=== PATIENT | female | born 1990 | race Caucasian/White ===

== ENCOUNTER 2020-12-19 10:11 | Outpatient (CLI) | payer OTHER, SELFPAY ==
--- NOTE | ~2020-12-19 | XR_ITS ---
EXAMINATION: XR ankle LT min 3V, XR ankle RT min 3V DATE: 12/19/2020 10:40 INDICATION: Bilateral ankle pain. TECHNIQUE: 1. Anteroposterior, oblique, mortise, and lateral views of the left ankle were obtained. 2. Anteroposterior, oblique, mortise, and lateral views of the right ankle were obtained. COMPARISON: None. FINDINGS: Alignment is normal at both ankles. No fracture. Small heterotopic ossicle near the tip the left med ial malleolus likely sequela of chronic ankle sprain. Joint spaces are well maintained. No ankle miri nt effusion. Small left plantar calcaneal spur. Bone island at the right calcaneus. Asymmetric soft t issue swelling about the left lateral malleolus. IMPRESSION: 1. No acute osseous abnormality at the left or right ankle and visualized portions of the feet. Reviewed, dictated and finalized at location B. FRONT END DEVELOPER IMPRESSION: 1. No acute osseous abnormality at the left or right ankle and visualized porti ons of the feet.
== END 2020-12-19 10:12 | disposition home or self-care (01) ==
LOC: CHSIMG 10:13
PROVIDERS: PCP Family Medicine; Visit Provider Family Medicine
DX: M25.572 Pain in left ankle and joints of left foot (principal); M25.571 Pain in right ankle and joints of right foot
CPT/HCPCS: 73610

== ENCOUNTER 2020-12-25 14:06 | Outpatient (RCR) | payer OTHER, SELFPAY ==
--- NOTE | 2020-12-25 15:02 | PTOPEVAL ---
Thank you for referring Loraine Taylor to [facility].? The patient is scheduled to be seen for therapy? ____x/week for ___ weeks. Please review, sign, date and return this plan of care [place]AS[place]. I agree with and certify that the following plan of care is medically necessary. Referring Physician Date Admitting Provider: Attending Provider: Ricardo Dickey MD Referring Provider: *PT Outpatient Evaluation Start: 12/25/20 14:12 Freq: Status: Active Protocol: Document 12/25/20 14:13 Sophy (Rec: 12/25/20 15:01 ABNER [id number]) Therapy Assessment Status Assessment Status Assessment Status Evaluation Evaluation Information Problem Diagnosis bilateral ankle pain Onset 12/20/20 Additional Evaluation Detail LEFS = 37% functionally declined Subjective Information patient reports she injured Query Text:As Reported By Patient/ her L ankle back in 2010 when Family she sprained it. she reports then about 2 years ago she did the same thing to the R ankle . she reports neither ankle has fully healed. she reports she has had no secondary injury to either ankle, but reports they both still hurt her. she reports currently the R is worse than the L. she reports she has increased pain with walking and turning. she reports she also increased pain with increased standing time and overall increased weight bearing activities. she reports she has had an xray of the ankles. she reports no injections. she reports she takes over the counter meds for pain. Prior Level of Function Comments Additional Prior Level of Function patient reports she was having Comments increased pain in the R ankle for the past 2 years. however , prior to this her pain and activity werw manageable. she reports overall her pain is getting worse, especially in the R ankle. Pain Assessment Timing of Pain Assessment Timing of Pain Assessment Assessment Pain Scale Pain Scale Used Numeric (1 - 10) Self Report Pain Assessment Left
--- NOTE | 2021-02-24 07:40 | PCPTNOTE ---
02/24/21 - patient has not been to therapy in over 2 months. as of this date, she will be dc'd from skilled PT services and all progress towards goals will be taken from her most recent evaluation/note. ABNER
== END 2020-12-25 15:06 | disposition home or self-care (01) ==
LOC: CHSPT 14:06
PROVIDERS: PCP Family Medicine; Visit Provider Family Medicine
DX: M25.572 Pain in left ankle and joints of left foot (principal); M25.571 Pain in right ankle and joints of right foot
CPT/HCPCS: 97110; 97161

== ENCOUNTER 2021-02-04 12:53 | Outpatient (CLI) | payer OTHER, SELFPAY ==
[2021-02-04 13:44] LABS: Influenza Control Valid (Valid)
[2021-02-04 13:45] LABS: SARS-CoV-2 Ag Negative (Negative)
[2021-02-05 14:15] LABS: SARS-CoV-2 RNA PCR Negative
== END 2021-02-04 12:54 | disposition home or self-care (01) ==
LOC: CHSLAB 12:55
PROVIDERS: PCP Family Medicine; Visit Provider Family Medicine
DX: J00 Acute nasopharyngitis [common cold] (principal); Z20.822 Contact with and (suspected) exposure to COVID-19
CPT/HCPCS: 87081; 87426; 87804; 87880; C9803; U0003; U0005

== ENCOUNTER 2022-11-22 13:53 | Outpatient (RCR) | payer OTHER, SELFPAY ==
[2022-11-20 11:14] LABS: Hematocrit 35.4 % (37.0-47.0); Hemoglobin 11.6 g/dL (12.0-15.0)
[2022-11-20 12:04] LABS: HIV 1/2 Ab P24 Ag Result Negative (Negative)
[2022-11-20 13:13] LABS: Glucose 1 Hour PP 50gm Dose 185 mg/dL
[2022-11-22] MEDS: RHO(D) IMMUNE GLOBULIN 300 MCG/2 ML SYRINGE IM (16:53)
== END 2022-11-22 14:00 | disposition home or self-care (01) ==
LOC: ANHLAB 13:53
PROVIDERS: PCP Family Medicine; Visit Provider Obstetrics & Gynecology
DX: Z11.4 Encounter for screening for human immunodeficiency virus [HIV] (principal); Z29.13 Encounter for prophylactic Rho(D) immune globulin; O36.0130 Maternal care for anti-D [Rh] antibodies, third trimester, not applicable or unspecified; Z3A.00 Weeks of gestation of pregnancy not specified
CPT/HCPCS: 36415; 82947; 85014; 85018; 85461; 86703; 86850; 86900; 86901; 90384; 96372; G0432; J2790

== ENCOUNTER 2023-01-01 14:03 | Outpatient (CLI) | payer OTHER, SELFPAY ==
[2023-01-01 15:04] LABS: Strep Group A RT-PCR NOT DETECTED (Negative)
[2023-01-01 15:15] LABS: Influenza A QL RT-PCR Negative (Negative); Influenza B QL RT-PCR Negative (Negative); RSV RNA, RT-PCR Negative (Negative); SARS-CoV-2 RNA PCR Negative (Negative)
== END 2023-01-01 14:04 | disposition home or self-care (01) ==
LOC: CHSLAB 14:05
PROVIDERS: PCP Family Medicine; Visit Provider Family Medicine
DX: J06.9 Acute upper respiratory infection, unspecified (principal); Z20.822 Contact with and (suspected) exposure to COVID-19
CPT/HCPCS: 87637; 87651

== ENCOUNTER 2023-01-23 11:26 | Outpatient (CLI) | payer OTHER, SELFPAY ==
[2023-01-23 12:08] LABS: Hematocrit 34.4 % (37.0-47.0); Mean Corpuscular Hemoglobin 26.9 pg (26-34); Mean Corpuscular Volume 84.1 fl (80-100); Mean Platelet Volume 10.5 fl (7.4-10.4); Platelet Count Result 286 k/mm3 (150-375); Red Blood Count 4.09 M/mm3 (4.2-5.4); Red Cell Distribution Width 14.3 % (11.5-14.5); White Blood Count 11.1 K/mm3 (4.5-10.0)
[2023-01-25 08:13] LABS: Rapid Plasma Reagin Non-Reactive (NonReactive)
== END 2023-01-23 11:27 | disposition home or self-care (01) ==
LOC: ANHLAB 11:28
PROVIDERS: PCP Family Medicine; Visit Provider Obstetrics & Gynecology
DX: Z34.93 Encounter for supervision of normal pregnancy, unspecified, third trimester (principal); Z3A.00 Weeks of gestation of pregnancy not specified
CPT/HCPCS: 36415; 85027; 86592; 86850; 86900; 86901

== ENCOUNTER 2023-01-25 05:28 | Inpatient (IN) | payer OTHER, SELFPAY ==
[2023-01-25] VITALS (42 sets, daily range): BP systolic 81–128; BP diastolic 41–93; PULSE 52–89; RESP 13–19; TEMP 36.2–36.9; O2SAT 96–100; BMI 37.4
--- NOTE | 2023-01-25 05:28 | LDADM ---
This patient, Loraine Taylor, was admitted to Labor/Delivery/Recovery 120 on 01/25/23 at 05:28. Plans for labor, pain management and were discussed with patient. Patient/family oriented to hospital policies and general routines including ID bracelet, bed and alarms, visiting hours, pain management, procedures, bathroom and other care routines, personal items, smoking policy, room service/diet and guest tray routines, infant security routines, and visiting hours. Patient/Family are encouraged to report perceived risks to care and to ask questions if they do not understand what they are told or what they should do. See OBIX for further documentation.
[2023-01-25] MEDS: LACTATED RINGERS 1,000 ML 125 ML IV CONT (06:20)
--- NOTE | 2023-01-25 06:56 | P.PNAN_ITS ---
Anes - Initial Pre Proc Eval Procedure: Operation Date: 01/25/23 07:30 Proposed Procedures p Repeat Section, with Bilateral Tubal Ligation - Nella Boewrs MD Date/Time: 01/25/23 06:56 Surgeon: Nella Bowers MD Pre Op Diagnosis: c/s Patient Data Age: 32 Gender: F Height: 1.52 m Weight: 87 kg Last Vital Signs Pulse 72 01/25/23 06:45 BP 106/63 01/25/23 06:45 Allergies Allergy/AdvReac Type Severity Reaction Status Date / Time No Known Allergies Allergy Unknown Verified 10/25/19 14:43 Home Medications Medication Instructions Recorded Confirmed Type PNV no.151-iron 27 mg-folic 800 1 cap PO DAILY 10/25/19 01/25/23 History mcg-omega3 260 hl-uux-duh-fish capsule ( Multi-DHA (with vitamin K)) Laboratory Tests 01/25/23 06:27 Urine Opiates Screen Pending Urine Methadone Screen Pending Ur Barbiturates Screen Pending Ur Phencyclidine Scrn Pending Ur Amphetamine Screen Pending U Benzodiazepines Scrn Pending Urine Cocaine Screen Pending U Cannabinoids Screen Pending Patient hx anesthesia problems: none Family hx anesthesia problems: none Results Review: All pre-operative results and documents have been reviewed as part of the pre- operative evaluation. [facility] Past Medical History Medical History (Updated 11/24/19 @ 08:07 by Nella Bwoers MD) Morbid obesity Family History Family History (Updated 01/04/23 @ 12:57 by Leydi Ocampo RN) Mother Hypertension Father Hypertension Social History Social History Smoking status: Never smoker Tobacco type: cigarettes Second hand tobacco smoke exposure: Yes Substance use: never Spiritual care concerns: No Anes - Eval Final PreProcedure Day of Procedure 01/25/23 06:56 Patient weight: morbidly obese Heart: regular rate and rhythm Lungs: decreased breath sounds Neurological: alert and oriented ASA classification: III Emergent: no Anesthetic plan: proceed Anesthesia type and monitoring: regional and standard monitoring Results Review: All pre-operative results and documents have been reviewed as part of the pre- operative evaluation. Informed Consent: The patient's anesthetic plan and its attendant risks and benefits were discussed with the patient/family/POA. Questions were solicited and answers provided to the satisfaction of the patient/family/POA.
[2023-01-25] MEDS: LACTATED RINGERS 1,000 ML 999 ML IV CONT (07:19)
--- NOTE | 2023-01-25 07:29 | PM.IMHP ---
H&P: [facility] History of Present Illness Date/Time: 01/25/23 07:29 Chief Complaint: Term Narrative: 32-year-old female, multipara, at term with a history of delivery. She desires female sterilization. We agreed to perform fimbriectomy. she has no complaints. She denies any nausea, vomiting, fever, chills. She denies any chest pain or shortness of breath. She denies any contractions, loss of fluid, vaginal bleeding. She denies any headaches, blurry vision, epigastric pain. Reports good movement Review of Systems Review of Systems: All systems reviewed & are unremarkable except as noted in HPI and below Constitutional: Constitutional: Denies chills, Denies fatigue, Denies fever(s) and Denies weakness Eyes: Eyes: Denies blurry vision, Denies change in vision, Denies loss of peripheral vision, Denies loss of vision, Denies other visual disturbances and Denies eye pain ENT: Denies vertigo, Denies dizziness, Denies hearing loss, Denies mouth pain, Denies nasal obstruction, Denies neck mass and Denies neck pain Cardiovascular: Cardiovascular: Denies chest pain, Denies diaphoresis, Denies syncope, Denies leg edema and Denies dyspnea Respiratory: Respiratory: Denies chest congestion, Denies cough, Denies hemoptysis, Denies dyspnea and Denies wheezing Gastrointestinal: Gastrointestinal: Denies abdominal pain, Denies constipation, Denies diarrhea, Denies nausea and Denies vomiting Genitourinary: Genitourinary: Denies hematuria, Denies change in libido, Denies nocturia, Denies genital lesions, Denies flank pain and Denies urinary urgency Musculoskeletal: Musculoskeletal: Denies abnormal gait, Denies back pain, Denies myalgias, Denies arthralgias, Denies joint swelling, Denies muscle weakness and Denies neck pain Integumentary/Breasts: Skin/Breast: Denies swelling, Denies breast pain, Denies breast mass, Denies dry skin, Denies nipple discharge, Denies unusual bruising and Denies jaundice Neurologic: Denies Neuro-related abnormal movements, Denies Abnormal speech present, Denies abnormal gait, Denies behavioral changes, Denies confusion, Denies vertigo, Denies dizziness, Denies syncope, Denies loss of vision, Denies memory loss, Denies convulsions and Denies weakness Psychiatric: Psychiatric: Denies abnormal sleep pattern, Denies behavioral changes, Denies change in libido, Denies confusion, Denies depression, Denies anhedonia and Denies memory loss Endocrine: Endocrine: Reports no additional endocrine complaints, Denies change in libido and Denies fatigue Hematologic/Lymphatic: Hematologic/Lymphatic: Reports no additional hematologic/lymphatic complaints Allergic/Immunologic: Allergic/Immunologic: Reports no additional allergic/immunologic complaints and Denies wheezing PMFSH Past Medical History Medical History (Updated 01/25/23 @ 07:32 by Nella Bowers MD) Morbid obesity Family History Family History (Updated 01/04/23 @ 12:57 by Leydi Ocampo RN) Mother Hypertension Father Hypertension Social History Social History Smoking status: Never smoker Tobacco type: cigarettes Second hand tobacco smoke exposure: Yes Substance use: never Spiritual care concerns: No Meds Home Medications and Allergies Home Medications Medication Instructions Recorded Confirmed Type PNV no.151-iron 27 mg-folic 800 1 cap PO DAILY 10/25/19 01/25/23 History mcg-omega3 260 jm-fgo-bia-fish capsule ( Multi-DHA (with vitamin K)) Allergies Allergy/AdvReac Type Severity Reaction Status Date / Time No Known Allergies Allergy Unknown Verified 10/25/19 14:43 Vital Signs Vital Signs - 24 hr 01/25/23 06:05 01/25/23 06:30 01/25/23 06:45 Pulse Rate 65 84 72 Blood Pressure 91/48 L 110/67 106/63 01/25/23 07:00 01/25/23 07:15 Pulse Rate 59 L 75 Blood Pressure 109/66 119/69 Exam Const: General: healthy appeari
--- NOTE | 2023-01-25 07:34 | WPDHPUPDATE1 ---
History and Physical Update Update Date/Time: 01/25/23 07:34 History and Physical has been reviewed, including an updated exam of the patient. There are NO changes in the patient's condition. Risks, benefits, and alternatives have been discussed and questions answered. Patient agrees to proceed with procedure.
[2023-01-25] MEDS: ceFAZolin 2 GM/D5W 50 ML 2 GM/50 ML BAG IVPB (07:37)
--- NOTE | 2023-01-25 08:31 | P.OP_ITS ---
Procedure Note - Detailed Date of Procedure 01/25/23 Pre-op Diagnosis c/s Post-op Diagnosis Same Procedure Performed Low-transverse section Surgeon Nella Bowers MD Anesthesia Spinal Findings Normal gestational maternal anatomy, average size , normal Apgars. Description of Procedure The patient was taken the operating room. She was prepped and draped in dorsal supine position with a leftward tilt. This was done after spinal anesthetic was applied. A low-transverse skin incision was made and carried down till of the fascia with the knife. The fascial incision was made with the knife. The fascial incision was extended laterally with Davis scissors. The fascia was tented upward superiorly and inferiorly the rectus muscles were dissected off bluntly. The rectus muscles were the midline. The preperitoneal fat and peritoneum were dissected open bluntly at the superior aspect of the rectus muscles. The peritoneal incision was extended superior and inferior with good position of bladder. The uterine incision was made with a scalpel down to the level of the amniotic cavity. The amniotic cavity was entered bluntly. The was delivered. The cord was clamped and cut and the was handed off to waiting pediatric staff. Cord bloods were obtained. The placenta was removed manually. The uterus was exteriorized. The uterus was cleared of all clots, debris and membranes. The uterus was closed in 0 Vicryl running lock fashion. An imbricating over a was placed along the incision line as well. Each fallopian tube was grasped and raised with a Reynolds. With from the underlying venous structures. The mesosalpinx between the tube and the rest the adnexa was cauterized and transected with LigaSure cautery. It was performed from the distal tube near the ovary in a stepwise fashion towards the cornua. The tube at the cornua was cauterized transected with LigaSure cautery. This was performed in a bilateral fashion. The uterus was returned to the abdomen. The gutters were cleared of all clots and debris. The fascia was closed with 0 Vicryl running fashion. The subcutaneous tissue was irrigated pinpoint bleeders were cauterized. The skin was closed with subcuticular absorbable soraida. The skin incision line was covered with glue. The patient tolerated the procedure well. She has taken recovery room in stable condition. Sponge lap and needle counts were correct x2 . Complications No immediate complications Condition Stable Disposition PACU
[2023-01-25] MEDS: OXYTOCIN 30 UNITS/NS 500 ML 30 UNITS/500 ML BAG 125 UNITS IV CONT (09:21)
[2023-01-25 09:50] LABS: Barbiturate Screen Urine Negative (Negative); Benzodiazepines Screen Urine Negative (Negative)
[2023-01-25 09:52] LABS: Cannabinoid Screen Urine Negative (Negative); Cocaine Screen Urine Negative (Negative); Methadone Screen Urine Negative (Negative); Opiate Screen Urine Negative (Negative); Phencyclidine Screen Urine Negative (Negative)
--- NOTE | 2023-01-25 10:46 | PC.NURSE ---
Patient transferred to post room #290 via (stretcher ). Support person present. Oriented to unit, room, information board, rooming in, admission packet and security measures. Patient verbalizes understanding.
[2023-01-25] MEDS: MULTIVIT/MIN/PREN/FOL AC/IRON TABLET 1 TAB PO (11:22)
[2023-01-25] MEDS: DOCUSATE SODIUM 100 MG CAPSULE PO ×2 (11:22→21:21)
[2023-01-25] MEDS: ONDANSETRON INJ 4 MG/2 ML VIAL IV PUSH (11:30)
[2023-01-25 11:32] LABS: Amphetamine Screen Urine Negative (Negative)
[2023-01-25] MEDS: HYDROcodone/acetaminophen (*CRX) 5-325 MG TABLET 1 TAB PO ×2 (12:35→19:35)
[2023-01-25] MEDS: KETOROLAC 30 MG/ML VIAL (*BKC) IV PUSH ×2 (12:49→19:41)
[2023-01-25] MEDS: DEXTROSE 5%/0.45% SOD CHL 1,000 ML 125 ML IV CONT (13:23)
--- NOTE | 2023-01-25 14:26 | PC.NURSE ---
[id number] Introductions were made, then consulted with patient to assess needs related to . Mother led the conversation with her?plans to feed?her infant and the?experience so far. Resources provided for inpatient and outpatient services with the feeding sheet, mom/baby guide and name written on the white board. Mother voiced understanding of information and requested assistance. Mother works well with her with encouragement and education. Encouraged understanding of the benefits of skin to skin (demonstrating unwrapping and placing upright on her chest), stimulating with massage touch, changing positions to encourage wakefulness, how to watch for early feeding cues, responsive feeding, feeding on demand (aiming for 8-12 times in 24 hours, about every 2-3 hours), milk production, building/maintaining a milk supply, duration of feeding, signs of adequate intake/output and how to record on the feeding sheet. Reviewed positioning and ear, shoulder, hip alignment, supporting the breast to facilitate a deep latch, asymmetrical latch (off-center), leading with the chin with a big, open, wide gape and body close to mother. is reluctant to open to breastfeed at this time. Reviewed good handwashing when or touching the breast/nipples to prevent infection. Resources used to facilitate learning were used with the mom and baby guide. Mother voiced understanding of skin to skin, stimulating with massage touch, responsive feedings, encouraging feeding if it has been 2.5-3 hours since the start of the last , to call if does not latch, or if there is discomfort with . Resources provided for inpatient/outpatient with business card, feeding sheet and the mom/baby guide. Mother voiced understanding of information, demonstrated learning and will call if there is a request for assistance but reinforcement might be needed as there are 3 other children actively visiting in the room with two other adults. Encouraged mother to consistently pumping every 3 hours 1-2 times at night to protect the milk supply and that pumping should not be painful. Reported to the primary RN.
[2023-01-25] MEDS: KCL 20 MEQ/D5/0.45% SOD CHL 1,000 ML 125 ML IV CONT (21:18)
[2023-01-26] MEDS: IBUPROFEN 600 MG TABLET PO ×3 (01:31→17:10)
[2023-01-26] MEDS: HYDROcodone/acetaminophen (*CRX) 5-325 MG TABLET 1 TAB PO ×4 (01:31→17:10)
[2023-01-26 05:12] LABS: Basophils Absolute Auto 0.1 K/mm3 (0.0-0.1); Basophils Percent Auto 0.5 % (0.2-1.2); Eosinophils Absolute Auto 0.2 K/mm3 (0-0.3); Eosinophils Percent Auto 1.6 % (0-4.4); Hematocrit 30.3 % (37.0-47.0); Hemoglobin 9.8 g/dL (12.0-15.0); Immature Granulocyte Absolute 0.06 K/mm3 (0.00-0.031); Immature Granulocyte Percent A 0.5 % (0-0.5); Lymphocytes Absolute Auto 2.87 K/mm3 (0.9-3.2); Lymphocytes Percent Auto 23.3 % (18.3-44.2); Mean Corpuscular HGB Conc 32.3 g/dl (32-36); Mean Corpuscular Hemoglobin 27.7 pg (26-34); Mean Corpuscular Volume 85.6 fl (80-100); Mean Platelet Volume 10.7 fl (7.4-10.4); Monocytes Absolute Auto 0.7 K/mm3 (0.1-0.6); Neutrophils Absolute Auto 8.4 K/mm3 (1.3-6.7); Neutrophils Percent Auto 68.1 % (45.5-73.1); Platelet Count Result 269 k/mm3 (150-375); Red Blood Count 3.54 M/mm3 (4.2-5.4); White Blood Count 12.3 K/mm3 (4.5-10.0)
[2023-01-26 08:40] VITALS: BP 103/70; PULSE 69; RESP 16; TEMP 36.8; O2SAT 100
[2023-01-26] MEDS: MULTIVIT/MIN/PREN/FOL AC/IRON TABLET 1 TAB PO (08:53)
[2023-01-26] MEDS: DOCUSATE SODIUM 100 MG CAPSULE PO ×2 (08:54→17:10)
[2023-01-26] MEDS: LANOLIN (LANSINOH) 7.5 GM CREAM 1 APPLIC TOPICAL (08:55)
[2023-01-26] MEDS: POLYSACCHARIDE IRON COMPLEX 150 MG CAPSULE PO ×2 (08:56→17:10)
--- NOTE | 2023-01-26 10:03 | P.PNOB_ITS ---
OB - PN: Subj Subjective Date/time seen: 01/26/23 10:03 Patient comments: no complaints, pain well controlled, tolerating diet and flatus present OB - PN: Obj Data Labs 01/26/23 04:55 Labs: Laboratory Results - last 24 hr 01/25/23 01/26/23 06:27 04:55 WBC 12.3 H RBC 3.54 L Hgb 9.8 L Hct 30.3 L MCV 85.6 MCH 27.7 MCHC 32.3 RDW 14.0 Plt Count 269 MPV 10.7 H Immature Gran % (Auto) 0.5 Neut % (Auto) 68.1 Lymph % (Auto) 23.3 Valencia % (Auto) 6.0 Eos % (Auto) 1.6 Baso % (Auto) 0.5 Lymph # (Auto) 2.87 Valencia # (Auto) 0.7 H Eos # (Auto) 0.2 Baso # (Auto) 0.1 Abs Immat Gran (auto) 0.06 H Absolute Neuts (auto) 8.4 H Absolute Nucleated RBC 0.0 Nucleated RBC % 0.0 Ur Amphetamine Screen Negative OB - PN A/P Plan day: 1 Comments: Post Op LTCS - no problems, routine recovery Time Spent With Patient Time: Total time spent is greater than 50% in coordination of care (as documented) at patient's floor/unit and/or counseling patient: Exam Const: General: cooperative, healthy appearing, comfortable and no acute distress Resp: Auscultation: no crackles, no rales, no rhonchi and no wheezes Cardio: Rhythm: regular rhythm Heart sounds: no click and no murmurs GI: Inspection: non-distended Auscultation: normal bowel sounds Extrem: General: normal to inspection, no pedal edema and no calf tenderness
--- NOTE | 2023-01-26 13:26 | WPDANLDPN2 ---
Anes-Prog Note L&D Date/Time: 01/26/23 13:26 Neuro status: Neuro function grossly intact. Vital Signs: Last Vital Signs Temp 36.8 C 01/26/23 08:40 Pulse 69 01/26/23 08:40 Resp 16 01/26/23 08:40 BP 103/70 01/26/23 08:40 Pulse Ox 100 01/26/23 08:40 O2 Del Method Room Air 01/25/23 15:50 Pain score (VAS): 0 I/O: Intake & Output 01/25/23 01/26/23 01/26/23 23:59 07:59 15:59 Intake Total 740 300 Output Total 600 Balance 140 300 Patient feedback: Patient satisfied with anesthetic care.
--- NOTE | 2023-01-26 13:26 | WPDANLDNPN2 ---
Anes-Prog Note L&D-Neuraxial Date/Time: 01/26/23 13:26 Patient feedback: Patient satisfied with post-operative pain management.
[2023-01-26 20:04] VITALS: BP 124/72; PULSE 79; RESP 18; TEMP 36.9; O2SAT 98
[2023-01-26] MEDS: HYDROcodone/acetaminophen (*CRX) 10-325 MG TABLET 1 TAB PO (21:06)
[2023-01-27] MEDS: HYDROcodone/acetaminophen (*CRX) 5-325 MG TABLET 1 TAB PO ×3 (01:47→13:40)
[2023-01-27] MEDS: IBUPROFEN 600 MG TABLET PO ×3 (01:47→13:41)
--- NOTE | 2023-01-27 07:39 | PM.OBPNVD ---
OB - PN: Subj Subjective Date/time seen: 01/27/23 07:39 s/p section day 2, doing well, flatus present OB - PN: Obj Data Labs 01/26/23 04:55 OB - PN A/P Plan day: 2 Plan: routine care Time Spent With Patient Time: Total time spent is greater than 50% in coordination of care (as documented) at patient's floor/unit and/or counseling patient: Review of Systems Review of Systems: All systems reviewed & are unremarkable except as noted in HPI and below Exam Narrative: Incision CDI
[2023-01-27] MEDS: POLYSACCHARIDE IRON COMPLEX 150 MG CAPSULE PO (07:42)
[2023-01-27] MEDS: MULTIVIT/MIN/PREN/FOL AC/IRON TABLET 1 TAB PO (07:42)
[2023-01-27] MEDS: DOCUSATE SODIUM 100 MG CAPSULE PO (07:42)
--- NOTE | 2023-01-27 07:57 | PM.OBDSVD ---
DS: Admitting Diagnosis Discharge Date 01/27/23 Admitting Diagnosis rpt DS: Discharge Diagnosis Discharge Diagnosis (1) delivery delivered: Code(s): O82 - Encounter for delivery without indication Status: Acute OB - DS: Summary OB Procedures : None OB Procedures Intrapartum: OB Procedures: : None Peripartum Data Procedures: Procedures Operation Date: 01/25/23 07:30 Actual Procedure Side Surgeon p Repeat Section, with Bilateral Tubal Ligation Nella Bowers MD Time Spent with Patient Time attestation: Total time spent providing and/or coordinating discharge services: DS: Data Data Completed and Pending Completed studies during hospitalization: Pending at discharge 01/25/23 08:52 Surgical [PTH] Routine Surgical [PTH] Routine Discharge Plan Discharge Attending physician on discharge: Nella Bowers Discharging Clinician: Samantha Flores Patient Disposition: Home, Self-Care Activity: pelvic rest Diet: regular Patient Instructions: Antibiotic Form Stand Alone Forms: General Discharge Information Follow-up/Referrals: Nella Bowers MD [Physician] - 1 Week Discharge Medications: New hydrocodone-acetaminophen 5-325 mg Tablet 1 tablet PO Q3H PRN (Reason: Moderate Pain (4-6)) Qty: 25 0RF Continued Multi-DHA(with vit K) 27 mg iron-800 mcg-260 mg Capsule 1 cap PO DAILY Date of admission: 01/25/23 05:28 Primary Care Provider: Ricardo Dickey Admitting Provider: Nella Bowers Attending physician on admission: Nella Bowers Condition: Stable
[2023-01-27 08:00] VITALS: BP 126/87; PULSE 87; RESP 16; TEMP 37.1; O2SAT 99
--- NOTE | 2023-01-27 09:40 | PC.NURSE ---
Advised Dr. Bowers that I had spoken with Eliel Flores regarding a Care Coordination consult that was ordered by the slot floor person on 01/26/22 for (+) UDS during on 07/22/[address] Bowers to advise patient.
--- NOTE | 2023-01-27 09:43 | PM.OBDSVD ---
DS: Admitting Diagnosis Discharge Date 01/27/23 Admitting Diagnosis term OB - DS: Summary OB Procedures : None OB Procedures Intrapartum: OB Procedures: : None Peripartum Data Procedures: Procedures Operation Date: 01/25/23 07:30 Actual Procedure Side Surgeon p Repeat Section, with Bilateral Tubal Ligation Nella Bowers MD Time Spent with Patient Time attestation: Total time spent providing and/or coordinating discharge services: DS: Data Data Completed and Pending Completed studies during hospitalization: Pending at discharge 01/25/23 08:52 Surgical [PTH] Routine Surgical [PTH] Routine Discharge Plan Discharge Attending physician on discharge: Nella Bowers Discharging Clinician: Samantha Flores Patient Disposition: Home, Self-Care Activity: pelvic rest Diet: regular Patient Instructions: Antibiotic Form Stand Alone Forms: General Discharge Information Follow-up/Referrals: Nella Bowers MD [Physician] - 1 Week Discharge Medications: New hydrocodone-acetaminophen 5-325 mg Tablet 1 tablet PO Q3H PRN (Reason: Moderate Pain (4-6)) Qty: 25 0RF Continued Multi-DHA(with vit K) 27 mg iron-800 mcg-260 mg Capsule 1 cap PO DAILY Date of admission: 01/25/23 05:28 Primary Care Provider: Ricardo Dickey Admitting Provider: Nella Bowers Attending physician on admission: Nella Bowers Condition: Stable
--- NOTE | 2023-01-27 11:00 | PC.NURSE ---
Patient viewed the discharge video Mother & Baby Care, The First Two Weeks . Patient was given the opportunity and encouraged to ask questions. Patient verbalized understanding of information shared and has been given the mother/baby guide for home reference.
--- NOTE | 2023-01-27 12:55 | PC.NURSE ---
Note copied from baby's chart. Care Coordination consult was ordered under the baby by the senior developer on 01/26/23 for (+) UDS x1 (8) during for methamphetamine and amphetamine. [address] Kirk that Ritika with Care Coordination spoke with patient and she has an open DCFS case and was going to see if ok for mom to be discharged home with baby today. 1245 Received call from Ritika in Care Coordination that baby is ok to be discharged home with mom today. [address] Kirk that Ritika called and baby is ok to go home with mom today. D/C orders pending.
--- NOTE | 2023-01-27 15:44 | PCCCNOTE ---
Addendum entered by TANVI Levin 02/05/23 08:01: Baby's drug screens faxed to [facility] [place] Office [phone] & [phone]. 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 Met with pt. who denies drug use during and her UDS was negative upon admission. Baby's umbilical cord and meconium drug screens are pending. THU Haskins reports no signs of withdrawal from baby. Pt. reports having an open DCFS case from the Fall of 2021, and current with DCFS worker Gerson [phone]. Spoke with Gerson who reports pt's case is an intact case and explains that pt. still has custody of all children and they are providing resources to pt. and JANNIE Hernandez. Gerson reports no concerns for children's safety. [facility] report made online #[phone]. [facility] sent CC an email that reports : Your information has been reviewed and assessed by a Wood Preparation Supervisor. The information you provided did not meet one of the criteria for an investigation (eligible victim, eligible perpetrator, eligible event, or jurisdiction). If there is a current open case involving this family, the assigned worker will be notified of your report so he/she can follow up; additionally the information provided has been documented and will be kept on file. THU Haskins aware that Gerson reports able to have baby discharge home today with pt. Pt. and baby discharging home, where they will live with LMMargie David, pt's 3 year old son Hong, and Selene VALDERRAMA's daughter. Pt. reports her sister Obdulia and grandmother Melania are supportive and will assist at home. Pt. reports having all needed supplies for baby. Pt. reports established with both WIC and [employer]. resources provided to pt. DCFS worker Gerson requests the baby's drug screen results be faxed to her at the [place] office.
[2023-01-28 16:02] VITALS: BP 121/78; PULSE 78; RESP 20; TEMP 36.9; O2SAT 99
== END 2023-01-27 14:40 | disposition home or self-care (01) | DRG 540 ==
LOC: ANHLDR 05:31 → ANHOB2 11:26
PROVIDERS: Admitting Provider Obstetrics & Gynecology; PCP Family Medicine; Visit Provider Obstetrics & Gynecology
PROC: 10D00Z1 Extraction of Products of Conception, Low, Open Approach (ICD-10-PCS; CPT 59514; principal; 2023-01-25 07:30)
DX: O34.219 Maternal care for unspecified type scar from previous cesarean delivery (principal); E66.01 Morbid (severe) obesity due to excess calories; Z30.2 Encounter for sterilization; O99.214 Obesity complicating childbirth; O77.0 Labor and delivery complicated by meconium in amniotic fluid; Z3A.39 39 weeks gestation of pregnancy; Z37.0 Single live birth
CPT/HCPCS: 36415; 80307; 85025; 88302; A9270; J0131; J0690; J1885; J2274; J2370; J2405; J2590; J3480; J7120

== ENCOUNTER 2023-06-19 09:31 | Emergency (ER) | payer OTHER, SELFPAY ==
--- NOTE | ~2023-06-19 | XR_ITS ---
XR chest 2V DATE: 06/19/2023 10:01 INDICATION: Midsternal chest pain, shortness of breath and nausea for one day TECHNIQUE: PA and lateral views COMPARISON: None FINDINGS: Normal heart size. No hilar or mediastinal enlargement. No pulmonary infiltrate or consolid ation, pleural effusion or pulmonary vascular congestion or pneumothorax is detected. IMPRESSION: Negative Reviewed, dictated and finalized at location A. IMPRESSION: Negative
[2023-06-19 09:31] VITALS: BP 149/109; PULSE 66; RESP 16; TEMP 36.1; O2SAT 100
[2023-06-19 09:35] VITALS: O2SAT 98
--- NOTE | 2023-06-19 09:37 | ECG_ITS ---
Measurements Intervals [place] Rate: 59 P: 33 OR: 145 QRS: 18 QRSD: 90 T: 17 QT: 406 QTc: 404 Interpretive Statements SINUS BRADYCARDIA BORDERLINE T WAVE ABNORMALITY- INFERIOR LEADS BASELINE ARTIFACT- II, III, AVF, V1, V3-V6 BORDERLINE ECG NO PREVIOUS ECG AVAILABLE FOR COMPARISON Electronically Signed On 06-19-2023 11:05:19 CDT by Rodrigue Cristobal D.O.
[2023-06-19 09:39] VITALS: BP 149/109; PULSE 66; RESP 16; TEMP 36.1; O2SAT 100
--- NOTE | 2023-06-19 09:39 | ED.CHESTPAIN ---
HPI - Chest Pain General Chief Complaint: Chest Pain Stated Complaint: chest pain Time Seen by Provider: 06/19/23 09:36 Source: patient Mode of arrival: ambulatory Limitations: no limitations History of Present Illness HPI narrative: patient is a 32-year-old female with some chest pain for the last 2 days. The pain is midline substernal and occurs when she moves her arms. She has little children at home and carries them often. No associated shortness of breath or numbness. MD complaint: chest pain and chest discomfort Onset (ago): day(s) (2) Timing of current episode: constant Prior episodes: No Onset: during rest, during exertion and awoke with symptoms Pain location: substernal Pain radiation: none Severity: moderate Pain scale (0-10): 5 Quality: tightness Relieving factors: nothing Exacerbating factors: movement Risk Factors Coronary artery disease risk factors: none Thoracic aortic dissection risk factors: none Related Data On Oral Contraceptives: No Allergies Allergy/AdvReac Type Severity Reaction Status Date / Time No Known Allergies Allergy Unknown Verified 06/19/23 09:38 Review of Systems Review of Systems: All systems reviewed & are unremarkable except as noted in HPI and below Constitutional: Constitutional: Reports no additional constitutional complaints Eyes: Eyes: Reports no additional eye complaints ENT: Reports system reviewed and no additional complaints, except as documented Cardiovascular: Cardiovascular: Reports chest pain, Denies rapid heart rate, Denies radiating jaw, neck or arm pain and Denies slow heart rate Respiratory: Respiratory: Reports no additional respiratory complaints Gastrointestinal: Gastrointestinal: Reports no additional gastrointestinal complaints Genitourinary: Genitourinary: Reports no additional female genitourinary complaints Musculoskeletal: Musculoskeletal: Reports no additional musculoskeletal complaints Integumentary/Breasts: Skin/Breast: Reports system reviewed and no additional complaints, except as docu Neurologic: Reports system reviewed and no additional complaints, except as documented Psychiatric: Psychiatric: Reports no additional psychiatric complaints Endocrine: Endocrine: Reports no additional endocrine complaints Hematologic/Lymphatic: Hematologic/Lymphatic: Reports no additional hematologic/lymphatic complaints Allergic/Immunologic: Allergic/Immunologic: Reports no additional allergic/immunologic complaints [facility] Past Medical History Medical History (Updated 06/19/23 @ 10:49 by Thomas Queen MD) Morbid obesity Family History Family History Mother Hypertension Father Hypertension Social History Social History Smoking status: Never smoker Tobacco type: cigarettes Second hand tobacco smoke exposure: Yes Substance use: never Lack of Transportation: No Lack of Food: Never True Current Housing: I Have Housing Concerned About Future Housing: No Difficulty Paying Gas/Electric Bills: No Difficulty Paying for Meds: No Currently Unemployed: No Education: High School Diploma/GED Difficulty w/ Childcare or Family Care: No Spiritual care concerns: No Exam Const: General: healthy appearing Nutritional Appearance: well nourished Orientation/consciousness: patient oriented x3 Limitations: no limitations HENMT: Head: normal to inspection Ears: external ears normal Face/Nose/Sinus: Normal external nose present Face and sinus: normal facial exam Mouth: Yes Normal oral and palatal mucosa present Teeth and gingiva: dentition normal Throat: posterior oropharynx normal Neck: Neck: normal visual inspection Chest: Chest palpation & inspection: normal inspection of the chest Resp: Effort & Inspection: normal respiratory effort, not labored, no retractions and not tachypneic Auscultation: clear to au
[2023-06-19 09:50] VITALS: PULSE 58
[2023-06-19 09:57] LABS: Appearance Urine Clear (Clear); Bilirubin Urine Negative (Negative); Color Urine Light Yellow (Yellow); Glucose Urine UA Negative (Negative); Ketones Urine Negative (Negative); Leukocyte Esterase Ur Negative (Negative); Nitrate Urine Negative (Negative); Protein Urine Negative (Negative); Specific Grav Ur 1.025 (1.010-1.020); Urobilinogen Urine 0.2 mg/dL (0.2-1.0)
[2023-06-19 10:00] LABS: Pregnancy On Board Control Positive; Urine Pregnancy Test Negative
[2023-06-19] MEDS: KETOROLAC (*BKC) 60 MG/2 ML VIAL IM (10:07)
[2023-06-19 10:08] LABS: Add Urine Microscopic? YES; Bacteria Urine 2+ /hpf; Blood Urine Trace-Lysed (Negative); RBC Urine 0-2 /hpf (0-2); Squamous Epithelial Cell Urine Moderate /hpf (Few); WBC Urine 0-3 /hpf (0-3)
[2023-06-19 10:08] LABS: Basophils Absolute Auto 0.04 K/mm3 (0.00-0.10); Basophils Percent Auto 0.6 % (0.0-1.0); Eosinophils Absolute Auto 0.12 K/mm3 (0.02-0.50); Eosinophils Percent Auto 1.7 % (1.0-6.0); Hemoglobin 13.1 g/dL (12.0-15.0); Immature Granulocyte Absolute 0.02 K/mm3 (0.00-0.00); Immature Granulocyte Percent A 0.3 % (0.0-0.0); Lymphocytes Absolute Auto 2.45 K/mm3 (1.10-4.50); Lymphocytes Percent Auto 35.6 % (18.0-42.0); Mean Corpuscular Hemoglobin 27.9 pg (27.0-31.0); Mean Corpuscular Volume 87.2 fL (78.0-102.0); Mean Platelet Volume 10.3 fl (9.2-11.8); Monocytes Absolute Auto 0.41 K/mm3 (0.10-0.90); Neutrophils Absolute Auto 3.8 K/mm3 (1.7-7.2); Neutrophils Percent Auto 55.8 % (50.0-70.0); Platelet Count Result 329 K/mm3 (150-420); Red Cell Distribution Width 12.4 % (11.6-14.4); White Blood Count 6.9 K/mm3 (4.8-10.8)
[2023-06-19 10:25] LABS: Alanine Aminotransferase 22 U/L (14-59); Albumin Level 3.4 g/dL (3.4-5.0); Alkaline Phosphatase 92 U/L (46-116); Anion Gap 7 mmol/L (8-16); Aspartate Amino Transferase 14 U/L (15-37); Bilirubin,Total 0.1 mg/dL (0.00-1.00); Blood Urea Nitrogen 16 mg/dL (7-18); Calcium 8.6 mg/dL (8.5-10.1); Carbon Dioxide 29 mmol/L (21-32); Chloride 104 mmol/L (98-108); Estimated Glomerular Filt Rate > 60; Glucose 72 mg/dL (70-99); Osmolality Calculated 290 mOsm/kg (285-295); Sodium 140 mmol/L (136-145); Total Protein 7.3 g/dL (6.4-8.2); Troponin I 4.1 ng/L (0.00-60.4)
[2023-06-19 10:52] VITALS: BP 102/67; PULSE 59; RESP 16; TEMP 36.4; O2SAT 98
== END 2023-06-19 10:55 | disposition home or self-care (01) ==
PROVIDERS: Emergency Provider Emergency Medicine; PCP Family Medicine
DX: M94.0 Chondrocostal junction syndrome [Tietze] (principal)
CPT/HCPCS: 36415; 71046; 80053; 81001; 81025; 84484; 85025; 93005; 96372; 99284; J1885

== ENCOUNTER 2023-10-23 16:37 | Emergency (ER) | payer OTHER, SELFPAY ==
--- NOTE | ~2023-10-23 | XR_ITS ---
EXAMINATION: XR chest 2V 10/23/2023 17:36 INDICATION: Cough PROCEDURE: 2 view chest COMPARISON: 06/19/2023 FINDINGS: The lungs are clear. The cardiomediastinal silhouette is within normal limits. There are no pleural effusions. There is no pneumothorax suspected. IMPRESSION: 1: NO ACUTE CARDIOPULMONARY DISEASE. Reviewed, dictated and finalized at location A. APPROVER
[2023-10-23 16:43] VITALS: BP 102/66; PULSE 89; RESP 18; TEMP 36.9; O2SAT 97
--- NOTE | 2023-10-23 17:16 | ED.GENADULT ---
HPI - General Adult General Chief complaint: Upper Respiratory Infection Stated complaint: Cough, Sneezing, and Ear Irritation Source: patient Mode of arrival: ambulatory Limitations: no limitations History of Present Illness HPI narrative: Pt presents for evaluation of left sided ear pain and decreased hearing on that side for the past few days. She states she held her breath when sneezing and felt a pop in that ear. Her other symptoms immediately followed. She denies any drainage from the ears. No fever, chills, nausea, vomiting. She has experience a nonproductive cough since 09/21/2023. She denies any shortness of breath. She does not smoke. She occasionally uses marijuana. Related Data Home Medications Medication Instructions Recorded Confirmed vit no.95-ferrous 1 tablet PO DAILY 10/27/19 10/27/19 fumarate 28 mg-folic acid 800 mcg tablet () Allergies Allergy/AdvReac Type Severity Reaction Status Date / Time No Known Allergies Allergy Unknown Verified 06/21/23 16:15 Review of Systems Review of Systems: CONSTITUTIONAL: Denies fever, chills, or sweats. EYES: Denies visual changes, redness, or discharge. ENT: Reports left sided ear pain and decreased hearing on the left. Denies right sided otalgia or drainage from the ears. CARDIOVASCULAR: Denies chest pain, palpitations, or edema. RESPIRATORY: Reports cough. Denies SOB. GASTROINTESTINAL: Denies abdominal pain, nausea, vomiting, or diarrhea. GENITOURINARY: Denies dysuria or hematuria. SKIN: Denies rash or itching. MUSCULOSKELETAL: Denies back pain, joint pain, or myalgia. NEUROLOGIC: Denies headache, numbness, dizziness, or weakness. PSYCHIATRIC: Denies anxiety or depression. [facility] Past Medical History Medical History Morbid obesity Surgical History Surgical History History of Family History Family History Mother Hypertension Father Hypertension Father Hypertension Mother Diabetes mellitus Social History Social History Smoking status: Never smoker Second hand tobacco smoke exposure: Yes Substance use: current Substance use type: marijuana Other substance usage details: occasional Lack of Transportation: No Lack of Food: Never True Current Housing: I Have Housing Concerned About Future Housing: No Difficulty Paying Gas/Electric Bills: No Difficulty Paying for Meds: No Currently Unemployed: No Education: High School Diploma/GED Difficulty w/ Childcare or Family Care: No Gender identity (if verbalized by the patient): Female Spiritual care concerns: No Exam Narrative: GENERAL: Well-appearing, well-nourished, and in no acute distress. HEAD: Normocephalic, atraumatic. EYES: PERRLA and EOMI. ENT: Nares clear, no rhinorrhea or epistaxis. Mucous membranes moist. Oropharynx without tonsillar hypertrophy exudate or other lesions. Right TM pearly olson nonbulging. Left TM is erythematous. I do not appreciate a TM perforation but I am not able to visualize about 20% of the TM surface due to curve in ear canal. NECK: Supple. No adenopathy or masses. No carotid bruits or JVD CHEST: Clear to auscultation. No respiratory distress. No wheezes rales or rhonchi HEART: Regular rate and rhythm. No murmur heard. Normal peripheral pulses. ABDOMEN: Soft, nontender, nondistended, normal active bowel sounds. EXTREMITIES: Normal range of motion. No edema. SKIN: Warm, dry, no rash. NEURO: No focal deficits. Alert and oriented x3. PSYCH: Normal mood and affect. Course Course Emergency Course: This is a 33-year-old female who presented for evaluation of cough and left-sided otalgia. I suspect that she has a tympanic membrane perforation abigail
== END 2023-10-23 18:18 | disposition home or self-care (01) ==
PROVIDERS: Emergency Provider Nurse Practitioner; PCP Family Medicine
DX: H92.02 Otalgia, left ear (principal); R05.9 Cough, unspecified; E66.01 Morbid (severe) obesity due to excess calories; Z68.35 Body mass index [BMI] 35.0-35.9, adult; F12.90 Cannabis use, unspecified, uncomplicated
CPT/HCPCS: 71046; 99213; G0463

== ENCOUNTER 2023-10-25 09:09 | Emergency (ER) | payer OTHER, SELFPAY ==
--- NOTE | ~2023-10-25 | XR_ITS ---
EXAMINATION: XR chest 2V 10/25/2023 12:52 INDICATION: Midsternal chest pain PROCEDURE: 2 view chest COMPARISON: 10/23/2020 FINDINGS: The lungs are clear. The cardiomediastinal silhouette is within normal limits. There are no pleural effusions. There is no pneumothorax suspected. IMPRESSION: 1: NO ACUTE CARDIOPULMONARY DISEASE. Reviewed, dictated and finalized at location B. ALS REFEREE
[2023-10-25 09:11] VITALS: BP 118/71; PULSE 61; RESP 18; TEMP 36.7; O2SAT 98
--- NOTE | 2023-10-25 09:13 | ECG_ITS ---
Measurements Intervals [place] Rate: 51 P: 41 [place]: 142 QRS: 40 QRSD: 87 T: 5 QT: 450 QTc: 416 Interpretive Statements SINUS BRADYCARDIA OTHERWISE NORMAL ELECTROCARDIOGRAM COMPARED TO ECG 06/19/2023 09:43:08 NO SIGNIFICANT CHANGES Electronically Signed On 10-25-2023 15:34:40 [employer] by Olivier Branch M.D.
--- NOTE | 2023-10-25 09:55 | ED.GENADULT ---
HPI - General Adult General Chief complaint: Abdominal Pain Stated complaint: GERD Time Seen by Provider: 10/25/23 09:15 Source: patient Mode of arrival: ambulatory Limitations: no limitations History of Present Illness HPI narrative: 33 yo F with history of anxiety, who smokes marijuana here and there , presents to ED due to substernal chest pain and epigastric abdominal pain. Chest pain feels like pressure in her chest. She has no history of acid reflux. Related Data Allergies Allergy/AdvReac Type Severity Reaction Status Date / Time No Known Allergies Allergy Unknown Verified 06/21/23 16:15 Review of Systems Constitutional: Constitutional: Reports as per HPI and Reports no additional constitutional complaints Eyes: Eyes: Reports as per HPI and Reports no additional eye complaints ENT: Reports system reviewed and no additional complaints, except as documented and Reports as per HPI Cardiovascular: Cardiovascular: Reports as per HPI and Reports no additional cardiovascular complaints Respiratory: Respiratory: Reports as per HPI and Reports no additional respiratory complaints Gastrointestinal: Gastrointestinal: Reports as per HPI and Reports no additional gastrointestinal complaints Genitourinary: Genitourinary: Reports as per HPI Musculoskeletal: Musculoskeletal: Reports no additional musculoskeletal complaints and Reports as per HPI Integumentary/Breasts: Skin/Breast: Reports system reviewed and no additional complaints, except as docu and Reports as per HPI Neurologic: Reports system reviewed and no additional complaints, except as documented and Reports as per HPI Psychiatric: Psychiatric: Reports no additional psychiatric complaints and Reports as per HPI Endocrine: Endocrine: Reports no additional endocrine complaints and Reports as per HPI Hematologic/Lymphatic: Hematologic/Lymphatic: Reports no additional hematologic/lymphatic complaints and Reports as per HPI Allergic/Immunologic: Allergic/Immunologic: Reports no additional allergic/immunologic complaints and Reports as per HPI [facility] Past Medical History Medical History Morbid obesity Surgical History Surgical History History of Family History Family History Mother Hypertension Father Hypertension Father Hypertension Mother Diabetes mellitus Social History Social History Smoking status: Never smoker Second hand tobacco smoke exposure: Yes Substance use: current Substance use type: marijuana Other substance usage details: occasional Lack of Transportation: No Lack of Food: Never True Current Housing: I Have Housing Concerned About Future Housing: No Difficulty Paying Gas/Electric Bills: No Difficulty Paying for Meds: No Currently Unemployed: No Education: High School Diploma/GED Difficulty w/ Childcare or Family Care: No Gender identity (if verbalized by the patient): Female Spiritual care concerns: No Exam Const: General: cooperative, healthy appearing, comfortable, no acute distress, well developed, alert, awake, average body habitus and well nourished Nutritional Appearance: average body habitus and well nourished Orientation/consciousness: oriented to person, oriented to place and oriented to time Limitations: no limitations HENMT: Head: normal to inspection Ears: hearing grossly normal bilaterally, external ears normal and TM's normal bilaterally Face/Nose/Sinus: Normal external nose present, Normal nares present, No nasal polyps present, Normal nasal mucous membranes and turbinates present, Normal septum present, No nasal discharge present, normal facial exam, sinuses nontender and face symmetric Face and sinus: normal facial exam, sinuses nonten
[2023-10-25 10:18] LABS: Hematocrit 41.8 % (35.0-49.0); Hemoglobin 13.4 g/dL (12.0-15.0); Mean Corpuscular HGB Conc 32.1 g/dL (32.0-36.0); Mean Corpuscular Volume 84.3 fL (78.0-102.0); Mean Platelet Volume 10.5 fl (9.2-11.8); Platelet Count Result 359 K/mm3 (150-420); Red Blood Count 4.96 M/mm3 (4.20-5.40); Red Cell Distribution Width 13.9 % (11.6-14.4); White Blood Count 13.6 K/mm3 (4.8-10.8)
[2023-10-25 10:19] LABS: Appearance Urine Clear (Clear); Bilirubin Urine Negative (Negative); Blood Urine Negative (Negative); Color Urine Light Yellow (Yellow); Glucose Urine UA Negative (Negative); Ketones Urine Negative (Negative); Leukocyte Esterase Ur Negative LEU/UL (Negative); Nitrate Urine Negative (Negative); Protein Urine Trace (Negative); Specific Grav Ur 1.015 (1.010-1.020); Urobilinogen Urine 0.2 mg/dL (0.2-1.0); pH Urine 8.5 (5.0-8.0)
[2023-10-25 10:21] LABS: Pregnancy On Board Control Positive; Urine Pregnancy Test Negative
[2023-10-25 10:24] LABS: Add Urine Microscopic? YES; RBC Urine None seen /hpf (0-2); Squamous Epithelial Cell Urine Rare /hpf (Few); WBC Urine None seen /hpf (0-3)
[2023-10-25 10:25] LABS: Amorphous Sediment Urine Heavy; Bacteria Urine 1+ /hpf
[2023-10-25 10:30] LABS: D Dimer 0.19 mg/L (0.19-0.50)
[2023-10-25 10:36] LABS: Alanine Aminotransferase 26 U/L (14-59); Albumin Level 3.4 g/dL (3.4-5.0); Alkaline Phosphatase 79 U/L (46-116); Anion Gap 6 mmol/L (8-16); Aspartate Amino Transferase 16 U/L (15-37); Bilirubin,Total 0.2 mg/dL (0.00-1.00); Blood Urea Nitrogen 12 mg/dL (7-18); Calcium 8.3 mg/dL (8.5-10.1); Carbon Dioxide 31 mmol/L (21-32); Chloride 100 mmol/L (98-108); Estimated CRCL calculation 84 ml/min; Estimated Glomerular Filt Rate > 60; Glucose 125 mg/dL (70-99); Osmolality Calculated 284 mOsm/kg (285-295); Potassium 4.1 mmol/L (3.5-5.1); Sodium 137 mmol/L (136-145); Total Protein 7.2 g/dL (6.4-8.2); Troponin I 4.1 ng/L (0.00-60.4)
[2023-10-25 12:32] LABS: Lipase 20 U/L (16-77)
[2023-10-25] MEDS: KETOROLAC 30 MG/ML VIAL (*BKC) IM (13:04)
[2023-10-25 13:29] VITALS: BP 120/78; PULSE 62; RESP 20; O2SAT 98
[2023-10-25 13:34] VITALS: BP 129/81; PULSE 88; RESP 20; TEMP 36.7; O2SAT 98
== END 2023-10-25 13:50 | disposition home or self-care (01) ==
PROVIDERS: Emergency Provider Emergency Medicine; PCP Family Medicine
DX: B34.9 Viral infection, unspecified (principal)
CPT/HCPCS: 36415; 71046; 80053; 81001; 81025; 83690; 84484; 85027; 85380; 93005; 96372; 99284; J1885

== ENCOUNTER 2023-10-31 11:52 | Emergency (ER) | payer OTHER, SELFPAY ==
[2023-10-31] VITALS (15 sets, daily range): BP systolic 123–148; BP diastolic 78–92; PULSE 57–82; RESP 20; TEMP 36.2; O2SAT 97–100
--- NOTE | ~2023-10-31 | CT_ITS ---
EXAMINATION: CT abdomen pelvis w con INDICATION: Epigastric pain TECHNIQUE: Computed tomographic images of the abdomen and pelvis were obtained after the administrati on of 100 cc of Omnipaque 350 intravenous contrast. The dose-length product (DLP) was 968.26 mGy-cm. Automated exposure control and iterative reconstruction technique were employed. COMPARISON: None available FINDINGS: The lung bases are clear. The heart size is normal. There is a small sliding hiatal hernia. Small cysts of the liver measure up to 5 mm in the right hepatic lobe. The spleen, pancreas, and adr enal glands are unremarkable. The gallbladder is distended. There is diffuse wall thickening of the g allbladder. The kidneys are unremarkable. No pathologically enlarged abdominal or pelvic lymph nodes are identified. No free intraperitoneal gas or evidence of bowel obstruction. There is a 4.2 cm cyst of the right ovary. The appendix is normal. IMPRESSION: 1. Acute cholecystitis. Reviewed, dictated and finalized at location F. GER DIABETES IMPRESSION: 1. Acute cholecystitis.
[2023-10-31] MEDS: SODIUM CHLORIDE 0.9% IV 1,000 ML 999 ML IV CONT (12:18)
[2023-10-31] MEDS: PANTOPRAZOLE SODIUM IV 40 MG VIAL IV PUSH (12:19)
[2023-10-31] MEDS: ONDANSETRON INJ 4 MG/2 ML VIAL IV PUSH (12:20)
[2023-10-31] MEDS: MAG HYDROX/ALUMINUM HYD/SIMETH 30 ML, PHENobarb/HYOSCY/ATROPINE/SCOP 32.4 MG, LIDOCAINE... PO (12:21)
--- NOTE | 2023-10-31 12:24 | ED.ABDPAIN ---
HPI - Abdominal Pain General Chief Complaint: Abdominal Pain Stated Complaint: chest pressure Time Seen by Provider: 10/31/23 11:54 Source: patient Mode of arrival: ambulatory History of Present Illness HPI narrative: Patient is a 33-year-old female with no significant past medical history that presents today for abdominal pain symptoms. Patient was recently seen a week ago here in the ER for abdominal pain. She does have a history of GERD and she was given a shot Toradol for the abdominal pain and also had a chest x-ray from [place] was [place]. She was also seen 2 days prior to this previous ER visit for bronchitis and sent home with antibiotics. She denies that this is chest pains thinks it is more abdominal pain and the same symptoms she had last time she was seen here. She apparently also saw her primary care physician as well and still was not put on any GERD medications. MD elicited complaint: abdominal pain (epigastric ) Pertinent past history: none Onset (ago): week(s) Pain Consistency: intermittent Location: epigastric Severity: mild Pain scale (0-10): 3 Quality: cramping and aching Radiation: none Migration to: no migration Exacerbating factors: nothing Relieving factors: nothing Associated symptoms: denies other symptoms Treatments prior to arrival: NSAIDs Related Data Home Medications Medication Instructions Recorded Confirmed No Home Medications 10/31/23 10/31/23 Allergies Allergy/AdvReac Type Severity Reaction Status Date / Time No Known Allergies Allergy Unknown Verified 10/31/23 18:39 Review of Systems Review of Systems: All systems reviewed & are unremarkable except as noted in HPI and below Constitutional: Constitutional: Reports no additional constitutional complaints Eyes: Eyes: Reports no additional eye complaints ENT: Reports system reviewed and no additional complaints, except as documented Cardiovascular: Cardiovascular: Reports as per HPI Respiratory: Respiratory: Reports no additional respiratory complaints Gastrointestinal: Gastrointestinal: Reports as per HPI, Reports abdominal pain and Reports heartburn Genitourinary: Genitourinary: Reports no additional female genitourinary complaints Musculoskeletal: Musculoskeletal: Reports no additional musculoskeletal complaints Integumentary/Breasts: Skin/Breast: Reports system reviewed and no additional complaints, except as docu Neurologic: Reports system reviewed and no additional complaints, except as documented Psychiatric: Psychiatric: Reports no additional psychiatric complaints Endocrine: Endocrine: Reports no additional endocrine complaints Hematologic/Lymphatic: Hematologic/Lymphatic: Reports no additional hematologic/lymphatic complaints [facility] Past Medical History Medical History (Updated 11/02/23 @ 11:51 by Ozzy Bullard DO) Obesity Surgical History Surgical History History of 2022 & 2018 Family History Family History Mother Hypertension Father Hypertension Father Hypertension Mother Diabetes mellitus Social History Social History Smoking status: Never smoker Second hand tobacco smoke exposure: Yes Alcohol intake: current Drinks per week: 1 Substance use: current Substance use type: marijuana Other substance usage details: occasional Last use: 10/30/23 Do You Feel Safe in your Home?: Yes Lack of Transportation: No Lack of Food: Never True Current Housing: I Have Housing Concerned About Future Housing: No Difficulty Paying Gas/Electric Bills: No Difficulty Paying for Meds: No Currently Unemployed: No Education: Don't Know Difficulty w/ Childcare or Family Care: No Gender identity (if verbalized by the patient): Female Spiritual care concerns: No Exam Const: General: hea
[2023-10-31 12:43] LABS: Appearance Urine Clear (Clear); Bilirubin Urine Negative (Negative); Blood Urine Negative (Negative); Color Urine Light Yellow (Yellow); Glucose Urine UA Negative (Negative); Ketones Urine Negative (Negative); Leukocyte Esterase Ur Negative LEU/UL (Negative); Nitrate Urine Negative (Negative); Protein Urine Negative (Negative); Urobilinogen Urine 0.2 mg/dL (0.2-1.0); pH Urine 6.5 (5.0-8.0)
[2023-10-31 12:44] LABS: Basophils Absolute Auto 0.03 K/mm3 (0.00-0.10); Basophils Percent Auto 0.3 % (0.0-1.0); Eosinophils Absolute Auto 0.23 K/mm3 (0.02-0.50); Eosinophils Percent Auto 2.4 % (1.0-6.0); Hematocrit 37.2 % (35.0-49.0); Hemoglobin 11.8 g/dL (12.0-15.0); Immature Granulocyte Absolute 0.04 K/mm3 (0.00-0.00); Immature Granulocyte Percent A 0.4 % (0.0-0.0); Lymphocytes Percent Auto 26.2 % (18.0-42.0); Mean Corpuscular HGB Conc 31.7 g/dL (32.0-36.0); Mean Corpuscular Hemoglobin 26.7 pg (27.0-31.0); Mean Corpuscular Volume 84.2 fL (78.0-102.0); Mean Platelet Volume 10.4 fl (9.2-11.8); Monocytes Absolute Auto 0.62 K/mm3 (0.10-0.90); Monocytes Percent Auto 6.5 % (2.0-11.0); Neutrophils Absolute Auto 6.1 K/mm3 (1.7-7.2); Neutrophils Percent Auto 64.2 % (50.0-70.0); Platelet Count Result 345 K/mm3 (150-420); Red Blood Count 4.42 M/mm3 (4.20-5.40); Red Cell Distribution Width 13.8 % (11.6-14.4); White Blood Count 9.5 K/mm3 (4.8-10.8)
[2023-10-31 12:56] LABS: Add Urine Microscopic? NO
[2023-10-31 12:59] LABS: Alanine Aminotransferase 21 U/L (14-59); Albumin Level 2.8 g/dL (3.4-5.0); Alkaline Phosphatase 63 U/L (46-116); Anion Gap 3 mmol/L (8-16); Aspartate Amino Transferase 11 U/L (15-37); Bilirubin,Total 0.1 mg/dL (0.00-1.00); Blood Urea Nitrogen 13 mg/dL (7-18); Calcium 8.3 mg/dL (8.5-10.1); Carbon Dioxide 32 mmol/L (21-32); Chloride 102 mmol/L (98-108); Estimated CRCL calculation 102 ml/min; Estimated Glomerular Filt Rate > 60; Glucose 96 mg/dL (70-99); Lipase 27 U/L (16-77); Osmolality Calculated 284 mOsm/kg (285-295); Potassium 4.5 mmol/L (3.5-5.1); Sodium 137 mmol/L (136-145); Total Protein 6.2 g/dL (6.4-8.2)
[2023-10-31 13:08] LABS: Pregnancy On Board Control Positive; Urine Pregnancy Test Negative
[2023-10-31 13:14] LABS: Lactic Acid Reflex 1.4 mmol/L (0.4-2.0)
[2023-10-31] MEDS: MORPHINE SULFATE (*CRX) 2 MG/ML INJ IV PUSH ×2 (13:47→14:44)
[2023-10-31] MEDS: PIPERACILLN/TAZ 3.375GM/NS50ML 3.375 GM/50 ML BAG IVPB (14:44)
[2023-10-31] MEDS: VANCOMYCIN 1,250 MG/NS 250 ML 1,250 MG/250 ML BAG 166.67 MG IVPB (14:47)
[2023-10-31] MEDS: VANCOMYCIN 1,000 MG/NS 250 ML 1,000 MG/250 ML BAG 250 MG IVPB (15:39)
[2023-10-31] MEDS: diphenhydrAMINE HCl INJ 50 MG/ML VIAL IV PUSH (17:09)
--- NOTE | 2023-11-07 12:52 | PC.NURSE ---
final blood cultures x2 reviewed. no growth after 5 days, no change in plan of care.
== END 2023-10-31 17:56 | disposition short-term general hospital (02) ==
PROVIDERS: Emergency Provider Family Medicine; PCP Family Medicine
DX: K81.0 Acute cholecystitis (principal)
CPT/HCPCS: 36415; 74177; 80053; 81003; 81025; 83605; 83690; 85025; 87040; 96361; 96365; 96366; 96367; 96375; 99285; A9270; C9113; J1200; J2270; J2405; J2543; J3370; J7030; Q9967

== ENCOUNTER 2023-10-31 18:27 | Observation (INO) | payer OTHER, SELFPAY ==
--- NOTE | ~2023-10-31 | US_ITS ---
EXAMINATION: US abdomen limited DATE: 11/01/2023 10:56 INDICATION: Acute cholecystitis TECHNIQUE: Multiple grayscale and Doppler ultrasound images of the abdomen were obtained. COMPARISON: None available FINDINGS: Bowel gas obscures visualization of the pancreas. The liver is normal with normal echogenic ity and echotexture. No surface nodularity. Normal hepatopetal flow in the main portal vein. There is wall thickening of the gallbladder. There are multiple stones in the gallbladder. No pericholecystic fluid is identified. The normal common bile duct measures 5 mm. Sonographic Donis sign is present. IMPRESSION: 1. Sonographic findings consistent with acute cholecystitis. Reviewed, dictated and finalized at location B. NMASTER
[2023-10-31 18:35] VITALS: BP 114/70; PULSE 67; RESP 16; TEMP 36.4; O2SAT 100
--- NOTE | 2023-10-31 18:43 | ADMGEN ---
This patient, Loraine Taylor, was admitted to [facility] Room 316-02. Patient/family oriented to hospital policies and general routines including ID bracelet, bed and alarms, visiting hours, pain management, procedures, bathroom and other care routines, personal items, smoking policy, room service/diet, and visiting hours. Information on how to activate the Rapid Response Team has been discussed. Patient/Family are encouraged to report perceived risks to care and to ask questions if they do not understand what they are told or what they should do. Direct admit from [facility]. report for ava in the er.
[2023-10-31 18:44] VITALS: BMI 36.8
[2023-10-31] MEDS: SODIUM CHLORIDE 0.9% IV 1,000 ML 100 ML IV CONT (18:55)
[2023-10-31] MEDS: MORPHINE SULFATE (*CRX) 4 MG/ML INJ IV PUSH ×2 (18:56→20:50)
[2023-10-31] MEDS: ONDANSETRON INJ 4 MG/2 ML VIAL IV PUSH ×2 (18:57→22:22)
[2023-10-31 20:00] VITALS: PULSE 60; RESP 15; O2SAT 100
[2023-10-31 20:51] VITALS: BP 122/64; PULSE 60; RESP 15; TEMP 36.5; O2SAT 100
[2023-10-31] MEDS: traZODone HCL 50 MG TABLET PO (23:06)
[2023-10-31] MEDS: HYDROmorphone HCL INJ (*CRX) 1 MG/ML SYR IV PUSH (23:07)
[2023-11-01] VITALS (14 sets, daily range): BP systolic 96–128; BP diastolic 46–80; PULSE 70–103; RESP 13–20; TEMP 36.4–37.2; O2SAT 93–98
[2023-11-01] MEDS: ONDANSETRON INJ 4 MG/2 ML VIAL IV PUSH (04:48)
[2023-11-01] MEDS: HYDROmorphone HCL INJ (*CRX) 1 MG/ML SYR IV PUSH ×4 (04:49→21:55)
[2023-11-01] MEDS: SODIUM CHLORIDE 0.9% IV 1,000 ML 100 ML IV CONT (04:55)
[2023-11-01 06:30] LABS: Hematocrit 38.6 % (37.0-47.0); Hemoglobin 11.8 g/dL (12.0-15.0); Mean Corpuscular HGB Conc 30.6 g/dl (32-36); Mean Corpuscular Hemoglobin 25.9 pg (26-34); Mean Corpuscular Volume 84.6 fl (80-100); Mean Platelet Volume 10.3 fl (7.4-10.4); Platelet Count Result 362 k/mm3 (150-375); Red Blood Count 4.56 M/mm3 (4.2-5.4); Red Cell Distribution Width 14.2 % (11.5-14.5)
[2023-11-01 06:45] LABS: Alanine Aminotransferase 61 U/L (6-35); Albumin Level 3.6 g/dL (3.5-5.1); Alkaline Phosphatase 89 U/L (38-126); Anion Gap 4 mmol/L (8-16); Aspartate Amino Transferase 59 U/L (14-36); Bilirubin,Total 0.3 mg/dL (0.2-1.3); Blood Urea Nitrogen 6 mg/dL (7-17); Calcium 8.9 mg/dL (8.4-10.2); Carbon Dioxide 29 mmol/L (22-30); Chloride 104 mmol/L (98-107); Estimated CRCL calculation 112 ml/min; Estimated Glomerular Filt Rate > 60; Glucose 98 mg/dL (65-110); Lipase 37 U/L (23-300); Potassium 4.5 mmol/L (3.4-5.0); Sodium 137 mmol/L (137-145)
--- NOTE | 2023-11-01 10:03 | PM.IMHP ---
H&P: HPI History of Present Illness Date/Time: 11/01/23 10:03 Chief Complaint: Right upper quadrant abdominal pain Narrative: This is a 33-year-old female who presented to [facility] ER yesterday for right upper quadrant abdominal pain. She reports having 2 similar episodes of pain in the epigastric and substernal area in May and again about a week ago. She was in the ER with both previous episodes and had a negative cardiac workup, and was ultimately discharged home. She reports waking up yesterday morning around 10:00 a.m. with similar pain in the epigastric and substernal area. This time she notes that her pain radiated more into the right upper quadrant. She developed nausea, but no vomiting. Due to her persistent pain, she went back to the ER for evaluation yesterday. Labs showed a white blood cell count 9500, and LFTs and lipase essentially normal. CT scan of the abdomen and pelvis with contrast showed acute cholecystitis. No gallstones seen on CT. She was then transferred to [facility] and admitted to our service for surgical evaluation of acute cholecystitis. She is seen on the medical floor. She reports having increased pain in the right upper quadrant after being examined in the ER. She is very tender in the right upper quadrant. Labs this morning showed a white blood cell count was up slightly to 12,000 and her AST and ALT were mildly elevated. She is still having a significant amount of pain that is relieved with IV Dilaudid. Right upper quadrant abdominal ultrasound is ordered. [facility] Past Medical History Medical History Morbid obesity Surgical History Surgical History History of 2022 & 2018 Family History Family History Mother Hypertension Father Hypertension Father Hypertension Mother Diabetes mellitus Social History Social History Smoking status: Never smoker Second hand tobacco smoke exposure: Yes Alcohol intake: current Drinks per week: 1 Substance use: current Substance use type: marijuana Other substance usage details: occasional Last use: 10/30/23 Lack of Transportation: No Lack of Food: Never True Current Housing: I Have Housing Concerned About Future Housing: No Difficulty Paying Gas/Electric Bills: No Difficulty Paying for Meds: No Currently Unemployed: No Education: Don't Know Difficulty w/ Childcare or Family Care: No Gender identity (if verbalized by the patient): Female Spiritual care concerns: No Meds Home Medications and Allergies Home Medications Medication Instructions Recorded Confirmed Type No Home Medications 10/31/23 10/31/23 History Allergies Allergy/AdvReac Type Severity Reaction Status Date / Time No Known Allergies Allergy Unknown Verified 10/31/23 18:39 Vital Signs Vital Signs - 24 hr 10/31/23 18:35 10/31/23 20:51 10/31/23 20:00 Temperature 97.5 F L 97.7 F Pulse Rate 67 60 60 Respiratory Rate 16 15 15 Blood Pressure 114/70 122/64 Pulse Oximetry 100 100 100 Oxygen Delivery Room Air 11/01/23 05:20 11/01/23 08:00 Temperature 98.3 F Pulse Rate 90 90 Respiratory Rate 18 Blood Pressure 128/75 Pulse Oximetry 96 96 Oxygen Delivery Room Air Exam Const: General: comfortable and no acute distress Nutritional Appearance: overweight Orientation/consciousness: patient oriented x3 HENMT: Head: normocephalic and atraumatic Ears: hearing grossly normal bilaterally Mouth: Yes moist mucous membranes Eyes: General: appearance normal, both eyes and all related structures Pupils: Equal, round and reactive pupils present Neck: Neck: normal visual inspection and full ROM Resp: Effort & Inspection: no respiratory distress Auscultation: clear to auscultation
--- NOTE | 2023-11-01 13:17 | WPDHPUPDATE1 ---
History and Physical Update Update Date/Time: 11/01/23 13:17 History and Physical has been reviewed, including an updated exam of the patient. There are NO changes in the patient's condition. Risks, benefits, and alternatives have been discussed and questions answered. Patient agrees to proceed with procedure.
[2023-11-01] MEDS: LACTATED RINGERS 1,000 ML 30 ML IV CONT (16:15)
--- NOTE | 2023-11-01 16:15 | WPDANESEPPF ---
Anes - Initial Pre Proc Eval Procedure: Operation Date: 11/01/23 16:30 Proposed Procedures p Laparoscopic Cholecystectomy, Possible Open - Ozzy Bullard DO Date/Time: 11/01/23 16:15 Surgeon: Ozzy Bullard DO Pre Op Diagnosis: Acute Cholecystitis Patient Data Age: 33 Gender: F Height: 1.52 m Weight: 85.5 kg Last Vital Signs Temp 36.4 C L 11/01/23 15:12 Pulse 82 11/01/23 15:12 Resp 16 11/01/23 15:12 BP 118/65 11/01/23 15:12 Pulse Ox 98 11/01/23 15:12 O2 Del Method Room Air 11/01/23 15:12 Allergies Allergy/AdvReac Type Severity Reaction Status Date / Time No Known Allergies Allergy Unknown Verified 10/31/23 18:39 Home Medications Medication Instructions Recorded Confirmed Type No Home Medications 10/31/23 10/31/23 History Laboratory Tests 11/01/23 06:11 WBC 12.0 H K/mm3 (4.5-10.0) RBC 4.56 M/mm3 (4.2-5.4) Hgb 11.8 L g/dL (12.0-15.0) Hct 38.6 % (37.0-47.0) MCV 84.6 fl (80-100) MCH 25.9 L pg (26-34) MCHC 30.6 L g/dl (32-36) RDW 14.2 % (11.5-14.5) Plt Count 362 k/mm3 (150-375) MPV 10.3 fl (7.4-10.4) Sodium 137 mmol/L (137-145) Potassium 4.5 mmol/L (3.4-5.0) Chloride 104 mmol/L (98-107) Carbon Dioxide 29 mmol/L (22-30) Anion Gap 4 L mmol/L (8-16) BUN 6 L mg/dL (7-17) Creatinine 0.60 L mg/dL (0.7-1.0) Estim Creat Clear Calc 112 ml/min Estimated GFR > 60 (59 - ) Glucose 98 mg/dL (65-110) Calcium 8.9 mg/dL (8.4-10.2) Total Bilirubin 0.3 mg/dL (0.2-1.3) AST 59 H U/L (14-36) ALT 61 H U/L (6-35) Alkaline Phosphatase 89 U/L (38-126) Total Protein 7.0 g/dL (6.3-8.2) Albumin 3.6 g/dL (3.5-5.1) Lipase 37 U/L (23-300) Patient hx anesthesia problems: none Family hx anesthesia problems: none Results Review: All pre-operative results and documents have been reviewed as part of the pre-operative evaluation. [facility] Past Medical History Medical History (Updated 11/01/23 @ 16:15 by Franck Gore MD) Obesity Surgical History Surgical History History of 2022 & 2018 Family History Family History Mother Hypertension Father Hypertension Father Hypertension Mother Diabetes mellitus Social History Social History Smoking status: Never smoker Second hand tobacco smoke exposure: Yes Alcohol intake: current Drinks per week: 1 Substance use: current Substance use type: marijuana Other substance usage details: occasional Last use: 10/30/23 Lack of Transportation: No Lack of Food: Never True Current Housing: I Have Housing Concerned About Future Housing: No Difficulty Paying Gas/Electric Bills: No Difficulty Paying for Meds: No Currently Unemployed: No Education: Don't Know Difficulty w/ Childcare or Family Care: No Gender identity (if verbalized by the patient): Female Spiritual care concerns: No Anes - Eval Final PreProcedure Day of Procedure 11/01/23 16:15 Patient weight: obese Heart: regular rate and rhythm Lungs: clear to auscultation Airway: Mallampati scale class II Neurological: alert and oriented Last oral intake: >/= 8 hours ASA classification: II Emergent: no Anesthetic plan: proceed Anesthesia type and monitoring: general ETT and standard monitoring Results Review: All pre-operative results and documents have been reviewed as part of the pre-operative evaluation. Informed Consent: The patient's anesthetic plan and its attendant risks and benefits were discussed with the patient/family/POA. Questions were solicited and answers provided to the satisfaction of the patient/family/POA.
[2023-11-01] MEDS: ceFAZolin 2 GM/D5W 50 ML 2 GM/50 ML BAG IVPB (16:29)
[2023-11-01] MEDS: BUPIVACAINE/EPINEPHRINE 0.5% 50 ML VIAL INFILTRATE (16:46)
--- NOTE | 2023-11-01 17:20 | W.PM.PROC2 ---
Procedure Note - Detailed Date of Procedure 11/01/23 Pre-op Diagnosis Acute Cholecystitis Post-op Diagnosis Same Procedure Performed Laparoscopic Cholecystectomy Surgeon Ozzy Bullard, DO Anesthesia General and Local (0.5% bupivacaine) Indications This is a 33-year-old woman who presented to the emergency department in [place] for epigastric and right upper quadrant pain. She was found to have an elevated white blood count and CT showed evidence of acute cholecystitis. She was transferred [facility] for further treatment. A gallbladder ultrasound was obtained this morning which confirmed cholelithiasis and cholecystitis. Discussions were made with the patient about treatment options and decision was made to proceed with laparoscopic cholecystectomy, possible open. Findings Laparoscopic cholecystectomy was performed. The gallbladder had a thickened wall and was slightly dilated. The gallbladder was decompressed using a laparoscopic aspirating needle. There were multiple gallstones within the gallbladder. The cystic duct appeared normal in size. No other intra-abdominal abnormalities were noted. The gallbladder was removed and sent to the lab for pathology. Description of Procedure Procedure as well as risks, benefits, and alternatives were discussed with patient. Written consent was obtained and placed in chart prior to procedure. The patient was brought back to surgical suite. Patient was placed in supine position on operating table. Time-out was done to confirm patient and procedure. Patient was then intubated by the anesthesia department. Abdomen was prepped and draped in sterile fashion using chlorhexidine prep. 0.5% bupivacaine with epinephrine was infiltrated at each site of incision. A 5 millimeter incision was made near the umbilicus, and a 5 millimeter Optiview trocar was advanced through the abdominal layers under direct visualization. Once inside the abdominal cavity, carbon dioxide was insufflated to create a pneumoperitoneum. The camera was inserted and the abdomen was inspected. No immediate abnormalities were identified. The patient was placed in reverse Trendelenburg position and rotated slightly to the left. An 11 millimeter incision was made in the subxiphoid region, and an 11 millimeter trocar was inserted under direct visualization. Two 5 millimeter incisions were made in the right upper quadrant, and two 5 millimeter trocars were inserted under direct visualization. The gallbladder was identified and grasped at the fundus and retracted superiorly. It was then grasped at the infundibulum retracted laterally. Careful dissection around the neck of the gallbladder was performed using blunt dissection with a [place] grasper and hook electrocautery. The cystic duct was identified, and a window was created behind it. The cystic artery was also identified and a window was created behind it. The critical view of safety was identified, visualizing the cystic duct running directly into the neck of the gallbladder, and the cystic artery running directly into the wall of the gallbladder. A 5 millimeter clip principle software engineer was then used to place 2 clips proximally and 1 clip distally on both the cystic duct and cystic artery. They were then both transected using endoscopic scissors. Once safely away from the jacy hepatitis, the gallbladder was dissected free from the liver bed using hook electrocautery. Hemostasis was achieved along the way. The gallbladder was removed completely and then removed through the subxiphoid port. The liver bed was then inspected. Hemostasis appeared adequate, and our clips appeared secure. The area was gently irrigated with sterile saline. No other abnormalities were seen. The patient was flattened out in bed, and 1 final inspection was made around the abdominal cavity. The subxiphoid port was removed, and a Mateusz Elaina cone was used to approximate the fascia with an 0-Vicryl simple interrup
[2023-11-01] MEDS: HYDROmorphone HCL INJ (*CRX) 1 MG/ML SYR 0.5 MG IV PUSH ×4 (17:35→18:00)
[2023-11-02] VITALS: BP 94/51; PULSE 71; RESP 14; TEMP 36.5; O2SAT 95
[2023-11-02] MEDS: HYDROmorphone HCL INJ (*CRX) 1 MG/ML SYR IV PUSH (00:23)
[2023-11-02 04:00] VITALS: BP 90/51; PULSE 69; RESP 16; TEMP 36.4; O2SAT 96
[2023-11-02] MEDS: HYDROcodone/acetaminophen (*CRX) 10-325 MG TABLET 1 TAB PO ×2 (04:59→09:55)
[2023-11-02 07:48] LABS: Hematocrit 33.8 % (37.0-47.0); Hemoglobin 10.2 g/dL (12.0-15.0); Mean Corpuscular HGB Conc 30.2 g/dl (32-36); Mean Corpuscular Hemoglobin 25.8 pg (26-34); Mean Corpuscular Volume 85.6 fl (80-100); Mean Platelet Volume 10.6 fl (7.4-10.4); Platelet Count Result 342 k/mm3 (150-375); Red Blood Count 3.95 M/mm3 (4.2-5.4); Red Cell Distribution Width 14.1 % (11.5-14.5); White Blood Count 10.5 K/mm3 (4.5-10.0)
[2023-11-02 08:00] LABS: Anion Gap 5 mmol/L (8-16); Blood Urea Nitrogen 6 mg/dL (7-17); Calcium 8.8 mg/dL (8.4-10.2); Carbon Dioxide 29 mmol/L (22-30); Chloride 102 mmol/L (98-107); Estimated CRCL calculation 132 ml/min; Estimated Glomerular Filt Rate > 60; Glucose 97 mg/dL (65-110); Sodium 136 mmol/L (137-145)
[2023-11-02 08:06] VITALS: BP 91/47; PULSE 71; RESP 14; TEMP 36.3; O2SAT 97
--- NOTE | 2023-11-02 11:50 | PM.DS ---
DS: Admitting Diagnosis Discharge Date 11/02/2023 Admitting Diagnosis Acute calculous cholecystitis DS: Discharge Diagnosis Discharge Diagnosis (1) Acute calculous cholecystitis: Code(s): K80.00 - Calculus of gallbladder with acute cholecystitis without obstruction Status: Acute DS: Summary Hospital Course Reason for hospitalization: Acute cholecystitis Hospital Course: This is a 33-year-old woman who presented to [facility] with right upper quadrant pain that had been present for about 7 days. She had been to an urgent care and emergency department in the days leading up to this as well but was diagnosed with costochondritis initially and then was worked up for cardiac causes which were negative. When she presented to the emergency department on 10/31/2023, she was complaining of some right subcostal pain and CT was performed which showed evidence of acute cholecystitis. She was transferred to [facility] for further treatment. She then underwent laparoscopic cholecystectomy on 11/01/2023. Surgery was uncomplicated and she was returned to the surgical floor postoperatively. Diet and activity were advanced as tolerated. She was tolerating a low fat diet and pain was adequately controlled. She remained hemodynamically stable. She was discharged on 11/02/2023. Status at Discharge Functional status at discharge: independent ambulation Overall status at discharge: patient is progressing back to baseline Time Spent with Patient Time attestation: Total time spent providing and/or coordinating discharge services: Time spent: Less than 30 minutes Exam Const: General: comfortable, no acute distress and alert Resp: Effort & Inspection: normal respiratory effort Auscultation: clear to auscultation bilaterally Cardio: Rate: regular rate Rhythm: regular rhythm GI: Inspection: incision (Intact with glue) GI Palp: Yes Soft to palpation and Yes Tenderness to palpation present (GI) (Incisional) Percussion: Yes normal to percussion Auscultation: normal bowel sounds DS: Data Data Completed and Pending Pending studies at discharge: Pending at discharge 11/01/23 16:52 Surgical [PTH] Routine Labs on day of discharge: Labs from last 24 hours 11/02/23 07:00 WBC 10.5 H RBC 3.95 L Hgb 10.2 L Hct 33.8 L MCV 85.6 MCH 25.8 L MCHC 30.2 L RDW 14.1 Plt Count 342 MPV 10.6 H Sodium 136 L Potassium 4.0 Chloride 102 Carbon Dioxide 29 Anion Gap 5 L BUN 6 L Creatinine 0.50 L Estim Creat Clear Calc 132 Estimated GFR > 60 Glucose 97 Calcium 8.8 Discharge Plan Discharge Attending physician on discharge: Ozzy Amador Discharging Clinician: Ozzy Amador Patient Disposition: Home, Self-Care Activity: other - see discharge instructions Diet: other - see discharge instructions Wound Care Instructions: other - see discharge instructions Discharge Instructions: DISCHARGE INSTRUCTION SHEET FOR HERNIA, GALLBLADDER AND APPENDIX SURGERIES DR. AMADOR PATIENT TO TAKE HOME 1. May shower, no soaking in bath x 2weeks. 2. Call office for: Wound increasingly painful or bleeding Vomiting Fever of greater than 101 degrees 3. If no bowel movement for three days, take 1 oz. (30 ml) Milk of Magnesia or MiraLax 17g 1 to 2 times daily. 4. No heavy lifting > 10-15 pounds x weeks for hernia repairs and 2 weeks for laparoscopic cholecystectomy or appendectomy. 5. No driving for 3 days or while taking narcotic pain medications. 6. Ice to surgical site for 48 hours (30 min on, then 30 min off). 7. Up walking 10-30 minutes three times per day. 8. Resume previous home medications. 9. Follow-up 10-14 days in office for wound check or as previously scheduled. ([phone]) 10. Oral pain medications prescription to be sent to pharmacy. Take Tylenol 500mg every 6 hours and
[2023-11-02] MEDS: HYDROcodone/acetaminophen (*CRX) 5-325 MG TABLET 1 TAB PO (13:04)
--- NOTE | 2023-11-02 14:54 | WPDANESPN ---
Anes - Prog Note Post-Op Date/Time: 11/02/23 14:54 Cardiovascular status: normal Respiratory status: normal Airway patency: baseline Mental status: baseline Post-Op hydration status: normal Vital Signs: Last Vital Signs Temp 97.3 F L 11/02/23 08:06 Pulse 71 11/02/23 08:06 Resp 14 11/02/23 08:06 BP 91/47 L 11/02/23 08:06 Pulse Ox 97 11/02/23 08:06 O2 Del Method Room Air 11/02/23 08:00 O2 Flow Rate 10 11/01/23 17:25 Pain Score (VAS): 0/10 I/O: Intake & Output 11/01/23 11/02/23 11/02/23 23:59 07:59 15:59 Intake Total 1200 850 238 Output Total 0 Balance 1200 850 238 Laboratory Tests 11/02/23 07:00 11/02/23 07:00 11/02/23 07:00 WBC 10.5 H RBC 3.95 L Hgb 10.2 L Hct 33.8 L MCV 85.6 MCH 25.8 L MCHC 30.2 L RDW 14.1 Plt Count 342 MPV 10.6 H Sodium 136 L Potassium 4.0 Chloride 102 Carbon Dioxide 29 Anion Gap 5 L BUN 6 L Creatinine 0.50 L Estim Creat Clear Calc 132 Estimated GFR > 60 Glucose 97 Calcium 8.8 Post-procedural complaints: none Patient Feedback: Patient satisfied with anesthetic care.
== END 2023-11-02 14:00 | disposition home or self-care (01) ==
PROVIDERS: Admitting Provider Surgery; PCP Family Medicine; Visit Provider Surgery
PROC: 0FT44ZZ Resection of Gallbladder, Percutaneous Endoscopic Approach (ICD-10-PCS; CPT 47562; principal; 2023-11-01 16:30)
DX: K80.20 Calculus of gallbladder without cholecystitis without obstruction (principal); N32.89 Other specified disorders of bladder; E66.01 Morbid (severe) obesity due to excess calories; Z68.36 Body mass index [BMI] 36.0-36.9, adult; F10.90 Alcohol use, unspecified, uncomplicated; F12.90 Cannabis use, unspecified, uncomplicated
CPT/HCPCS: 47562; 36415; 76705; 80048; 80053; 83690; 85027; 88304; A9270; G0378; G0379; J0330; J0690; J1100; J1170; J2270; J2405; J2704; J3010; J7030; J7120

== ENCOUNTER 2025-01-17 15:10 | Emergency (ER) | payer OTHER, SELFPAY ==
--- NOTE | ~2025-01-17 | XR_ITS ---
EXAMINATION: XR foot LT min 3V, XR ankle LT min 3V DATE: 01/17/2025 15:40 INDICATION: Right foot pain post twisting ankle injury. TECHNIQUE: 1. Anteroposterior, mortise, additional oblique and lateral view of the right ankle were obtained. 2. Dorsoplantar, two oblique and lateral views of the right foot were obtained. COMPARISON: None. FINDINGS: Alignment of the right foot and ankle is normal. No fracture. Joint spaces are well maintained. Large right ankle joint effusion. There is also soft tissue swelling about the ankle most prominent anteri teresa and about the lateral malleolus. IMPRESSION: 1. Right ankle joint effusion. No acute osseous abnormality. Reviewed, dictated and finalized at location B. GRATION ASSOCIATE IMPRESSION: 1. Right ankle joint effusion. No acute osseous abnormality.
[2025-01-17 15:10] VITALS: BP 121/72; PULSE 82; RESP 16; TEMP 36.3; O2SAT 97
--- NOTE | 2025-01-17 15:17 | ED.LOWEXIN ---
HPI - Extremity Injury (Lower) General Chief Complaint: Extremity Injury, Lower Stated Complaint: left foot pain Time Seen by Provider: 01/17/25 15:17 Source: patient Mode of arrival: ambulatory Limitations: no limitations History of Present Illness HPI Narrative: 34-year-old female presents to the ED with left ankle pain. She has swelling over the lateral malleolus. She twisted her ankle yesterday evening. She is partially able to bear weight. No other injuries noted. Prior history of ankle sprains. complaint: ankle injury Onset (ago): day(s) ( One day ago) Injury: Left: ankle Type of Injury: inversion Place: home Severity: severe Relieving factors: immobilization Exacerbating factors: weight bearing Other symptoms: none Related Data Allergies Allergy/AdvReac Type Severity Reaction Status Date / Time No Known Allergies Allergy Unknown Verified 01/17/25 15:14 Review of Systems Review of Systems: All systems reviewed & are unremarkable except as noted in HPI and below PMFSH Past Medical History Medical History Obesity Surgical History Surgical History History of 2022 & 2018 Family History Family History Mother Hypertension Father Hypertension Father Hypertension Mother Diabetes mellitus Social History Social History Smoking status: Never smoker Second hand tobacco smoke exposure: Yes Alcohol intake: current Drinks per week: 1 Substance use: current Substance use type: marijuana Other substance usage details: occasional Last use: 10/30/23 Do You Feel Safe in your Home?: Yes Lack of Transportation: No Lack of Food: Never True Current Housing: I Have Housing Concerned About Future Housing: No Difficulty Paying Gas/Electric Bills: No Difficulty Paying for Meds: No Currently Unemployed: No Education: Don't Know Difficulty w/ Childcare or Family Care: No Gender identity (if verbalized by the patient): Female Spiritual care concerns: No Exam Narrative: vitals are stable. Afebrile. Const: General: no acute distress Nutritional Appearance: well nourished Orientation/consciousness: patient oriented x3 Limitations: no limitations HENMT: Head: normal to inspection Ears: external ears normal Face/Nose/Sinus: Normal external nose present Face and sinus: normal facial exam Mouth: Yes Normal oral and palatal mucosa present Throat: posterior oropharynx normal Eyes: Conjunctivae: conjunctivae normal Pupils: Equal, round and reactive pupils present EOM: EOMs intact bilaterally Direct Ophthalmoscopy: no photophobia Neck: Neck: normal visual inspection, no lymphadenopathy and no meningeal signs Chest: Chest palpation & inspection: normal inspection of the chest Resp: Effort & Inspection: normal respiratory effort Auscultation: clear to auscultation bilaterally Cardio: Rate: regular rate Rhythm: regular rhythm GI: GI Palp: Yes Soft to palpation Auscultation: normal bowel sounds Other: No tenderness/rigidity / rebound. : General: Yes no CVA tenderness Back/Spine/Pelvis: Back: no CVA tenderness Skin: General skin exam: normal color Rashes: no rashes Wounds: no wounds Neuro: General: patient oriented x3, moves all extremities and no meningeal signs Speech: normal speech Extrem: General: normal to inspection Other: Left ankle- tenderness over the left lateral malleolus. Swelling around the lateral malleolus. No tenderness of the foot or calcaneus. Psych: Mental Status: mental status grossly normal Affect: normal affect Attitude: cooperative Course Course Emergency Course: left ankle sprain with effusion. No fracture noted. Vital Signs Vital signs: Vital Signs Temperature 36.3 C L 01/17/25 15:10 Pulse Rate 82 01/17/25 15:10 Respiratory Rate 16 01/17/25 15:10 Blood Pressure 121/72 01/17/25 15:10 Pulse Oximetry 97 01/17/25 15:10 Oxygen Delivery Room Air 01/17/25 15:10 Temperature 36.3 C L 01/17/25 15:10 Pulse Rate 82 01/17/25 15:10 Respiratory Rate 16 01/17/25 15:10 Blood Pressure 121/72 01/17/25 15:10 Pulse Oximetry 97 01/17/25 15:10 Oxygen Delivery Room Air 01/17/25 15:15 MDM - Extremity Injury (Lower) MDM Narrative Medical decision making narrative: Left ankle sprain/ /effusion-- will order crutches, ankle splint and nonweightbearing for 2 weeks Differential Diagnosis Differential diagnosis: Likely ankle fracture Lab Data Attestation: I reviewed the patient's lab results. Discharge Plan Discharge Clinical Impression: Ankle sprain and strain Patient Disposition: Home, Self-Care Condition: Stable Instructions: Antibiotic Form, Ankle Sprain (ED) Patient Language: [place] Citizen Prescriptions: New diclofenac sodium 50 mg tablet,delayed release (DR/EC) 50 mg PO Q12H PRN (Reason: pain) Qty: 20 0RF (DME) crutches See Rx Instructions .Route .MEDSUPPLY Qty: 1 0RF Rx Instructions: As directed No Action oxycodone-acetaminophen [Endocet] 5-325 mg tablet 0.5 - 1 tablet PO Q4H PRN (Reason: pain) Qty: 10 0RF Follow-up/Referrals: Ricardo Dickey MD [Primary Care Provider] - Time of Disposition: 16:57
[2025-01-17 17:10] VITALS: BP 128/70; PULSE 72; RESP 18; O2SAT 98
--- OUTSIDE RECORDS SUMMARY | 2025-01-17 17:32 | XMS_ITS | Data Portability ---
Author Organization 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 Patient will come back in a year unless there are new symptoms. Not available 07/05/2023 13:53:19 Plan of Treatment Reminders Order Date Submit Date Provider Last Modified By Organization Details Last Modified Time Details Appointments None recorded. Lab CBC w/ auto diff 2022 023 [facility] (Lab), [address], [place], [address], 3 05:41:20 CMP, serum or plasma 2022 023 [facility] (Lab), [address] [place], [address], 3 05:41:21 lipid panel, blood 2022 023 [facility] (Lab), [address] [place], [address], 3 05:41:20 TSH, serum or plasma 2022 023 [facility] (Lab), [address], [place], [address], 3 05:41:21 vitamin D, 25-hydroxy, total, serum 2022 023 [facility] (Lab), [address] [place], [address], 3 05:41:22 Referral None recorded. Procedures None recorded. Surgeries None recorded. Imaging None recorded. Medication Orders sertraline 50 mg tablet 2022 023 [facility]/Pharmacy #[id number], [address] [place], [address], 3 14:29:41 Patient TargetsNo targets recorded. Patient InstructionsNo instructions recorded. Reason for Referral None Reported. Results Created Date Observation Date Name Description Value Unit Range Abnormal Flag Note LastModifiedBy Organization Detail LastModifiedTime 01/01/2001/01/2023 CULTU RE: GROUP B STREP SCREE N, REFLE X SUSCE PTIBI LITY result report SEE RESULT S BELOW Test: Cultu re: Group B Strep , Refle x Susce ptibi lity ([facility]/ [facility] ) Speci men Sourc e: Vagin a/Rec james Speci men Type: Vagin al/Re ctal Speci men Date: 2022 1:04 PM Resul t Date: 2022 7:24 PM Resul t Statu s: Final resul t Abnor mal: No Resul ting Lab: [facility] [address] [facility] [address] Tel: CULTU RE ----- ----- ----- --- No Group B strep isola rhiannon at 2 days (gautam ctive broth enhan cemen t) Not Available [facility] (Lab) [address], [place], [address], 01/04/2023 20:27:49 01/07/20 23 01/07/2023 CBC W/DIF F WBC 12.6 10'3/ uL 3.6-10 .2 high Not Available [facility] (Lab) [address], [place], [address], 01/08/2023 05:24:13 01/07/20 23 01/07/2023 CBC W/DIF F RBC 4.13 10'6/ uL (based on docume nted legal sex) 4.10-5 .30 Not Available [facility] (Lab) [address], [place], [address], 01/08/2023 05:24:13 01/07/20 23 01/07/2023 CBC W/DIF F HGB 11.3 g/dL (based on docume nted legal sex) 11.9-1 5.8 low Not Available [facility] (Lab) [address], [place], [address], 01/08/2023 05:24:13 01/07/20 23 01/07/2023 CBC W/DIF F HCT 36.0 % (based on docume nted legal sex) 37.4-4 8.3 low Not Available [facility] (Lab) [address], [place], [address], 01/08/2023 05:24:13 01/07/20 23 01/07/2023 CBC W/DIF F MCV 87.2 fL 82.0-9 9.0 Not Available [facility] (Lab) [address], [place], [address], 01/08/2023 05:24:13 01/07/20 23 01/07/2023 CBC W/DIF F MCH 27.4 pg 27.0-3 3.0 Not Available [facility] (Lab) [address], [place], [address], 01/08/2023 05:24:13 01/07/20 23 01/07/2023 CBC W/DIF F MCHC 31.4 g/dL 32.0-3 6.0 low Not Available [facility] (Lab) [address], [place], [address], 01/08/2023 05:24:13 01/07/20 23 01/07/2023 CBC W/DIF F RDW 13.6 % 11.0-1 5.0 Not Available [facility] (Lab) [address], [place], [address], 01/08/2023 05:24:13 01/07/20 23 01/07/2023 CBC W/DIF F plt 280 10'3/ uL 150-45 0 Not Available [facility] (Lab) [address], [place], [address], 01/08/2023 05:24:13 01/07/20 23 01/07/2023 CBC W/DIF F MPV 11.9 fL 9.8-12 .7 Not Available [facility] (Lab) [address], [place], [address], 01/08/2023 05:24:13 01/07/20 23 01/07/2023 CBC W/DIF F NRBC's 0.0 % 0 Not Available [facility] (Lab) [address], [place], [address], 01/08/2023 05:24:13 01/07/20 23 01/07/2023 CBC W/DIF F absolute NRBCs 0.0 10'3/ uL 0 Not Available [facility] (Lab) [address], [place], [address], 01/08/2023 05:24:13 01/07/20 23 01/07/2023 CBC W/DIF F neutrophils 80.7 % 37.0-7 2.0 high Not Available [facility] (Lab) [address], [place], [address], 01/08/2023 05:24:13 01/07/20 23 01/07/2023 CBC W/DIF F lymphocytes 13.0 % 16.0-4 8.0 low Not Available [facility] (Lab) [address], [place], [address], 01/08/2023 05:24:13 01/07/20 23 01/07/2023 CBC W/DIF F monocytes 5.2 % 4.0-14 .0 Not Available [facility] (Lab) [address], [place], [address], 01/08/2023 05:24:13 01/07/20 23 01/07/2023 CBC W/DIF F eosinophils 0.2 % 0.0-9. 0 Not Available [facility] (Lab) [address] [facility], [place], [address], 01/08/2023 05:24:13 01/07/20 23 01/07/2023 CBC W/DIF F basophils 0.3 % 0.0-2. 0 Not Available [facility] (Lab) [address] [facility], [place], [address], 01/08/2023 05:24:13 01/07/20 23 01/07/2023 CBC W/DIF F immature granulocytes 0.6 % no define d refere nce range Not Available [facility] (Lab) [address] [facility], [place], [address], 01/08/2023 05:24:13 01/07/20 23 01/07/2023 CBC W/DIF F absolute neutrophils 10.1 10'3/ uL 1.1-6. 0 high Not Available [facility] (Lab) [address] [place], [address], 01/08/2023 05:24:13 01/07/20 23 01/07/2023 CBC W/DIF F absolute lymphocytes 1.6 10'3/ uL 0.7-3. 4 Not Available [facility] (Lab) [address] [place], [address], 01/08/2023 05:24:13 01/07/20 23 01/07/2023 CBC W/DIF F absolute monocytes 0.7 10'3/ uL 0.3-1. 0 Not Available [facility] (Lab) [address] [facility], [place], [address], 01/08/2023 05:24:13 01/07/20 23 01/07/2023 CBC W/DIF F absolute eosinophils 0.0 10'3/ uL 0.0-0. 6 Not Available [facility] (Lab) [address] [facility], [place], [address], 01/08/2023 05:24:13 01/07/20 23 01/07/2023 CBC W/DIF F absolute basophils 0.0 10'3/ uL 0.0-0. 1 Not Available [facility] (Lab) [address] [facility], [place], [address], 01/08/2023 05:24:13 01/07/20 23 01/07/2023 CBC W/DIF F absolute immature granulocytes 0.1 10'3/ uL 0.00-0 .10 2022 3:27 AM: P indic ates parti al resul ts on a panel have been relea sed. Addit ional resul ts will follo w. 2022 3:27 AM: This resul t has been final verif ied. No addit ional or dooley ed resul ts are expec rhiannon. Not Available [facility] (Lab) [address] [facility], [place], [address], 01/08/2023 05:24:13 01/07/20 23 01/07/2023 URIC ACID uric acid 5.7 mg/dL 2.3-6. 6 Not Available [facility] (Lab) [address] [facility], [place], [address], 01/08/2023 05:24:13 01/07/20 23 01/07/2023 CMP(C OMPRE HENSI VE METAB OLIC PANEL ) sodium 136 mmol/ L 133-14 6 Not Available [facility] (Lab) [address] [facility], [place], [address], 01/08/2023 05:24:14 01/07/20 23 01/07/2023 CMP(C OMPRE HENSI VE METAB OLIC PANEL ) potassium 4.1 mmol/ L 3.5-5. 1 Not Available [facility] (Lab) [address] [facility], [place], [address], 01/08/2023 05:24:14 01/07/20 23 01/07/2023 CMP(C OMPRE HENSI VE METAB OLIC PANEL ) chloride 105 mmol/ L 98-107 Not Available [facility] (Lab) [address] [facility], [place], [address], 01/08/2023 05:24:14 01/07/20 23 01/07/2023 CMP(C OMPRE HENSI VE METAB OLIC PANEL ) carbon dioxide 23 mmol/ L 21-31 Not Available [facility] (Lab) [address] [facility], [place], [address], 01/08/2023 05:24:14 01/07/20 23 01/07/2023 CMP(C OMPRE HENSI VE METAB OLIC PANEL ) anion gap 8 mmol/ L 4-13 Not Available [facility] (Lab) [address] [facility], [place], [address], 01/08/2023 05:24:14 01/07/20 23 01/07/2023 CMP(C OMPRE HENSI VE METAB OLIC PANEL ) blood urea nitrogen 11 mg/dL 7-25 Not Available [facility] (Lab) [address] [facility], [place], [address], 01/08/2023 05:24:14 01/07/20 23 01/07/2023 CMP(C OMPRE HENSI VE METAB OLIC PANEL ) creatinine 0.62 mg/dL 0.60-1 .30 Not Available [facility] (Lab) [address] [facility], [place], [address], 01/08/2023 05:24:14 01/07/20 23 01/07/2023 CMP(C OMPRE HENSI VE METAB OLIC PANEL ) egfrcr (CKD-epi 2020) >90 mL/mi n/1.7 3_m2 >=60 Not Available [facility] (Lab) [address] [facility], [place], [address], 01/08/2023 05:24:14 01/07/20 23 01/07/2023 CMP(C OMPRE HENSI VE METAB OLIC PANEL ) calcium 8.9 mg/dL 8.3-10 .5 Not Available [facility] (Lab) [address] [facility], [place], [address], 01/08/2023 05:24:14 01/07/20 23 01/07/2023 CMP(C OMPRE HENSI VE METAB OLIC PANEL ) glucose 71 mg/dL 70-100 Not Available [facility] (Lab) [address] [facility], [place], [address], 01/08/2023 05:24:14 01/07/20 23 01/07/2023 CMP(C OMPRE HENSI VE METAB OLIC PANEL ) protein, total 6.4 g/dL 6.4-8. 3 Not Available [facility] (Lab) [address] [facility], [place], [address], 01/08/2023 05:24:14 01/07/20 23 01/07/2023 CMP(C OMPRE HENSI VE METAB OLIC PANEL ) albumin 3.3 g/dL 3.5-5. 0 low Not Available [facility] (Lab) [address] [facility], [place], [address], 01/08/2023 05:24:14 01/07/20 23 01/07/2023 CMP(C OMPRE HENSI VE METAB OLIC PANEL ) ALT 15 units /L 9-43 Not Available [facility] (Lab) [address] [facility], [place], [address], 01/08/2023 05:24:14 01/07/20 23 01/07/2023 CMP(C OMPRE HENSI VE METAB OLIC PANEL ) alkaline phosphatase 288 units /L 34-104 high Not Available [facility] (Lab) [address] [facility], [place], [address], 01/08/2023 05:24:14 01/07/20 23 01/07/2023 CMP(C OMPRE HENSI VE METAB OLIC PANEL ) AST 18 units /L 13-39 Not Available [facility] (Lab) [address] [facility], [place], [address], 01/08/2023 05:24:14 01/07/20 23 01/07/2023 CMP(C OMPRE HENSI VE METAB OLIC PANEL ) bilirubin, total 0.3 mg/dL 0.2-1. 2 Not Available [facility] (Lab) [address] [facility], [place], [address], 01/08/2023 05:24:14 07/05/20 23 07/05/2023 CBC W/DIF F WBC 10.2 10'3/ uL 3.6-10 .2 Not Available [facility] (Lab) [address] [facility], [place], [address], 07/06/2023 05:41:20 07/05/20 23 07/05/2023 CBC W/DIF F RBC 4.48 10'6/ uL (based on docume nted legal sex) 4.10-5 .30 Not Available [facility] (Lab) [address] [place], [address], 07/06/2023 05:41:20 07/05/20 23 07/05/2023 CBC W/DIF F HGB 12.1 g/dL (based on docume nted legal sex) 11.9-1 5.8 Not Available [facility] (Lab) [address] [place], [address], 07/06/2023 05:41:20 07/05/20 23 07/05/2023 CBC W/DIF F HCT 40.4 % (based on docume nted legal sex) 37.4-4 8.3 Not Available [facility] (Lab) [address] [facility], [address], 07/06/2023 05:41:20 07/05/20 23 07/05/2023 CBC W/DIF F MCV 90.2 fL 82.0-9 9.0 Not Available [facility] (Lab) [address] [facility], [place], [address], 07/06/2023 05:41:20 07/05/20 23 07/05/2023 CBC W/DIF F MCH 27.0 pg 27.0-3 3.0 Not Available [facility] (Lab) [address] [facility], [place], [address], 07/06/2023 05:41:20 07/05/20 23 07/05/2023 CBC W/DIF F MCHC 30.0 g/dL 32.0-3 6.0 low Not Available [facility] (Lab) [address] [facility], [place], [address], 07/06/2023 05:41:20 07/05/20 23 07/05/2023 CBC W/DIF F RDW 13.3 % 11.0-1 5.0 Not Available [facility] (Lab) [address] [facility], [place], [address], 07/06/2023 05:41:20 07/05/20 23 07/05/2023 CBC W/DIF F plt 298 10'3/ uL 150-45 0 Not Available [facility] (Lab) [address] [facility], [place], [address], 07/06/2023 05:41:20 07/05/20 23 07/05/2023 CBC W/DIF F MPV 11.2 fL 9.8-12 .7 Not Available [facility] (Lab) [address] [facility], [place], [address], 07/06/2023 05:41:20 07/05/20 23 07/05/2023 CBC W/DIF F NRBC's 0.0 % 0 Not Available [facility] (Lab) [address] [facility], [place], [address], 07/06/2023 05:41:20 07/05/20 23 07/05/2023 CBC W/DIF F absolute NRBCs 0.0 10'3/ uL 0 Not Available [facility] (Lab) [address] [facility], [place], [address], 07/06/2023 05:41:20 07/05/20 23 07/05/2023 CBC W/DIF F neutrophils 54.3 % 37.0-7 2.0 Not Available [facility] (Lab) [address] [facility], [place], [address], 07/06/2023 05:41:20 07/05/20 23 07/05/2023 CBC W/DIF F lymphocytes 35.8 % 16.0-4 8.0 Not Available [facility] (Lab) [address] [facility], [place], [address], 07/06/2023 05:41:20 07/05/20 23 07/05/2023 CBC W/DIF F monocytes 7.0 % 4.0-14 .0 Not Available [facility] (Lab) [address] [facility], [place], [address], 07/06/2023 05:41:20 07/05/20 23 07/05/2023 CBC W/DIF F eosinophils 1.9 % 0.0-9. 0 Not Available [facility] (Lab) [address] [facility], [place], [address], 07/06/2023 05:41:20 07/05/20 23 07/05/2023 CBC W/DIF F basophils 0.5 % 0.0-2. 0 Not Available [facility] (Lab) [address] [place], [address], 07/06/2023 05:41:20 07/05/20 23 07/05/2023 CBC W/DIF F immature granulocytes 0.5 % no define d refere nce range Not Available [facility] (Lab) [address] [facility], [place], [address], 07/06/2023 05:41:20 07/05/20 23 07/05/2023 CBC W/DIF F absolute neutrophils 5.6 10'3/ uL 1.1-6. 0 Not Available [facility] (Lab) [address] [facility], [place], [address], 07/06/2023 05:41:20 07/05/20 23 07/05/2023 CBC W/DIF F absolute lymphocytes 3.7 10'3/ uL 0.7-3. 4 high Not Available [facility] (Lab) [address] [facility], [place], [address], 07/06/2023 05:41:20 07/05/20 23 07/05/2023 CBC W/DIF F absolute monocytes 0.7 10'3/ uL 0.3-1. 0 Not Available [facility] (Lab) [address] [facility], [place], [address], 07/06/2023 05:41:20 07/05/20 23 07/05/2023 CBC W/DIF F absolute eosinophils 0.2 10'3/ uL 0.0-0. 6 Not Available [facility] (Lab) [address] [place], [address], 07/06/2023 05:41:20 07/05/20 23 07/05/2023 CBC W/DIF F absolute basophils 0.1 10'3/ uL 0.0-0. 1 Not Available [facility] (Lab) [address] [place], [address], 07/06/2023 05:41:20 07/05/20 23 07/05/2023 CBC W/DIF F absolute immature granulocytes 0.1 10'3/ uL 0.00-0 .10 2022 3:47 AM: P indic ates parti al resul ts on a panel have been relea sed. Addit ional resul ts will follo w. 2022 3:47 AM: This resul t has been final verif ied. No addit ional or dooley ed resul ts are expec rhiannon. Not Available [facility] (Lab) [address] [facility], [place], [address], 07/06/2023 05:41:20 07/05/20 23 07/05/2023 LIPID PANEL ,AMA (LDL- CALC) total cholesterol 214 mg/dL 0-199 high Not Available [facility] (Lab) [address] [facility], [place], [address], 07/06/2023 05:41:20 07/05/20 23 07/05/2023 LIPID PANEL ,AMA (LDL- CALC) triglyceride s 222 mg/dL 0.00-1 50.00 high NCEP Refer ence Value s for Trigl yceri akua: Milagro l: <150 mg/dL Borde rline High: 150 - 199 mg/dL High: 200 - 499 mg/dL Very High: >/= 500 mg/dL Not Available [facility] (Lab) [address] [facility], [place], [address], 07/06/2023 05:41:20 07/05/20 23 07/05/2023 LIPID PANEL ,AMA (LDL- CALC) HDL cholesterol 52 mg/dL >40 Not Available [facility] (Lab) [address] [place], [address], 07/06/2023 05:41:20 07/05/20 23 07/05/2023 LIPID PANEL ,AMA (LDL- CALC) LDL cholesterol 126 mg/dL 0-99 high Cutof f value s recom chante d by the Ilda metz Trudy stero l Educa tion Progr am: BOB ABLE: Trudy stero l <200 mg/dL LDL <100 mg/dL BORDE RLINE : Trudy stero l 200-2 39 mg/dL LDL 101-1 59 mg/dL HIGHE R RISK: Trudy stero l >240 mg/dL LDL >160 mg/dL , HDL <40 mg/dL Not Available [facility] (Lab) [address], [place], [address], 07/06/2023 05:41:20 07/05/2007/05/2023 LIPID PANEL ,AMA (LDL- CALC) non-HDL cholesterol 162 mg/dL no refere nce range A reaso nable goal for non-H DL trudy stero l is one that is 30 mg/dL highe r than the LDL trudy stero l goal. Not Available [facility] (Lab) [address] [facility], [place], [address], 07/06/2023 05:41:20 07/05/2007/05/2023 LIPID PANEL ,AMA (LDL- CALC) chol/HDL ratio 4.1 . 0.0-5. 0 On March 16, 2023, [facility] labor atori areli dooley ed the equat ion for calcu latin g estim ated low-d ensit y lipop rotei n-cho leste rol (LDL- C) from the Fried anastacia equat ion to the Jeannie n/Hop kins equat ion. This new equat ion is only valid for lipid panel s with trigl yceri akua < 400 mg/dL . Xin licea ed that this new equat ion will impro ve the accur acy of LDL-C , espec ially in scena john when LDL-C jacqui ntrat ions are relat ively low (< 100 mg/dL ), trigl yceri akua are eleva rhiannon, or patie nt is non-f astin g. Refer ences : - Jeannie cruz, Kristian Julian, Anthony Bae , Mohcorey samson, Jareth Rm, Jareth trimble, Andrey oseguera , and Mihai Rey . 2013. Comp ariso n of a Novel Metho d vs the Fried anastacia Equat ion for Estim ating Low-D ensit y Lipop rotei n Trudy stero l Level s from the Stand rakesh Lipid Profi le. ROM: The Journ al of the Ameri can Medic al Assoc iatio n 310 (19): 2060- . - Ruby cabezas V, Claudia J, Gilda cabezas A, Pushpa M, Ramy e R, Stew cabezas E, Samantha oseguera RS, Candido SR, Jeannie n SS. Fast ing Versu s Nonfa sting and Low-D ensit y Lipop rotei n Trudy stero l Accur acy. Circu latio n. 2017Nov 23;137 (1):1 0-19. Not Available [facility] (Lab) [address] [facility], [place], [address], 07/06/2023 05:41:20 07/05/20 23 07/05/2023 CMP(C OMPRE HENSI VE METAB OLIC PANEL ) sodium 140 mmol/ L 133-14 6 Not Available [facility] (Lab) [address] [facility], [place], [address], 07/06/2023 05:41:21 07/05/20 23 07/05/2023 CMP(C OMPRE HENSI VE METAB OLIC PANEL ) potassium 4.0 mmol/ L 3.5-5. 1 Not Available [facility] (Lab) [address] [facility], [place], [address], 07/06/2023 05:41:21 07/05/20 23 07/05/2023 CMP(C OMPRE HENSI VE METAB OLIC PANEL ) chloride 105 mmol/ L 98-107 Not Available [facility] (Lab) [address] [place], [address], 07/06/2023 05:41:21 07/05/20 23 07/05/2023 CMP(C OMPRE HENSI VE METAB OLIC PANEL ) carbon dioxide 29 mmol/ L 21-31 Not Available [facility] (Lab) [address] [place], [address], 07/06/2023 05:41:21 07/05/20 23 07/05/2023 CMP(C OMPRE HENSI VE METAB OLIC PANEL ) anion gap 6 mmol/ L 4-13 Not Available [facility] (Lab) [address] [facility], [place], [address], 07/06/2023 05:41:21 07/05/20 23 07/05/2023 CMP(C OMPRE HENSI VE METAB OLIC PANEL ) blood urea nitrogen 19 mg/dL 7-25 Not Available [facility] (Lab) [address] [facility], [place], [address], 07/06/2023 05:41:21 07/05/20 23 07/05/2023 CMP(C OMPRE HENSI VE METAB OLIC PANEL ) creatinine 0.75 mg/dL 0.60-1 .30 Not Available [facility] (Lab) [address] [facility], [place], [address], 07/06/2023 05:41:21 07/05/20 23 07/05/2023 CMP(C OMPRE HENSI VE METAB OLIC PANEL ) egfrcr (CKD-epi 2020) >90 mL/mi n/1.7 3_m2 >=60 Not Available [facility] (Lab) [address] [facility], [place], [address], 07/06/2023 05:41:21 07/05/20 23 07/05/2023 CMP(C OMPRE HENSI VE METAB OLIC PANEL ) calcium 8.9 mg/dL 8.3-10 .5 Not Available [facility] (Lab) [address] [facility], [place], [address], 07/06/2023 05:41:21 07/05/20 23 07/05/2023 CMP(C OMPRE HENSI VE METAB OLIC PANEL ) glucose 62 mg/dL 70-100 low Not Available [facility] (Lab) [address] [facility], [place], [address], 07/06/2023 05:41:21 07/05/20 23 07/05/2023 CMP(C OMPRE HENSI VE METAB OLIC PANEL ) protein, total 6.0 g/dL 6.4-8. 3 low Not Available [facility] (Lab) [address] [facility], [place], [address], 07/06/2023 05:41:21 07/05/20 23 07/05/2023 CMP(C OMPRE HENSI VE METAB OLIC PANEL ) albumin 3.9 g/dL 3.5-5. 0 Not Available [facility] (Lab) [address] [facility], [place], [address], 07/06/2023 05:41:21 07/05/20 23 07/05/2023 CMP(C OMPRE HENSI VE METAB OLIC PANEL ) ALT 12 units /L 9-43 Not Available [facility] (Lab) [address] [facility], [place], [address], 07/06/2023 05:41:21 07/05/20 23 07/05/2023 CMP(C OMPRE HENSI VE METAB OLIC PANEL ) alkaline phosphatase 69 units /L 34-104 Not Available [facility] (Lab) [address] [facility], [place], [address], 07/06/2023 05:41:21 07/05/20 23 07/05/2023 CMP(C OMPRE HENSI VE METAB OLIC PANEL ) AST 13 units /L 13-39 Not Available [facility] (Lab) [address] [facility], [place], [address], 07/06/2023 05:41:21 07/05/20 23 07/05/2023 CMP(C OMPRE HENSI VE METAB OLIC PANEL ) bilirubin, total 0.2 mg/dL 0.2-1. 2 Not Available [facility] (Lab) [address] [facility], [place], [address], 07/06/2023 05:41:21 07/05/20 23 07/05/2023 TSH, REFLE X FREE T4 TSH 3.26 uIU/m L 0.30-5 .33 Not Available [facility] (Lab) [address] [facility], [place], [address], 07/06/2023 05:41:21 07/05/20 23 07/05/2023 VITAM IN D, 25-OH (TOTA L D2/D3 ) vitamin D, 25-hydroxy, total 12.6 NG/mL 30.0-1 00.0 [address]ge [address]ive of Defic iency : <20 ng/mL [place] [facility] of Insuf ficie ncy: 20-29 ng/mL [facility] st[facility] of Suffi cienc y: 30-10 0 ng/mL [place] stive of Toxic ity: >150 ng/mL Not Available [facility] (Lab) [address], [place], [address], 07/06/2023 05:41:22 07/05/20 23 07/05/2023 IMAGE GUIDE D PAP AND HPV REGAR DLESS image guided Pap, HPV regardless of Pap result SEE RESULT S BELOW CASE REPOR T: Cytol ogy Gynec ologi francisco javier Repor t Case: [id number] Autho angella tucker Provi gopi: Lima Bowers MD Colle cted: 07/05 1525 Order ing Locat ion: [place] Patho log[facility] Recei raul: 07/06 0331 First Scree n: Radhika De Luna ica Rescr een: Silvana Mcgrath Speci men: Scree jennie Pap - Image d, Cervi x STATE MENT OF ADEQU ACY: Satis facto ry for evalu ation Trans forma tion zone compo nent prese nt FINAL DIAGN OSIS: Negat marsha for Intra epith elial Ruba cruz or Slick rolle ([facility]) . Elect yogesh woods cr d by Silvana Mcgrath on 2022 at 8:46 PM ----- ----- ----- ----- ----- ----- ----- ----- ----- ----- ----- ----- ----- ----- ----- ----- ----- ---- HPV RESUL TS: HPV mRNA E6/E7 : No HPV mRNA Detec rhiannon NOTE: This high risk HPV mRNA assay detec ts fourt een high- risk HPV types (16, 18, 31, 33, 35, 39, 45, 51, 52, 56, 58, 59, 66, 68) witho ut diffe renti ation . COMME NT: This speci men was revie wed by a Cytot echno logis t and/o r Patho logis t (as indic ated in this repor t) after evalu ation using the Thinp rep Imagi ng Syste m. [facility] INFOR MATIO N: Menst rual Statu s: LMP (if appli cable ): [facility] Histo ry/Pr eviou s Pap: Type of Neopl eli (if appli cable ): Signi fican t [facility] Findi ngs: Other Histo ry: Hormo john (if appli cable ): PAP EDUCA DUSTIN L NOTE: The Pap Test is a scree jennie test with an inher ent false negat marsha rate. Liqui d-bas ed sampl ing may decre ase, but will not elimi brody, false negat marsha resul ts. A negat marsha resul t does not precl ude the prese nce and/o r devel opmen t of disea se, since the prese nce of abnor mal cells in the sampl e depen ds on the locat ion of the lesio n and sampl ing techn ique. Booker nued regul ar scree jennie is the best metho d of cance r preve ntion . If repor rhiannon cytol ogic findi ng do not corre late with physi francisco javier and/o r histo rical findi ngs, furth er inves tigat ion is recom chante d, as clini iggy warra nted. Not Available [facility] (Lab) [address], [place], [address], 07/06/2023 21:50:12 Result Notes None recorded. Problems Name Problem SNOMED Code Status Onset Date Resolution Date Notes Provider Name and Address Organization Details Recorded Time Rubella screenin g status [id number] Completed 201801/02/2022 Encounte r for antenata l screenin g, unspecif ied;Pavan rded Elsewher e: No Locat ion: [facility] S ource: [employer] Custodian jacobo: N Zeenatti ce ID: 0001 Danis lable Time: 08:45:00 AM Myriam harris, [facility] 2 12:33:46 Pregnanc y detectio n examinat ion Completed 201801/02/2022 Encounte r for pregnanc y test, result positive ;Recorde d Elsewher e: No Locat ion: [facility] S ource: [employer] Custodian jacobo: N Zeenatti ce ID: 0001 Danis lable Time: 09:45:00 AM Myriam harris, [facility] 2 12:34:03 Normal pregnanc y in kimberlygra zehra [id number] Completed 201801/02/2022 Encounte r for suprvsn of normal pregnanc y, third trimeste r;Record ed Elsewher e: No Locat ion: [facility] S ource: [employer] Custodian jacobo: N Zeenatti ce ID: 0001 Danis lable Time: 09:15:00 AM Myriam harris, [facility] 2 12:33:59 Procedur e on genitour inary system Completed 201901/02/2022 Encounte r for surgical aftercar e followin g surgery on the genitour inary system;R ecorded Elsewher e: No Locat ion: [facility] S ource: [employer] Custodian jacobo: N Practi ce ID: 0001 Danis lable Time: 01:15:00 PM Myriam harris, [facility] 2 12:33:35 Postoper ative care Completed 201901/02/2022 Encounte r for surgical aftercar e followin g surgery on the genitour inary system;R ecorded Elsewher e: No Locat ion: [facility] S ource: [employer] Custodian jacobo: N Zeenatti ce ID: 0001 Danis lable Time: 01:15:00 PM Myriam harris, [facility] 2 12:33:37 Pregnanc y, childbir th and puerperi um finding Completed 201801/02/2022 Encntr for suprvsn of normal first preg, third trimeste r;Record ed Elsewher e: No Locat ion: Haylielotus loni [facility] S ource: [facility] [place] jacobo: N Zeenatti ce ID: 0001 Danis lable Time: 01:15:00 PM Myriam harris, [facility] 2 12:34:00 Antenata l screenin g Completed 201801/02/2022 Encounte r for antenata l screenin g for nuchal transluc ency;Rec orded Elsewher e: No Locat ion: Junior loni [facility] S ource: [facility] [place] jacobo: N Zeenatti ce ID: 0001 Danis lable Time: 09:30:00 AM Myriam harris, [facility] 2 12:33:43 Hemorrha gic complica tion of pregnanc y [id number] Completed 201801/02/2022 Other hemorrha ge in early pregnanc y;Record ed Elsewher e: No Locat ion: Haylielotus loni [facility] S ource: [facility] [place] jacobo: N Zeenatti ce ID: 0001 Danis lable Time: 10:30:00 AM Myriam harris, [facility] 2 12:33:34 Secondar y amenorrh ea [id number] Completed 201801/02/2022 Secondar y amenorrh ea;Recor ded Elsewher e: No [facility] [employer] Custodian jacobo: N Zeenatti ce ID: 0001 Danis lable Time: 09:45:00 AM Myriam harris, [facility] 2 12:33:39 Uterine size for dates discrepa ncy Completed 201801/02/2022 Uterine size-derick e discrepa ncy, first trimeste r;Record ed Elsewher e: No [facility] Custodian jacobo: N Zeenatti ce ID: 0001 Danis lable Time: 10:30:00 AM Myriam harris, [facility] 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 S ource: [employer] Custodian jacobo: N Zeenatti ce ID: 0001 Danis lable Time: 09:45:00 AM Myriam harris, [facility] 2 12:33:48 Infectio n screenin g Completed 201801/02/2022 Encounte r for screenin g for oth infec/pa rastc diseases ;Recorde d Elsewher e: No Locat ion: [facility] S ource: [employer] Custodian jacobo: N Zeenatti ce ID: 0001 Danis lable Time: 09:45:00 AM Myriam harris, [facility] 2 12:33:44 Antenata l screenin g for malforma tion Completed 201801/02/2022 Encounte r for antenata l screenin g for malforma tions;Re corded Elsewher e: No Locat ion: [facility] S ource: [employer] Custodian jacobo: N Zeenatti ce ID: 0001 Danis lable Time: 08:45:00 AM Myriam harris, [facility] 2 12:34:02 Syphilis test finding [id number] Completed 201801/02/2022 Encntr screen for infectio ns w sexl mode of transmis s;Record ed Elsewher e: No Locat ion: Junior ivey [facility] S ource: [employer] Custodian jacobo: N Practi ce ID: 0001 Danis lable Time: 09:45:00 AM Myriam harris, [facility] 2 12:33:52 Lochia finding Completed 201901/02/2022 Encounte r for routine postpart um follow-u p;Record ed Elsewher e: No Locat ion: Junior ivey [facility] S ource: [employer] Custodian jacobo: N Practi ce ID: 0001 Danis lable Time: 09:30:00 AM Myriam harris, [facility] 2 12:33:56 Gestatio n period, 9 weeks [id number] Completed 201801/02/2022 9 weeks gestatio n of pregnanc y;Record ed Elsewher e: No Locat ion: Junior ivey [facility] S ource: [employer] Custodian jacobo: N Practi ce ID: 0001 Danis lable Time: 10:30:00 AM Myriam harris, [facility] 2 12:34:26 Failed trial of labor [id number] Completed 201801/02/2022 Failed trial of labor, unspecif ied;Prac sis ID: 0001 Myriam harris, [facility] 2 12:33:40 Single liveborn born in hospital by section [id number] Completed 201801/02/2022 Single liveborn infant, delivere d by ;Practic e ID: 0001 Myriam harris, [facility] 2 12:33:53 Gestatio n period, 39 weeks 01360267 Completed 201801/02/2022 39 weeks gestatio n of pregnanc y;Practi ce ID: 0001 Myriam harris, [facility] 2 12:34:24 Pregnanc y [id number] Completed 202103/06/[address] [facility] 3 11:10:31 delivery - delivere d [id number] Completed to repeat Catia Dietrich [facility] 3 11:10:29 Problem Notes None recorded. Procedures Surgical History Date Name Laterality Status Provider Name and Address Organization Details Recorded Time 3 SECTION (SURG) completed Cassia Driscoll [facility] 01/25/2023 10:26:20 2 Date of Last Pap Smear completed [facility] 11/20/2022 10:19:02 9 section completed [facility] 03/20/2020 15:41:27 1 operative procedure on foot completed [facility] 12/03/2022 11:07:06 Other completed Catia [facility] 07/05/2023 13:53:53 Imaging Results None recorded. Procedure Notes None recorded. Medical Equipment None Reported. Allergies No known drug allergies Medications Name Sig Start Date Stop Date Status Note LastModified by Organization Details LastModified Time hydrocodo ne 5 mg-acetam inophen 325 mg tablet TAKE 1 TABLET BY MOUTH EVERY 3 HOURS NEEDED active Not Available Not Available No t Available ergocalci ferol (vitamin D2) 1,250 mcg (50,000 unit) capsule TAKE 1 CAPSULE EVERY WEEK BY ORAL ROUTE. active Not Available Not Available No t Available methylpre dnisolone 4 mg tablets in a dose pack active Not Available Not Available Not Available sertralin e 50 mg tablet TAKE 1 TABLET BY MOUTH EVERY DAY 2022 active Not Available Not Available Not Avai lable Kariva (28) 0.15 mg-0.02 mg (21)/0.01 mg (5) tablet Take 1 tablet every day by oral route. 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 28 mg iron-1 mg-200 mg capsule take 1 capsule by oral route every day 01/02 completed Prescrib ed Elsewher e: No Locat ion: [facility] odify By: oscar munguia DateTime : 05/29/20 08:39:06 AM Not Available Not Available Not Available 28 mg-800 mcg tablet 01/02 completed Prescrib ed Elsewher e: Yes Loca tion: [facility] odify By: [email or web address] munguia DateTime : 04/25/20 09:45:00 AM Not Available Not Available Not Available Vitals Date Recorded Body height Body mass index (BMI) Body weight Systolic blood pressure Diastolic blood pressure Provider Name and Address Organization Details Last Updated DateTime 01/21/2023 148.59 cm 39.7 kg/m2 63783.32 741 g 136 mm[Hg] 80 mm[Hg] Latrice Torrez [facility] 3 09:48:12 Date Recorded Body height Body mass index (BMI) Body weight Systolic blood pressure Diastolic blood pressure Systolic blood pressure Diastolic blood pressure Provider Name and Address Organization Details Last Updated DateTime 3 148.59 cm 37.2 kg/m2 40331.2 2 g 149 mm[Hg] 93 mm[Hg] 142 mm[Hg] 87 mm[Hg] Catia [facility] 3 12:47:46 Date Recorded Body height Body mass index (BMI) Body weight Systolic blood pressure Diastolic blood pressure Provider Name and Address Organization Details Last Updated DateTime 03/06/2023 148.59 cm 34.3 kg/m2 38837.92 579 g 117 mm[Hg] 73 mm[Hg] Catia [facility] 3 11:10:11 Date Recorded Body height Body mass index (BMI) Body weight Systolic blood pressure Diastolic blood pressure Provider Name and Address Organization Details Last Updated DateTime 07/05/2023 148.59 cm 37.2 kg/m2 05110.22 g 119 mm[Hg] 75 mm[Hg] Catia Dietrich [facility] 3 14:04:58 Social History Question Answer Notes LastModified by Organizat ion Details LastModified Time Tobacco Smoking Status Never Smoker Catia Dietrich [facility], [facility] 07/05/2023 14:05:14 Do You Have An Advance Directive? No [email or web address] Information n ot available 07/01/2022 What Is Your Level Of Alcohol Consumption? Occasional [email or web address] Information not available 11/20/2022 If You Are , What Was Your Level Of Alcohol Consumption Prior To ? Occasional [email or web address] Information not available 07/05/2023 How Many Years Have You Consumed Alcohol? 9 [email or web address] Information not available 11/20/2022 Are You Blind Or Do You Have Difficulty Seeing? No [email or web address] Information n ot available 07/01/2022 What Is Your Level Of Caffeine Consumption? Moderate [email or web address] Information not available 07/01/2022 How Much Tobacco Do You Chew? None [email or web address] Information not available 07/01/2022 In The 14 Days Before Symptom Onset, Have You Had Close Contact With A Laboratory-confirm ed COVID-19 While That Case Was Ill? No [email or web address] Information n ot available 07/01/2022 In The 14 Days Before Symptom Onset, Have You Had Close Contact With A Person Who Is Under Investigation For COVID-19 While That Person Was Ill? No [email or web address] Information not available 07/01/2022 Have You Been To An Area Known To Be High Risk For COVID-19? No [email or web address] Information not available 07/01/2022 Are You Deaf Or Do You Have Serious Difficulty Hearing? No [email or web address] Information not available 07/01/2022 What Type Of Diet Are You Following? CARBOHYDRATE [email or web address] Information n ot available 11/20/2022 What Is The Highest Grade Or Level Of School You Have Completed Or The Highest Degree You Have Received? [id number] [email or web address] Information not available 07/01/2022 Are There Any Guns Present In Your Home? No [email or web address] Information not available 07/01/2022 What Was The Date Of Your Most Recent Tobacco Screening? 01/21/2023 [email or web address] Information not available 07/05/2023 Do You Use Protection During Sex? No [email or web address] Information not available 07/01/2022 Do You Use Your Seat Belt Or Car Seat Routinely? Yes [email or web address] Information not available 07/01/2022 Do You Have Smoke And Carbon Monoxide Detectors In Your Home? Yes [email or web address] Information not available 07/01/2022 How Much Tobacco Do You Smoke? No [email or web address] Information not available 07/01/2022 Smoking Pre- Yes [email or web address] Information not available 07/05/2023 Do You Feel Stressed (tense, Restless, Nervous, Or Anxious, Or Unable To Sleep At Night)? [id number] [email or web address] Information not available 11/20/2022 Do You Use Any Illicit Or Recreational Drugs? No [email or web address] Information not available 07/01/2022 Do You Use Sunscreen Routinely? No [email or web address] Information not available 07/01/2022 Have You Used IV Drugs? No [email or web address] Information not available 07/01/2022 Sex: Unknown Functional Status Question Answer Note LastModified by Organizat ion Details LastModified Time Do you have difficulty walking or climbing stairs? No [email or web address] Information not available 07/05/2023 Are you able to walk? [email or web address] Information not available 07/22/2022 Are you able to care for yourself? Yes Information not available 07/05/2023 Do you have difficulty dressing or bathing? No [email or web address] Information not available 07/05/2023 What is your exercise level? Moderate Information not available 07/01/2022 Mental Status None recorded. Family History Relationship Description Onset Age of this Age Resolved Age Notes LastModified by Organization Details LastModified Time Mother Diabetes mellitus [email or web address] Not available 2019 15:53:45 Father Hypertensive disorder [email or web address] Not available 2019 15:53:56 Medical History Condition Response Allergies (Food, seasonal, environmental ) N Other N Breast Cancer N Drug/Latex Allergies/Reactions N Blood Transfusion N Dermatologic Disorders N Lung Disease N Defects or Inherited Disease N Breast Problem N Gestational Diabetes N Hematologic disorders N Anesthesia Complications N History of STI N Deep Vein Thrombosis N Polycystic ovary syndrome N Anxiety Disorder N Autoimmune disease N Arthritis N Infertility N Polyps N Acid Reflux (GERD) N History of abnormal pap N Cancer N Stroke N Varicosities N Neurologic/Epilepsy N Endometriosis N High Cholesterol N Headaches N Fibromyalgia N Kidney Disease N Heart Problems N Kidney or Bladder Problems N Thyroid Problems N GI Problems N Eating Disorder N Anemia N Art (IVF or FET) N Psychiatric Illness N Ovarian Cancer N Diabetes N Pulmonary (TB, Asthma) N Hepatitis/Liver Disease N No Past Medical History N Eczema N Urinary Tract Infection N Abuse/Domestic Violence N Asthma N Trauma/Violence N Depression/ depression N Heart Disease N Pre-Eclampsia N Hypertension N Osteoporosis N Thrombophilias N Gynecological History Statement/Question Response Abnormal Pap N Date of LMP 06/14/2023 N On BCP's at Conception? N STIs/STDs N Was last menstrual period normal Y HPV Vaccine Y Duration of Flow (days) 5 Current Control Method Tubal Ligat ion Age at First Child 29 Are cycles usually normal Y Frequency of Cycle (Q days) 4 Sexually Active? Y BCPs Menses Monthly Y Age of first menstrual cycle 12 Date of Last Pap Smear 07/01/2022 Sexual Problems? N LMP Approximate Desired Control Method None N Obstetrics History GPAL:G 4 P 2 0 2 2 Type Value Full Term 2 Spontaneous 2 Living 2 Total 4 Past Encounters Encounter ID Performer Location Encounter Start Date Encounter Closed Date Diagnosis/Indication Diagnosis SNOMED-CT Code Diagnosis ICD10 Code Diagnosis Note [id number] Samantha Flores CNM [facility] [address] [address] 03/20/2020 11:30:20 03/20/2020 13:17:10 Gynecologic examination 82036771 Z01.419 [id number] Jaylyn Schwab [facility] [address] [address] 06/11/2022 12:54:40 06/11/2022 14:33:29 screening 498114714 Z36.87 [id number] Katharine Ernst [facility] [address],[place] [address] 07/01/2022 12:03:23 07/01/2022 12:29:09 [id number] Samantha Flores [facility] [address],[place] [address] 07/01/2022 12:04:13 07/01/2022 13:58:50 test positive 743400064 Z32.01 Gynecologi c examination 67627801 Z01.419 [id number] [facility] [address],[place] [address] 07/22/2022 14:15:14 07/22/2022 14:41:42 screening 966286760 Z36.82 [id number] Ishan Bowers MD [facility] [address],[place] [address] 07/22/2022 14:15:34 07/22/2022 15:51:50 Routine care 045562356 Z34.91 [id number] Ishan Bowers MD [facility] [address],[place] [address] 08/18/2022 12:37:27 08/18/2022 13:45:58 Screening for drug of abuse in urine specimen positive 876130109 R82.5 Routine an tenatal care 199814303 Z34.91 [id number] [facility] [address],[place] [address] 09/22/2022 14:01:19 09/22/2022 15:13:15 screening for malformation 222091759 Z36.3 [id number] Amelia Caballero MD [facility] [address],[place] [address] 09/22/2022 14:02:28 09/22/2022 15:27:00 Routine care 613098445 Z34.82 [id number] Katharine Ernst [facility] [address],[place] [address] 10/21/2022 14:13:51 10/21/2022 14:56:14 screening 768077990 Z36.2 [id number] Ishan Bowers MD [facility] [address],[place] [address] 10/21/2022 14:14:22 10/21/2022 20:43:28 Routine care 817777820 Z34.91 [id number] Samantha Flores [facility] [address],[place] [address] 11/20/2022 09:57:08 11/20/2022 13:43:54 Routine care 818398286 Z34.93 [id number] [facility] [address],[place] [address] 12/03/2022 10:52:07 12/03/2022 11:55:29 Routine care 332551320 Z34.93 [id number] [facility] [address],[place] [address] 12/17/2022 11:03:13 12/17/2022 12:02:18 Routine care 922580292 Z34.93 s ection following previous section 694370697 O34.219 [id number] Samantha Flores [facility] [address],[place] [address] 01/01/2023 12:02:36 01/01/2023 12:41:25 Routine care 756508211 Z34.93 [id number] [facility] [address],[place] [address] 01/07/2023 09:40:22 01/07/2023 15:38:17 Routine care 061848158 Z34.93 Elevated blood-pressure reading without diagnosis of hypertension 418605542 R03.0 - induced hypertension 72022105 O13.9 [id number] [facility] [address],[place] [address] 01/14/2023 09:33:09 01/14/2023 14:28:46 Routine care 187425459 Z34.93 [id number] Nicolle Talley [facility] [address],[place] [address] 01/21/2023 09:32:19 01/21/2023 10:15:07 Routine care 955735805 Z34.93 [id number] Ishan Bowers MD [facility] [address],[place] [address] 02/01/2023 12:23:58 02/01/2023 13:00:04 Postoperative care 462205783 Z48.89 This patient is a 32-year-ol d multiparou s female presents for postoperat marsha care. She is 1 week post op from a delivery. She has no complaints . Her incision has some burning on the right side. We discussed that. Mood is good. Her baby is well. [id number] Ishan Bowers MD [facility] [address],[place] [address] 03/06/2023 10:57:49 03/08/2023 13:21:57 care 896907097 Z39.2 This patient is 32-year-ol d female presents for follow-up. She is 4 weeks post from a delivery. Her baby is doing well. She is doing well. She has stopped bleeding. She has had sex. She is breast-fee ding primarily. She had a tubal ligation her , she will follow up in 2 months for well woman. [id number] Ishan Bowers MD [facility] [address] [address] 07/05/2023 13:47:15 07/05/2023 14:31:52 Mixed anxiety and depressive disorder 364898561 F41.8 Gynecologi c examination 97042098 Z01.419 Annual gynecologi francisco javier exam performed. Patient will come back in a year unless there are new symptoms. Suggest Calcium with Vitamin D if not eating in diet. Patient advised to get annual flu shot. Recommend yearly physicals and preform monthly breast exams. Genetic testing is available for patients with family history of cancer. Engage in safe sexual practices, use condoms. Encouraged to have daily exercise. Avoid tobacco and illicit drugs, moderation of alcohol. If BMI greater than 25 dietary consult advised. If you have any questions please call or email. Mammogram - na Colonoscop y - today Cholestero l - today Pap - today Health Concerns Section Related Observation LastModified by Organization Detai ls LastModified Time None Recorded Concern Status LastModified by Organization Details LastModified Time None Recorded Advance Directives Directive N: Payers Encounter Date Sequence Insurance Name Policy Number Policy Singletary Covered Member ID Singletary Member ID Guarantor Name 01/21/2023 1 [facility] (MEDICAID HMO) [id number] Mercady Orlandini [id number] Mercady Orlandini 02/01/2023 1 [facility] (MEDICAID HMO) [id number] Mercady Orlandini [id number] Mercady Orlandini 03/06/2023 1 [facility] (MEDICAID HMO) [id number] Mercady Orlandini [id number] Mercady Orlandini 07/05/2023 1 [facility] (MEDICAID HMO) [id number] Mercady Orlandini [id number] Mercady Orlandini Notes Date Note Type Note Provider Name and Address Organization Details Recorded Time 02/01/2023 text/html This patient is a 32-year-old multiparous female presents for postoperative care. She is 1 week post op from a delivery. She has no complaints. Her incision has some burning on the right side. We discussed that. Mood is good. Her baby is well. Incision is clean dry and intact. Ishan Bowers MD [address], [place], [address], [facility] 02/01/2023 12:47:00 03/06/2023 text/html This patient is 32-year-old female presents for follow-up. She is 4 weeks post from a delivery. Her baby is doing well. She is doing well. She has stopped bleeding. She has had sex. She is breast-feeding primarily. She had a tubal ligation her , she will follow up in 2 months for well woman. Ishan Bowers MD [address], [place], [place], [id number], [facility] 03/06/2023 12:18:49 07/05/2023 text/html Annual GYNReport ed bypatient.History:n o gynecologic complaints Menstrual cycle:Normal menses Urinary symptoms:No hematuria; No incontinence Vulva:No genital lesion Vagina:Normal vaginal discharge Breast:No breast pain; No breast lump Current Contraception:Satis fied with current contraception; Tubal ligation Sexual complaints:No sexual complaints; No pain during intercourse Menopausal Symptoms:No menopausal symptoms Psychological symptoms:Depression ;Anxiety; Not treated - to start today Preventive measures:Encourage self breast examination; Encourage regular exercise Ishan Bowers MD [address], [place], [address], [facility] 07/05/2023 14:30:46 OBGyn Episode Ob Episode Information Episode Created Date Number of Fetuses Patient Bloodtype Patient rh Status Prepregnancy Weight lbs Domestic Partner Domestic Partner Phone Father Name Procurement Internship Status 03/20/20 20 1 CLOSED Fetus Data First Name Last Name Admitted to NICU Weight (g) Sex Living Outcome Pediatric Complications Fetus ID Race Codes Race Delivery Type , Spontane ous 957 Raphael Calculation Initial Raphael Date Initial Exam Date Initial Exam Provider Initial Ultrasound Date Last Menstrual Period Date Ultra Sound Weeks Gestation 0 Eighteen To Twenty Week Raphael Update Ultra Sound Date Fundal Height At Umbil Quickening Date Ultra Sound Latest Weeks Gestation Final Raphael Confirmed By Final Raphael Confirmed Date Final Raphael Date Ultra Sound Latest Days Gestation 0 0 Menstrual History Last Menstrual Date Menses Monthly On Bcp Conception Prior Menses Frequency Hcg Plus Date Menarche Onset Age Delivery Information Delivery Date Delivery Type Labor Anesthesia Weeks Gestation Incision Type Labor Labor Length Hrs Delivered By Post Complications Tubal Sterilization Discharge Date Comments 6 2016 miscarria ge Discharge Information Feeding Method Contraceptive Method Maternal HG B and HCT Levels Ob Episode Information Episode Created Date Number of Fetuses Patient Bloodtype Patient rh Status Prepregnancy Weight lbs Domestic Partner Domestic Partner Phone Father Name Procurement Internship Status 03/20/20 20 1 CLOSED Fetus Data First Name Last Name Admitted to NICU Weight (g) Sex Living Outcome Pediatric Complications Fetus ID Race Codes Race Delivery Type 3033.16 [id number] M Full Term 958 Primary Raphael Calculation Initial Raphael Date Initial Exam Date Initial Exam Provider Initial Ultrasound Date Last Menstrual Period Date Ultra Sound Weeks Gestation 0 Eighteen To Twenty Week Raphael Update Ultra Sound Date Fundal Height At Umbil Quickening Date Ultra Sound Latest Weeks Gestation Final Raphael Confirmed By Final Raphael Confirmed Date Final Raphael Date Ultra Sound Latest Days Gestation 0 0 Menstrual History Last Menstrual Date Menses Monthly On Bcp Conception Prior Menses Frequency Hcg Plus Date Menarche Onset Age Delivery Information Delivery Date Delivery Type Labor Anesthesia Weeks Gestation Incision Type Labor Labor Length Hrs Delivered By Post Complications Tubal Sterilization Discharge Date Comments 9 39 [place] Discharge Information Feeding Method Contraceptive Method Maternal HG B and HCT Levels Ob Episode Information Episode Created Date Number of Fetuses Patient Bloodtype Patient rh Status Prepregnancy Weight lbs Domestic Partner Domestic Partner Phone Father Name Procurement Internship Status 03/20/20 20 1 CLOSED Fetus Data First Name Last Name Admitted to NICU Weight (g) Sex Living Outcome Pediatric Complications Fetus ID Race Codes Race Delivery Type , Spontane ous 956 Raphael Calculation Initial Raphael Date Initial Exam Date Initial Exam Provider Initial Ultrasound Date Last Menstrual Period Date Ultra Sound Weeks Gestation 0 Eighteen To Twenty Week Raphael Update Ultra Sound Date Fundal Height At Umbil Quickening Date Ultra Sound Latest Weeks Gestation Final Raphael Confirmed By Final Raphael Confirmed Date Final Raphael Date Ultra Sound Latest Days Gestation 0 0 Menstrual History Last Menstrual Date Menses Monthly On Bcp Conception Prior Menses Frequency Hcg Plus Date Menarche Onset Age Delivery Information Delivery Date Delivery Type Labor Anesthesia Weeks Gestation Incision Type Labor Labor Length Hrs Delivered By Post Complications Tubal Sterilization Discharge Date Comments 4 2014 miscarria ge Discharge Information Feeding Method Contraceptive Method Maternal HG B and HCT Levels Ob Episode Information Episode Created Date Number of Fetuses Patient Bloodtype Patient rh Status Prepregnancy Weight lbs Domestic Partner Domestic Partner Phone Father Name Procurement Internship Status 07/22/20 22 1 A Negative 176 CLOSED Fetus Data First Name Last Name Admitted to NICU Weight (g) Sex Living Outcome Pediatric Complications Fetus ID Race Codes Race Delivery Type M true Full Term 38079 Repeat Problems Problem Notes 1hr gtt FAILED/ 1/3 hr gtt W NL Problem Name Start Date End Date Resolution Snomed Code Not e delivery - delivered [id number] to repeat Raphael Calculation Initial Raphael Date Initial Exam Date Initial Exam Provider Initial Ultrasound Date Last Menstrual Period Date Ultra Sound Weeks Gestation 02/03/2023 07/22/2022 06/11/202204/07/2022 6 Eighteen To Twenty Week Raphael Update Ultra Sound Date Fundal Height At Umbil Quickening Date Ultra Sound Latest Weeks Gestation Final Raphael Confirmed By Final Raphael Confirmed Date Final Raphael Date Ultra Sound Latest Days Gestation 0 [email or web address] 07/22/2022 02/01/20 23 0 Pre- Flowsheet Flowsheet Date 07/22/2022 Marshall Score Blood Edema Fundus Height Fundus Units Glucose Ketones Leukocytes Nitrite Labor Signs Protein Cervic Dilation Cervic Effacement Cervic Station 12 Type Weight in lbs Pre/Post Dialysis Refused Weight 173.043544408781 BP Diastolic BP Location Tested BP Systolic BP Type 75 R arm 118 sitting Fetus Heart Rate Present A 145 Fetus Movement Comments this patient is a 31-year-ol d 4 para 1021 at 12 weeks gestation who presents for initial care. She is vaccinated for COVID. She was given other vaccination recommendations that include flu and Tdap. She is getting genetic screening. Her ultrasound today is normal. We will begin routine care. It was it was explained to her in detail. Flowsheet Date 08/18/2022 Marshall Score Blood Edema Fundus Height Fundus Units Glucose Ketones Leukocytes Nitrite Labor Signs Protein Cervic Dilation Cervic Effacement Cervic Station 16 Type Weight in lbs Pre/Post Dialysis Refused Weight 183.835455920866 BP Diastolic BP Location Tested BP Systolic BP Type 82 R arm 129 sitting Fetus Heart Rate Present A 142 Fetus Movement Comments no complaints, no problems, boy baby Flowsheet Date 09/22/2022 Marshall Score Blood Edema Fundus Height Fundus Units Glucose Ketones Leukocytes Nitrite Labor Signs Protein Cervic Dilation Cervic Effacement Cervic Station Type Weight in lbs Pre/Post Dialysis Refused BP Diastolic BP Location Tested BP Systolic BP Type Fetus Heart Rate Present Fetus Movement Comments Flowsheet Date 09/22/2022 Marshall Score Blood Edema Fundus Height Fundus Units Glucose Ketones Leukocytes Nitrite Labor Signs Protein Cervic Dilation Cervic Effacement Cervic Station neg none trace trace Type Weight in lbs Pre/Post Dialysis Refused Weight 185.230538712332 BP Diastolic BP Location Tested BP Systolic BP Type 76 118 Fetus Heart Rate Present Fetus Movement A Yes Comments DOing well, no concerns. US today anatomy complete and wnl except DA not seen, repeat next visit. Flowsheet Date 10/21/2022 Marshall Score Blood Edema Fundus Height Fundus Units Glucose Ketones Leukocytes Nitrite Labor Signs Protein Cervic Dilation Cervic Effacement Cervic Station Type Weight in lbs Pre/Post Dialysis Refused BP Diastolic BP Location Tested BP Systolic BP Type Fetus Heart Rate Present Fetus Movement Comments Flowsheet Date 10/21/2022 Marshall Score Blood Edema Fundus Height Fundus Units Glucose Ketones Leukocytes Nitrite Labor Signs Protein Cervic Dilation Cervic Effacement Cervic Station 25 Type Weight in lbs Pre/Post Dialysis Refused Weight 182.474413056155 BP Diastolic BP Location Tested BP Systolic BP Type 67 R arm 111 sitting Fetus Heart Rate Present A 143 Fetus Movement Comments No complaints, no problems, Flowsheet Date 11/20/2022 Marshall Score Blood Edema Fundus Height Fundus Units Glucose Ketones Leukocytes Nitrite Labor Signs Protein Cervic Dilation Cervic Effacement Cervic Station neg none 28 none trace Type Weight in lbs Pre/Post Dialysis Refused Weight 184.825314756406 BP Diastolic BP Location Tested BP Systolic BP Type 83 133 Fetus Heart Rate Present A 145 Present Fetus Movement A Yes Comments patient is having some pain. discussed pt has varicosities in right inner thigh, no heat, no redness, hurt after working, ok for ice, if start to move down leg full length compression stockings, precautions reviewed and will f/u here in 2 weeks, ok for tdap, doing glucose at hospital with rhogam after this visit Flowsheet Date 12/03/2022 Marshall Score Blood Edema Fundus Height Fundus Units Glucose Ketones Leukocytes Nitrite Labor Signs Protein Cervic Dilation Cervic Effacement Cervic Station neg none none trace Type Weight in lbs Pre/Post Dialysis Refused Weight 186.591632435453 BP Diastolic BP Location Tested BP Systolic BP Type 82 121 Fetus Heart Rate Present Fetus Movement A Yes Comments Doing well. Encouraged tdap and to schedule pre admit. Having a boy. Planning repeat c/s. Flowsheet Date 12/17/2022 Marshall Score Blood Edema Fundus Height Fundus Units Glucose Ketones Leukocytes Nitrite Labor Signs Protein Cervic Dilation Cervic Effacement Cervic Station neg none 34 none trace Type Weight in lbs Pre/Post Dialysis Refused Weight 186.979972473501 BP Diastolic BP Location Tested BP Systolic BP Type 76 118 Fetus Heart Rate Present A 125 Fetus Movement A Yes Comments Doing well. No concerns. Enc ouraged to schedule pre admit. Planning tdap. Was told that c/s with tubal would be on January 25. I don't see anything scheduled. Will send order. Tubal consent signed today. Discussed risks and benefits and failure rates. Also explained it is not considered reversible. Pt verbalized understanding. Flowsheet Date 01/01/2023 Marshall Score Blood Edema Fundus Height Fundus Units Glucose Ketones Leukocytes Nitrite Labor Signs Protein Cervic Dilation Cervic Effacement Cervic Station neg none 37 none trace Type Weight in lbs Pre/Post Dialysis Refused Weight 189.879401276077 BP Diastolic BP Location Tested BP Systolic BP Type 84 118 Fetus Heart Rate Present A 140 Fetus Movement A Yes Comments reviewed precautions, has pr eadmit scheduled, gbs done, f/u one week Flowsheet Date 01/07/2023 Marshall Score Blood Edema Fundus Height Fundus Units Glucose Ketones Leukocytes Nitrite Labor Signs Protein Cervic Dilation Cervic Effacement Cervic Station none 38 none trace Type Weight in lbs Pre/Post Dialysis Refused Weight 189.447881407360 BP Diastolic BP Location Tested BP Systolic BP Type 89 146 88 130 Fetus Heart Rate Present A 141 Fetus Movement A Yes Comments Doing well. Did have a h/a y but resolved. BP increased. No v/d or e/p. Repeat improved at 130/88. Will check labs. PIH precautions given. C/S scheduled for the . Flowsheet Date 01/14/2023 Marshall Score Blood Edema Fundus Height Fundus Units Glucose Ketones Leukocytes Nitrite Labor Signs Protein Cervic Dilation Cervic Effacement Cervic Station neg none 38 none trace Type Weight in lbs Pre/Post Dialysis Refused Weight 190.228988096328 BP Diastolic BP Location Tested BP Systolic BP Type 78 121 Fetus Heart Rate Present A 141 Fetus Movement A Yes Comments Doing well. Labor precaution s. Plan to return in 1 week for routine OB. I did not see tubal on surgery schedule. Pt is confident that she wants to proceed. Message sent to surgery scheduling. Consent was signed on 12-17-22. Flowsheet Date 01/21/2023 Marshall Score Blood Edema Fundus Height Fundus Units Glucose Ketones Leukocytes Nitrite Labor Signs Protein Cervic Dilation Cervic Effacement Cervic Station neg trace 38 none trace Type Weight in lbs Pre/Post Dialysis Refused Weight 193.59163829800 BP Diastolic BP Location Tested BP Systolic BP Type 80 136 Fetus Heart Rate Present A 132 Fetus Movement A Yes Comments Doing well. Surgery schedule d for Wednesday. Labor precautions discussed. Flowsheet Date 01/25/2023 Marshall Score Blood Edema Fundus Height Fundus Units Glucose Ketones Leukocytes Nitrite Labor Signs Protein Cervic Dilation Cervic Effacement Cervic Station Type Weight in lbs Pre/Post Dialysis Refused BP Diastolic BP Location Tested BP Systolic BP Type Fetus Heart Rate Present Fetus Movement Comments Flowsheet Date 02/01/2023 Marshall Score Blood Edema Fundus Height Fundus Units Glucose Ketones Leukocytes Nitrite Labor Signs Protein Cervic Dilation Cervic Effacement Cervic Station Type Weight in lbs Pre/Post Dialysis Refused Weight 181.795316846282 BP Diastolic BP Location Tested BP Systolic BP Type 93 R arm 149 sitting Fetus Heart Rate Present Fetus Movement Comments Flowsheet Date 03/06/2023 Marshall Score Blood Edema Fundus Height Fundus Units Glucose Ketones Leukocytes Nitrite Labor Signs Protein Cervic Dilation Cervic Effacement Cervic Station Type Weight in lbs Pre/Post Dialysis Refused Weight 167.398216533339 BP Diastolic BP Location Tested BP Systolic BP Type 73 R arm 117 sitting Fetus Heart Rate Present Fetus Movement Comments Menstrual History Last Menstrual Date Menses Monthly On Bcp Conception Prior Menses Frequency Hcg Plus Date Menarche Onset Age 0504/07/2022 Genetic Screening And Infection History Question Response Note Mental Retardation/Autism false Patient's Age Will Be 35 Years Or Older At Estim ated Date of Delivery false Thalassemia (Setswana, Macanese, Mediterranean, Or Background): MCV < 80 false Neural Tube Defect (Meningomyelocele, Spina Bifi da, Or Anencephaly) false Congenital Heart Defect false Down Syndrome false Ronald-Sachs (eg, Roman Catholic, Cajun, Colombian-Pakistani) f alse Alyssa Disease false Sickle Cell Disease Or Trait () false Hemophilia Or Other Blood Disorders false Muscular Dystrophy false Cystic Fibrosis false [place]'s Chorea false Intellectual Disability/Autism false If Yes, Was Person Tested For Fragile X? false Other Inherited Genetic Or Chromosomal Disorder false Maternal Metabolic Disorder (eg, Type 1 Diabetes , PKU) false Patient Or Baby's Father Had A Child With Defects Not Listed Above false Recurrent Loss, Or A Stillbirth false Medications (including Suppl ements, Vitamins, Herbs, OTC Drugs), Illicit/Recreational Drugs, Alcohol false If Yes, Agent(s) And Strength/Dosage false Any Other Genetic History false Live With Someone With TB Or Exposed To TB false Patient Or Partner Has History Of Genital Herpes false Rash Or Viral Illness Since Last Menstrual Perio d false History Of STD, Gonorrhea, Chlamydia, HPV, Syphi lis false Other Infection History false History of HIV false History of Hepatitis false Prior GBS-infected child false Hemoglobinopathy Or Carrier false Other Structural Defect false Recent Travel History Outside of Country false Delivery Information Delivery Date Delivery Type Labor Anesthesia Weeks Gestation Incision Type Labor Labor Length Hrs Delivered By Post Complications Tubal Sterilization Discharge Date Comments 3 None Regional-Sp inal 39.1 Low Transvers e false Ishan Bowers MD true Discharge Information Feeding Method Contraceptive Method Maternal HG B and HCT Levels Ob Episode Information Episode Created Date Number of Fetuses Patient Bloodtype Patient rh Status Prepregnancy Weight lbs Domestic Partner Domestic Partner Phone Father Name Procurement Internship Status 01/02/20 22 1 DELETED Raphael Calculation Initial Raphael Date Initial Exam Date Initial Exam Provider Initial Ultrasound Date Last Menstrual Period Date Ultra Sound Weeks Gestation 0 Eighteen To Twenty Week Raphael Update Ultra Sound Date Fundal Height At Umbil Quickening Date Ultra Sound Latest Weeks Gestation Final Raphael Confirmed By Final Raphael Confirmed Date Final Raphael Date Ultra Sound Latest Days Gestation 0 0 Menstrual History Last Menstrual Date Menses Monthly On Bcp Conception Prior Menses Frequency Hcg Plus Date Menarche Onset Age Delivery Information Delivery Date Delivery Type Labor Anesthesia Weeks Gestation Incision Type Labor Labor Length Hrs Delivered By Post Complications Tubal Sterilization Discharge Date Comments 9 Discharge Information Feeding Method Contraceptive Method Maternal HG B and HCT Levels
--- OUTSIDE RECORDS SUMMARY | 2025-01-17 17:32 | XMS_ITS | Clinical Summary ---
Author Organization [facility] Address [address] [place] [address] Phone Care Team Providers Care Helpdesk Technician Name Role Phone Provider, None Primary Care Provider Unavailabl e Allergies No known active allergies Medications Lidocaine HCl (LIDOCAINE VISCOUS MT) by Mouth/Throat route. Active naproxen 500 MG Tablet Delayed Response Take 1 Tab by mouth 2 times daily. Take with food 60 Tab 8 Active Additional Information Patient not taking.Reported on 01/23/2019 SUMAtriptan (IMITREX) 50 MG Tablet Take 1 Tab by mouth once as needed for Migraine for up to 1 dose. Use as directed. May repeat dose in 2 hours if headache recurs. 9 Tab 3 9 Active Active Problems Problem Noted Date Diagnosed Date Lerma of multiple specified sites 09/28/2016 Overview (09/28/2016): Right hand and back Immunizations Immunization Administration Dates Next Due DTP Vaccine 06/11/1998, 4,03/14/1993,01/17,1992 Hepatitis B Vaccine, Pediatric/adolescent 08/18/1993,1992,1992 Hib Vaccine,unspecified Formulation 11/1993,03/14/1993,01/17/1993,10/08 Human Papillomavirus Vaccine (HPV), quadrivalent 07/07/2007 Inactivated Polio Vaccine 06/11/1998,,01/17/1993,10/08 Influenza Vaccine 08/26/2018 MMR Vaccine 06/11/1998,02/20/1994 Meningococcal C Conjugate Vaccine 07/07/2007 TD VACCINE 07/07/2007 Family History Medical History Relation Name Comments Hypertension Father Diabetes Mother Relation Name Status Comments Brother Alive Father Alive Mother Alive Sister Alive Social History Tobacco Use Types Packs/Day Years Used Date Smoking Tobacco: Never Smokeless Tobacco: Never Tobacco Cessation:Counseling Given: No Alcohol Use Standard Drinks/Week Comments No 0 (1 standard drink = 0.6 oz pur e alcohol) PHQ-2 Answer Date Recorded PHQ-2 Score 0 08/04/2019 Sexually Active Control Partners Comments Yes Comments No Sex and Gender Information Value Date Recorded Sex Assigned at Not on file Legal Sex Female 11:05 PM CDT Gender Identity Not on file Sexual Orientation Not on file Last Filed Vital Signs Vital Sign Reading Time Taken Comments Blood Pressure 104/60 01/23/2019 8:39 AM SOFTWARE PROJECT MANAGER Pulse 77 01/23/2019 8:39 AM SOFTWARE PROJECT MANAGER Temperature 36.2 C (97.1 F) 01/23/2019 8:39 AM SOFTWARE PROJECT MANAGER Respiratory Rate 16 01/23/2019 8:39 AM SOFTWARE PROJECT MANAGER Oxygen Saturation 98% 01/23/2019 8:39 AM SOFTWARE PROJECT MANAGER Inhaled Oxygen Concentration - - Weight 79 kg (174 lb 1.6 oz) 01/23/2019 8:39 AM SOFTWARE PROJECT MANAGER Height 152.4 cm (5') 01/23/2019 8:39 AM SOFTWARE PROJECT MANAGER Body Mass Index 34 01/23/2019 8:39 AM SOFTWARE PROJECT MANAGER Plan of Treatment Health Maintenance Due Date Last Done Comments Hepatitis C Virus (HCV) Screening 1992 DTaP/Tdap/Td Immunization (6 - Tdap) 07/08/2007 07/07/2007, 06/11/1998, 07/08/1994, Additional history exists Pap Smear 2013 Cervical Cancer Screening (CCS) 2022 HPV/Cotest 2022 Influenza Immunization (#1) 2024 08/26/2018 SARS-COV-2 Immunization ( season) 2024 07/22/2021, 06/26/2021 Respiratory Syncytial Virus (RSV) Immunization (Adult) (1 - 1-dose 75+ series) 2067 Hepatitis B Immunization Completed 993, 1992, 1992 Meningococcal Immunization (ACWY) Aged Out No longer eligible based on patient's age to complete this topic Pneumococcal Immunization Combined Aged Out No longer eligible based on patient's age to complete this topic Rotavirus Immunization Aged Out No lo nger eligible based on patient's age to complete this topic Insurance MEDICAID [employer] Care Teams Helpdesk Technician Relationship Specialty Start Date End Date Provider, None [place] PCP - General 05/08/21
--- OUTSIDE RECORDS SUMMARY | 2025-01-17 18:08 | XMS_ITS | Clinical Summary ---
Author Organization [facility] Address [address] [place] [address] Phone Care Team Providers Care Poultry Pathologist Name Role Phone Provider, None Primary Care [...] Comments Blood Pressure 104/60 01/23/2019 8:39 AM RESPIRATORY COORDINATOR Pulse 77 01/23/2019 8:39 AM RESPIRATORY COORDINATOR Temperature 36.2 C (97.1 F) 01/23/2019 8:39 AM RESPIRATORY COORDINATOR Respiratory Rate 16 01/23/2019 8:39 AM RESPIRATORY COORDINATOR Oxygen Saturation 98% 01/23/2019 8:39 AM RESPIRATORY COORDINATOR Inhaled Oxygen Concentration - - Weight 79 kg (174 lb 1.6 oz) 01/23/2019 8:39 AM RESPIRATORY COORDINATOR Height 152.4 cm (5') 01/23/2019 8:39 AM RESPIRATORY COORDINATOR Body Mass Index 34 01/23/2019 8:39 AM RESPIRATORY COORDINATOR Plan of Treatment Health Maintenance Due Date [...] Insurance [employer]ICAID [employer] Care Teams Poultry Pathologist Relationship Specialty Start Date End Date Provider, None [place] PCP - General 05/08/21
== END 2025-01-17 17:10 | disposition home or self-care (01) ==
PROVIDERS: Emergency Provider Internal Medicine Critical Care Medicine; PCP Family Medicine
DX: S93.402A Sprain of unspecified ligament of left ankle, initial encounter (principal); S96.912A Strain of unspecified muscle and tendon at ankle and foot level, left foot, initial encounter; X50.0XXA Overexertion from strenuous movement or load, initial encounter
CPT/HCPCS: 29515; 73610; 73630; 99283; L4350

== ENCOUNTER 2025-01-27 07:10 | Emergency (ER) | payer OTHER, SELFPAY ==
[2025-01-27 07:10] VITALS: BP 131/99; PULSE 85; RESP 16; TEMP 36.3; O2SAT 99
--- OUTSIDE RECORDS SUMMARY | 2025-01-27 07:14 | XMS_ITS | Clinical Summary ---
Author Organization [facility] Address [address] [place] [address] Phone Care Team Providers Care Utility Forester Name Role Phone Provider, None Primary Care [...] Comments Blood Pressure 104/60 01/23/2019 8:39 AM FLOOR CLERK Pulse 77 01/23/2019 8:39 AM FLOOR CLERK Temperature 36.2 C (97.1 F) 01/23/2019 8:39 AM FLOOR CLERK Respiratory Rate 16 01/23/2019 8:39 AM FLOOR CLERK Oxygen Saturation 98% 01/23/2019 8:39 AM FLOOR CLERK Inhaled Oxygen Concentration - - Weight 79 kg (174 lb 1.6 oz) 01/23/2019 8:39 AM FLOOR CLERK Height 152.4 cm (5') 01/23/2019 8:39 AM FLOOR CLERK Body Mass Index 34 01/23/2019 8:39 AM FLOOR CLERK Plan of Treatment Health Maintenance Due Date [...] Insurance MED[employer]ID [employer] Care Teams Utility Forester Relationship Specialty Start Date End Date Provider, None [place] PCP - General 05/08/21
--- OUTSIDE RECORDS SUMMARY | 2025-01-27 07:14 | XMS_ITS | Data Portability ---
Author Organization [facility] Address [address] [place] [address] Care Team Providers Care Price Lister Name Role Phone AILEEN GOODSON Primary Care Provider Assessment Encounter Date Assessment Date Assessment LastModified by Organization Details LastModified Time 07/05/2023 07/05/2023 Annual gynecological exam performed. Patient will come back in a year unless there are new symptoms. Not available 07/05/2023 13:53:19 Plan of Treatment Reminders Order Date Submit Date Provider Last Modified By Organization Details Last Modified Time Details Appointments None recorded. Lab CBC w/ auto diff 2022 023 [facility] (Lab), [address], [place], [address], 3 05:41:20 CMP, serum or plasma 2022 023 [facility] (Lab), [address] [place], [address], 3 05:41:21 lipid panel, blood 2022 023 [facility] (Lab), [address] [place], [address], 3 05:41:20 TSH, serum or plasma 2022 023 [facility] (Lab), [address], [place], [address], 3 05:41:21 vitamin D, 25-hydroxy, total, serum 2022 023 [facility] (Lab), [address] [place], [address], 3 05:41:22 Referral None recorded. Procedures None recorded. Surgeries None recorded. Imaging None recorded. Medication Orders sertraline 50 mg tablet 2022 023 [facility] #[id number], [address] [place], [address], 3 14:29:41 Patient TargetsNo targets recorded. Patient [...] t Abnor mal: No Resul ting Lab: [facility] [address] [facility] [address] Tel: CULTU RE ----- ----- ----- --- No Group B strep isola rhiannon at 2 days (gautam ctive broth enhan cemen t) Not Available [facility] (Lab) [address], [place], [address], 01/04/2023 20:27:49 01/07/20 23 01/07/2023 CBC W/DIF F WBC 12.6 10'3/ uL 3.6-10 .2 high Not Available [facility] (Lab) [address], [place], [address], 01/08/2023 05:24:13 01/07/20 23 01/07/2023 CBC W/DIF F RBC 4.13 10'6/ uL (based on docume nted legal sex) 4.10-5 .30 Not Available [facility] (Lab) [address], [place], [address], 01/08/2023 05:24:13 01/07/20 23 01/07/2023 CBC W/DIF F HGB 11.3 g/dL (based on docume nted legal sex) 11.9-1 5.8 low Not Available [facility] (Lab) [address], [place], [address], 01/08/2023 05:24:13 01/07/20 23 01/07/2023 CBC W/DIF F HCT 36.0 % (based on docume nted legal sex) 37.4-4 8.3 low Not Available [facility] (Lab) [address], [place], [address], 01/08/2023 05:24:13 01/07/20 23 01/07/2023 CBC W/DIF F MCV 87.2 fL 82.0-9 9.0 Not Available [facility] (Lab) [address], [place], [address], 01/08/2023 05:24:13 01/07/20 23 01/07/2023 CBC W/DIF F MCH 27.4 pg 27.0-3 3.0 Not Available [facility] (Lab) [address], [place], [address], 01/08/2023 05:24:13 01/07/20 23 01/07/2023 CBC W/DIF F MCHC 31.4 g/dL 32.0-3 6.0 low Not Available [facility] (Lab) [address], [place], [address], 01/08/2023 05:24:13 01/07/20 23 01/07/2023 CBC W/DIF F RDW 13.6 % 11.0-1 5.0 Not Available [facility] (Lab) [address], [place], [address], 01/08/2023 05:24:13 01/07/20 23 01/07/2023 CBC W/DIF F plt 280 10'3/ uL 150-45 0 Not Available [facility] (Lab) [address], [place], [address], 01/08/2023 05:24:13 01/07/20 23 01/07/2023 CBC W/DIF F MPV 11.9 fL 9.8-12 .7 Not Available [facility] (Lab) [address], [place], [address], 01/08/2023 05:24:13 01/07/20 23 01/07/2023 CBC W/DIF F NRBC's 0.0 % 0 Not Available [facility] (Lab) [address], [place], [address], 01/08/2023 05:24:13 01/07/20 23 01/07/2023 CBC W/DIF F absolute NRBCs 0.0 10'3/ uL 0 Not Available [facility] (Lab) [address], [place], [address], 01/08/2023 05:24:13 01/07/20 23 01/07/2023 CBC W/DIF F neutrophils 80.7 % 37.0-7 2.0 high Not Available [facility] (Lab) [address], [place], [address], 01/08/2023 05:24:13 01/07/20 23 01/07/2023 CBC W/DIF F lymphocytes 13.0 % 16.0-4 8.0 low Not Available [facility] (Lab) [address], [place], [address], 01/08/2023 05:24:13 01/07/20 23 01/07/2023 CBC W/DIF F monocytes 5.2 % 4.0-14 .0 Not Available [facility] (Lab) [address], [place], [address], 01/08/2023 05:24:13 01/07/20 23 01/07/2023 CBC W/DIF F eosinophils 0.2 % 0.0-9. 0 Not Available [facility] (Lab) [address] [facility], [place], [address], 01/08/2023 05:24:13 01/07/20 23 01/07/2023 CBC W/DIF F basophils 0.3 % 0.0-2. 0 Not Available [facility] (Lab) [address] [facility], [place], [address], 01/08/2023 05:24:13 01/07/20 23 01/07/2023 CBC W/DIF F immature granulocytes 0.6 % no define d refere nce range Not Available [facility] (Lab) [address] [facility], [place], [address], 01/08/2023 05:24:13 01/07/20 23 01/07/2023 CBC W/DIF F absolute neutrophils 10.1 10'3/ uL 1.1-6. 0 high Not Available [facility] (Lab) [address] [place], [address], 01/08/2023 05:24:13 01/07/20 23 01/07/2023 CBC W/DIF F absolute lymphocytes 1.6 10'3/ uL 0.7-3. 4 Not Available [facility] (Lab) [address] [place], [address], 01/08/2023 05:24:13 01/07/20 23 01/07/2023 CBC W/DIF F absolute monocytes 0.7 10'3/ uL 0.3-1. 0 Not Available [facility] (Lab) [address] [facility], [place], [address], 01/08/2023 05:24:13 01/07/20 23 01/07/2023 CBC W/DIF F absolute eosinophils 0.0 10'3/ uL 0.0-0. 6 Not Available [facility] (Lab) [address] [facility], [place], [address], 01/08/2023 05:24:13 01/07/20 23 01/07/2023 CBC W/DIF F absolute basophils 0.0 10'3/ uL 0.0-0. 1 Not Available [facility] (Lab) [address] [facility], [place], [address], 01/08/2023 05:24:13 01/07/20 23 01/07/2023 CBC W/DIF [...] resul ts are expec rhiannon. Not Available [facility] (Lab) [address] [facility], [place], [address], 01/08/2023 05:24:13 01/07/20 23 01/07/2023 URIC ACID uric acid 5.7 mg/dL 2.3-6. 6 Not Available [facility] (Lab) [address] [facility], [place], [address], 01/08/2023 05:24:13 01/07/20 23 01/07/2023 CMP(C OMPRE HENSI VE METAB OLIC PANEL ) sodium 136 mmol/ L 133-14 6 Not Available [facility] (Lab) [address] [facility], [place], [address], 01/08/2023 05:24:14 01/07/20 23 01/07/2023 CMP(C OMPRE HENSI VE METAB OLIC PANEL ) potassium 4.1 mmol/ L 3.5-5. 1 Not Available [facility] (Lab) [address] [facility], [place], [address], 01/08/2023 05:24:14 01/07/20 23 01/07/2023 CMP(C OMPRE HENSI VE METAB OLIC PANEL ) chloride 105 mmol/ L 98-107 Not Available [facility] (Lab) [address] [facility], [place], [address], 01/08/2023 05:24:14 01/07/20 23 01/07/2023 CMP(C OMPRE HENSI VE METAB OLIC PANEL ) carbon dioxide 23 mmol/ L 21-31 Not Available [facility] (Lab) [address] [facility], [place], [address], 01/08/2023 05:24:14 01/07/20 23 01/07/2023 CMP(C OMPRE HENSI VE METAB OLIC PANEL ) anion gap 8 mmol/ L 4-13 Not Available [facility] (Lab) [address] [facility], [place], [address], 01/08/2023 05:24:14 01/07/20 23 01/07/2023 CMP(C OMPRE HENSI VE METAB OLIC PANEL ) blood urea nitrogen 11 mg/dL 7-25 Not Available [facility] (Lab) [address] [facility], [place], [address], 01/08/2023 05:24:14 01/07/20 23 01/07/2023 CMP(C OMPRE HENSI VE METAB OLIC PANEL ) creatinine 0.62 mg/dL 0.60-1 .30 Not Available [facility] (Lab) [address] [facility], [place], [address], 01/08/2023 05:24:14 01/07/20 23 01/07/2023 CMP(C OMPRE HENSI VE METAB OLIC PANEL ) egfrcr (CKD-epi 2020) >90 mL/mi n/1.7 3_m2 >=60 Not Available [facility] (Lab) [address] [facility], [place], [address], 01/08/2023 05:24:14 01/07/20 23 01/07/2023 CMP(C OMPRE HENSI VE METAB OLIC PANEL ) calcium 8.9 mg/dL 8.3-10 .5 Not Available [facility] (Lab) [address] [facility], [place], [address], 01/08/2023 05:24:14 01/07/20 23 01/07/2023 CMP(C OMPRE HENSI VE METAB OLIC PANEL ) glucose 71 mg/dL 70-100 Not Available [facility] (Lab) [address] [facility], [place], [address], 01/08/2023 05:24:14 01/07/20 23 01/07/2023 CMP(C OMPRE HENSI VE METAB OLIC PANEL ) protein, total 6.4 g/dL 6.4-8. 3 Not Available [facility] (Lab) [address] [facility], [place], [address], 01/08/2023 05:24:14 01/07/20 23 01/07/2023 CMP(C OMPRE HENSI VE METAB OLIC PANEL ) albumin 3.3 g/dL 3.5-5. 0 low Not Available [facility] (Lab) [address] [facility], [place], [address], 01/08/2023 05:24:14 01/07/20 23 01/07/2023 CMP(C OMPRE HENSI VE METAB OLIC PANEL ) ALT 15 units /L 9-43 Not Available [facility] (Lab) [address] [facility], [place], [address], 01/08/2023 05:24:14 01/07/20 23 01/07/2023 CMP(C OMPRE HENSI VE METAB OLIC PANEL ) alkaline phosphatase 288 units /L 34-104 high Not Available [facility] (Lab) [address] [facility], [place], [address], 01/08/2023 05:24:14 01/07/20 23 01/07/2023 CMP(C OMPRE HENSI VE METAB OLIC PANEL ) AST 18 units /L 13-39 Not Available [facility] (Lab) [address] [facility], [place], [address], 01/08/2023 05:24:14 01/07/20 23 01/07/2023 CMP(C OMPRE HENSI VE METAB OLIC PANEL ) bilirubin, total 0.3 mg/dL 0.2-1. 2 Not Available [facility] (Lab) [address] [facility], [place], [address], 01/08/2023 05:24:14 07/05/20 23 07/05/2023 CBC W/DIF F WBC 10.2 10'3/ uL 3.6-10 .2 Not Available [facility] (Lab) [address] [facility], [place], [address], 07/06/2023 05:41:20 07/05/20 23 07/05/2023 CBC W/DIF F RBC 4.48 10'6/ uL (based on docume nted legal sex) 4.10-5 .30 Not Available [facility] (Lab) [address] [place], [address], 07/06/2023 05:41:20 07/05/20 23 07/05/2023 CBC W/DIF F HGB 12.1 g/dL (based on docume nted legal sex) 11.9-1 5.8 Not Available [facility] (Lab) [address] [place], [address], 07/06/2023 05:41:20 07/05/20 23 07/05/2023 CBC W/DIF F HCT 40.4 % (based on docume nted legal sex) 37.4-4 8.3 Not Available [facility] (Lab) [address] [facility] [place] [place], [address], 07/06/2023 05:41:20 07/05/20 23 07/05/2023 CBC W/DIF F MCV 90.2 fL 82.0-9 9.0 Not Available [facility] (Lab) [address] [facility], [place], [address], 07/06/2023 05:41:20 07/05/20 23 07/05/2023 CBC W/DIF F MCH 27.0 pg 27.0-3 3.0 Not Available [facility] (Lab) [address] [facility], [place], [address], 07/06/2023 05:41:20 07/05/20 23 07/05/2023 CBC W/DIF F MCHC 30.0 g/dL 32.0-3 6.0 low Not Available [facility] (Lab) [address] [facility], [place], [address], 07/06/2023 05:41:20 07/05/20 23 07/05/2023 CBC W/DIF F RDW 13.3 % 11.0-1 5.0 Not Available [facility] (Lab) [address] [facility], [place], [address], 07/06/2023 05:41:20 07/05/20 23 07/05/2023 CBC W/DIF F plt 298 10'3/ uL 150-45 0 Not Available [facility] (Lab) [address] [facility], [place], [address], 07/06/2023 05:41:20 07/05/20 23 07/05/2023 CBC W/DIF F MPV 11.2 fL 9.8-12 .7 Not Available [facility] (Lab) [address] [facility], [place], [address], 07/06/2023 05:41:20 07/05/20 23 07/05/2023 CBC W/DIF F NRBC's 0.0 % 0 Not Available [facility] (Lab) [address] [facility], [place], [address], 07/06/2023 05:41:20 07/05/20 23 07/05/2023 CBC W/DIF F absolute NRBCs 0.0 10'3/ uL 0 Not Available [facility] (Lab) [address] [facility], [place], [address], 07/06/2023 05:41:20 07/05/20 23 07/05/2023 CBC W/DIF F neutrophils 54.3 % 37.0-7 2.0 Not Available [facility] (Lab) [address] [facility], [place], [address], 07/06/2023 05:41:20 07/05/20 23 07/05/2023 CBC W/DIF F lymphocytes 35.8 % 16.0-4 8.0 Not Available [facility] (Lab) [address] [facility], [place], [address], 07/06/2023 05:41:20 07/05/20 23 07/05/2023 CBC W/DIF F monocytes 7.0 % 4.0-14 .0 Not Available [facility] (Lab) [address] [facility], [place], [address], 07/06/2023 05:41:20 07/05/20 23 07/05/2023 CBC W/DIF F eosinophils 1.9 % 0.0-9. 0 Not Available [facility] (Lab) [address] [facility], [place], [address], 07/06/2023 05:41:20 07/05/20 23 07/05/2023 CBC W/DIF F basophils 0.5 % 0.0-2. 0 Not Available [facility] (Lab) [address] [place], [address], 07/06/2023 05:41:20 07/05/20 23 07/05/2023 CBC W/DIF F immature granulocytes 0.5 % no define d refere nce range Not Available [facility] (Lab) [address] [facility], [place], [address], 07/06/2023 05:41:20 07/05/20 23 07/05/2023 CBC W/DIF F absolute neutrophils 5.6 10'3/ uL 1.1-6. 0 Not Available [facility] (Lab) [address] [facility], [place], [address], 07/06/2023 05:41:20 07/05/20 23 07/05/2023 CBC W/DIF F absolute lymphocytes 3.7 10'3/ uL 0.7-3. 4 high Not Available [facility] (Lab) [address] [facility], [place], [address], 07/06/2023 05:41:20 07/05/20 23 07/05/2023 CBC W/DIF F absolute monocytes 0.7 10'3/ uL 0.3-1. 0 Not Available [facility] (Lab) [address] [facility], [place], [address], 07/06/2023 05:41:20 07/05/20 23 07/05/2023 CBC W/DIF F absolute eosinophils 0.2 10'3/ uL 0.0-0. 6 Not Available [facility] (Lab) [address] [place], [address], 07/06/2023 05:41:20 07/05/20 23 07/05/2023 CBC W/DIF F absolute basophils 0.1 10'3/ uL 0.0-0. 1 Not Available [facility] (Lab) [address] [place], [address], 07/06/2023 05:41:20 07/05/20 23 07/05/2023 CBC W/DIF [...] resul ts are expec rhiannon. Not Available [facility] (Lab) [address] [facility], [place], [address], 07/06/2023 05:41:20 07/05/20 23 07/05/2023 LIPID PANEL ,AMA (LDL- CALC) total cholesterol 214 mg/dL 0-[address] [facility] (Lab) [address] [facility], [place], [address], 07/06/2023 05:41:20 07/05/20 23 07/05/2023 LIPID PANEL ,AMA (LDL- CALC) triglyceride s 222 mg/dL 0.00-1 50.00 high NCEP Refer ence Value s for Trigl yceri akua: Milagro l: <150 mg/dL Borde rline High: 150 - 199 mg/dL High: 200 - 499 mg/dL Very High: >/= 500 mg/dL Not Available [facility] (Lab) [address] [facility], [place], [address], 07/06/2023 05:41:20 07/05/20 23 07/05/2023 LIPID PANEL ,AMA (LDL- CALC) HDL cholesterol 52 mg/dL >[address] [facility] (Lab) [address] [place], [address], 07/06/2023 05:41:20 07/05/20 23 07/05/2023 LIPID PANEL [...] mg/dL , HDL <40 mg/dL Not Available [facility] (Lab) [address], [place], [address], 07/06/2023 05:41:20 07/05/2007/05/2023 LIPID PANEL ,AMA (LDL- CALC) non-HDL cholesterol 162 mg/dL no refere nce range A reaso nable goal for non-H DL trudy stero l is one that is 30 mg/dL highe r than the LDL trudy stero l goal. Not Available [facility] (Lab) [address] [facility], [place], [address], 07/06/2023 05:41:20 07/05/2007/05/2023 LIPID PANEL ,AMA (LDL- CALC) chol/HDL ratio 4.1 . 0.0-5. 0 On March 16, 2023, [facility] labor atori areli dooley ed the [...] n. 2017Nov 23;137 (1):1 0-19. Not Available [facility] (Lab) [address] [facility], [place], [address], 07/06/2023 05:41:20 07/05/20 23 07/05/2023 CMP(C OMPRE HENSI VE METAB OLIC PANEL ) sodium 140 mmol/ L 133-14 6 Not Available [facility] (Lab) [address] [facility], [place], [address], 07/06/2023 05:41:21 07/05/20 23 07/05/2023 CMP(C OMPRE HENSI VE METAB OLIC PANEL ) potassium 4.0 mmol/ L 3.5-5. 1 Not Available [facility] (Lab) [address] [facility], [place], [address], 07/06/2023 05:41:21 07/05/20 23 07/05/2023 CMP(C OMPRE HENSI VE METAB OLIC PANEL ) chloride 105 mmol/ L 98-107 Not Available [facility] (Lab) [address] [place], [address], 07/06/2023 05:41:21 07/05/20 23 07/05/2023 CMP(C OMPRE HENSI VE METAB OLIC PANEL ) carbon dioxide 29 mmol/ L 21-31 Not Available [facility] (Lab) [address] [place], [address], 07/06/2023 05:41:21 07/05/20 23 07/05/2023 CMP(C OMPRE HENSI VE METAB OLIC PANEL ) anion gap 6 mmol/ L 4-13 Not Available [facility] (Lab) [address] [facility], [place], [address], 07/06/2023 05:41:21 07/05/20 23 07/05/2023 CMP(C OMPRE HENSI VE METAB OLIC PANEL ) blood urea nitrogen 19 mg/dL 7-25 Not Available [facility] (Lab) [address] [facility], [place], [address], 07/06/2023 05:41:21 07/05/20 23 07/05/2023 CMP(C OMPRE HENSI VE METAB OLIC PANEL ) creatinine 0.75 mg/dL 0.60-1 .30 Not Available [facility] (Lab) [address] [facility], [place], [address], 07/06/2023 05:41:21 07/05/20 23 07/05/2023 CMP(C OMPRE HENSI VE METAB OLIC PANEL ) egfrcr (CKD-epi 2020) >90 mL/mi n/1.7 3_m2 >=60 Not Available [facility] (Lab) [address] [facility], [place], [address], 07/06/2023 05:41:21 07/05/20 23 07/05/2023 CMP(C OMPRE HENSI VE METAB OLIC PANEL ) calcium 8.9 mg/dL 8.3-10 .5 Not Available [facility] (Lab) [address] [facility], [place], [address], 07/06/2023 05:41:21 07/05/20 23 07/05/2023 CMP(C OMPRE HENSI VE METAB OLIC PANEL ) glucose 62 mg/dL 70-100 low Not Available [facility] (Lab) [address] [facility], [place], [address], 07/06/2023 05:41:21 07/05/20 23 07/05/2023 CMP(C OMPRE HENSI VE METAB OLIC PANEL ) protein, total 6.0 g/dL 6.4-8. 3 low Not Available [facility] (Lab) [address] [facility], [place], [address], 07/06/2023 05:41:21 07/05/20 23 07/05/2023 CMP(C OMPRE HENSI VE METAB OLIC PANEL ) albumin 3.9 g/dL 3.5-5. 0 Not Available [facility] (Lab) [address] [facility], [place], [address], 07/06/2023 05:41:21 07/05/20 23 07/05/2023 CMP(C OMPRE HENSI VE METAB OLIC PANEL ) ALT 12 units /L 9-43 Not Available [facility] (Lab) [address] [facility], [place], [address], 07/06/2023 05:41:21 07/05/20 23 07/05/2023 CMP(C OMPRE HENSI VE METAB OLIC PANEL ) alkaline phosphatase 69 units /L 34-104 Not Available [facility] (Lab) [address] [facility], [place], [address], 07/06/2023 05:41:21 07/05/20 23 07/05/2023 CMP(C OMPRE HENSI VE METAB OLIC PANEL ) AST 13 units /L 13-39 Not Available [facility] (Lab) [address] [facility], [place], [address], 07/06/2023 05:41:21 07/05/20 23 07/05/2023 CMP(C OMPRE HENSI VE METAB OLIC PANEL ) bilirubin, total 0.2 mg/dL 0.2-1. 2 Not Available [facility] (Lab) [address] [facility], [place], [address], 07/06/2023 05:41:21 07/05/20 23 07/05/2023 TSH, REFLE X FREE T4 TSH 3.26 uIU/m L 0.30-5 .33 Not Available [facility] (Lab) [address] [facility], [place], [address], 07/06/2023 05:41:21 07/05/20 23 07/05/2023 VITAM IN D, 25-OH (TOTA L D2/D3 ) vitamin D, 25-hydroxy, total 12.6 NG/mL 30.0-1 00.0 [address] [place] [address]ive of Defic iency : <20 ng/mL [place] stive of Insuf ficie ncy: 20-29 ng/mL Sugge stive of Suffi cienc y: 30-10 0 ng/mL Sugge stive of Toxic ity: >150 ng/mL Not Available [facility] (Lab) [address] [facility], [place], [address], 07/06/2023 05:41:22 07/05/20 23 07/05/2023 IMAGE GUIDE [...] epith elial Ruba cruz or Slick rolle ([facility]) . Elect yogesh woods cr d by [...] as clini iggy warra nted. Not Available [facility] (Lab) [address], [place], [address], 07/06/2023 21:50:12 Result Notes None recorded. Problems Name Problem SNOMED Code Status Onset Date Resolution Date Notes Provider Name and Address Organization Details Recorded Time Rubella screenin g status [id number] Completed 201801/02/2022 Encounte r for antenata l screenin g, unspecif ied;Pavan rded Elsewher e: No Locat ion: [facility] S ource: EHR Electrical Checkout Mechanic jacobo: N Zeenatti ce ID: [id number] Danis lable Time: 08:45:00 AM Myriam harris, [facility] 2 12:33:46 Pregnanc y detectio n examinat ion Completed 201801/02/2022 Encounte r for pregnanc y test, result positive ;Recorde d Elsewher e: No Locat ion: [facility] S ource: EHR Electrical Checkout Mechanic jacobo: N Zeenatti ce ID: [id number] Danis lable Time: 09:45:00 AM Myriam harris, [facility] 2 12:34:03 Normal pregnanc y in kimberlygra zehra [id number] Completed 201801/02/2022 Encounte r for suprvsn of normal pregnanc y, third trimeste r;Record ed Elsewher e: No Locat ion: [facility] S ource: EHR Electrical Checkout Mechanic jacobo: N Zeenatti ce ID: [email or web address] Danis lable Time: 09:15:00 AM Myriam harris, [facility] 2 12:33:59 Procedur e on genitour inary system Completed 201901/02/2022 Encounte r for surgical aftercar e followin g surgery on the genitour inary system;R ecorded Elsewher e: No Locat ion: [facility] S ource: EHR Electrical Checkout Mechanic jacobo: N Practi ce ID: [id number] Danis lable Time: 01:15:00 PM Myriam harris, [facility] 2 12:33:35 Postoper ative care Completed 201901/02/2022 Encounte r for surgical aftercar e followin g surgery on the genitour inary system;R ecorded Elsewher e: No Locat ion: [facility] S ource: EHR Electrical Checkout Mechanic jacobo: N Zeenatti ce ID: [id number] Danis lable Time: 01:15:00 PM Myriam harris, [facility] 2 12:33:37 Pregnanc y, childbir th and puerperi um finding Completed 201801/02/2022 Encntr for suprvsn of normal first preg, third trimeste r;Record ed Elsewher e: No Locat ion: [facility] N Zeenatti ce ID: [id number] Danis lable Time: 01:15:00 PM Myriam harris, [facility] 2 12:34:00 Antenata l screenin g Completed 201801/02/2022 Encounte r for antenata l screenin g for nuchal transluc ency;Rec orded Elsewher e: No Locat ion: [facility]: N Zeenatti ce ID: [id number] Danis lable Time: 09:30:00 AM Myriam harris, [facility] 2 12:33:43 Hemorrha gic complica tion of pregnanc y [id number] Completed 201801/02/2022 Other hemorrha ge in early pregnanc y;Record ed Elsewher e: No Locat ion: [facility]: N Zeenatti ce ID: [id number] Danis lable Time: 10:30:00 AM Myriam harris, [facility] 2 12:33:34 Secondar y amenorrh ea [id number] Completed 201801/02/2022 Secondar y amenorrh ea;Recor ded Elsewher e: No [facility] ource: EHR Electrical Checkout Mechanic jacobo: N Zeenatti ce ID: [id number] Danis lable Time: 09:45:00 AM Myriam harris, [facility] 2 12:33:39 Uterine size for dates discrepa ncy Completed 201801/02/2022 Uterine size-derick e discrepa ncy, first trimeste r;Record ed Elsewher e: No [facility]at [facility] S ource: EHR Electrical Checkout Mechanic jacobo: N Zeenatti ce ID: 0001 Danis lable Time: 10:30:00 AM Myriam harris, [facility] 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 2 12:33:48 Infectio n screenin g Completed 201801/02/2022 Encounte r for screenin g for oth infec/pa rastc diseases ;Recorde d Elsewher e: No Locat ion: [facility] S ource: EHR Electrical Checkout Mechanic jacobo: N Zeenatti ce ID: 0001 Danis lable Time: 09:45:00 AM Myriam harris, [facility] 2 12:33:44 Antenata l screenin g for malforma tion Completed 201801/02/2022 Encounte r for antenata l screenin g for malforma tions;Re corded Elsewher e: No Locat ion: [facility] S ource: EHR Electrical Checkout Mechanic jacobo: N Zeenatti ce ID: 0001 Danis lable Time: 08:45:00 AM Myriam harris, [facility] 2 12:34:02 Syphilis test finding [id number] Completed 201801/02/2022 Encntr screen for infectio ns w sexl mode of transmis s;Record ed Elsewher e: No Locat ion: [facility] ive[facility] S ource: EHR Electrical Checkout Mechanic jacobo: N Practi ce ID: 0001 Danis lable Time: 09:45:00 AM Myriam harris, [facility] 2 12:33:52 Lochia finding Completed 201901/02/2022 Encounte r for routine postpart um follow-u p;Record ed Elsewher e: No Locat ion: [facility] S ource: EHR Electrical Checkout Mechanic jacobo: N Practi ce ID: 0001 Danis lable Time: 09:30:00 AM Myriam harris, [facility] 2 12:33:56 Gestatio n period, 9 weeks [id number] Completed 201801/02/2022 9 weeks gestatio n of pregnanc y;Record ed Elsewher e: No Locat ion: [facility] S ource: EHR Electrical Checkout Mechanic jacobo: N Practi ce ID: 0001 Danis lable Time: 10:30:00 AM Myriam harris, [facility] 2 12:34:26 Failed trial of labor [id number] Completed 201801/02/2022 Failed trial of labor, unspecif ied;Prac sis ID: 0001 Myriam harris, [facility] 2 12:33:40 Single liveborn born in hospital by section [id number] Completed 201801/02/2022 Single liveborn infant, delivere d by ;Practic e ID: 0001 Myriam harris, [facility] 2 12:33:53 Gestatio n period, 39 weeks [id number] Completed 201801/02/2022 39 weeks gestatio n of pregnanc y;Practi ce ID: 0001 Myrima harris, [facility] 2 12:34:24 Pregnanc y [id number] Completed 202103/06/2023 Catia Dietrich [facility] 3 11:10:31 delivery - delivere d [id number] Completed to repeat Catia Dietrich [facility] 3 11:10:29 Problem Notes None recorded. Procedures Surgical History Date Name Laterality Status Provider Name and Address Organization Details Recorded Time 3 SECTION (SURG) completed Cassia Driscoll [facility] 01/25/2023 10:26:20 2 Date of Last Pap Smear completed [facility] 11/20/2022 10:19:02 9 section completed [facility] 03/20/2020 15:41:27 1 operative procedure on foot completed [facility] 12/03/2022 11:07:06 Other completed Catia [facility] 07/05/2023 13:53:53 Imaging Results None recorded. 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 mg iron-1 mg-200 mg capsule take 1 capsule by oral route every day 01/02 completed Prescrib ed Elsewher e: No Locat ion: [facility] By: oscar munguia DateTime : 05/29/20 08:39:06 AM Not Available Not Available Not Available 28 mg-800 mcg tablet 01/02 completed Prescrib ed Elsewher e: Yes Loca tion: [facility] By: [email or web address] DateTime : 04/25/20 09:45:00 AM Not Available Not Available Not Available Vitals Date Recorded Body height Body mass index (BMI) Body weight Systolic blood pressure Diastolic blood pressure Provider Name and Address Organization Details Last Updated DateTime 01/21/2023 148.59 cm 39.7 kg/m2 54873.32 741 g 136 mm[Hg] 80 mm[Hg] Latrice Torrez [facility] 3 09:48:12 Date Recorded Body height Body mass index (BMI) Body weight Systolic blood pressure Diastolic blood pressure Systolic blood pressure Diastolic blood pressure Provider Name and Address Organization Details Last Updated DateTime 3 148.59 cm 37.2 kg/m2 21086.2 2 g 149 mm[Hg] 93 mm[Hg] 142 mm[Hg] 87 mm[Hg] Catia [facility] 3 12:47:46 Date Recorded Body height Body mass index (BMI) Body weight Systolic blood pressure Diastolic blood pressure Provider Name and Address Organization Details Last Updated DateTime 03/06/2023 148.59 cm 34.3 kg/m2 62672.92 579 g 117 mm[Hg] 73 mm[Hg] Catia [facility] 3 11:10:11 Date Recorded Body height Body mass index (BMI) Body weight Systolic blood pressure Diastolic blood pressure Provider Name and Address Organization Details Last Updated DateTime 07/05/2023 148.59 cm 37.2 kg/m2 69688.22 g 119 mm[Hg] 75 mm[Hg] Catia Dietrich [facility] 3 14:04:58 Social History Question Answer Notes LastModified by Organizat ion Details LastModified Time Tobacco Smoking Status Never Smoker Catia Dietrich [facility], [facility] 07/05/2023 14:05:14 Do You Have An Advance Directive? No Information n ot available 07/01/2022 What Is Your Level Of Alcohol Consumption? Occasional [email or web address] Information not available 11/20/2022 If You Are , What Was Your Level Of Alcohol Consumption Prior To ? Occasional [email or web address] Information not available 07/05/2023 How Many Years Have You Consumed Alcohol? 9 [email or web address] Information not available 11/20/2022 Are You Blind Or Do You Have Difficulty Seeing? No [email or web address] Information n ot available 07/01/2022 What Is Your Level Of Caffeine Consumption? Moderate Information not available 07/01/2022 How Much Tobacco Do You Chew? None [email or web address] Information not available 07/01/2022 In The 14 Days Before Symptom Onset, Have You Had Close Contact With A Laboratory-confirm ed COVID-19 While That Case Was Ill? No [email or web address] Information n ot available 07/01/2022 In The 14 Days Before Symptom Onset, Have You Had Close Contact With A Person Who Is Under Investigation For COVID-19 While That Person Was Ill? No [email or web address] Information not available 07/01/2022 Have You Been To An Area Known To Be High Risk For COVID-19? No [email or web address] Information not available 07/01/2022 Are You Deaf Or Do You Have Serious Difficulty Hearing? No [email or web address] Information not available 07/01/2022 What Type Of Diet Are You Following? CARBOHYDRATE [email or web address] Information n ot available 11/20/2022 What Is The Highest Grade Or Level Of School You Have Completed Or The Highest Degree You Have Received? [id number] [email or web address] Information not available 07/01/2022 Are There Any Guns Present In Your Home? No [email or web address] Information not available 07/01/2022 What Was The Date Of Your Most Recent Tobacco Screening? 01/21/2023 [email or web address] Information not available 07/05/2023 Do You Use Protection During Sex? No Information not available 07/01/2022 Do You Use Your Seat Belt Or Car Seat Routinely? Yes [email or web address] Information not available 07/01/2022 Do You Have Smoke And Carbon Monoxide Detectors In Your Home? Yes [email or web address] Information not available 07/01/2022 How Much Tobacco Do You Smoke? No [email or web address] Information not available 07/01/2022 Smoking Pre- Yes [email or web address] Information not available 07/05/2023 Do You Feel Stressed (tense, Restless, Nervous, Or Anxious, Or Unable To Sleep At Night)? [id number] [email or web address] Information not available 11/20/2022 Do You Use Any Illicit Or Recreational Drugs? No [email or web address] Information not available 07/01/2022 Do You Use Sunscreen Routinely? No [email or web address] Information not available 07/01/2022 Have You Used IV Drugs? No [email or web address] Information not available 07/01/2022 Sex: Unknown Functional Status Question Answer Note LastModified by Organizat ion Details LastModified Time Do you have difficulty walking or climbing stairs? No [email or web address] Information not available 07/05/2023 Are you able to walk? YESWOREST Information not available 07/22/2022 Are you able to care for yourself? Yes [email or web address] Information not available 07/05/2023 Do you have difficulty dressing or bathing? No Information not available 07/05/2023 What is your exercise level? Moderate [email or web address] Information not available 07/01/2022 Mental Status None recorded. Family History Relationship Description Onset Age of this Age Resolved Age Notes LastModified by Organization Details LastModified Time Mother Diabetes mellitus [email or web address] Not available 2019 15:53:45 Father Hypertensive disorder jgumber Not available 2019 15:53:56 Medical History Condition Response Allergies (Food, seasonal, environmental ) N Other N Breast Cancer N Drug/Latex Allergies/Reactions N Blood Transfusion N Lung Disease N Dermatologic Disorders N Defects or Inherited Disease N Breast Problem N Gestational Diabetes N Hematologic disorders N Anesthesia Complications N History of STI N Deep Vein Thrombosis N Polycystic ovary syndrome N Anxiety Disorder N Autoimmune disease N Arthritis N Polyps N Infertility N History of abnormal pap N Acid Reflux (GERD) N Cancer N Varicosities N Stroke N Neurologic/Epilepsy N Endometriosis N High Cholesterol N Fibromyalgia N Headaches N Kidney Disease N Heart Problems N [...] Code Diagnosis Note [id number] Samantha Flores CNM [facility] [address] [address] 03/20/2020 11:30:20 03/20/2020 13:17:10 Gynecologic examination 38724232 Z01.419 [id number] Jaylyn Schwab [facility] [address] [address] 06/11/2022 12:54:40 06/11/2022 14:33:29 screening 091898107 Z36.87 [id number] Katharine Ernst [facility] [address],[place] [address] 07/01/2022 12:03:23 07/01/2022 12:29:09 [id number] Samantha Flores [facility] [address],[place] [address] 07/01/2022 12:04:13 07/01/2022 13:58:50 test positive 443832579 Z32.01 Gynecologi c examination 37125478 Z01.419 [id number] [facility] [address],[place] [address] 07/22/2022 14:15:14 07/22/2022 14:41:42 screening 187467535 Z36.82 [id number] Ishan Bowers MD [place] [address],[place] [address] 07/22/2022 14:15:34 07/22/2022 15:51:50 Routine care 292021190 Z34.91 [id number] Ishan Bowers MD [facility] [address],[place] [address] 08/18/2022 12:37:27 08/18/2022 13:45:58 Screening for drug of abuse in urine specimen positive 670934762 R82.5 Routine an tenatal care 885560921 Z34.91 [id number] [facility] [address],[place] [address] 09/22/2022 14:01:19 09/22/2022 15:13:15 screening for malformation 806028440 Z36.3 [id number] Amelia Caballero MD [facility] [address],[place] [address] 09/22/2022 14:02:28 09/22/2022 15:27:00 Routine care 860607822 Z34.82 [id number] Katharine Ernst [facility] [address],[place] [address] 10/21/2022 14:13:51 10/21/2022 14:56:14 screening 707288472 Z36.2 [id number] Ishan Bowers MD [place] [address],[place] [address] 10/21/2022 14:14:22 10/21/2022 20:43:28 Routine care 721912185 Z34.91 [id number] Samantha Flores [facility] [address],[place] [address] 11/20/2022 09:57:08 11/20/2022 13:43:54 Routine care 283263306 Z34.93 [id number] [facility] [address],[place] [address] 12/03/2022 10:52:07 12/03/2022 11:55:29 Routine care 189639078 Z34.93 [id number] [facility] [address],[place] [address] 12/17/2022 11:03:13 12/17/2022 12:02:18 Routine care 894393623 Z34.93 s ection following previous section 308193607 O34.219 [id number] Samantha Flores [facility] [address],[place] [address] 01/01/2023 12:02:36 01/01/2023 12:41:25 Routine care 767444266 Z34.93 [id number] [facility] [address],[place] [address] 01/07/2023 09:40:22 01/07/2023 15:38:17 Routine care 757155201 Z34.93 Elevated blood-pressure reading without diagnosis of hypertension 839751940 R03.0 - induced hypertension 75033392 O13.9 [id number] [facility] [address],[place] [address] 01/14/2023 09:33:09 01/14/2023 14:28:46 Routine care 292426006 Z34.93 [id number] Nicolle Talley [facility] [address],[place] [address] 01/21/2023 09:32:19 01/21/2023 10:15:07 Routine care 274122338 Z34.93 [id number] Ishan Bowers MD [place] [place] [address],[place] [address] 02/01/2023 12:23:58 02/01/2023 13:00:04 Postoperative care 061826204 Z48.89 This patient is a 32-year-ol d multiparou s female presents for postoperat marsha care. She is 1 week post op from a delivery. She has no complaints . Her incision has some burning on the right side. We discussed that. Mood is good. Her baby is well. [id number] Ishan Bowers MD [facility] [address],[place] [address] 03/06/2023 10:57:49 03/08/2023 13:21:57 care 830575759 Z39.2 This patient is 32-year-ol d female presents for follow-up. She is 4 weeks post from a delivery. Her baby is doing well. She is doing well. She has stopped bleeding. She has had sex. She is breast-fee ding primarily. She had a tubal ligation her , she will follow up in 2 months for well woman. [id number] Ishan Bowers MD [facility] [address] [address] 07/05/2023 13:47:15 07/05/2023 14:31:52 Mixed anxiety and depressive disorder 770782082 F41.8 Gynecologi c examination 29310335 Z01.419 Annual gynecologi francisco javier exam performed. [...] Singletary Member ID Guarantor Name 01/21/2023 1 [facility] (MEDICAID HMO) [id number] 0003 Mercady Orlandini [id number] Mercady Orlandini 02/01/2023 1 [facility] (MEDICAID HMO) [id number] 0003 Mercady Orlandini [id number] Mercady Orlandini 03/06/2023 1 [facility] (MEDICAID HMO) [id number] 0003 Mercady Orlandini [id number] Mercady Orlandini 07/05/2023 1 [facility] (MEDICAID HMO) [id number] 0003 Mercady Orlandini [id number] Mercady Orlandini Notes Date Note Type Note [...] intact. Ishan Bowers MD [address], [place], [address], [facility] 02/01/2023 12:47:00 03/06/2023 text/html This patient [...] woman. Ishan Bowers MD [address], [place], [address], [facility] 03/06/2023 12:18:49 07/05/2023 text/html Annual GYNReport [...] regular exercise Ishan Bowers MD [address], [place], [address], [facility] 07/05/2023 14:30:46 OBGyn Episode Ob Episode Information Episode Created Date Number of Fetuses Patient Bloodtype Patient rh Status Prepregnancy Weight lbs Domestic Partner Domestic Partner Phone Father Name Casting Coordinator Status 03/20/20 20 1 CLOSED Fetus Data [...] Domestic Partner Domestic Partner Phone Father Name Casting Coordinator Status 03/20/20 20 1 CLOSED Fetus Data [...] Domestic Partner Domestic Partner Phone Father Name Casting Coordinator Status 03/20/20 20 1 CLOSED Fetus Data [...] Domestic Partner Domestic Partner Phone Father Name Casting Coordinator Status 07/22/20 22 1 A Negative 176 CLOSED Fetus Data First Name Last Name Admitted to NICU Weight (g) Sex Living Outcome Pediatric Complications Fetus ID Race Codes Race Delivery Type M true Full Term [id number] Repeat Problems Problem Notes 1hr gtt FAILED/ 1/3 hr gtt W NL Problem Name Start Date End Date Resolution Snomed Code Not e delivery - delivered [id number] to repeat Raphael Calculation Initial Raphael Date [...] Gestation 0 [email or web address] 07/22/2022 02/01/20 23 0 Pre-zack Flowsheet Flowsheet Date 07/22/2022 Marshall Score Blood Edema Fundus Height Fundus Units Glucose Ketones Leukocytes Nitrite Labor Signs Protein Cervic Dilation Cervic Effacement Cervic Station 12 Type Weight in lbs Pre/Post Dialysis Refused Weight 173.264365397917 BP Diastolic BP Location Tested BP Systolic [...] Weight in lbs Pre/Post Dialysis Refused Weight 183.873481945453 BP Diastolic BP Location Tested BP Systolic [...] Weight in lbs Pre/Post Dialysis Refused Weight 185.897412561171 BP Diastolic BP Location Tested BP Systolic [...] Weight in lbs Pre/Post Dialysis Refused Weight 182.840159962498 BP Diastolic BP Location Tested BP Systolic [...] Weight in lbs Pre/Post Dialysis Refused Weight 184.037981726803 BP Diastolic BP Location Tested BP Systolic [...] Weight in lbs Pre/Post Dialysis Refused Weight 186.964264215477 BP Diastolic BP Location Tested BP Systolic [...] Weight in lbs Pre/Post Dialysis Refused Weight 186.499591179749 BP Diastolic BP Location Tested BP Systolic [...] Weight in lbs Pre/Post Dialysis Refused Weight 189.537099089859 BP Diastolic BP Location Tested BP Systolic [...] Weight in lbs Pre/Post Dialysis Refused Weight 189.114277378085 BP Diastolic BP Location Tested BP Systolic [...] Weight in lbs Pre/Post Dialysis Refused Weight 190.646780724838 BP Diastolic BP Location Tested BP Systolic [...] Weight in lbs Pre/Post Dialysis Refused Weight 193.30749360392 BP Diastolic BP Location Tested BP Systolic [...] Weight in lbs Pre/Post Dialysis Refused Weight 181.719235493565 BP Diastolic BP Location Tested BP Systolic BP Type 93 R arm 149 sitting Fetus Heart Rate Present Fetus Movement Comments Flowsheet Date 03/06/2023 Marshall Score Blood Edema Fundus Height Fundus Units Glucose Ketones Leukocytes Nitrite Labor Signs Protein Cervic Dilation Cervic Effacement Cervic Station Type Weight in lbs Pre/Post Dialysis Refused Weight 167.731336722025 BP Diastolic BP Location Tested BP Systolic [...] Estim ated Date of Delivery false Thalassemia (Maori, Tamazight, Mediterranean, Or Background): MCV < 80 false Neural Tube Defect (Meningomyelocele, Spina Bifi da, Or Anencephaly) false Congenital Heart Defect false Down Syndrome false Ronald-Sachs (eg, Samaritan, Cajun, Icelandic-Finnish) f alse Alyssa Disease false Sickle Cell Disease Or Trait () false Hemophilia Or Other Blood Disorders false Muscular Dystrophy false Cystic Fibrosis false Mumford's Chorea false Intellectual Disability/Autism false If Yes, [...] Domestic Partner Domestic Partner Phone Father Name Casting Coordinator Status 01/02/20 22 1 DELETED Raphael Calculation [...]
--- NOTE | 2025-01-27 07:21 | ED_ITS ---
HPI - Extremity Injury (Lower) General Chief Complaint: Extremity Injury, Lower Stated Complaint: left ankle pain Time Seen by Provider: 01/27/25 07:20 Source: patient Mode of arrival: ambulatory Limitations: no limitations History of Present Illness HPI Narrative: this is a 34-year-old female that had a ankle injury 1 week ago and had x-ray performed which showed no acute fractures, the patient continues to have pain and discomfort has good range of motion and with minimal swelling of the left ankle with tenderness with palpation with no numbness or tingling has a good pedal pulse. complaint: ankle injury Onset (ago): week(s) Injury: Left: ankle ( Tenderness with palpation and movement) Place: home Severity: moderate Severity scale (1-10): 6 Relieving factors: nothing Exacerbating factors: weight bearing, movement and palpation Related Data Allergies Allergy/AdvReac Type Severity Reaction Status Date / Time No Known Allergies Allergy Unknown Verified 01/27/25 07:17 Review of Systems Review of Systems: All systems reviewed & are unremarkable except as noted in HPI and below PMFSH Past Medical History Medical History Obesity Surgical History Surgical History History of 2022 & 2018 Family History Family History Mother Hypertension Father Hypertension Father Hypertension Mother Diabetes mellitus Social History Social History Smoking status: Never smoker Second hand tobacco smoke exposure: Yes Alcohol intake: current Drinks per week: 1 Substance use: current Substance use type: marijuana Other substance usage details: occasional Last use: 10/30/23 Do You Feel Safe in your Home?: Yes Lack of Transportation: No Lack of Food: Never True Current Housing: I Have Housing Concerned About Future Housing: No Difficulty Paying Gas/Electric Bills: No Difficulty Paying for Meds: No Currently Unemployed: No Education: Don't Know Difficulty w/ Childcare or Family Care: No Gender identity (if verbalized by the patient): Female Spiritual care concerns: No Exam Const: General: healthy appearing and no acute distress Nutritional Appear ance: well nourished and obese Resp: Effort & Inspection: normal respiratory effort Auscultation: clear to auscultation bilaterally Cardio: Rate: regular rate Rhythm: regular rhythm GI: GI Palp: Yes Soft to palpation Skin: General skin exam: normal color Rashes: no rashes Wounds: no wounds Extrem: Other: Tenderness no left ankle with palpation and movement Course Course Emergency Course: administer dose of 60mg IM Toradol, Nilesh wrap applied medications sent to patient's pharmacy advised follow-up with primary care physician for possibly further imaging. Vital Signs Vital signs: Vital Signs Temperature 36.3 C L 01/27/25 07:10 Pulse Rate 85 01/27/25 07:10 Respiratory Rate 16 01/27/25 07:10 Blood Pressure 131/99 H 01/27/25 07:10 Pulse Oximetry 99 01/27/25 07:10 Oxygen Delivery Room Air 01/27/25 07:10 Temperature 36.3 C L 01/27/25 07:10 Pulse Rate 85 01/27/25 07:10 Respiratory Rate 16 01/27/25 07:10 Blood Pressure 131/99 H 01/27/25 07:10 Pulse Oximetry 99 01/27/25 07:10 Oxygen Delivery Room Air 01/27/25 07:10 Critical Care Time Critical Care Time Critical Care Time: No Discharge Plan Discharge Clinical Impression: Ankle sprain and strain Patient Disposition: Home, Self-Care Condition: Stable Instructions: Antibiotic Form, Ankle Sprain (ED) Additional Instructions: advised patient to take medication as prescribed and to follow with primary care physician. Patient Language: Kiswahili Prescriptions: New tramadol 50 mg tablet 50 mg PO Q6H PRN (Reason: pain) Qty: 20 0RF No Action diclofenac sodium 50 mg tablet,delayed release (DR/EC) 50 mg PO Q12H PRN (Reason: pain) Qty: 20 0RF (DME) crutches See Rx Instructions .Route .MEDSUPPLY Qty: 1 0RF Rx Instructions: As directed oxycodone-acetaminophen [Endocet] 5-325 mg tablet 0.5 - 1 tablet PO Q4H PRN (Reason: pain) Qty: 10 0RF Follow-up/Referrals: Ricardo Dickey MD [Primary Care Provider] - Stand Alone Forms: Work/School Release IP
[2025-01-27] MEDS: KETOROLAC (*BKC) 60 MG/2 ML VIAL IM (07:28)
== END 2025-01-27 07:41 | disposition home or self-care (01) ==
LOC: CHSED 07:30
PROVIDERS: Emergency Provider Emergency Medicine; PCP Family Medicine
DX: S96.912A Strain of unspecified muscle and tendon at ankle and foot level, left foot, initial encounter (principal); S93.402A Sprain of unspecified ligament of left ankle, initial encounter; X58.XXXA Exposure to other specified factors, initial encounter
CPT/HCPCS: 96372; 99283; J1885

== ENCOUNTER 2025-01-29 12:45 | Outpatient (CLI) | payer OTHER, SELFPAY ==
--- NOTE | ~2025-01-29 | XR_ITS ---
XR ankle LT min 3V Ordering provider: Ricardo Dickey MD History: . injury X 2 weeks, WB pain, shooting pain from foot up ankle . Comparison: None. FINDINGS: BONES: No acute fracture or dislocation. JOINT SPACES: The ankle mortise is normal. SOFT TISSUES: Soft tissue swelling over the medial and lateral malleoli. Calcaneal spur. IMPRESSION: No acute osseous abnormality left ankle. Reviewed, dictated and finalized at location A.
--- OUTSIDE RECORDS SUMMARY | 2025-01-29 14:36 | XMS_ITS | Clinical Summary ---
Author Organization [facility] Address [address] [place] [address] Phone Care Team Providers Care Supervisor Long Goods Name Role Phone Provider, None Primary Care [...] Comments Blood Pressure 104/60 01/23/2019 8:39 AM [employer] Pulse 77 01/23/2019 8:39 AM [employer] Temperature 36.2 C (97.1 F) 01/23/2019 8:39 AM [employer] Respiratory Rate 16 01/23/2019 8:39 AM [employer] Oxygen Saturation 98% 01/23/2019 8:39 AM [employer] Inhaled Oxygen Concentration - - Weight 79 kg (174 lb 1.6 oz) 01/23/2019 8:39 AM [employer] Height 152.4 cm (5') 01/23/2019 8:39 AM [employer] Body Mass Index 34 01/23/2019 8:39 AM [employer] Plan of Treatment Health Maintenance Due Date [...] Insurance MEDICAID [employer] Care Teams Supervisor [employer] Relationship Specialty Start Date End Date Provider, None [place] PCP - General 05/08/21
--- OUTSIDE RECORDS SUMMARY | 2025-01-29 14:37 | XMS_ITS | Data Portability ---
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 Name Role Phone AILEEN GOODSON Primary Care [...] Lab CBC w/ auto diff 2022 023 [facility] (Lab), [address], [place], [address], 3 05:41:20 CMP, serum or plasma 2022 023 [facility] (Lab), [address] [place], [address], 3 05:41:21 lipid panel, blood 2022 023 [facility] (Lab), [address] [place], [address], 3 05:41:20 TSH, serum or plasma 2022 023 [facility] (Lab), [address], [place], [address], 3 05:41:21 vitamin D, 25-hydroxy, total, serum 2022 023 [facility] (Lab), [address] [place], [address], 3 05:41:22 Referral None recorded. Procedures None recorded. Surgeries None recorded. Imaging None recorded. Medication Orders sertraline 50 mg tablet [address] [facility]/Pharmacy #[id number], [address] [place], [address], 3 14:29:41 Patient TargetsNo targets recorded. Patient [...] t Abnor mal: No Resul ting Lab: [facility] [address] [facility] [address] Tel: CULTU RE ----- ----- ----- --- No Group B strep isola rhiannon at 2 days (gautam ctive broth enhan cemen t) Not Available [facility] (Lab) [address], [place], [address], 01/04/2023 20:27:49 01/07/20 23 01/07/2023 CBC W/DIF F WBC 12.6 10'3/ uL 3.6-10 .2 high Not Available [facility] (Lab) [address], [place], [address], 01/08/2023 05:24:13 01/07/20 23 01/07/2023 CBC W/DIF F RBC 4.13 10'6/ uL (based on docume nted legal sex) 4.10-5 .30 Not Available [facility] (Lab) [address], [place], [address], 01/08/2023 05:24:13 01/07/20 23 01/07/2023 CBC W/DIF F HGB 11.3 g/dL (based on docume nted legal sex) 11.9-1 5.8 low Not Available [facility] (Lab) [address], [place], [address], 01/08/2023 05:24:13 01/07/20 23 01/07/2023 CBC W/DIF F HCT 36.0 % (based on docume nted legal sex) 37.4-4 8.3 low Not Available [facility] (Lab) [address], [place], [address], 01/08/2023 05:24:13 01/07/20 23 01/07/2023 CBC W/DIF F MCV 87.2 fL 82.0-9 9.0 Not Available [facility] (Lab) [address], [place], [address], 01/08/2023 05:24:13 01/07/20 23 01/07/2023 CBC W/DIF F MCH 27.4 pg 27.0-3 3.0 Not Available [facility] (Lab) [address], [place], [address], 01/08/2023 05:24:13 01/07/20 23 01/07/2023 CBC W/DIF F MCHC 31.4 g/dL 32.0-3 6.0 low Not Available [facility] (Lab) [address], [place], [address], 01/08/2023 05:24:13 01/07/20 23 01/07/2023 CBC W/DIF F RDW 13.6 % 11.0-1 5.0 Not Available [facility] (Lab) [address], [place], [address], 01/08/2023 05:24:13 01/07/20 23 01/07/2023 CBC W/DIF F plt 280 10'3/ uL 150-45 0 Not Available [facility] (Lab) [address], [place], [address], 01/08/2023 05:24:13 01/07/20 23 01/07/2023 CBC W/DIF F MPV 11.9 fL 9.8-12 .7 Not Available [facility] (Lab) [address], [place], [address], 01/08/2023 05:24:13 01/07/20 23 01/07/2023 CBC W/DIF F NRBC's 0.0 % 0 Not Available [facility] (Lab) [address], [place], [address], 01/08/2023 05:24:13 01/07/20 23 01/07/2023 CBC W/DIF F absolute NRBCs 0.0 10'3/ uL 0 Not Available [facility] (Lab) [address], [place], [address], 01/08/2023 05:24:13 01/07/20 23 01/07/2023 CBC W/DIF F neutrophils 80.7 % 37.0-7 2.0 high Not Available [facility] (Lab) [address], [place], [address], 01/08/2023 05:24:13 01/07/20 23 01/07/2023 CBC W/DIF F lymphocytes 13.0 % 16.0-4 8.0 low Not Available [facility] (Lab) [address], [place], [address], 01/08/2023 05:24:13 01/07/20 23 01/07/2023 CBC W/DIF F monocytes 5.2 % 4.0-14 .0 Not Available [facility] (Lab) [address], [place], [address], 01/08/2023 05:24:13 01/07/20 23 01/07/2023 CBC W/DIF F eosinophils 0.2 % 0.0-9. 0 Not Available [facility] (Lab) [address], [place], [address], 01/08/2023 05:24:13 01/07/20 23 01/07/2023 CBC W/DIF F basophils 0.3 % 0.0-2. 0 Not Available [facility] (Lab) [address], [place], [address], 01/08/2023 05:24:13 01/07/20 23 01/07/2023 CBC W/DIF F immature granulocytes 0.6 % no define d refere nce range Not Available [facility] (Lab) [address], [place], [address], 01/08/2023 05:24:13 01/07/20 23 01/07/2023 CBC W/DIF F absolute neutrophils 10.1 10'3/ uL 1.1-6. 0 high Not Available [facility] (Lab) [address] [place], [address], 01/08/2023 05:24:13 01/07/20 23 01/07/2023 CBC W/DIF F absolute lymphocytes 1.6 10'3/ uL 0.7-3. 4 Not Available [facility] (Lab) [address] [place], [address], 01/08/2023 05:24:13 01/07/20 23 01/07/2023 CBC W/DIF F absolute monocytes 0.7 10'3/ uL 0.3-1. 0 Not Available [facility] (Lab) [address], [place], [address], 01/08/2023 05:24:13 01/07/20 23 01/07/2023 CBC W/DIF F absolute eosinophils 0.0 10'3/ uL 0.0-0. 6 Not Available [facility] (Lab) [address], [place], [address], 01/08/2023 05:24:13 01/07/20 23 01/07/2023 CBC W/DIF F absolute basophils 0.0 10'3/ uL 0.0-0. 1 Not Available [facility] (Lab) [address], [place], [address], 01/08/2023 05:24:13 01/07/20 23 01/07/2023 CBC W/DIF [...] resul ts are expec rhiannon. Not Available [facility] (Lab) [address], [place], [address], 01/08/2023 05:24:13 01/07/20 23 01/07/2023 URIC ACID uric acid 5.7 mg/dL 2.3-6. 6 Not Available [facility] (Lab) [address], [place], [address], 01/08/2023 05:24:13 01/07/20 23 01/07/2023 CMP(C OMPRE HENSI VE METAB OLIC PANEL ) sodium 136 mmol/ L 133-14 6 Not Available [facility] (Lab) [address], [place], [address], 01/08/2023 05:24:14 01/07/20 23 01/07/2023 CMP(C OMPRE HENSI VE METAB OLIC PANEL ) potassium 4.1 mmol/ L 3.5-5. 1 Not Available [facility] (Lab) [address], [place], [address], 01/08/2023 05:24:14 01/07/20 23 01/07/2023 CMP(C OMPRE HENSI VE METAB OLIC PANEL ) chloride 105 mmol/ L 98-107 Not Available [facility] (Lab) [address], [place], [address], 01/08/2023 05:24:14 01/07/20 23 01/07/2023 CMP(C OMPRE HENSI VE METAB OLIC PANEL ) carbon dioxide 23 mmol/ L 21-31 Not Available [facility] (Lab) [address], [place], [address], 01/08/2023 05:24:14 01/07/20 23 01/07/2023 CMP(C OMPRE HENSI VE METAB OLIC PANEL ) anion gap 8 mmol/ L 4-13 Not Available [facility] (Lab) [address], [place], [address], 01/08/2023 05:24:14 01/07/20 23 01/07/2023 CMP(C OMPRE HENSI VE METAB OLIC PANEL ) blood urea nitrogen 11 mg/dL 7-25 Not Available [facility] (Lab) [address], [place], [address], 01/08/2023 05:24:14 01/07/20 23 01/07/2023 CMP(C OMPRE HENSI VE METAB OLIC PANEL ) creatinine 0.62 mg/dL 0.60-1 .30 Not Available [facility] (Lab) [address], [place], [address], 01/08/2023 05:24:14 01/07/20 23 01/07/2023 CMP(C OMPRE HENSI VE METAB OLIC PANEL ) egfrcr (CKD-epi 2020) >90 mL/mi n/1.7 3_m2 >=60 Not Available [facility] (Lab) [address], [place], [address], 01/08/2023 05:24:14 01/07/20 23 01/07/2023 CMP(C OMPRE HENSI VE METAB OLIC PANEL ) calcium 8.9 mg/dL 8.3-10 .5 Not Available [facility] (Lab) [address], [place], [address], 01/08/2023 05:24:14 01/07/20 23 01/07/2023 CMP(C OMPRE HENSI VE METAB OLIC PANEL ) glucose 71 mg/dL 70-100 Not Available [facility] (Lab) [address], [place], [address], 01/08/2023 05:24:14 01/07/20 23 01/07/2023 CMP(C OMPRE HENSI VE METAB OLIC PANEL ) protein, total 6.4 g/dL 6.4-8. 3 Not Available [facility] (Lab) [address], [place], [address], 01/08/2023 05:24:14 01/07/20 23 01/07/2023 CMP(C OMPRE HENSI VE METAB OLIC PANEL ) albumin 3.3 g/dL 3.5-5. 0 low Not Available [facility] (Lab) [address], [place], [address], 01/08/2023 05:24:14 01/07/20 23 01/07/2023 CMP(C OMPRE HENSI VE METAB OLIC PANEL ) ALT 15 units /L 9-43 Not Available [facility] (Lab) [address], [place], [address], 01/08/2023 05:24:14 01/07/20 23 01/07/2023 CMP(C OMPRE HENSI VE METAB OLIC PANEL ) alkaline phosphatase 288 units /L 34-104 high Not Available [facility] (Lab) [address], [place], [address], 01/08/2023 05:24:14 01/07/20 23 01/07/2023 CMP(C OMPRE HENSI VE METAB OLIC PANEL ) AST 18 units /L 13-39 Not Available [facility] (Lab) [address], [place], [address], 01/08/2023 05:24:14 01/07/20 23 01/07/2023 CMP(C OMPRE HENSI VE METAB OLIC PANEL ) bilirubin, total 0.3 mg/dL 0.2-1. 2 Not Available [facility] (Lab) [address], [place], [address], 01/08/2023 05:24:14 07/05/20 23 07/05/2023 CBC W/DIF F WBC 10.2 10'3/ uL 3.6-10 .2 Not Available [facility] (Lab) [address], [place], [address], 07/06/2023 05:41:20 07/05/20 23 07/05/2023 CBC W/DIF F RBC 4.48 10'6/ uL (based on docume nted legal sex) 4.10-5 .30 Not Available [facility] (Lab) [address] [place], [address], 07/06/2023 05:41:20 07/05/20 23 07/05/2023 CBC W/DIF F HGB 12.1 g/dL (based on docume nted legal sex) 11.9-1 5.8 Not Available [facility] (Lab) [address] [place], [address], 07/06/2023 05:41:20 07/05/20 23 07/05/2023 CBC W/DIF F HCT 40.4 % (based on docume nted legal sex) 37.4-4 8.3 Not Available [facility] (Lab) [address] [place] [facility] [place], [address], 07/06/2023 05:41:20 07/05/20 23 07/05/2023 CBC W/DIF F MCV 90.2 fL 82.0-9 9.0 Not Available [facility] (Lab) [address], [place], [address], 07/06/2023 05:41:20 07/05/20 23 07/05/2023 CBC W/DIF F MCH 27.0 pg 27.0-3 3.0 Not Available [facility] (Lab) [address], [place], [address], 07/06/2023 05:41:20 07/05/20 23 07/05/2023 CBC W/DIF F MCHC 30.0 g/dL 32.0-3 6.0 low Not Available [facility] (Lab) [address], [place], [address], 07/06/2023 05:41:20 07/05/20 23 07/05/2023 CBC W/DIF F RDW 13.3 % 11.0-1 5.0 Not Available [facility] (Lab) [address], [place], [address], 07/06/2023 05:41:20 07/05/20 23 07/05/2023 CBC W/DIF F plt 298 10'3/ uL 150-45 0 Not Available [facility] (Lab) [address], [place], [address], 07/06/2023 05:41:20 07/05/20 23 07/05/2023 CBC W/DIF F MPV 11.2 fL 9.8-12 .7 Not Available [facility] (Lab) [address], [place], [address], 07/06/2023 05:41:20 07/05/20 23 07/05/2023 CBC W/DIF F NRBC's 0.0 % 0 Not Available [facility] (Lab) [address], [place], [address], 07/06/2023 05:41:20 07/05/20 23 07/05/2023 CBC W/DIF F absolute NRBCs 0.0 10'3/ uL 0 Not Available [facility] (Lab) [address], [place], [address], 07/06/2023 05:41:20 07/05/20 23 07/05/2023 CBC W/DIF F neutrophils 54.3 % 37.0-7 2.0 Not Available [facility] (Lab) [address], [place], [address], 07/06/2023 05:41:20 07/05/20 23 07/05/2023 CBC W/DIF F lymphocytes 35.8 % 16.0-4 8.0 Not Available [facility] (Lab) [address], [place], [address], 07/06/2023 05:41:20 07/05/20 23 07/05/2023 CBC W/DIF F monocytes 7.0 % 4.0-14 .0 Not Available [facility] (Lab) [address], [place], [address], 07/06/2023 05:41:20 07/05/20 23 07/05/2023 CBC W/DIF F eosinophils 1.9 % 0.0-9. 0 Not Available [facility] (Lab) [address], [place], [address], 07/06/2023 05:41:20 07/05/20 23 07/05/2023 CBC W/DIF F basophils 0.5 % 0.0-2. 0 Not Available [facility] (Lab) [address] [place], [address], 07/06/2023 05:41:20 07/05/20 23 07/05/2023 CBC W/DIF F immature granulocytes 0.5 % no define d refere nce range Not Available [facility] (Lab) [address], [place], [address], 07/06/2023 05:41:20 07/05/20 23 07/05/2023 CBC W/DIF F absolute neutrophils 5.6 10'3/ uL 1.1-6. 0 Not Available [facility] (Lab) [address], [place], [address], 07/06/2023 05:41:20 07/05/20 23 07/05/2023 CBC W/DIF F absolute lymphocytes 3.7 10'3/ uL 0.7-3. 4 high Not Available [facility] (Lab) [address], [place], [address], 07/06/2023 05:41:20 07/05/20 23 07/05/2023 CBC W/DIF F absolute monocytes 0.7 10'3/ uL 0.3-1. 0 Not Available [facility] (Lab) [address], [place], [address], 07/06/2023 05:41:20 07/05/20 23 07/05/2023 CBC W/DIF F absolute eosinophils 0.2 10'3/ uL 0.0-0. 6 Not Available [facility] (Lab) [address] [place], [address], 07/06/2023 05:41:20 07/05/20 23 07/05/2023 CBC W/DIF F absolute basophils 0.1 10'3/ uL 0.0-0. 1 Not Available [facility] (Lab) [address] [place], [address], 07/06/2023 05:41:20 07/05/20 23 07/05/2023 CBC W/DIF [...] resul ts are expec rhiannon. Not Available [facility] (Lab) [address], [place], [address], 07/06/2023 05:41:20 07/05/20 23 07/05/2023 LIPID PANEL ,AMA (LDL- CALC) total cholesterol 214 mg/dL 0-199 high Not Available [facility] (Lab) [address], [place], [address], 07/06/2023 05:41:20 07/05/20 23 07/05/2023 LIPID PANEL ,AMA (LDL- CALC) triglyceride s 222 mg/dL 0.00-1 50.00 high NCEP Refer ence Value s for Trigl yceri akua: Milagro l: <150 mg/dL Borde rline High: 150 - 199 mg/dL High: 200 - 499 mg/dL Very High: >/= 500 mg/dL Not Available [facility] (Lab) [address], [place], [address], 07/06/2023 05:41:20 07/05/20 23 07/05/2023 LIPID PANEL ,AMA (LDL- CALC) HDL cholesterol 52 mg/dL >40 Not Available [facility] (Lab) [address] [place], [address], 07/06/2023 05:41:20 07/05/20 23 07/05/2023 LIPID PANEL [...] mg/dL , HDL <40 mg/dL Not Available [facility] (Lab) [address], [place], [address], 07/06/2023 05:41:20 07/05/2007/05/2023 LIPID PANEL ,AMA (LDL- CALC) non-HDL cholesterol 162 mg/dL no refere nce range A reaso nable goal for non-H DL trudy stero l is one that is 30 mg/dL highe r than the LDL trudy stero l goal. Not Available [facility] (Lab) [address], [place], [address], 07/06/2023 05:41:20 07/05/2007/05/2023 LIPID PANEL ,AMA (LDL- CALC) chol/HDL ratio 4.1 . 0.0-5. 0 On March 16, 2023, [facility] labor atori areli dooley ed the equat [...] Jeannie cruz, Kristian Julian, Anthony Bae , Mohcorye samson, Jareth Rm, Jareth trimble, Andrey oseguera [...] n. 2017Nov 23;137 (1):1 0-19. Not Available [facility] (Lab) [address], [place], [address], 07/06/2023 05:41:20 07/05/20 23 07/05/2023 CMP(C OMPRE HENSI VE METAB OLIC PANEL ) sodium 140 mmol/ L 133-14 6 Not Available [facility] (Lab) [address], [place], [address], 07/06/2023 05:41:21 07/05/20 23 07/05/2023 CMP(C OMPRE HENSI VE METAB OLIC PANEL ) potassium 4.0 mmol/ L 3.5-5. 1 Not Available [facility] (Lab) [address], [place], [address], 07/06/2023 05:41:21 07/05/20 23 07/05/2023 CMP(C OMPRE HENSI VE METAB OLIC PANEL ) chloride 105 mmol/ L 98-107 Not Available [facility] (Lab) [address] [place], [address], 07/06/2023 05:41:21 07/05/20 23 07/05/2023 CMP(C OMPRE HENSI VE METAB OLIC PANEL ) carbon dioxide 29 mmol/ L 21-31 Not Available [facility] (Lab) [address] [place], [address], 07/06/2023 05:41:21 07/05/20 23 07/05/2023 CMP(C OMPRE HENSI VE METAB OLIC PANEL ) anion gap 6 mmol/ L 4-13 Not Available [facility] (Lab) [address], [place], [address], 07/06/2023 05:41:21 07/05/20 23 07/05/2023 CMP(C OMPRE HENSI VE METAB OLIC PANEL ) blood urea nitrogen 19 mg/dL 7-25 Not Available [facility] (Lab) [address], [place], [address], 07/06/2023 05:41:21 07/05/20 23 07/05/2023 CMP(C OMPRE HENSI VE METAB OLIC PANEL ) creatinine 0.75 mg/dL 0.60-1 .30 Not Available [facility] (Lab) [address], [place], [address], 07/06/2023 05:41:21 07/05/20 23 07/05/2023 CMP(C OMPRE HENSI VE METAB OLIC PANEL ) egfrcr (CKD-epi 2020) >90 mL/mi n/1.7 3_m2 >=60 Not Available [facility] (Lab) [address], [place], [address], 07/06/2023 05:41:21 07/05/20 23 07/05/2023 CMP(C OMPRE HENSI VE METAB OLIC PANEL ) calcium 8.9 mg/dL 8.3-10 .5 Not Available [facility] (Lab) [address], [place], [address], 07/06/2023 05:41:21 07/05/20 23 07/05/2023 CMP(C OMPRE HENSI VE METAB OLIC PANEL ) glucose 62 mg/dL 70-100 low Not Available [facility] (Lab) [address], [place], [address], 07/06/2023 05:41:21 07/05/20 23 07/05/2023 CMP(C OMPRE HENSI VE METAB OLIC PANEL ) protein, total 6.0 g/dL 6.4-8. 3 low Not Available [facility] (Lab) [address], [place], [address], 07/06/2023 05:41:21 07/05/20 23 07/05/2023 CMP(C OMPRE HENSI VE METAB OLIC PANEL ) albumin 3.9 g/dL 3.5-5. 0 Not Available [facility] (Lab) [address], [place], [address], 07/06/2023 05:41:21 07/05/20 23 07/05/2023 CMP(C OMPRE HENSI VE METAB OLIC PANEL ) ALT 12 units /L 9-43 Not Available [facility] (Lab) [address], [place], [address], 07/06/2023 05:41:21 07/05/20 23 07/05/2023 CMP(C OMPRE HENSI VE METAB OLIC PANEL ) alkaline phosphatase 69 units /L 34-104 Not Available [facility] (Lab) [address], [place], [address], 07/06/2023 05:41:21 07/05/20 23 07/05/2023 CMP(C OMPRE HENSI VE METAB OLIC PANEL ) AST 13 units /L 13-39 Not Available [facility] (Lab) [address], [place], [address], 07/06/2023 05:41:21 07/05/20 23 07/05/2023 CMP(C OMPRE HENSI VE METAB OLIC PANEL ) bilirubin, total 0.2 mg/dL 0.2-1. 2 Not Available [facility] (Lab) [address], [place], [address], 07/06/2023 05:41:21 07/05/20 23 07/05/2023 TSH, REFLE X FREE T4 TSH 3.26 uIU/m L 0.30-5 .33 Not Available [facility] (Lab) [address], [place], [address], 07/06/2023 05:41:21 07/05/20 23 07/05/2023 VITAM IN D, 25-OH (TOTA L D2/D3 ) vitamin D, 25-hydroxy, total 12.6 NG/mL 30.0-1 00.0 [address] [place]ge stive of Defic iency : <20 ng/mL Sugge stive of Insuf ficie ncy: 20-29 ng/mL Sugge stive of Suffi cienc y: 30-10 0 ng/mL Sugge stive of Toxic ity: >150 ng/mL Not Available [facility] (Lab) [address], [place], [address], 07/06/2023 05:41:22 07/05/20 23 07/05/2023 IMAGE GUIDE [...] epith elial Ruba cruz or Slick rolle ([facility]) . Elect yogesh woods cr d by [...] as clini iggy warra nted. Not Available [facility] (Lab) [address], [place], [address], 07/06/2023 21:50:12 Result Notes None recorded. Problems Name Problem SNOMED Code Status Onset Date Resolution Date Notes Provider Name and Address Organization Details Recorded Time Rubella screenin g status [id number] Completed 201801/02/2022 Encounte r for antenata l screenin g, unspecif ied;Pavan rded Elsewher e: No Locat ion: [facility] S ource: EHR C T Tech jacobo: N Zeenatti ce ID: [id number] Danis lable Time: 08:45:00 AM Myriam harris, [facility] 2 12:33:46 Pregnanc y detectio n examinat ion Completed 201801/02/2022 Encounte r for pregnanc y test, result positive ;Recorde d Elsewher e: No Locat ion: [facility] S ource: EHR C T Tech jacobo: N Zeenatti ce ID: [id number] Danis lable Time: 09:45:00 AM Myriam harris, [facility] 2 12:34:03 Normal pregnanc y in kimberlygra zehra [id number] Completed 201801/02/2022 Encounte r for suprvsn of normal pregnanc y, third trimeste r;Record ed Elsewher e: No Locat ion: [facility] S ource: EHR C T Tech jacobo: N Zeenatti ce ID: [id number] Danis lable Time: 09:15:00 AM Myriam harris, [facility] 2 12:33:59 Procedur e on genitour inary system Completed 201901/02/2022 Encounte r for surgical aftercar e followin g surgery on the genitour inary system;R ecorded Elsewher e: No Locat ion: [facility] S ource: EHR C T Tech jacboo: N Practi ce ID: [id number] Danis lable Time: 01:15:00 PM Myriam harris, [facility] 2 12:33:35 Postoper ative care Completed 201901/02/2022 Encounte r for surgical aftercar e followin g surgery on the genitour inary system;R ecorded Elsewher e: No Locat ion: [facility] S ource: EHR C T Tech jacobo: N Zeenatti ce ID: [id number] Danis lable Time: 01:15:00 PM Myriam harris, [facility] 2 12:33:37 Pregnanc y, childbir th and puerperi um finding Completed 201801/02/2022 Encntr for suprvsn of normal first preg, third trimeste r;Record ed Elsewher e: No Locat ion: [facility]: N Zeenatti ce ID: [id number] Danis lable Time: 01:15:00 PM Myriam harris, [facility] 2 12:34:00 Antenata l screenin g Completed 201801/02/2022 Encounte r for antenata l screenin g for nuchal transluc ency;Rec orded Elsewher e: No Locat ion: [facility]: N Zeenatti ce ID: [id number] Danis lable Time: 09:30:00 AM Myriam harris, [facility] 2 12:33:43 Hemorrha gic complica tion of pregnanc y [id number] Completed 201801/02/2022 Other hemorrha ge in early pregnanc y;Record ed Elsewher e: No Locat ion: [facility] j[facility]: N Zeenatti ce ID: [id number] Danis lable Time: 10:30:00 AM Myriam harris, [facility] 2 12:33:34 Secondar y amenorrh ea [id number] Completed 201801/02/2022 Secondar y amenorrh ea;Recor ded Elsewher e: No [facility] Tech jacobo: N Zeenatti ce ID: [id number] Danis lable Time: 09:45:00 AM Myriam harris, [facility] 2 12:33:39 Uterine size for dates discrepa ncy Completed 201801/02/2022 Uterine size-derick e discrepa ncy, first trimeste r;Record ed Elsewher e: No [facility] Tech jacobo: N Zeenatti ce ID: [id number] Danis lable Time: 10:30:00 AM Myriam harris, [facility] 2 12:33:[address] Concept Completed 201801/02/2022 Encntr for child care group leader exam (general ) (routine ) w/o abn findings ;Recorde d Elsewher e: No Locat ion: [facility] S ource: EHR C T Tech jacobo: N Zeenatti ce ID: [id number] Danis lable Time: 09:45:00 AM Myriam harris, [facility] 2 12:33:48 Infectio n screenin g Completed 201801/02/2022 Encounte r for screenin g for oth infec/pa rastc diseases ;Recorde d Elsewher e: No Locat ion: [facility] S ource: EHR C T Tech jacobo: N Zeenatti ce ID: [id number] Danis lable Time: 09:45:00 AM Myriam harris, [facility] 2 12:33:44 Antenata l screenin g for malforma tion Completed 201801/02/2022 Encounte r for antenata l screenin g for malforma tions;Re corded Elsewher e: No Locat ion: [facility] S ource: EHR C T Tech jacobo: N Zeenatti ce ID: [id number] Danis lable Time: 08:45:00 AM Myriam harris, [facility] 2 12:34:02 Syphilis test finding [id number] Completed 201801/02/2022 Encntr screen for infectio ns w sexl mode of transmis s;Record ed Elsewher e: No Locat ion: [facility] S ource: EHR C T Tech jacobo: N Practi ce ID: [id number] Danis lable Time: 09:45:00 AM Myriam harris, [facility] 2 12:33:52 Lochia finding Completed 201901/02/2022 Encounte r for routine postpart um follow-u p;Record ed Elsewher e: No Locat ion: [facility] S ource: EHR C T Tech jacobo: N Practi ce ID: [id number] Danis lable Time: 09:30:00 AM Myriam harris, [facility] 2 12:33:56 Gestatio n period, 9 weeks [id number] Completed 201801/02/2022 9 weeks gestatio n of pregnanc y;Record ed Elsewher e: No Locat ion: [facility] S ource: EHR C T Tech jacobo: N Practi ce ID: [id number] Danis lable Time: 10:30:00 AM Myriam harris, [facility] 2 12:34:26 Failed trial of labor [id number] Completed 201801/02/2022 Failed trial of labor, unspecif ied;Prac sis ID: 0001 Myriam harris, [facility] 2 12:33:40 Single liveborn born in hospital by section [id number] Completed 201801/02/2022 Single liveborn , delivere d by ;Practic e ID: 0001 Myriam harris, [facility] 2 12:33:53 Gestatio n period, 39 weeks 11969690 Completed 201801/02/2022 39 weeks gestatio n of pregnanc y;Practi ce ID: 0001 Myriam harris, [facility] 2 12:34:24 Pregnanc y 57442354 Completed 202103/06/2023 Catia Dietrich [facility] 3 11:10:31 delivery - delivere d [id number] Completed to repeat Catia Dietrich [facility] 3 11:10:29 Problem Notes None recorded. Procedures Surgical History Date Name Laterality Status Provider Name and Address Organization Details Recorded Time 3 SECTION (SURG) completed Cassia Driscoll [facility] 01/25/2023 10:26:20 2 Date of Last Pap Smear completed [facility] 11/20/2022 10:19:02 9 section completed [facility] 03/20/2020 15:41:27 1 operative procedure on foot completed [facility] 12/03/2022 11:07:06 Other completed Catia [facility] 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-PNV-DH A 28 mg iron-1 mg-200 mg capsule take 1 capsule by oral route every day 01/02 completed Prescrib ed Elsewher e: No Locat ion: [facility] odify By: oscar munguia DateTime : 05/29/20 08:39:06 AM Not Available Not Available Not Available 28 mg-800 mcg tablet 01/02 completed Prescrib ed Elsewher e: Yes Loca tion: [facility] odify By: [email or web address] munguia DateTime : 04/25/20 09:45:00 AM Not Available Not Available Not Available Vitals Date Recorded Body height Body mass index (BMI) Body weight Systolic blood pressure Diastolic blood pressure Provider Name and Address Organization Details Last Updated DateTime 01/21/2023 148.59 cm 39.7 kg/m2 43838.32 741 g 136 mm[Hg] 80 mm[Hg] Latrice Torrez [facility] 3 09:48:12 Date Recorded Body height Body mass index (BMI) Body weight Systolic blood pressure Diastolic blood pressure Systolic blood pressure Diastolic blood pressure Provider Name and Address Organization Details Last Updated DateTime 3 148.59 cm 37.2 kg/m2 62533.2 2 g 149 mm[Hg] 93 mm[Hg] 142 mm[Hg] 87 mm[Hg] Catia [facility] 3 12:47:46 Date Recorded Body height Body mass index (BMI) Body weight Systolic blood pressure Diastolic blood pressure Provider Name and Address Organization Details Last Updated DateTime 03/06/2023 148.59 cm 34.3 kg/m2 03965.92 579 g 117 mm[Hg] 73 mm[Hg] Catia [facility] 3 11:10:11 Date Recorded Body height Body mass index (BMI) Body weight Systolic blood pressure Diastolic blood pressure Provider Name and Address Organization Details Last Updated DateTime 07/05/2023 148.59 cm 37.2 kg/m2 06898.22 g 119 mm[Hg] 75 mm[Hg] Catia Dietrich [facility] 3 14:04:58 Social History Question Answer Notes LastModified by Organizat ion Details LastModified Time Tobacco Smoking Status Never Smoker Catia Dietrich [facility], [facility] 07/05/2023 14:05:14 Do You Have An Advance Directive? No Information n ot available 07/01/2022 What Is Your Level Of Alcohol Consumption? Occasional [email or web address] Information not available 11/20/2022 If You Are , What Was Your Level Of Alcohol Consumption Prior To ? Occasional [email or web address] Information not available 07/05/2023 How Many Years Have You Consumed Alcohol? 9 [email or web address] Information not available 11/20/2022 Are You Blind Or Do You Have Difficulty Seeing? No [email or web address] Information n ot available 07/01/2022 What Is Your Level Of Caffeine Consumption? Moderate [email or web address] Information not available 07/01/2022 How Much Tobacco Do You Chew? None [email or web address] Information not available 07/01/2022 In The 14 Days Before Symptom Onset, Have You Had Close Contact With A Laboratory-confirm ed COVID-19 While That Case Was Ill? No [email or web address] Information n ot available 07/01/2022 In The 14 Days Before Symptom Onset, Have You Had Close Contact With A Person Who Is Under Investigation For COVID-19 While That Person Was Ill? No [email or web address] Information not available 07/01/2022 Have You Been To An Area Known To Be High Risk For COVID-19? No [email or web address] Information not available 07/01/2022 Are You Deaf Or Do You Have Serious Difficulty Hearing? No [email or web address] Information not available 07/01/2022 What Type Of Diet Are You Following? CARBOHYDRATE [email or web address] Information n ot available 11/20/2022 What Is The Highest Grade Or Level Of School You Have Completed Or The Highest Degree You Have Received? [id number] [email or web address] Information not available 07/01/2022 Are There Any Guns Present In Your Home? No [email or web address] Information not available 07/01/2022 What Was The Date Of Your Most Recent Tobacco Screening? 01/21/2023 [email or web address] Information not available 07/05/2023 Do You Use Protection During Sex? No [email or web address] Information not available 07/01/2022 Do You Use Your Seat Belt Or Car Seat Routinely? Yes [email or web address] Information not available 07/01/2022 Do You Have Smoke And Carbon Monoxide Detectors In Your Home? Yes [email or web address] Information not available 07/01/2022 How Much Tobacco Do You Smoke? No Information not available 07/01/2022 Smoking Pre- Yes [email or web address] Information not available 07/05/2023 Do You Feel Stressed (tense, Restless, Nervous, Or Anxious, Or Unable To Sleep At Night)? [id number] [email or web address] Information not available 11/20/2022 Do You Use Any Illicit Or Recreational Drugs? No [email or web address] Information not available 07/01/2022 Do You Use Sunscreen Routinely? No [email or web address] Information not available 07/01/2022 Have You Used IV Drugs? No [email or web address] Information not available 07/01/2022 Sex: Unknown Functional Status Question Answer Note LastModified by Organizat ion Details LastModified Time Do you have difficulty walking or climbing stairs? No Information not available 07/05/2023 Are you able to walk? [email or web address] Information not available 07/22/2022 Are you able to care for yourself? Yes [email or web address] Information not available 07/05/2023 Do you have difficulty dressing or bathing? No [email or web address] Information not available 07/05/2023 What is your [...] (Food, seasonal, environmental ) N Other N Blood Transfusion N Drug/Latex Allergies/Reactions N Breast Cancer N Dermatologic Disorders N Lung Disease N [...] Code Diagnosis Note [id number] Samantha Flores CNM [facility] [address] [address] 03/20/2020 11:30:20 03/20/2020 13:17:10 Gynecologic examination 91665160 Z01.419 [id number] Jaylyn Schwab [facility] [address] [address] 06/11/2022 12:54:40 06/11/2022 14:33:29 screening 716046240 Z36.87 [id number] Katharine Ernst [facility] [address],[place] [address] 07/01/2022 12:03:23 07/01/2022 12:29:09 [id number] Samantha Flores [facility] [address],[place] [address] 07/01/2022 12:04:13 07/01/2022 13:58:50 test positive 376657247 Z32.01 Gynecologi c examination 18448741 Z01.419 [id number] [facility] [address],[place] [address] 07/22/2022 14:15:14 07/22/2022 14:41:42 screening 969704784 Z36.82 [id number] Ishan Bowers MD [facility] [address],[place] [address] 07/22/2022 14:15:34 07/22/2022 15:51:50 Routine care 433422883 Z34.91 [id number] Ishan Bowers MD [facility] [address],[place] [address] 08/18/2022 12:37:27 08/18/2022 13:45:58 Screening for drug of abuse in urine specimen positive 296062616 R82.5 Routine an tenatal care 009017985 Z34.91 [id number] [facility] [address],[place] [address] 09/22/2022 14:01:19 09/22/2022 15:13:15 screening for malformation 834525329 Z36.3 [id number] Amelia Caballero MD [facility] [address],[place] [address] 09/22/2022 14:02:28 09/22/2022 15:27:00 Routine care 092980837 Z34.82 [id number] Katharine Ernst [facility] [address],[place] [address] 10/21/2022 14:13:51 10/21/2022 14:56:14 screening 074116770 Z36.2 [id number] Ishan Bowers MD [facility] [address],[place] [address] 10/21/2022 14:14:22 10/21/2022 20:43:28 Routine care 612851148 Z34.91 [id number] Samantha Flores [facility] [address],[place] [address] 11/20/2022 09:57:08 11/20/2022 13:43:54 Routine care 636740724 Z34.93 [id number] [facility] [address],[place] [address] 12/03/2022 10:52:07 12/03/2022 11:55:29 Routine care 216518244 Z34.93 [id number] [facility] [address],[place] [address] 12/17/2022 11:03:13 12/17/2022 12:02:18 Routine care 432634519 Z34.93 s ection following previous section 121541081 O34.219 [id number] Samantha Flores [facility] [address],[place] [address] 01/01/2023 12:02:36 01/01/2023 12:41:25 Routine care 558973923 Z34.93 [id number] [facility] [address],[place] [address] 01/07/2023 09:40:22 01/07/2023 15:38:17 Routine care 829666960 Z34.93 Elevated blood-pressure reading without diagnosis of hypertension 940717821 R03.0 - induced hypertension 88307963 O13.9 [id number] [facility] [address],[place] [address] 01/14/2023 09:33:09 01/14/2023 14:28:46 Routine care 232708594 Z34.93 [id number] Nicolle Talley [facility] [address],[place] [address] 01/21/2023 09:32:19 01/21/2023 10:15:07 Routine care 165257236 Z34.93 [id number] Ishan Bowers MD [facility] [address],[place] [address] 02/01/2023 12:23:58 02/01/2023 13:00:04 Postoperative care 246243710 Z48.89 This patient is a 32-year-ol d multiparou s female presents for postoperat marsha care. She is 1 week post op from a delivery. She has no complaints . Her incision has some burning on the right side. We discussed that. Mood is good. Her baby is well. [id number] Ishan Bowers MD [facility] [address],[place] [address] 03/06/2023 10:57:49 03/08/2023 13:21:57 care 091338100 Z39.2 This patient is 32-year-ol d female presents for follow-up. She is 4 weeks post from a delivery. Her baby is doing well. She is doing well. She has stopped bleeding. She has had sex. She is breast-fee ding primarily. She had a tubal ligation her , she will follow up in 2 months for well woman. [id number] Ishan Bowers MD [facility] [address] [address] 07/05/2023 13:47:15 07/05/2023 14:31:52 Mixed anxiety and depressive disorder 085818727 F41.8 Gynecologi c examination 61082063 Z01.419 Annual gynecologi francisco javier exam performed. [...] Singletary Member ID Guarantor Name 01/21/2023 1 [facility] (MEDICAID HMO) [id number] Mercady Orlandini [id number] Mercady Orlandini 02/01/2023 1 [facility] (MEDICAID HMO) [id number] Mercady Orlandini [id number] Mercady Orlandini 03/06/2023 1 [facility] (MEDICAID HMO) [id number] 0003 Mercady Orlandini [id number] Mercady Orlandini 07/05/2023 1 [facility] (MEDICAID HMO) [id number] 0003 Mercady Orlandini [id number] Mercady Orlandini Notes Date Note Type Note [...] intact. Ishan Bowers MD [address], [place], [address], [facility] 02/01/2023 12:47:00 03/06/2023 text/html This patient [...] woman. Ishan Bowers MD [address], [place], [address], [facility] 03/06/2023 12:18:49 07/05/2023 text/html Annual [...] exercise Ishan Bowers MD [address], [place], [address], [facility] 07/05/2023 14:30:46 OBGyn Episode Ob Episode Information Episode Created Date Number of Fetuses Patient Bloodtype Patient rh Status Prepregnancy Weight lbs Domestic Partner Domestic Partner Phone Father Name Individual Pension Adviser Status 03/20/20 20 1 CLOSED Fetus Data [...] Domestic Partner Domestic Partner Phone Father Name Individual Pension Adviser Status 03/20/20 20 1 CLOSED Fetus Data [...] Domestic Partner Domestic Partner Phone Father Name Individual Pension Adviser Status 03/20/20 20 1 CLOSED Fetus Data [...] Domestic Partner Domestic Partner Phone Father Name Individual Pension Adviser Status 07/22/20 22 1 A Negative 176 CLOSED Fetus Data First Name Last Name Admitted to NICU Weight (g) Sex Living Outcome Pediatric Complications Fetus ID Race Codes Race Delivery Type M true Full Term [id number] Repeat Problems Problem Notes 1hr gtt FAILED/ 1/3 hr gtt W NL Problem Name Start Date End Date Resolution Snomed Code Not e delivery - delivered [id number] to repeat Raphael Calculation Initial Raphael Date [...] Weight in lbs Pre/Post Dialysis Refused Weight 173.216579295632 BP Diastolic BP Location Tested BP Systolic [...] Weight in lbs Pre/Post Dialysis Refused Weight 183.072592979409 BP Diastolic BP Location Tested BP Systolic [...] Weight in lbs Pre/Post Dialysis Refused Weight 185.950681700244 BP Diastolic BP Location Tested BP Systolic [...] Weight in lbs Pre/Post Dialysis Refused Weight 182.114357191099 BP Diastolic BP Location Tested BP Systolic [...] Weight in lbs Pre/Post Dialysis Refused Weight 184.846435879397 BP Diastolic BP Location Tested BP Systolic [...] Weight in lbs Pre/Post Dialysis Refused Weight 186.476148372119 BP Diastolic BP Location Tested BP Systolic [...] Weight in lbs Pre/Post Dialysis Refused Weight 186.163914632058 BP Diastolic BP Location Tested BP Systolic [...] Weight in lbs Pre/Post Dialysis Refused Weight 189.443927888423 BP Diastolic BP Location Tested BP Systolic [...] Weight in lbs Pre/Post Dialysis Refused Weight 189.681615396231 BP Diastolic BP Location Tested BP Systolic [...] Weight in lbs Pre/Post Dialysis Refused Weight 190.618614866480 BP Diastolic BP Location Tested BP Systolic [...] Weight in lbs Pre/Post Dialysis Refused Weight 193.25830802156 BP Diastolic BP Location Tested BP Systolic [...] Weight in lbs Pre/Post Dialysis Refused Weight 181.953619167402 BP Diastolic BP Location Tested BP Systolic BP Type 93 R arm 149 sitting Fetus Heart Rate Present Fetus Movement Comments Flowsheet Date 03/06/2023 Marshall Score Blood Edema Fundus Height Fundus Units Glucose Ketones Leukocytes Nitrite Labor Signs Protein Cervic Dilation Cervic Effacement Cervic Station Type Weight in lbs Pre/Post Dialysis Refused Weight 167.034774576228 BP Diastolic BP Location Tested BP Systolic [...] Estim ated Date of Delivery false Thalassemia (Albanian, Telugu, Mediterranean, Or Background): MCV < 80 false Neural Tube Defect (Meningomyelocele, Spina Bifi da, Or Anencephaly) false Congenital Heart Defect false Down Syndrome false Ronald-Sachs (eg, Nondenominational, Cajun, Puerto Rican-Martin) f alse Alyssa Disease false Sickle Cell Disease Or Trait () false Hemophilia Or Other Blood Disorders false Muscular Dystrophy false Cystic Fibrosis false [place]'s Chorea false Intellectual Disability/Autism false If Yes, [...] Domestic Partner Domestic Partner Phone Father Name Individual Pension Adviser Status 01/02/20 22 1 DELETED Raphael Calculation [...]
== END 2025-01-29 12:46 | disposition home or self-care (01) ==
LOC: CHSIMG 12:46
PROVIDERS: PCP Family Medicine; Visit Provider Family Medicine
DX: M25.572 Pain in left ankle and joints of left foot (principal)
CPT/HCPCS: 73610; 73630

== ENCOUNTER 2025-02-10 08:22 | Outpatient (CLI) | payer OTHER, SELFPAY ==
--- NOTE | ~2025-02-10 | MR_ITS ---
EXAMINATION: MR ankle LT wo con DATE: 02/10/2025 09:12 INDICATION: 3 weeks of left ankle pain post fall TECHNIQUE: Magnetic resonance imaging (MRI) of the left ankle was performed without intravenous contr ast. Sequences included sagittal, coronal, and axial proton-density weighted fast spin echo without a nd with fat saturation. COMPARISON: None. FINDINGS: Medial ankle ligaments: Deep and superficial deltoid ligaments as well as the spring ligament are normal. Lateral ankle ligaments: The anterior and posterior inferior tibiofibular ligaments are normal. The anterior talofibular, calc aneofibular and posterior talofibular ligaments are normal. Tendons: Achilles tendon is normal. The peroneus longus and brevis tendons are normal. The tibialis anterior a nd extensor hallucis longus and extensor digitorum longus tendons are normal. The tibialis posterior, flexor digitorum longus and flexor hallucis longus tendons are normal. Plantar fascia: Small enthesophyte at the calcaneal origin of the normal plantar aponeurosis. No associated marrow or surrounding soft tissue edema to suggest acute plantar fasciitis. Bones/other: Bone alignment is normal. There is normal bone marrow signal throughout with no fracture or pathologi c marrow replacing process. Joint spaces appear normal. Fluid: Physiologic amount fluid in the joint spaces. No tenosynovitis or other abnormal fluid collections. IMPRESSION: 1. Small plantar calcaneal spur. Otherwise unremarkable MRI of the left ankle. Reviewed, dictated and finalized at location B.
--- OUTSIDE RECORDS SUMMARY | 2025-02-10 08:27 | XMS_ITS | Data Portability ---
Author Organization [facility] [place] Address [address] [place] [address] Care Team Providers Care Director Of Sales Name Role Phone AILEEN GOODSON Primary Care Provider [phone] Assessment Encounter Date Assessment Date Assessment LastModified by Organization Details LastModified Time 07/05/2023 07/05/2023 Annual gynecological exam performed. Patient will come back in a year unless there are new symptoms. Not available 07/05/2023 13:53:19 Plan of Treatment Reminders Order Date Submit Date Provider Last Modified By Organization Details Last Modified Time Details Appointments None recorded. Lab CBC w/ auto diff 2022 023 [facility] (Lab), [address], [place], [address], 3 05:41:20 CMP, serum or plasma 2022 023 [facility] (Lab), [address] [place], [address], 3 05:41:21 lipid panel, blood 2022 023 [facility] (Lab), [address] [place], [address], 3 05:41:20 TSH, serum or plasma 2022 023 [facility] (Lab), [address], [place], [address], 3 05:41:21 vitamin D, 25-hydroxy, total, serum 2022 023 [facility] (Lab), [address] [place], [address], 3 05:41:22 Referral None recorded. Procedures None recorded. Surgeries None recorded. Imaging None recorded. Medication Orders sertraline 50 mg tablet 2022 023 [facility]/Pharmacy #[id number], [address] [place], [address], 3 14:29:41 Patient TargetsNo targets recorded. Patient [...] t Abnor mal: No Resul ting Lab: [facility] [address] [facility] [address] Tel: CULTU RE ----- ----- ----- --- No Group B strep isola rhiannon at 2 days (gautam ctive broth enhan cemen t) Not Available [facility] (Lab) [address], [place], [address], 01/04/2023 20:27:49 01/07/20 23 01/07/2023 CBC W/DIF F WBC 12.6 10'3/ uL 3.6-10 .2 high Not Available [facility] (Lab) [address], [place], [address], 01/08/2023 05:24:13 01/07/20 23 01/07/2023 CBC W/DIF F RBC 4.13 10'6/ uL (based on docume nted legal sex) 4.10-5 .30 Not Available [facility] (Lab) [address], [place], [address], 01/08/2023 05:24:13 01/07/20 23 01/07/2023 CBC W/DIF F HGB 11.3 g/dL (based on docume nted legal sex) 11.9-1 5.8 low Not Available [facility] (Lab) [address], [place], [address], 01/08/2023 05:24:13 01/07/20 23 01/07/2023 CBC W/DIF F HCT 36.0 % (based on docume nted legal sex) 37.4-4 8.3 low Not Available [facility] (Lab) [address], [place], [address], 01/08/2023 05:24:13 01/07/20 23 01/07/2023 CBC W/DIF F MCV 87.2 fL 82.0-9 9.0 Not Available [facility] (Lab) [address], [place], [address], 01/08/2023 05:24:13 01/07/20 23 01/07/2023 CBC W/DIF F MCH 27.4 pg 27.0-3 3.0 Not Available [facility] (Lab) [address], [place], [address], 01/08/2023 05:24:13 01/07/20 23 01/07/2023 CBC W/DIF F MCHC 31.4 g/dL 32.0-3 6.0 low Not Available [facility] (Lab) [address], [place], [address], 01/08/2023 05:24:13 01/07/20 23 01/07/2023 CBC W/DIF F RDW 13.6 % 11.0-1 5.0 Not Available [facility] (Lab) [address], [place], [address], 01/08/2023 05:24:13 01/07/20 23 01/07/2023 CBC W/DIF F plt 280 10'3/ uL 150-45 0 Not Available [facility] (Lab) [address], [place], [address], 01/08/2023 05:24:13 01/07/20 23 01/07/2023 CBC W/DIF F MPV 11.9 fL 9.8-12 .7 Not Available [facility] (Lab) [address], [place], [address], 01/08/2023 05:24:13 01/07/20 23 01/07/2023 CBC W/DIF F NRBC's 0.0 % 0 Not Available [facility] (Lab) [address], [place], [address], 01/08/2023 05:24:13 01/07/20 23 01/07/2023 CBC W/DIF F absolute NRBCs 0.0 10'3/ uL 0 Not Available [facility] (Lab) [address], [place], [address], 01/08/2023 05:24:13 01/07/20 23 01/07/2023 CBC W/DIF F neutrophils 80.7 % 37.0-7 2.0 high Not Available [facility] (Lab) [address], [place], [address], 01/08/2023 05:24:13 01/07/20 23 01/07/2023 CBC W/DIF F lymphocytes 13.0 % 16.0-4 8.0 low Not Available [facility] (Lab) [address], [place], [address], 01/08/2023 05:24:13 01/07/20 23 01/07/2023 CBC W/DIF F monocytes 5.2 % 4.0-14 .0 Not Available [facility] (Lab) [address], [place], [address], 01/08/2023 05:24:13 01/07/20 23 01/07/2023 CBC W/DIF F eosinophils 0.2 % 0.0-9. 0 Not Available [facility] (Lab) [address] [facility], [place], [address], 01/08/2023 05:24:13 01/07/20 23 01/07/2023 CBC W/DIF F basophils 0.3 % 0.0-2. 0 Not Available [facility] (Lab) [address] [facility], [place], [address], 01/08/2023 05:24:13 01/07/20 23 01/07/2023 CBC W/DIF F immature granulocytes 0.6 % no define d refere nce range Not Available [facility] (Lab) [address] [facility], [place], [address], 01/08/2023 05:24:13 01/07/20 23 01/07/2023 CBC W/DIF F absolute neutrophils 10.1 10'3/ uL 1.1-6. 0 high Not Available [facility] (Lab) [address] [place], [address], 01/08/2023 05:24:13 01/07/20 23 01/07/2023 CBC W/DIF F absolute lymphocytes 1.6 10'3/ uL 0.7-3. 4 Not Available [facility] (Lab) [address] [place], [address], 01/08/2023 05:24:13 01/07/20 23 01/07/2023 CBC W/DIF F absolute monocytes 0.7 10'3/ uL 0.3-1. 0 Not Available [facility] (Lab) [address] [facility], [place], [address], 01/08/2023 05:24:13 01/07/20 23 01/07/2023 CBC W/DIF F absolute eosinophils 0.0 10'3/ uL 0.0-0. 6 Not Available [facility] (Lab) [address] [facility], [place], [address], 01/08/2023 05:24:13 01/07/20 23 01/07/2023 CBC W/DIF F absolute basophils 0.0 10'3/ uL 0.0-0. 1 Not Available [facility] (Lab) [address] [facility], [place], [address], 01/08/2023 05:24:13 01/07/20 23 01/07/2023 CBC W/DIF [...] resul ts are expec rhiannon. Not Available [facility] (Lab) [address] [facility], [place], [address], 01/08/2023 05:24:13 01/07/20 23 01/07/2023 URIC ACID uric acid 5.7 mg/dL 2.3-6. 6 Not Available [facility] (Lab) [address] [facility], [place], [address], 01/08/2023 05:24:13 01/07/20 23 01/07/2023 CMP(C OMPRE HENSI VE METAB OLIC PANEL ) sodium 136 mmol/ L 133-14 6 Not Available [facility] (Lab) [address] [facility], [place], [address], 01/08/2023 05:24:14 01/07/20 23 01/07/2023 CMP(C OMPRE HENSI VE METAB OLIC PANEL ) potassium 4.1 mmol/ L 3.5-5. 1 Not Available [facility] (Lab) [address] [facility], [place], [address], 01/08/2023 05:24:14 01/07/20 23 01/07/2023 CMP(C OMPRE HENSI VE METAB OLIC PANEL ) chloride 105 mmol/ L 98-107 Not Available [facility] (Lab) [address] [facility], [place], [address], 01/08/2023 05:24:14 01/07/20 23 01/07/2023 CMP(C OMPRE HENSI VE METAB OLIC PANEL ) carbon dioxide 23 mmol/ L 21-31 Not Available [facility] (Lab) [address] [facility], [place], [address], 01/08/2023 05:24:14 01/07/20 23 01/07/2023 CMP(C OMPRE HENSI VE METAB OLIC PANEL ) anion gap 8 mmol/ L 4-13 Not Available [facility] (Lab) [address] [facility], [place], [address], 01/08/2023 05:24:14 01/07/20 23 01/07/2023 CMP(C OMPRE HENSI VE METAB OLIC PANEL ) blood urea nitrogen 11 mg/dL 7-25 Not Available [facility] (Lab) [address], [place], [address], 01/08/2023 05:24:14 01/07/20 23 01/07/2023 CMP(C OMPRE HENSI VE METAB OLIC PANEL ) creatinine 0.62 mg/dL 0.60-1 .30 Not Available [facility] (Lab) [address] [facility], [place], [address], 01/08/2023 05:24:14 01/07/20 23 01/07/2023 CMP(C OMPRE HENSI VE METAB OLIC PANEL ) egfrcr (CKD-epi 2020) >90 mL/mi n/1.7 3_m2 >=60 Not Available [facility] (Lab) [address] [facility], [place], [address], 01/08/2023 05:24:14 01/07/20 23 01/07/2023 CMP(C OMPRE HENSI VE METAB OLIC PANEL ) calcium 8.9 mg/dL 8.3-10 .5 Not Available [facility] (Lab) [address] [facility], [place], [address], 01/08/2023 05:24:14 01/07/20 23 01/07/2023 CMP(C OMPRE HENSI VE METAB OLIC PANEL ) glucose 71 mg/dL 70-100 Not Available [facility] (Lab) [address] [facility], [place], [address], 01/08/2023 05:24:14 01/07/20 23 01/07/2023 CMP(C OMPRE HENSI VE METAB OLIC PANEL ) protein, total 6.4 g/dL 6.4-8. 3 Not Available [facility] (Lab) [address] [facility], [place], [address], 01/08/2023 05:24:14 01/07/20 23 01/07/2023 CMP(C OMPRE HENSI VE METAB OLIC PANEL ) albumin 3.3 g/dL 3.5-5. 0 low Not Available [facility] (Lab) [address] [facility], [place], [address], 01/08/2023 05:24:14 01/07/20 23 01/07/2023 CMP(C OMPRE HENSI VE METAB OLIC PANEL ) ALT 15 units /L 9-43 Not Available [facility] (Lab) [address] [facility], [place], [address], 01/08/2023 05:24:14 01/07/20 23 01/07/2023 CMP(C OMPRE HENSI VE METAB OLIC PANEL ) alkaline phosphatase 288 units /L 34-104 high Not Available [facility] (Lab) [address] [facility], [place], [address], 01/08/2023 05:24:14 01/07/20 23 01/07/2023 CMP(C OMPRE HENSI VE METAB OLIC PANEL ) AST 18 units /L 13-39 Not Available [facility] (Lab) [address] [facility], [place], [address], 01/08/2023 05:24:14 01/07/20 23 01/07/2023 CMP(C OMPRE HENSI VE METAB OLIC PANEL ) bilirubin, total 0.3 mg/dL 0.2-1. 2 Not Available [facility] (Lab) [address] [facility], [place], [address], 01/08/2023 05:24:14 07/05/20 23 07/05/2023 CBC W/DIF F WBC 10.2 10'3/ uL 3.6-10 .2 Not Available [facility] (Lab) [address] [facility], [place], [address], 07/06/2023 05:41:20 07/05/20 23 07/05/2023 CBC W/DIF F RBC 4.48 10'6/ uL (based on docume nted legal sex) 4.10-5 .30 Not Available [facility] (Lab) [address] [place], [address], 07/06/2023 05:41:20 07/05/20 23 07/05/2023 CBC W/DIF F HGB 12.1 g/dL (based on docume nted legal sex) 11.9-1 5.8 Not Available [facility] (Lab) [address] [place], [address], 07/06/2023 05:41:20 07/05/20 23 07/05/2023 CBC W/DIF F HCT 40.4 % (based on docume nted legal sex) 37.4-4 8.3 Not Available [facility] (Lab) [address] [facility] [place], [address], 07/06/2023 05:41:20 07/05/20 23 07/05/2023 CBC W/DIF F MCV 90.2 fL 82.0-9 9.0 Not Available [facility] (Lab) [address] [facility], [place], [address], 07/06/2023 05:41:20 07/05/20 23 07/05/2023 CBC W/DIF F MCH 27.0 pg 27.0-3 3.0 Not Available [facility] (Lab) [address] [facility], [place], [address], 07/06/2023 05:41:20 07/05/20 23 07/05/2023 CBC W/DIF F MCHC 30.0 g/dL 32.0-3 6.0 low Not Available [facility] (Lab) [address] [facility], [place], [address], 07/06/2023 05:41:20 07/05/20 23 07/05/2023 CBC W/DIF F RDW 13.3 % 11.0-1 5.0 Not Available [facility] (Lab) [address] [facility], [place], [address], 07/06/2023 05:41:20 07/05/20 23 07/05/2023 CBC W/DIF F plt 298 10'3/ uL 150-45 0 Not Available [facility] (Lab) [address] [facility], [place], [address], 07/06/2023 05:41:20 07/05/20 23 07/05/2023 CBC W/DIF F MPV 11.2 fL 9.8-12 .7 Not Available [facility] (Lab) [address] [facility], [place], [address], 07/06/2023 05:41:20 07/05/20 23 07/05/2023 CBC W/DIF F NRBC's 0.0 % 0 Not Available [facility] (Lab) [address] [facility], [place], [address], 07/06/2023 05:41:20 07/05/20 23 07/05/2023 CBC W/DIF F absolute NRBCs 0.0 10'3/ uL 0 Not Available [facility] (Lab) [address] [facility], [place], [address], 07/06/2023 05:41:20 07/05/20 23 07/05/2023 CBC W/DIF F neutrophils 54.3 % 37.0-7 2.0 Not Available [facility] (Lab) [address] [facility], [place], [address], 07/06/2023 05:41:20 07/05/20 23 07/05/2023 CBC W/DIF F lymphocytes 35.8 % 16.0-4 8.0 Not Available [facility] (Lab) [address] [facility], [place], [address], 07/06/2023 05:41:20 07/05/20 23 07/05/2023 CBC W/DIF F monocytes 7.0 % 4.0-14 .0 Not Available [facility] (Lab) [address] [facility], [place], [address], 07/06/2023 05:41:20 07/05/20 23 07/05/2023 CBC W/DIF F eosinophils 1.9 % 0.0-9. 0 Not Available [facility] (Lab) [address] [facility], [place], [address], 07/06/2023 05:41:20 07/05/20 23 07/05/2023 CBC W/DIF F basophils 0.5 % 0.0-2. 0 Not Available [facility] (Lab) [address] [place], [address], 07/06/2023 05:41:20 07/05/20 23 07/05/2023 CBC W/DIF F immature granulocytes 0.5 % no define d refere nce range Not Available [facility] (Lab) [address] [facility], [place], [address], 07/06/2023 05:41:20 07/05/20 23 07/05/2023 CBC W/DIF F absolute neutrophils 5.6 10'3/ uL 1.1-6. 0 Not Available [facility] (Lab) [address] [facility], [place], [address], 07/06/2023 05:41:20 07/05/20 23 07/05/2023 CBC W/DIF F absolute lymphocytes 3.7 10'3/ uL 0.7-3. 4 high Not Available [facility] (Lab) [address] [facility], [place], [address], 07/06/2023 05:41:20 07/05/20 23 07/05/2023 CBC W/DIF F absolute monocytes 0.7 10'3/ uL 0.3-1. 0 Not Available [facility] (Lab) [address] [facility], [place], [address], 07/06/2023 05:41:20 07/05/20 23 07/05/2023 CBC W/DIF F absolute eosinophils 0.2 10'3/ uL 0.0-0. 6 Not Available [facility] (Lab) [address] [place], [address], 07/06/2023 05:41:20 07/05/20 23 07/05/2023 CBC W/DIF F absolute basophils 0.1 10'3/ uL 0.0-0. 1 Not Available [facility] (Lab) [address] [place], [address], 07/06/2023 05:41:20 07/05/20 23 07/05/2023 CBC W/DIF F absolute immature granulocytes 0.1 10'3/ uL 0.00-0 .10 2022 3:47 AM: P indic ates parti al resul ts on a panel have been relea sed. Addit ional resul ts will follo w. 2022 3:47 AM: This resul t has been final verif ied. No addit ional or odoley ed resul ts are expec rhiannon. Not Available [facility] (Lab) [address] [facility], [place], [address], 07/06/2023 05:41:20 07/05/20 23 07/05/2023 LIPID PANEL ,AMA (LDL- CALC) total cholesterol 214 mg/dL 0-199 high Not Available [facility] (Lab) [address] [address], [place], [address], 07/06/2023 05:41:20 07/05/20 23 07/05/2023 LIPID PANEL ,AMA (LDL- CALC) triglyceride s 222 mg/dL 0.00-1 50.00 high NCEP Refer ence Value s for Trigl yceri akua: Milagro l: <150 mg/dL Borde rline High: 150 - 199 mg/dL High: 200 - 499 mg/dL Very High: >/= 500 mg/dL Not Available [facility] (Lab) [address] [facility], [place], [address], 07/06/2023 05:41:20 07/05/20 23 07/05/2023 LIPID PANEL ,AMA (LDL- CALC) HDL cholesterol 52 mg/dL >40 Not Available [facility] (Lab) [address] [place], [address], 07/06/2023 05:41:20 07/05/20 23 07/05/2023 LIPID PANEL ,AMA (LDL- CALC) LDL cholesterol 126 mg/dL 0-99 high Cutof f value s recom cahnte d by the Ilda metz Trudy stero l Educa tion Progr am: BOB ABLE: Trduy stero l <200 mg/dL LDL <100 mg/dL BORDE RLINE : Trudy stero l 200-2 39 mg/dL LDL 101-1 59 mg/dL HIGHE R RISK: Trudy stero l >240 mg/dL LDL >160 mg/dL , HDL <40 mg/dL Not Available [facility] (Lab) [address], [place], [address], 07/06/2023 05:41:20 07/05/2007/05/2023 LIPID PANEL ,AMA (LDL- CALC) non-HDL cholesterol 162 mg/dL no refere nce range A reaso nable goal for non-H DL trudy stero l is one that is 30 mg/dL highe r than the LDL trudy stero l goal. Not Available [facility] (Lab) [address] [facility], [place], [address], 07/06/2023 05:41:20 07/05/2007/05/2023 LIPID PANEL ,AMA (LDL- CALC) chol/HDL ratio 4.1 . 0.0-5. 0 On March 16, 2023, [facility] labor atori areli dooley ed [...] Bae , Mohcorey samson, Jareth Rm, Jareth tribmle, Andrey oseguera , and Mihai Rey . 2013. Comp ariso n of a Novel Metho d vs the Fried anastacia Equat ion for Estim ating Low-D ensit y Lipop rotei n Rtudy stero l Level s from the Stand [...] n. 2017Nov 23;137 (1):1 0-19. Not Available [facility] (Lab) [address] [facility], [place], [address], 07/06/2023 05:41:20 07/05/20 23 07/05/2023 CMP(C OMPRE HENSI VE METAB OLIC PANEL ) sodium 140 mmol/ L 133-14 6 Not Available [facility] (Lab) [address] [facility], [place], [address], 07/06/2023 05:41:21 07/05/20 23 07/05/2023 CMP(C OMPRE HENSI VE METAB OLIC PANEL ) potassium 4.0 mmol/ L 3.5-5. 1 Not Available [facility] (Lab) [address] [facility], [place], [address], 07/06/2023 05:41:21 07/05/20 23 07/05/2023 CMP(C OMPRE HENSI VE METAB OLIC PANEL ) chloride 105 mmol/ L 98-107 Not Available [facility] (Lab) [address] [place], [address], 07/06/2023 05:41:21 07/05/20 23 07/05/2023 CMP(C OMPRE HENSI VE METAB OLIC PANEL ) carbon dioxide 29 mmol/ L 21-31 Not Available [facility] (Lab) [address] [place], [address], 07/06/2023 05:41:21 07/05/20 23 07/05/2023 CMP(C OMPRE HENSI VE METAB OLIC PANEL ) anion gap 6 mmol/ L 4-13 Not Available [facility] (Lab) [address] [facility], [place], [address], 07/06/2023 05:41:21 07/05/20 23 07/05/2023 CMP(C OMPRE HENSI VE METAB OLIC PANEL ) blood urea nitrogen 19 mg/dL 7-25 Not Available [facility] (Lab) [address], [place], [address], 07/06/2023 05:41:21 07/05/20 23 07/05/2023 CMP(C OMPRE HENSI VE METAB OLIC PANEL ) creatinine 0.75 mg/dL 0.60-1 .30 Not Available [facility] (Lab) [address], [place], [address], 07/06/2023 05:41:21 07/05/20 23 07/05/2023 CMP(C OMPRE HENSI VE METAB OLIC PANEL ) egfrcr (CKD-epi 2020) >90 mL/mi n/1.7 3_m2 >=60 Not Available [facility] (Lab) [address], [place], [address], 07/06/2023 05:41:21 07/05/20 23 07/05/2023 CMP(C OMPRE HENSI VE METAB OLIC PANEL ) calcium 8.9 mg/dL 8.3-10 .5 Not Available [facility] (Lab) [address] [facility], [place], [address], 07/06/2023 05:41:21 07/05/20 23 07/05/2023 CMP(C OMPRE HENSI VE METAB OLIC PANEL ) glucose 62 mg/dL 70-100 low Not Available [facility] (Lab) [address] [facility], [place], [address], 07/06/2023 05:41:21 07/05/20 23 07/05/2023 CMP(C OMPRE HENSI VE METAB OLIC PANEL ) protein, total 6.0 g/dL 6.4-8. 3 low Not Available [facility] (Lab) [address], [place], [address], 07/06/2023 05:41:21 07/05/20 23 07/05/2023 CMP(C OMPRE HENSI VE METAB OLIC PANEL ) albumin 3.9 g/dL 3.5-5. 0 Not Available [facility] (Lab) [address] [facility], [place], [address], 07/06/2023 05:41:21 07/05/20 23 07/05/2023 CMP(C OMPRE HENSI VE METAB OLIC PANEL ) ALT 12 units /L 9-43 Not Available [facility] (Lab) [address] [address], [place], [address], 07/06/2023 05:41:21 07/05/20 23 07/05/2023 CMP(C OMPRE HENSI VE METAB OLIC PANEL ) alkaline phosphatase 69 units /L 34-104 Not Available [facility] (Lab) [address] [address], [place], [address], 07/06/2023 05:41:21 07/05/20 23 07/05/2023 CMP(C OMPRE HENSI VE METAB OLIC PANEL ) AST 13 units /L 13-39 Not Available [facility] (Lab) [address] [address], [place], [address], 07/06/2023 05:41:21 07/05/20 23 07/05/2023 CMP(C OMPRE HENSI VE METAB OLIC PANEL ) bilirubin, total 0.2 mg/dL 0.2-1. 2 Not Available [facility] (Lab) [address] [address], [place], [address], 07/06/2023 05:41:21 07/05/20 23 07/05/2023 TSH, REFLE X FREE T4 TSH 3.26 uIU/m L 0.30-5 .33 Not Available [facility] (Lab) [address] [address], [place], [address], 07/06/2023 05:41:21 07/05/20 23 07/05/2023 VITAM IN D, 25-OH (TOTA L D2/D3 ) vitamin D, 25-hydroxy, total 12.6 NG/mL 30.0-1 00.0 low Sugge stive of Defic iency : <20 ng/mL Sugge stive of Insuf ficie ncy: 20-29 ng/mL Sugge stive of Suffi cienc y: 30-10 0 ng/mL Sugge stive of Toxic ity: >150 ng/mL Not Available [facility] (Lab) [address] [address], [place], [address], 07/06/2023 05:41:22 07/05/20 23 07/05/2023 IMAGE GUIDE [...] epith elial Ruba cruz or Slick rolle ([facility]) . Elect yogesh woods cr d by [...] as clini iggy warra nted. Not Available [facility] (Lab) [address], [place], [address], 07/06/2023 21:50:12 Result Notes None recorded. 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 2 12:34:03 Normal pregnanc y in [place] z[place] [id number] Completed 201801/02/2022 Encounte r for suprvsn of normal pregnanc y, third trimeste r;Record ed Elsewher e: No Locat ion: [facility] S ource: [employer] Maintenance And Custodian Supervisor jacobo: N Zeenatti ce ID: [id number] Danis lable Time: 09:15:00 AM Myriam harris, [facility] 2 12:33:59 Procedur e on genitour inary system Completed 201901/02/2022 Encounte r for surgical aftercar e followin g surgery on the genitour inary system;R ecorded Elsewher e: No Locat ion: [facility] S ource: E[employer] Maintenance And Custodian Supervisor jacobo: N Practi ce ID: [id number] Danis lable Time: 01:15:00 PM Myriam harris, [facility] 2 12:33:35 Postoper ative care Completed 201901/02/2022 Encounte r for surgical aftercar e followin g surgery on the genitour inary system;R ecorded Elsewher e: No Locat ion: [facility] S ource: E[employer] Maintenance And Custodian Supervisor jacobo: N Zeenatti ce ID: [id number] Danis lable Time: 01:15:00 PM Myriam harris, [facility] 2 12:33:37 Pregnanc y, childbir th and puerperi um finding Completed 201801/02/2022 Encntr for suprvsn of normal first preg, third trimeste r;Record ed Elsewher e: No Locat ion: [facility] N Zeenatti ce ID: [id number] Danis lable Time: 01:15:00 PM Myriam harris, [facility] 2 12:34:00 Antenata l screenin g Completed 201801/02/2022 Encounte r for antenata l screenin g for nuchal transluc ency;Rec orded Elsewher e: No Locat ion: [facility] N Zeenatti ce ID: [id number] Danis lable Time: 09:30:00 AM Myriam harris, [facility] 2 12:33:43 Hemorrha gic complica tion of pregnanc y [id number] Completed 201801/02/2022 Other hemorrha ge in early pregnanc y;Record ed Elsewher e: No Locat ion: [facility] N Zeenatti ce ID: [id number] Danis lable Time: 10:30:00 AM Myriam harris, [facility] 2 12:33:34 Secondar y amenorrh ea [id number] Completed 201801/02/2022 Secondar y amenorrh ea;Recor ded Elsewher e: No [facility]: EHR Maintenance And Custodian Supervisor jacobo: N Zeenatti ce ID: 0001 Danis lable Time: 09:45:00 AM Myriam harris, [facility] 2 12:33:39 Uterine size for dates discrepa ncy Completed 201801/02/2022 Uterine size-derick e discrepa ncy, first trimeste r;Record ed Elsewher e: No [facility]: EHR Maintenance And Custodian Supervisor jacobo: N Zeenatti ce ID: 0001 Danis lable Time: 10:30:00 AM Myriam harris, [facility] 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 2 12:33:48 Infectio n screenin g Completed 201801/02/2022 Encounte r for screenin g for oth infec/pa rastc diseases ;Recorde d Elsewher e: No Locat ion: [facility] S ource: EHR Maintenance And Custodian Supervisor jacobo: N Zeenatti ce ID: 0001 Danis lable Time: 09:45:00 AM Myriam harris, [facility] 2 12:33:44 Antenata l screenin g for malforma tion Completed 201801/02/2022 Encounte r for antenata l screenin g for malforma tions;Re corded Elsewher e: No Locat ion: [facility] S ource: EHR Maintenance And Custodian Supervisor jacobo: N Zeenatti ce ID: 0001 Danis lable Time: 08:45:00 AM Myriam harris, [facility] 2 12:34:02 Syphilis test finding [id number] Completed 201801/02/2022 Encntr screen for infectio ns w sexl mode of transmis s;Record ed Elsewher e: No Locat ion: [facility] S ource: EHR Maintenance And Custodian Supervisor jacobo: N Practi ce ID: 0001 Danis lable Time: 09:45:00 AM Myriam harris, [facility] 2 12:33:52 Lochia finding Completed 201901/02/2022 Encounte r for routine postpart um follow-u p;Record ed Elsewher e: No Locat ion: [facility] S ource: EHR Maintenance And Custodian Supervisor jacobo: N Practi ce ID: 0001 Danis lable Time: 09:30:00 AM Myriam harris, [facility] 2 12:33:56 Gestatio n period, 9 weeks [id number] Completed 201801/02/2022 9 weeks gestatio n of pregnanc y;Record ed Elsewher e: No Locat ion: [facility] S ource: EHR Maintenance And Custodian Supervisor jacobo: N Practi ce ID: 0001 Danis lable Time: 10:30:00 AM Myriam harris, [facility] 2 12:34:26 Failed trial of labor [id number] Completed 201801/02/2022 Failed trial of labor, unspecif ied;Prac sis ID: 0001 Myriam harris, [facility] 2 12:33:40 Single liveborn born in hospital by section [id number] Completed 201801/02/2022 Single liveborn , delivere d by ;Practic e ID: 0001 Myriam harris, [facility] 2 12:33:53 Gestatio n period, 39 weeks 06621440 Completed 201801/02/2022 39 weeks gestatio n of pregnanc y;Practi ce ID: 0001 Myriam harris, [facility] 2 12:34:24 Pregnanc y 12063504 Completed 202103/06/2023 Catia Dietrich [facility] 3 11:10:31 delivery - delivere d [id number] Completed to repeat Catia Dietrich [facility] 3 11:10:29 Problem Notes None recorded. Procedures Surgical History Date Name Laterality Status Provider Name and Address Organization Details Recorded Time 3 SECTION (SURG) completed Cassia Driscoll [facility] 01/25/2023 10:26:20 2 Date of Last Pap Smear completed [facility] 11/20/2022 10:19:02 9 section completed [facility] 03/20/2020 15:41:27 1 operative procedure on foot completed [facility] 12/03/2022 11:07:06 Other completed Catia [facility] 07/05/2023 13:53:53 Imaging Results None recorded. [...] active Not Available Not Available Not Available FOOD SAMPLER-PNV-DH A 28 mg iron-1 mg-200 mg capsule take 1 capsule by oral route every day 01/02 completed Prescrib ed Elsewher e: No Locat ion: [facility] odify By: oscar munguia DateTime : 05/29/20 08:39:06 AM Not Available Not Available Not Available 28 mg-800 mcg tablet 01/02 completed Prescrib ed Elsewher e: Yes Loca tion: [facility] odify By: [email or web address] munguia DateTime : 04/25/20 09:45:00 AM Not Available Not Available Not Available Vitals Date Recorded Body height Body mass index (BMI) Body weight Systolic blood pressure Diastolic blood pressure Provider Name and Address Organization Details Last Updated DateTime 01/21/2023 148.59 cm 39.7 kg/m2 45493.32 741 g 136 mm[Hg] 80 mm[Hg] Latrice Torrez [facility] 3 09:48:12 Date Recorded Body height Body mass index (BMI) Body weight Systolic blood pressure Diastolic blood pressure Systolic blood pressure Diastolic blood pressure Provider Name and Address Organization Details Last Updated DateTime 3 148.59 cm 37.2 kg/m2 86324.2 2 g 149 mm[Hg] 93 mm[Hg] 142 mm[Hg] 87 mm[Hg] Catia [facility] 3 12:47:46 Date Recorded Body height Body mass index (BMI) Body weight Systolic blood pressure Diastolic blood pressure Provider Name and Address Organization Details Last Updated DateTime 03/06/2023 148.59 cm 34.3 kg/m2 13549.92 579 g 117 mm[Hg] 73 mm[Hg] Catia [facility] 3 11:10:11 Date Recorded Body height Body mass index (BMI) Body weight Systolic blood pressure Diastolic blood pressure Provider Name and Address Organization Details Last Updated DateTime 07/05/2023 148.59 cm 37.2 kg/m2 60087.22 g 119 mm[Hg] 75 mm[Hg] Catia Dietrich [facility] 3 14:04:58 Social History Question Answer Notes LastModified by Organizat ion Details LastModified Time Tobacco Smoking Status Never Smoker Catia Dietrich [facility], [facility] 07/05/2023 14:05:14 Do You Have An Advance Directive? No [email or web address] Information n ot available 07/01/2022 What Is Your Level Of Alcohol Consumption? Occasional [email or web address] Information not available 11/20/2022 If You Are , What Was Your Level Of Alcohol Consumption Prior To ? Occasional [email or web address] Information not available 07/05/2023 How Many Years Have You Consumed Alcohol? 9 [email or web address] Information not available 11/20/2022 Are You Blind Or Do You Have Difficulty Seeing? No [email or web address] Information n ot available 07/01/2022 What Is Your Level Of Caffeine Consumption? Moderate [email or web address] Information not available 07/01/2022 How Much Tobacco Do You Chew? None [email or web address] Information not available 07/01/2022 In The 14 Days Before Symptom Onset, Have You Had Close Contact With A Laboratory-confirm ed COVID-19 While That Case Was Ill? No [email or web address] Information n ot available 07/01/2022 In The 14 Days Before Symptom Onset, Have You Had Close Contact With A Person Who Is Under Investigation For COVID-19 While That Person Was Ill? No [email or web address] Information not available 07/01/2022 Have You Been To An Area Known To Be High Risk For COVID-19? No [email or web address] Information not available 07/01/2022 Are You Deaf Or Do You Have Serious Difficulty Hearing? No [email or web address] Information not available 07/01/2022 What Type Of Diet Are You Following? CARBOHYDRATE [email or web address] Information n ot available 11/20/2022 What Is The Highest Grade Or Level Of School You Have Completed Or The Highest Degree You Have Received? [id number] Information not available 07/01/2022 Are There Any Guns Present In Your Home? No [email or web address] Information not available 07/01/2022 What Was The Date Of Your Most Recent Tobacco Screening? 01/21/2023 Information not available 07/05/2023 Do You Use Protection During Sex? No [email or web address] Information not available 07/01/2022 Do You Use Your Seat Belt Or Car Seat Routinely? Yes Information not available 07/01/2022 Do You Have Smoke And Carbon Monoxide Detectors In Your Home? Yes [email or web address] Information not available 07/01/2022 How Much Tobacco Do You Smoke? No [email or web address] Information not available 07/01/2022 Smoking Pre- Yes [email or web address] Information not available 07/05/2023 Do You Feel Stressed (tense, Restless, Nervous, Or Anxious, Or Unable To Sleep At Night)? [id number] [email or web address] Information not available 11/20/2022 Do You Use Any Illicit Or Recreational Drugs? No [email or web address] Information not available 07/01/2022 Do You Use Sunscreen Routinely? No [email or web address] Information not available 07/01/2022 Have You Used IV Drugs? No [email or web address] Information not available 07/01/2022 Sex: Unknown Functional Status Question Answer Note LastModified by Organizat ion Details LastModified Time Do you have difficulty walking or climbing stairs? No [email or web address] Information not available 07/05/2023 Are you able to walk? YESWOREST Information not available 07/22/2022 Are you able to care for yourself? Yes [email or web address] Information not available 07/05/2023 Do you have difficulty dressing or bathing? No [email or web address] Information not available 07/05/2023 What is your exercise level? Moderate [email or web address] Information not available 07/01/2022 Mental Status None [...] Code Diagnosis Note [id number] Samantha Flores CNM [facility] [address] [address] 03/20/2020 11:30:20 03/20/2020 13:17:10 Gynecologic examination 73995185 Z01.419 [id number] Jaylyn Schwab [place] [address] [address] 06/11/2022 12:54:40 06/11/2022 14:33:29 screening 810878014 Z36.87 [id number] Katharine Ernst [place] [address],[place] [address] 07/01/2022 12:03:23 07/01/2022 12:29:09 [id number] Samantha Flores [facility] [address],[place] [address] 07/01/2022 12:04:13 07/01/2022 13:58:50 test positive 280537945 Z32.01 Gynecologi c examination 81964906 Z01.419 [id number] [facility] [address],[place] [address] 07/22/2022 14:15:14 07/22/2022 14:41:42 screening 307654497 Z36.82 [id number] Ishan Bowers MD [place] [address],[place] [address] 07/22/2022 14:15:34 07/22/2022 15:51:50 Routine care 044734004 Z34.91 [id number] Ishan Bowers MD [place] [address],[place] [address] 08/18/2022 12:37:27 08/18/2022 13:45:58 Screening for drug of abuse in urine specimen positive 880643570 R82.5 Routine an tenatal care 747567845 Z34.91 [id number] [facility] [address],[place] [address] 09/22/2022 14:01:19 09/22/2022 15:13:15 screening for malformation 302789818 Z36.3 [id number] Amelia Caballero MD [place] [address],[place] [address] 09/22/2022 14:02:28 09/22/2022 15:27:00 Routine care 343453873 Z34.82 [id number] Katharine Ernst [place] [address],[place] [address] 10/21/2022 14:13:51 10/21/2022 14:56:14 screening 077288293 Z36.2 [id number] Ishan Bowers MD [place] [address],[place] [address] 10/21/2022 14:14:22 10/21/2022 20:43:28 Routine care 172336772 Z34.91 [id number] Samantha Flores [facility] [address],[place] [address] 11/20/2022 09:57:08 11/20/2022 13:43:54 Routine care 730747657 Z34.93 [id number] [facility] [address],[place] [address] 12/03/2022 10:52:07 12/03/2022 11:55:29 Routine care 610499204 Z34.93 [id number] [facility] [address],[place] [address] 12/17/2022 11:03:13 12/17/2022 12:02:18 Routine care 862331813 Z34.93 s ection following previous section 719764075 O34.219 [id number] Samantha Flores [facility] [address],[place] [address] 01/01/2023 12:02:36 01/01/2023 12:41:25 Routine care 751276129 Z34.93 [id number] [facility] [address],[place] [address] 01/07/2023 09:40:22 01/07/2023 15:38:17 Routine care 235877914 Z34.93 Elevated blood-pressure reading without diagnosis of hypertension 865132749 R03.0 - induced hypertension 76847957 O13.9 [id number] [facility] [address],[place] [address] 01/14/2023 09:33:09 01/14/2023 14:28:46 Routine care 679509752 Z34.93 [id number] Nicolle Talley [place] [address],[place] [address] 01/21/2023 09:32:19 01/21/2023 10:15:07 Routine care 714624899 Z34.93 [id number] Ishan Bowers MD [place] [address],[place] [address] 02/01/2023 12:23:58 02/01/2023 13:00:04 Postoperative care 974529646 Z48.89 This patient is a 32-year-ol d multiparou s female presents for postoperat marsha care. She is 1 week post op from a delivery. She has no complaints . Her incision has some burning on the right side. We discussed that. Mood is good. Her baby is well. [id number] Ishan Bowers MD [place] [address],[place] [address] 03/06/2023 10:57:49 03/08/2023 13:21:57 care 792581803 Z39.2 This patient is 32-year-ol d female presents for follow-up. She is 4 weeks post from a delivery. Her baby is doing well. She is doing well. She has stopped bleeding. She has had sex. She is breast-fee ding primarily. She had a tubal ligation her , she will follow up in 2 months for well woman. [id number] Ishan Bowers MD [place] [address] [address] 07/05/2023 13:47:15 07/05/2023 14:31:52 Mixed anxiety and depressive disorder 315131010 F41.8 Gynecologi c examination 00694245 Z01.419 Annual gynecologi francisco javier exam performed. [...] Singletary Member ID Guarantor Name 01/21/2023 1 [facility] (MEDICAID HMO) [id number] 0003 Mercady Orlandini [id number] Mercady Orlandini 02/01/2023 1 [facility] (MEDICAID HMO) [id number] 0003 Mercady Orlandini [id number] Mercady Orlandini 03/06/2023 1 [facility] (MEDICAID HMO) [id number] 0003 Mercady Orlandini [id number] Mercady Orlandini 07/05/2023 1 [facility] (MEDICAID HMO) [id number] 0003 Mercady Orlandini [id number] Mercady Orlandini Notes Date Note Type Note [...] intact. Ishan Bowers MD [address], [place], [address], [facility] 02/01/2023 12:47:00 03/06/2023 text/html This patient [...] woman. Ishan Bowers MD [address], [place], [address], [facility] 03/06/2023 12:18:49 [...] exercise Ishan Bowers MD [address], [place], [address], [facility] 07/05/2023 14:30:46 OBGyn Episode Ob Episode Information Episode Created Date Number of Fetuses Patient Bloodtype Patient rh Status Prepregnancy Weight lbs Domestic Partner Domestic Partner Phone Father Name Supervisor Jewelry Department Status 03/20/20 20 1 CLOSED Fetus Data [...] Domestic Partner Domestic Partner Phone Father Name Supervisor Jewelry Department Status 03/20/20 20 1 CLOSED Fetus Data [...] Domestic Partner Domestic Partner Phone Father Name Supervisor Jewelry Department Status 03/20/20 20 1 CLOSED Fetus Data [...] Domestic Partner Domestic Partner Phone Father Name Supervisor Jewelry Department Status 07/22/20 22 1 A Negative 176 CLOSED Fetus Data First Name Last Name Admitted to NICU Weight (g) Sex Living Outcome Pediatric Complications Fetus ID Race Codes Race Delivery Type M true Full Term [id number] Repeat Problems Problem Notes 1hr gtt FAILED/ 1/3 hr gtt W NL Problem Name Start Date End Date Resolution Snomed Code Not e delivery - delivered [id number] to repeat Raphael Calculation Initial Raphael Date [...] Weight in lbs Pre/Post Dialysis Refused Weight 173.142364945169 BP Diastolic BP Location Tested BP Systolic [...] Weight in lbs Pre/Post Dialysis Refused Weight 183.810981945956 BP Diastolic BP Location Tested BP Systolic [...] Weight in lbs Pre/Post Dialysis Refused Weight 185.285397242294 BP Diastolic BP Location Tested BP Systolic [...] Weight in lbs Pre/Post Dialysis Refused Weight 182.439987317561 BP Diastolic BP Location Tested BP Systolic [...] Weight in lbs Pre/Post Dialysis Refused Weight 184.049461201577 BP Diastolic BP Location Tested BP Systolic [...] Weight in lbs Pre/Post Dialysis Refused Weight 186.613099700894 BP Diastolic BP Location Tested BP Systolic [...] Weight in lbs Pre/Post Dialysis Refused Weight 186.308252314745 BP Diastolic BP Location Tested BP Systolic [...] Weight in lbs Pre/Post Dialysis Refused Weight 189.938218220605 BP Diastolic BP Location Tested BP Systolic [...] Weight in lbs Pre/Post Dialysis Refused Weight 189.964871142713 BP Diastolic BP Location Tested BP Systolic [...] Weight in lbs Pre/Post Dialysis Refused Weight 190.623756378883 BP Diastolic BP Location Tested BP Systolic [...] Weight in lbs Pre/Post Dialysis Refused Weight 193.02520135084 BP Diastolic BP Location Tested BP Systolic [...] Weight in lbs Pre/Post Dialysis Refused Weight 181.094143345646 BP Diastolic BP Location Tested BP Systolic BP Type 93 R arm 149 sitting Fetus Heart Rate Present Fetus Movement Comments Flowsheet Date 03/06/2023 Marshall Score Blood Edema Fundus Height Fundus Units Glucose Ketones Leukocytes Nitrite Labor Signs Protein Cervic Dilation Cervic Effacement Cervic Station Type Weight in lbs Pre/Post Dialysis Refused Weight 167.088446456009 BP Diastolic BP Location Tested BP Systolic [...] Estim ated Date of Delivery false Thalassemia (Kinyarwanda, Serbian, Mediterranean, Or Background): MCV < 80 false Neural Tube Defect (Meningomyelocele, Spina Bifi da, Or Anencephaly) false Congenital Heart Defect false Down Syndrome false Ronald-Sachs (eg, Gnosticism, Cajun, Sierra Leonean-Sutter) f alse Alyssa Disease false Sickle Cell Disease Or Trait () false Hemophilia Or Other Blood Disorders false Muscular Dystrophy false Cystic Fibrosis false Boligee's Chorea false Intellectual Disability/Autism false If Yes, [...] Domestic Partner Domestic Partner Phone Father Name Supervisor Jewelry Department Status 01/02/20 22 1 DELETED Raphael Calculation [...]
--- OUTSIDE RECORDS SUMMARY | 2025-02-10 08:27 | XMS_ITS | Clinical Summary ---
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 Name Role Phone Provider, None Primary Care [...] Comments Blood Pressure 104/60 01/23/2019 8:39 AM PROFILE TRIMMER Pulse 77 01/23/2019 8:39 AM PROFILE TRIMMER Temperature 36.2 C (97.1 F) 01/23/2019 8:39 AM PROFILE TRIMMER Respiratory Rate 16 01/23/2019 8:39 AM PROFILE TRIMMER Oxygen Saturation 98% 01/23/2019 8:39 AM PROFILE TRIMMER Inhaled Oxygen Concentration - - Weight 79 kg (174 lb 1.6 oz) 01/23/2019 8:39 AM PROFILE TRIMMER Height 152.4 cm (5') 01/23/2019 8:39 AM PROFILE TRIMMER Body Mass Index 34 01/23/2019 8:39 AM PROFILE TRIMMER Plan of Treatment Health Maintenance Due Date Last Done Comments Hepatitis C Virus (HCV) Screening 1992 DTaP/Tdap/Td Immunization (6 - Tdap) 07/08/2007 07/07/2007, 06/11/1998, 07/08/1994, Additional history exists Influenza Immunization (#1) 2024 08/26/2018 SARS-COV-2 Immunization ( - season) 2024 07/22/2021, 06/26/2021 Respiratory Syncytial Virus [...] Insurance MEDICAID [employer] Care Teams Continuous Process Machine Operator Relationship Specialty Start Date End Date Provider, None [place] PCP - General 05/08/21
== END 2025-02-10 08:23 | disposition home or self-care (01) ==
LOC: CHSIMG 08:25
PROVIDERS: PCP Family Medicine; Visit Provider Family Medicine
DX: M25.572 Pain in left ankle and joints of left foot (principal); M77.32 Calcaneal spur, left foot
CPT/HCPCS: 73721

== ENCOUNTER 2025-05-17 18:42 | Emergency (ER) | payer OTHER, SELFPAY ==
[2025-05-17 18:42] VITALS: BP 153/118; PULSE 89; RESP 18; TEMP 37.1; O2SAT 97
--- NOTE | 2025-05-17 18:46 | ED_ITS ---
HPI - Burn/Smoke Inhalation General Chief complaint: Skin/Abscess/Foreign Body Stated complaint: Skin blistering Time Seen by Provider: 05/17/25 18:45 Source: patient Mode of arrival: ambulatory Limitations: no limitations History of Present Illness HPI Narrative: this is a 34-year-old female that was some in a swimming pool in exposed to sun without any sunscreen and developed a sunburn with blisters over her chest area they are painful and tender no other lesions noted there is no headache no blurry vision no nausea or vomiting no fever chills. Complaint: burn Onset (ago): day(s) Smoke Inhalation: none Place: outdoors Severity: mild Severity scale (1-10): 3 Related Data Allergies Allergy/AdvReac Type Severity Reaction Status Date / Time No Known Allergies Allergy Unknown Verified 03/06/25 07:14 Review of Systems Review of Systems: All systems reviewed & are unremarkable except as noted in HPI and below PMFSH Past Medical History Medical History Obesity Surgical History Surgical History History of 2022 & 2018 Family History Family History Mother Hypertension DVT (deep venous thrombosis) Father Hypertension Father Hypertension Mother Diabetes mellitus Social History Social History Smoking status: Never smoker Second hand tobacco smoke exposure: Yes Alcohol intake: current Drinks per week: 1 Substance use: current Substance use type: marijuana Other substance usage details: occasional Last use: 10/30/23 Do You Feel Safe in your Home?: Yes Lack of Transportation: No Lack of Food: Never True Current Housing: I Have Housing Concerned About Future Housing: No Difficulty Paying Gas/Electric Bills: YES Difficulty Paying for Meds: No Currently Unemployed: No Education: High School Diploma/GED Difficulty w/ Childcare or Family Care: No Gender identity (if verbalized by the patient): Female Spiritual care concerns: No Exam Const: General: healthy appearing and no acute distress Nutritional Appearance: well nourished Orientation/consciousness: patient oriented x3 Limitations: no limitations Neck: Neck: normal visual inspection and no lymphadenopathy Chest: Chest palpation & inspection: abnormal inspection of the chest Resp: Effort & Inspection: normal respiratory effort Auscultation: clear to auscultation bilaterally Cardio: Rate: regular rate Rhythm: regular rhythm GI: GI Palp: Yes Soft to palpation Auscultation: normal bowel sounds Skin: Other: Sunburn with some blisters over the anterior chest area consistent with first- degree burn Extrem: General: normal to inspection Psych: Mental Status: mental status grossly normal Course Course Emergency Course: Silvadene ointment applied to chest area otherwise patient doing well with no other symptoms, no headache or blurry vision no nausea vomiting no fever chills. Critical Care Time Critical Care Time Critical Care Time: No Discharge Plan Discharge Clinical Impression: 1st degree sunburn Patient Disposition: Home Condition: Stable Instructions: Antibiotic Form, Sunburn (ED) Additional Instructions: advised to use medication as prescribed and follow with primary care physician if symptoms persist or worsen. Patient Language: [place] Prescriptions: New silver sulfadiazine [Silvadene] 1 % cream 1 applic topical BID 7 Days Qty: 20 0RF Rx Instructions: apply a 1.5 mm thickness No Action diclofenac sodium 50 mg tablet,delayed release (DR/EC) 50 mg PO Q12H PRN (Reason: pain) Qty: 20 0RF (DME) crutches See Rx Instructions .Route .MEDSUPPLY Qty: 1 0RF Rx Instructions: As directed tramadol 50 mg tablet 50 mg PO Q6H PRN (Reason: pain) Qty: 20 0RF oxycodone-acetaminophen [Endocet] 5-325 mg tablet 0.5 - 1 tablet PO Q4H PRN (Reason: pain) Qty: 10 0RF Follow-up/Referrals: Ricardo Dickey MD [Primary Care Provider] - Time of Disposition: 18:51
[2025-05-17] MEDS: SILVER SULFADIAZINE 1% CR 50 GM JAR (*BKC) 1 APPLIC TOPICAL (18:56)
== END 2025-05-17 19:04 | disposition home or self-care (01) ==
LOC: CHSED 18:50
PROVIDERS: Emergency Provider Emergency Medicine; PCP Family Medicine
DX: L55.0 Sunburn of first degree (principal)
CPT/HCPCS: 99283; A9270

== ENCOUNTER 2025-07-28 06:43 | Emergency (ER) | payer OTHER, SELFPAY ==
[2025-07-28 06:43] VITALS: BP 132/90; PULSE 70; RESP 16; TEMP 36.6; O2SAT 100
--- NOTE | 2025-07-28 07:00 | ED.URI ---
HPI - URI/Sore Throat General Chief Complaint: Upper Respiratory Infection Stated Complaint: HEADACHE Time Seen by Provider: 07/28/25 06:48 Source: patient Mode of arrival: ambulatory Limitations: no limitations History of Present Illness HPI Narrative: 34-year-old female presents to the ED with a one-week history of -- bilateral headache. No nausea /vomiting. No photophobia. No fever. No focal neuro deficits. -- Sore throat. No sinus congestion. No ear pain. No cough/ sputum production. No shortness of breath. MD elicited complaint: sore throat Onset (ago): week(s) ( 1 week) Consistency: constant Description of mucous: clear Able to tolerate fluids by mouth: Yes Exacerbating factors: nothing Relieving factors: nothing Associated symptoms: headache and sore throat Treatments prior to arrival: none Related Data Allergies Allergy/AdvReac Type Severity Reaction Status Date / Time No Known Allergies Allergy Unknown Verified 07/28/25 06:51 Review of Systems Review of Systems: All systems reviewed & are unremarkable except as noted in HPI and below Constitutional: Constitutional: Reports as per HPI and Reports no additional constitutional complaints Eyes: Eyes: Reports as per HPI and Reports no additional eye complaints ENT: Reports system reviewed and no additional complaints, except as documented, Reports as per HPI and Reports sore throat Cardiovascular: Cardiovascular: Reports as per HPI and Reports no additional cardiovascular complaints Respiratory: Respiratory: Reports as per HPI and Reports no additional respiratory complaints Gastrointestinal: Gastrointestinal: Reports as per HPI and Reports no additional gastrointestinal complaints Genitourinary: Genitourinary: Reports no additional female genitourinary complaints and Reports as per HPI Musculoskeletal: Musculoskeletal: Reports no additional musculoskeletal complaints and Reports as per HPI Integumentary/Breasts: Skin/Breast: Reports system reviewed and no additional complaints, except as docu and Reports as per HPI Neurologic: Reports system reviewed and no additional complaints, except as documented and Reports as per HPI Psychiatric: Psychiatric: Reports no additional psychiatric complaints and Reports as per HPI Endocrine: Endocrine: Reports no additional endocrine complaints and Reports as per HPI Hematologic/Lymphatic: Hematologic/Lymphatic: Reports no additional hematologic/lymphatic complaints and Reports as per HPI Allergic/Immunologic: Allergic/Immunologic: Reports no additional allergic/immunologic complaints and Reports as per HPI PMFSH Past Medical History Medical History Obesity Surgical History Surgical History History of 2022 & 2018 Family History Family History Mother Hypertension DVT (deep venous thrombosis) Father Hypertension Father Hypertension Mother Diabetes mellitus Social History Social History Smoking status: Never smoker Second hand tobacco smoke exposure: Yes Alcohol intake: current Drinks per week: 1 Substance use: current Substance use type: marijuana Other substance usage details: occasional Last use: 10/30/23 Do You Feel Safe in your Home?: Yes Lack of Transportation: No Lack of Food: Never True Current Housing: I Have Housing Concerned About Future Housing: No Difficulty Paying Gas/Electric Bills: YES Difficulty Paying for Meds: No Currently Unemployed: No Education: High School Diploma/GED Difficulty w/ Childcare or Family Care: No Gender identity (if verbalized by the patient): Female Spiritual care concerns: No Exam Narrative: vitals are stable Const: General: no acute distress Orientation/consciousness: patient oriented x3 Limitations: no limitations HENMT: Head: normal to inspection Ears: external ears normal Face/Nose/Sinus: Normal external nose present Face and sinus: normal facial exam Mouth: Yes Normal oral and palatal mucosa present Other: pharyngeal erythema Eyes: Conjunctivae: conjunctivae normal Pupils: Equal, round and reactive pupils present EOM: EOMs intact bilaterally Direct Ophthalmoscopy: no photophobia Neck: Neck: normal visual inspection and no lymphadenopathy Chest: Chest palpation & inspection: normal inspection of the chest Resp: Effort & Inspection: normal respiratory effort Auscultation: clear to auscultation bilaterally Cardio: Rate: regular rate Rhythm: regular rhythm GI: GI Palp: Yes Soft to palpation Auscultation: normal bowel sounds : General: Yes no CVA tenderness Back/Spine/Pelvis: Back: no CVA tenderness Skin: General skin exam: normal color Rashes: no rashes Wounds: no wounds Neuro: General: patient oriented x3, moves all extremities, no meningeal signs, no focal motor deficits and CN's II-XI intact bilaterally Cranial nerves: Yes Nystagmus not present Speech: normal speech Gait exam (Neuro): Normal gait present Extrem: General: normal to inspection and no clubbing, cyanosis or edema Psych: Mental Status: mental status grossly normal Affect: normal affect Attitude: cooperative Course Course Emergency Course: headache upper respiratory tract infection-- patient tested negative for strep, influenza, RSV COVID. Vital Signs Vital signs: Vital Signs Temperature 36.6 C 07/28/25 06:43 Pulse Rate 70 07/28/25 06:43 Respiratory Rate 16 07/28/25 06:43 Blood Pressure 132/90 07/28/25 06:43 Pulse Oximetry 100 07/28/25 06:43 Oxygen Delivery Room Air 07/28/25 06:43 Temperature 36.6 C 07/28/25 06:43 Pulse Rate 70 07/28/25 06:43 Respiratory Rate 16 07/28/25 06:43 Blood Pressure 132/90 07/28/25 06:43 Pulse Oximetry 100 07/28/25 06:43 Oxygen Delivery Room Air 07/28/25 06:43 MDM - URI/Sore Throat MDM Narrative Medical decision making narrative: tension Headache upper respiratory tract infection Differential Diagnosis Differential diagnosis: Likely viral infection Medical Records Attestation: I reviewed the patient's medical records. Lab Data Attestation: I reviewed the patient's lab results. Labs: Lab Results 07/28/25 Range/Units 06:52 Influenza A (RT-PCR) Negative (Negative) Influenza B (RT-PCR) Negative (Negative) RSV (RT-PCR) Negative (Negative) SARS-CoV-2 RNA (RT-PCR) Negative (Negative) Group A Strep (PCR) Not detected (Negative) Discharge Plan Discharge Clinical Impression: Tension headache Upper respiratory infection Qualifiers: URI type: unspecified URI Qualified Code(s): J06.9 - Acute upper respiratory infection, unspecified Patient Disposition: Home Condition: Stable Instructions: Antibiotic Form, Tension Headache (ED), Upper Respiratory Infection (ED) Patient Language: Korean Prescriptions: No Action silver sulfadiazine [Silvadene] 1 % cream 1 applic topical BID 7 Days Qty: 20 0RF Rx Instructions: apply a 1.5 mm thickness diclofenac sodium 50 mg tablet,delayed release (DR/EC) 50 mg PO Q12H PRN (Reason: pain) Qty: 20 0RF (DME) crutches See Rx Instructions .Route .MEDSUPPLY Qty: 1 0RF Rx Instructions: As directed tramadol 50 mg tablet 50 mg PO Q6H PRN (Reason: pain) Qty: 20 0RF oxycodone-acetaminophen [Endocet] 5-325 mg tablet 0.5 - 1 tablet PO Q4H PRN (Reason: pain) Qty: 10 0RF Follow-up/Referrals: Ricardo Dickey MD [Primary Care Provider, Internal Medicine] Time of Disposition: 07:39
[2025-07-28 07:25] LABS: Strep Group A RT-PCR NOT DETECTED (Negative)
[2025-07-28 07:34] LABS: Influenza A QL RT-PCR Negative (Negative); Influenza B QL RT-PCR Negative (Negative); RSV RNA, RT-PCR Negative (Negative); SARS-CoV-2 RNA PCR Negative (Negative)
[2025-07-28] MEDS: KETOROLAC 30 MG/ML VIAL (*BKC) IM (07:44)
== END 2025-07-28 07:50 | disposition home or self-care (01) ==
PROVIDERS: Emergency Provider Internal Medicine Critical Care Medicine; PCP Family Medicine
DX: J06.9 Acute upper respiratory infection, unspecified (principal); Z20.822 Contact with and (suspected) exposure to COVID-19
CPT/HCPCS: 87637; 87651; 96372; 99283; J1885

== ENCOUNTER 2025-08-30 16:05 | Emergency (ER) | payer OTHER, SELFPAY ==
--- NOTE | ~2025-08-30 | XR_ITS ---
EXAMINATION: XR ankle LT min 3V DATE: 08/30/2025 16:59 INDICATION: Left ankle injury TECHNIQUE: 4 images of the left ankle were obtained. COMPARISON: None. FINDINGS: Small plantar calcaneal spur. [ No radiographic evidence for an acute fracture or dislocation.] [ No radiopaque foreign body.] [ No sclerotic or destructive bone lesions.] Soft tissue swelling about the left ankle. Talar dome is unremarkable. IMPRESSION: 1. [ No acute bony abnormality identified.] If symptoms persist or worsen consider a short-term follow-up study or additional imaging for further assessment. Reviewed, dictated and finalized at location Q. IMPRESSION: 1. [ No acute bony abnormality identified.] If symptoms persist or worsen consider a short-term follow-up study or addition al imaging for further assessment.
--- NOTE | ~2025-08-30 | XR_ITS ---
EXAMINATION: XR foot LT min 3V DATE: 08/30/2025 16:59 INDICATION: Injury TECHNIQUE: 4 images of the left foot were obtained. COMPARISON: None. FINDINGS: Small plantar calcaneal spur. [ No radiographic evidence for an acute fracture or dislocation.] [ No radiopaque foreign body.] [ No sclerotic or destructive bone lesions.] Soft tissue swelling about the left foot. IMPRESSION: 1. [ No acute bony abnormality identified.] If symptoms persist or worsen consider a short-term follow-up study or additional imaging for further assessment. Reviewed, dictated and finalized at location Q. IMPRESSION: 1. [ No acute bony abnormality identified.] If symptoms persist or worsen consider a short-term follow-up study or addition al imaging for further assessment.
[2025-08-30 16:22] VITALS: BP 148/109; PULSE 95; RESP 20; TEMP 36.9; O2SAT 98
[2025-08-30] MEDS: KETOROLAC (*BKC) 60 MG/2 ML VIAL IM (16:50)
--- NOTE | 2025-08-30 17:11 | ED.LOWEXIN ---
HPI - Extremity Injury (Lower) General Chief Complaint: Extremity Injury, Lower Stated Complaint: LEFT ANKLE INJURY Source: patient Mode of arrival: wheelchair Limitations: no limitations History of Present Illness HPI Narrative: this is a 35-year-old female with a chief complaint of some left foot and ankle pain after she rolled it earlier this afternoon causing pain and swelling to the lateral aspect of her left foot and ankle with no numbness or tingling does have good range of motion in her foot and toes toes and tenderness in the lateral aspect of her left ankle. No other injuries noted. complaint: ankle injury and foot injury Onset (ago): hour(s) Severity: moderate Severity scale (1-10): 7 Relieving factors: nothing Exacerbating factors: weight bearing, movement and palpation Context: walking Associated symptoms: swelling Related Data Allergies Allergy/AdvReac Type Severity Reaction Status Date / Time No Known Allergies Allergy Unknown Verified 08/30/25 16:07 Review of Systems Review of Systems: All systems reviewed & are unremarkable except as noted in HPI and below PMFSH Past Medical History Medical History Obesity Surgical History Surgical History History of 2022 & 2018 Family History Family History Mother Hypertension DVT (deep venous thrombosis) Father Hypertension Father Hypertension Mother Diabetes mellitus Social History Social History Smoking status: Never smoker Second hand tobacco smoke exposure: Yes Alcohol intake: current Drinks per week: 1 Substance use: current Substance use type: marijuana Other substance usage details: occasional Last use: 10/30/23 Do You Feel Safe in your Home?: Yes Lack of Transportation: No Lack of Food: Never True Current Housing: I Have Housing Concerned About Future Housing: No Difficulty Paying Gas/Electric Bills: YES Difficulty Paying for Meds: No Currently Unemployed: No Education: High School Diploma/GED Difficulty w/ Childcare or Family Care: No Gender identity (if verbalized by the patient): Female Spiritual care concerns: No Exam Const: General: healthy appearing and no acute distress Nutritional Appearance: well nourished and obese Resp: Effort & Inspection: normal respiratory effort Auscultation: clear to auscultation bilaterally Cardio: Rate: regular rate Rhythm: regular rhythm GI: GI Palp: Yes Soft to palpation Auscultation: normal bowel sounds Skin: General skin exam: normal color Rashes: no rashes Wounds: no wounds Extrem: Other: Patient with swollen left lateral malleolus and left lateral foot with decreased range of motion secondary to pain and swelling. Patient has a brisk pedal pulse on the left. Course Course Emergency Course: Medical decision making narrative: Patient was evaluated by myself in the emergency department. History obtained from the patient was independent historian physical exam performed and witnessed by nurse Daniels. External records were reviewed at this time. Patient had x-ray performed of the left ankle and foot which showed no acute fractures, Nilesh wrap was applied Toradol IM 60mg was administered. Repeat assessment: Patient on repeat exam doing well with no acute distress Symptoms improved since arrival and medication administered Repeat vitals stable Patient agrees with discussion after shared medical decision-making and agree today discharge. All questions were answered to the patient's satisfaction. Advised follow-up in 3 to 5 days with primary The patient provided with strict return to perk precautions and return to the emergency department if any worsening symptoms. Vital Signs Vital signs: Vital Signs Temperature 36.9 C 08/30/25 16:22 Pulse Rate 95 08/30/25 16:22 Respiratory Rate 20 08/30/25 16:22 Blood Pressure 148/109 H 08/30/25 16:22 Pulse Oximetry 98 08/30/25 16:22 Oxygen Delivery Room Air 08/30/25 16:22 Temperature 36.9 C 08/30/25 16:22 Pulse Rate 95 08/30/25 16:22 Respiratory Rate 20 08/30/25 16:22 Blood Pressure 148/109 H 08/30/25 16:22 Pulse Oximetry 98 08/30/25 16:22 Oxygen Delivery Room Air 08/30/25 16:22 Critical Care Time Critical Care Time Critical Care Time: No Discharge Plan Discharge Clinical Impression: Left ankle sprain Qualifiers: Encounter type: initial encounter Involved ligament of ankle: other ligament Qualified Code(s): S93.492A - Sprain of other ligament of left ankle, initial encounter Patient Disposition: Home Condition: Stable Instructions: Antibiotic Form, Ankle Sprain (ED) Additional Instructions: advised to take medication as prescribed and to follow with primary within 3 to 5 days further evaluation treatment continue Nilesh wrap, can use ice to affected foot and ankle. Patient Language: [place]onian Prescriptions: New naproxen 500 mg tablet 500 mg PO BID Qty: 14 0RF No Action diclofenac sodium 50 mg tablet,delayed release (DR/EC) 50 mg PO Q12H PRN (Reason: pain) Qty: 20 0RF (DME) crutches See Rx Instructions .Route .MEDSUPPLY Qty: 1 0RF Rx Instructions: As directed Follow-up/Referrals: Ricardo Dickey MD [Primary Care Provider, Internal Medicine] Time of Disposition: 17:17
== END 2025-08-30 17:18 | disposition home or self-care (01) ==
PROVIDERS: Emergency Provider Emergency Medicine; PCP Family Medicine
DX: S93.492A Sprain of other ligament of left ankle, initial encounter (principal); X50.0XXA Overexertion from strenuous movement or load, initial encounter
CPT/HCPCS: 73610; 73630; 96372; 99283; J1885

== ENCOUNTER 2025-10-12 10:16 | Emergency (ER) | payer OTHER, SELFPAY ==
--- NOTE | ~2025-10-12 | CT_ITS ---
EXAM/PROCEDURE: CT abdomen pelvis w con HISTORY: RLQ epigastric abdominal pain, nausea, vomiting, diarrhea COMPARISON: October 31, 2023 TECHNIQUE: IV contrast enhanced CT of the abdomen and pelvis performed FINDINGS: The bowel gas pattern is not obstructive with no free air free fluid or pneumatosis seen. Appendix is inferior to the cecum and appears normal. No hydroureteronephrosis. No AAA. Gallbladder removed. Small low-density lesion posterior liver image 41 series 3 unchanged. Liver spleen pancreas and adrenal glands stable. The stomach is unopacified but Mild wall thickening of the gastric antral region may be present on images 44 through 47 of series 3. No obvious perforation or ulceration seen. Lung bases clear and heart size normal. Anteflex uterus and adnexal regions as well as urinary bladder normal for technique. Bones intact. Several loops of nondistended fluid-filled small bowel present IMPRESSION: No acute surgical abnormality identified. Fluid-filled loops of small bowel could be associated with inflammatory or infectious enteritis. Slightly thickened appearance of the gastric antral region could be associated with gastritis. Reviewed, dictated and finalized at location A. IMPRESSION: No acute surgical abnormality identified. Fluid-filled loops of small bowel cou ld be associated with inflammatory or infectious enteritis. Slightly thickened appearance of the gastric antral region could be associated with gastritis.
[2025-10-12 10:17] VITALS: BP 135/99; PULSE 88; RESP 20; TEMP 36.6; O2SAT 99
--- OUTSIDE RECORDS SUMMARY | 2025-10-12 10:19 | XMS_ITS | Data Portability ---
Author Organization [facility] Address [address] [place] [address] Care Team Providers Care Calender Runner Name Role Phone AILEEN GOODSON Primary Care Provider [phone] Assessment Encounter Date Assessment Date Assessment LastModified by Organization Details LastModified Time 07/05/2023 07/05/2023 Annual gynecological exam performed. Patient will come back in a year unless there are new symptoms. Not available 07/05/2023 13:53:19 Plan of Treatment Reminders Order Date Submit Date Provider Last Modified By Organization Details Last Modified Time Details Appointments None recorded. Lab CBC w/ auto diff 2022 023 [facility] (Lab), [address] [place], [address], 3 05:41:20 CMP, serum or plasma 2022 023 [facility] (Lab), [address] [place], [address], 3 05:41:21 lipid panel, blood 2022 023 [facility] (Lab), [address] [place], [address], 3 05:41:20 TSH, serum or plasma 2022 023 [facility] (Lab), [address] [place], [address], 3 05:41:21 vitamin D, 25-hydroxy, total, serum 2022 023 [facility] (Lab), [address], [place], [address], 3 05:41:22 Referral None recorded. Procedures None recorded. Surgeries None recorded. Imaging None recorded. Medication Orders sertraline 50 mg tablet 2022 023 [facility] #[id number], [address] [place], [address], 3 14:29:41 Patient TargetsNo targets recorded. Patient [...] t Abnor mal: No Resul ting Lab: [facility] [address] [facility] [address] Tel: CULTU RE ----- ----- ----- --- No Group B strep isola rhiannon at 2 days (gautam ctive broth enhan cemen t) Not Available [facility] (Lab) [address], [place], [address], 01/04/2023 20:27:49 01/07/20 23 01/07/2023 CBC W/DIF F WBC 12.6 10'3/ uL 3.6-10 .2 high Not Available [facility] (Lab) [address], [place], [address], 01/08/2023 05:24:13 01/07/20 23 01/07/2023 CBC W/DIF F RBC 4.13 10'6/ uL (based on docume nted legal sex) 4.10-5 .30 Not Available [facility] (Lab) [address], [place], [address], 01/08/2023 05:24:13 01/07/20 23 01/07/2023 CBC W/DIF F HGB 11.3 g/dL (based on docume nted legal sex) 11.9-1 5.8 low Not Available [facility] (Lab) [address], [place], [address], 01/08/2023 05:24:13 01/07/20 23 01/07/2023 CBC W/DIF F HCT 36.0 % (based on docume nted legal sex) 37.4-4 8.3 low Not Available [facility] (Lab) [address], [place], [address], 01/08/2023 05:24:13 01/07/20 23 01/07/2023 CBC W/DIF F MCV 87.2 fL 82.0-9 9.0 Not Available [facility] (Lab) [address], [place], [address], 01/08/2023 05:24:13 01/07/20 23 01/07/2023 CBC W/DIF F MCH 27.4 pg 27.0-3 3.0 Not Available [facility] (Lab) [address], [place], [address], 01/08/2023 05:24:13 01/07/20 23 01/07/2023 CBC W/DIF F MCHC 31.4 g/dL 32.0-3 6.0 low Not Available [facility] (Lab) [address] [place], [address], 01/08/2023 05:24:13 01/07/20 23 01/07/2023 CBC W/DIF F RDW 13.6 % 11.0-1 5.0 Not Available [facility] (Lab) [address], [place], [address], 01/08/2023 05:24:13 01/07/20 23 01/07/2023 CBC W/DIF F plt 280 10'3/ uL 150-45 0 Not Available [facility] (Lab) [address], [place], [address], 01/08/2023 05:24:13 01/07/20 23 01/07/2023 CBC W/DIF F MPV 11.9 fL 9.8-12 .7 Not Available [facility] (Lab) [address], [place], [address], 01/08/2023 05:24:13 01/07/20 23 01/07/2023 CBC W/DIF F NRBC's 0.0 % 0 Not Available [facility] (Lab) [address], [place], [address], 01/08/2023 05:24:13 01/07/20 23 01/07/2023 CBC W/DIF F absolute NRBCs 0.0 10'3/ uL 0 Not Available [facility] (Lab) [address], [place], [address], 01/08/2023 05:24:13 01/07/20 23 01/07/2023 CBC W/DIF F neutrophils 80.7 % 37.0-7 2.0 high Not Available [facility] (Lab) [address], [place], [address], 01/08/2023 05:24:13 01/07/20 23 01/07/2023 CBC W/DIF F lymphocytes 13.0 % 16.0-4 8.0 low Not Available [facility] (Lab) [address] [place], [address], 01/08/2023 05:24:13 01/07/20 23 01/07/2023 CBC W/DIF F monocytes 5.2 % 4.0-14 .0 Not Available [facility] (Lab) [address] [address], [place], [address], 01/08/2023 05:24:13 01/07/20 23 01/07/2023 CBC W/DIF F eosinophils 0.2 % 0.0-9. 0 Not Available [facility] (Lab) [address], [place], [address], 01/08/2023 05:24:13 01/07/20 23 01/07/2023 CBC W/DIF F basophils 0.3 % 0.0-2. 0 Not Available [facility] (Lab) [address], [place], [address], 01/08/2023 05:24:13 01/07/20 23 01/07/2023 CBC W/DIF F immature granulocytes 0.6 % no define d refere nce range Not Available [facility] (Lab) [address], [place], [address], 01/08/2023 05:24:13 01/07/20 23 01/07/2023 CBC W/DIF F absolute neutrophils 10.1 10'3/ uL 1.1-6. 0 high Not Available [facility] (Lab) [address], [place], [address], 01/08/2023 05:24:13 01/07/20 23 01/07/2023 CBC W/DIF F absolute lymphocytes 1.6 10'3/ uL 0.7-3. 4 Not Available [facility] (Lab) [address] [place], [address], 01/08/2023 05:24:13 01/07/20 23 01/07/2023 CBC W/DIF F absolute monocytes 0.7 10'3/ uL 0.3-1. 0 Not Available [facility] (Lab) [address], [place], [address], 01/08/2023 05:24:13 01/07/20 23 01/07/2023 CBC W/DIF F absolute eosinophils 0.0 10'3/ uL 0.0-0. 6 Not Available [facility] (Lab) [address], [place], [address], 01/08/2023 05:24:13 01/07/20 23 01/07/2023 CBC W/DIF F absolute basophils 0.0 10'3/ uL 0.0-0. 1 Not Available [facility] (Lab) [address], [place], [address], 01/08/2023 05:24:13 01/07/20 23 01/07/2023 CBC W/DIF [...] resul ts are expec rhiannon. Not Available [facility] (Lab) [address], [place], [address], 01/08/2023 05:24:13 01/07/2001/07/2023 URIC ACID uric acid 5.7 mg/dL 2.3-6. 6 Not Available [facility] (Lab) [address], [place], [address], 01/08/2023 05:24:13 01/07/20 23 01/07/2023 CMP(C OMPRE HENSI VE METAB OLIC PANEL ) sodium 136 mmol/ L 133-14 6 Not Available [facility] (Lab) [address], [place], [address], 01/08/2023 05:24:14 01/07/20 23 01/07/2023 CMP(C OMPRE HENSI VE METAB OLIC PANEL ) potassium 4.1 mmol/ L 3.5-5. 1 Not Available [facility] (Lab) [address], [place], [address], 01/08/2023 05:24:14 01/07/20 23 01/07/2023 CMP(C OMPRE HENSI VE METAB OLIC PANEL ) chloride 105 mmol/ L 98-107 Not Available [facility] (Lab) [address], [place], [address], 01/08/2023 05:24:14 01/07/20 23 01/07/2023 CMP(C OMPRE HENSI VE METAB OLIC PANEL ) carbon dioxide 23 mmol/ L 21-31 Not Available [facility] (Lab) [address], [place], [address], 01/08/2023 05:24:14 01/07/20 23 01/07/2023 CMP(C OMPRE HENSI VE METAB OLIC PANEL ) anion gap 8 mmol/ L 4-13 Not Available [facility] (Lab) [address], [place], [address], 01/08/2023 05:24:14 01/07/20 23 01/07/2023 CMP(C OMPRE HENSI VE METAB OLIC PANEL ) blood urea nitrogen 11 mg/dL 7-25 Not Available [facility] (Lab) [address], [place], [address], 01/08/2023 05:24:14 01/07/20 23 01/07/2023 CMP(C OMPRE HENSI VE METAB OLIC PANEL ) creatinine 0.62 mg/dL 0.60-1 .30 Not Available [facility] (Lab) [address] [place], [address], 01/08/2023 05:24:14 01/07/20 23 01/07/2023 CMP(C OMPRE HENSI VE METAB OLIC PANEL ) egfrcr (CKD-epi 2020) >90 mL/mi n/1.7 3_m2 >=60 Not Available [facility] (Lab) [address], [place], [address], 01/08/2023 05:24:14 01/07/20 23 01/07/2023 CMP(C OMPRE HENSI VE METAB OLIC PANEL ) calcium 8.9 mg/dL 8.3-10 .5 Not Available [facility] (Lab) [address], [place], [address], 01/08/2023 05:24:14 01/07/20 23 01/07/2023 CMP(C OMPRE HENSI VE METAB OLIC PANEL ) glucose 71 mg/dL 70-100 Not Available [facility] (Lab) [address], [place], [address], 01/08/2023 05:24:14 01/07/20 23 01/07/2023 CMP(C OMPRE HENSI VE METAB OLIC PANEL ) protein, total 6.4 g/dL 6.4-8. 3 Not Available [facility] (Lab) [address], [place], [address], 01/08/2023 05:24:14 01/07/20 23 01/07/2023 CMP(C OMPRE HENSI VE METAB OLIC PANEL ) albumin 3.3 g/dL 3.5-5. 0 low Not Available [facility] (Lab) [address], [place], [address], 01/08/2023 05:24:14 01/07/20 23 01/07/2023 CMP(C OMPRE HENSI VE METAB OLIC PANEL ) ALT 15 units /L 9-43 Not Available [facility] (Lab) [address], [place], [address], 01/08/2023 05:24:14 01/07/20 23 01/07/2023 CMP(C OMPRE HENSI VE METAB OLIC PANEL ) alkaline phosphatase 288 units /L 34-104 high Not Available [facility] (Lab) [address], [place], [address], 01/08/2023 05:24:14 01/07/20 23 01/07/2023 CMP(C OMPRE HENSI VE METAB OLIC PANEL ) AST 18 units /L 13-39 Not Available [facility] (Lab) [address], [place], [address], 01/08/2023 05:24:14 01/07/20 23 01/07/2023 CMP(C OMPRE HENSI VE METAB OLIC PANEL ) bilirubin, total 0.3 mg/dL 0.2-1. 2 Not Available [facility] (Lab) [address], [place], [address], 01/08/2023 05:24:14 07/05/20 23 07/05/2023 CBC W/DIF F WBC 10.2 10'3/ uL 3.6-10 .2 Not Available [facility] (Lab) [address], [place], [address], 07/06/2023 05:41:20 07/05/20 23 07/05/2023 CBC W/DIF F RBC 4.48 10'6/ uL (based on docume nted legal sex) 4.10-5 .30 Not Available [facility] (Lab) [address] [place], [address], 07/06/2023 05:41:20 07/05/20 23 07/05/2023 CBC W/DIF F HGB 12.1 g/dL (based on docume nted legal sex) 11.9-1 5.8 Not Available [facility] (Lab) [address], [place], [address], 07/06/2023 05:41:20 07/05/20 23 07/05/2023 CBC W/DIF F HCT 40.4 % (based on docume nted legal sex) 37.4-4 8.3 Not Available [facility] (Lab) [address], [place], [address], 07/06/2023 05:41:20 07/05/20 23 07/05/2023 CBC W/DIF F MCV 90.2 fL 82.0-9 9.0 Not Available [facility] (Lab) [address], [place], [address], 07/06/2023 05:41:20 07/05/20 23 07/05/2023 CBC W/DIF F MCH 27.0 pg 27.0-3 3.0 Not Available [facility] (Lab) [address], [place], [address], 07/06/2023 05:41:20 07/05/20 23 07/05/2023 CBC W/DIF F MCHC 30.0 g/dL 32.0-3 6.0 low Not Available [facility] (Lab) [address], [place], [address], 07/06/2023 05:41:20 07/05/20 23 07/05/2023 CBC W/DIF F RDW 13.3 % 11.0-1 5.0 Not Available [facility] (Lab) [address], [place], [address], 07/06/2023 05:41:20 07/05/20 23 07/05/2023 CBC W/DIF F plt 298 10'3/ uL 150-45 0 Not Available [facility] (Lab) [address], [place], [address], 07/06/2023 05:41:20 07/05/20 23 07/05/2023 CBC W/DIF F MPV 11.2 fL 9.8-12 .7 Not Available [facility] (Lab) [address], [place], [address], 07/06/2023 05:41:20 07/05/20 23 07/05/2023 CBC W/DIF F NRBC's 0.0 % 0 Not Available [facility] (Lab) [address], [place], [address], 07/06/2023 05:41:20 07/05/20 23 07/05/2023 CBC W/DIF F absolute NRBCs 0.0 10'3/ uL 0 Not Available [facility] (Lab) [address], [place], [address], 07/06/2023 05:41:20 07/05/20 23 07/05/2023 CBC W/DIF F neutrophils 54.3 % 37.0-7 2.0 Not Available [facility] (Lab) [address], [place], [address], 07/06/2023 05:41:20 07/05/20 23 07/05/2023 CBC W/DIF F lymphocytes 35.8 % 16.0-4 8.0 Not Available [facility] (Lab) [address], [place], [address], 07/06/2023 05:41:20 07/05/20 23 07/05/2023 CBC W/DIF F monocytes 7.0 % 4.0-14 .0 Not Available [facility] (Lab) [address], [place], [address], 07/06/2023 05:41:20 07/05/20 23 07/05/2023 CBC W/DIF F eosinophils 1.9 % 0.0-9. 0 Not Available [facility] (Lab) [address], [place], [address], 07/06/2023 05:41:20 07/05/20 23 07/05/2023 CBC W/DIF F basophils 0.5 % 0.0-2. 0 Not Available [facility] (Lab) [address] [place], [address], 07/06/2023 05:41:20 07/05/20 23 07/05/2023 CBC W/DIF F immature granulocytes 0.5 % no define d refere nce range Not Available [facility] (Lab) [address], [place], [address], 07/06/2023 05:41:20 07/05/20 23 07/05/2023 CBC W/DIF F absolute neutrophils 5.6 10'3/ uL 1.1-6. 0 Not Available [facility] (Lab) [address], [place], [address], 07/06/2023 05:41:20 07/05/20 23 07/05/2023 CBC W/DIF F absolute lymphocytes 3.7 10'3/ uL 0.7-3. 4 high Not Available [facility] (Lab) [address], [place], [address], 07/06/2023 05:41:20 07/05/20 23 07/05/2023 CBC W/DIF F absolute monocytes 0.7 10'3/ uL 0.3-1. 0 Not Available [facility] (Lab) [address], [place], [address], 07/06/2023 05:41:20 07/05/20 23 07/05/2023 CBC W/DIF F absolute eosinophils 0.2 10'3/ uL 0.0-0. 6 Not Available [facility] (Lab) [address], [place], [address], 07/06/2023 05:41:20 07/05/20 23 07/05/2023 CBC W/DIF F absolute basophils 0.1 10'3/ uL 0.0-0. 1 Not Available [facility] (Lab) [address], [place], [address], 07/06/2023 05:41:20 07/05/20 23 07/05/2023 CBC W/DIF [...] resul ts are expec rhiannon. Not Available [facility] (Lab) [address], [place], [address], 07/06/2023 05:41:20 07/05/20 23 07/05/2023 LIPID PANEL ,AMA (LDL- CALC) total cholesterol 214 mg/dL 0-199 high Not Available [facility] (Lab) [address], [place], [address], 07/06/2023 05:41:20 07/05/20 23 07/05/2023 LIPID PANEL ,AMA (LDL- CALC) triglyceride s 222 mg/dL 0.00-1 50.00 high NCEP Refer ence Value s for Trigl yceri akua: Milagro l: <150 mg/dL Borde rline High: 150 - 199 mg/dL High: 200 - 499 mg/dL Very High: >/= 500 mg/dL Not Available [facility] (Lab) [address], [place], [address], 07/06/2023 05:41:20 07/05/20 23 07/05/2023 LIPID PANEL ,AMA (LDL- CALC) HDL cholesterol 52 mg/dL >40 Not Available [facility] (Lab) [address] [place], [address], 07/06/2023 05:41:20 07/05/20 23 07/05/2023 LIPID PANEL [...] mg/dL , HDL <40 mg/dL Not Available [facility] (Lab) [address], [place], [address], 07/06/2023 05:41:20 07/05/2007/05/2023 LIPID PANEL ,AMA (LDL- CALC) non-HDL cholesterol 162 mg/dL no refere nce range A reaso nable goal for non-H DL trudy stero l is one that is 30 mg/dL highe r than the LDL trudy stero l goal. Not Available [facility] (Lab) [address], [place], [address], 07/06/2023 05:41:20 07/05/2007/05/2023 LIPID PANEL ,AMA (LDL- CALC) chol/HDL ratio 4.1 . 0.0-5. 0 On March 16, 2023, [facility] labor atori areli dooley [...] Jeannie cruz, Kristian Julian, Anthony Bae , [facility] [place] [place], Jareth Rm, Jareth trimble, Andrey oseguera [...] n. 2017Nov 23;137 (1):1 0-19. Not Available [facility] (Lab) [address], [place], [address], 07/06/2023 05:41:20 07/05/20 23 07/05/2023 CMP(C OMPRE HENSI VE METAB OLIC PANEL ) sodium 140 mmol/ L 133-14 6 Not Available [facility] (Lab) [address], [place], [address], 07/06/2023 05:41:21 07/05/20 23 07/05/2023 CMP(C OMPRE HENSI VE METAB OLIC PANEL ) potassium 4.0 mmol/ L 3.5-5. 1 Not Available [facility] (Lab) [address], [place], [address], 07/06/2023 05:41:21 07/05/20 23 07/05/2023 CMP(C OMPRE HENSI VE METAB OLIC PANEL ) chloride 105 mmol/ L 98-107 Not Available [facility] (Lab) [address] [place], [address], 07/06/2023 05:41:21 07/05/20 23 07/05/2023 CMP(C OMPRE HENSI VE METAB OLIC PANEL ) carbon dioxide 29 mmol/ L 21-31 Not Available [facility] (Lab) [address] [place], [address], 07/06/2023 05:41:21 07/05/20 23 07/05/2023 CMP(C OMPRE HENSI VE METAB OLIC PANEL ) anion gap 6 mmol/ L 4-13 Not Available [facility] (Lab) [address], [place], [address], 07/06/2023 05:41:21 07/05/20 23 07/05/2023 CMP(C OMPRE HENSI VE METAB OLIC PANEL ) blood urea nitrogen 19 mg/dL 7-25 Not Available [facility] (Lab) [address], [place], [address], 07/06/2023 05:41:21 07/05/20 23 07/05/2023 CMP(C OMPRE HENSI VE METAB OLIC PANEL ) creatinine 0.75 mg/dL 0.60-1 .30 Not Available [facility] (Lab) [address], [place], [address], 07/06/2023 05:41:21 07/05/20 23 07/05/2023 CMP(C OMPRE HENSI VE METAB OLIC PANEL ) egfrcr (CKD-epi 2020) >90 mL/mi n/1.7 3_m2 >=60 Not Available [facility] (Lab) [address], [place], [address], 07/06/2023 05:41:21 07/05/20 23 07/05/2023 CMP(C OMPRE HENSI VE METAB OLIC PANEL ) calcium 8.9 mg/dL 8.3-10 .5 Not Available [facility] (Lab) [address], [place], [address], 07/06/2023 05:41:21 07/05/20 23 07/05/2023 CMP(C OMPRE HENSI VE METAB OLIC PANEL ) glucose 62 mg/dL 70-100 low Not Available [facility] (Lab) [address], [place], [address], 07/06/2023 05:41:21 07/05/20 23 07/05/2023 CMP(C OMPRE HENSI VE METAB OLIC PANEL ) protein, total 6.0 g/dL 6.4-8. 3 low Not Available [facility] (Lab) [address], [place], [address], 07/06/2023 05:41:21 07/05/20 23 07/05/2023 CMP(C OMPRE HENSI VE METAB OLIC PANEL ) albumin 3.9 g/dL 3.5-5. 0 Not Available [facility] (Lab) [address], [place], [address], 07/06/2023 05:41:21 07/05/20 23 07/05/2023 CMP(C OMPRE HENSI VE METAB OLIC PANEL ) ALT 12 units /L 9-43 Not Available [facility] (Lab) [address], [place], [address], 07/06/2023 05:41:21 07/05/20 23 07/05/2023 CMP(C OMPRE HENSI VE METAB OLIC PANEL ) alkaline phosphatase 69 units /L 34-104 Not Available [facility] (Lab) [address], [place], [address], 07/06/2023 05:41:21 07/05/20 23 07/05/2023 CMP(C OMPRE HENSI VE METAB OLIC PANEL ) AST 13 units /L 13-39 Not Available [facility] (Lab) [address], [place], [address], 07/06/2023 05:41:21 07/05/20 23 07/05/2023 CMP(C OMPRE HENSI VE METAB OLIC PANEL ) bilirubin, total 0.2 mg/dL 0.2-1. 2 Not Available [facility] (Lab) [address] [place], [address], 07/06/2023 05:41:21 07/05/20 23 07/05/2023 TSH, REFLE X FREE T4 TSH 3.26 uIU/m L 0.30-5 .33 Not Available [facility] (Lab) [address] [place], [address], 07/06/2023 05:41:21 07/05/20 23 07/05/2023 VITAM IN D, 25-OH (TOTA L D2/D3 ) vitamin D, 25-hydroxy, total 12.6 NG/mL 30.0-1 00.0 low Sugge stive of Defic iency : <20 ng/mL Sugge stive of Insuf ficie ncy: 20-29 ng/mL Sugge stive of Suffi cienc y: 30-10 0 ng/mL Sugge stive of Toxic ity: >150 ng/mL Not Available [facility] (Lab) [address], [place], [address], 07/06/2023 05:41:22 07/05/20 23 07/05/2023 IMAGE GUIDE [...] ica Rescr een: Silvana Mcgrath Speci men: Mona fossg Pap - Image d, Cervi x STATE MENT OF ADEQU ACY: Satis facto ry for evalu ation Trans forma tion zone compo nent prese nt FINAL DIAGN OSIS: Negat marsha for Intra epith elial Ruba cruz or Slick rolle (NIL) . Elect yogesh hankins d by Silvana Mcgrath on 2022 at [...] is recom chante d, as clini iggy payne nted. Not Available [facility] (Lab) [address], [place], [address], 07/06/2023 21:50:12 Result Notes None recorded. Problems Name Problem SNOMED Code Status Onset Date Resolution Date Notes Provider Name and Address Organization Details Recorded Time delivery - delivere d [id number] Completed to repeat Catia Dietrich [facility] 3 11:10:29 Pregnanc y detectio n examinat ion Completed 201801/02/2022 Encounte r for pregnanc y test, result positive ;Recorde d Elsewher e: No Locat ion: [facility] S ource: EHR Lockstitch Binder jacobo: N Zeenatti ce ID: [id number] Danis lable Time: 09:45:00 AM Myriam harris, [facility] 2 12:34:03 Hemorrha gic complica tion of pregnanc y [id number] Completed 201801/02/2022 Other hemorrha ge in early pregnanc y;Record ed Elsewher e: No Locat ion: [facility] S ource: EHR Lockstitch Binder jacobo: N Zeenatti ce ID: [id number] Danis lable Time: 10:30:00 AM Myriam harris, [facility] 2 12:33:34 Secondar y amenorrh ea [id number] Completed 201801/02/2022 Secondar y amenorrh ea;Recor ded Elsewher e: No Locat ion: [facility] S ource: EHR Lockstitch Binder jacobo: N Zeenatti ce ID: [id number] Danis lable Time: 09:45:00 AM Myriam harris, [facility] 2 12:33:39 Uterine size for dates discrepa ncy Completed 201801/02/2022 Uterine size-derick e discrepa ncy, first trimeste r;Record ed Elsewher e: No Locat ion: [facility] S ource: EHR Lockstitch Binder jacobo: N Zeenatti ce ID: [id number] Danis lable Time: 10:30:00 AM Myriam harris, [facility] 2 12:33:[address] Concept Completed 201801/02/2022 Encntr for environmental air specialist exam (general ) (routine ) w/o abn findings ;Recorde d Elsewher e: No Locat ion: [facility] S ource: EHR Lockstitch Binder jacobo: N Practi ce ID: [id number] Danis lable Time: 09:45:00 AM Myriam harris, [facility] 2 12:33:48 Infectio n screenin g Completed 201801/02/2022 Encounte r for screenin g for oth infec/pa rastc diseases ;Recorde d Elsewher e: No Locat ion: [facility] S ource: EHR Lockstitch Binder jacobo: N Practi ce ID: [id number] Danis lable Time: 09:45:00 AM Myriam harris, [facility] 2 12:33:44 Syphilis test finding [id number] Completed 201801/02/2022 Encntr screen for infectio ns w sexl mode of transmis s;Record ed Elsewher e: No Locat ion: [facility] S ource: EHR Lockstitch Binder jacobo: N Practi ce ID: [id number] Danis lable Time: 09:45:00 AM Myriam harris, [facility] 2 12:33:52 Gestatio n period, 9 weeks [id number] Completed 201801/02/2022 9 weeks gestatio n of pregnanc y;Record ed Elsewher e: No Locat ion: [facility] S ource: EHR Lockstitch Binder jacobo: N Practi ce ID: [id number] Danis lable Time: 10:30:00 AM Myriam harris, [facility] 2 12:34:26 Rubella screenin g status [id number] Completed 201801/02/2022 Encounte r for antenata l screenin g, unspecif ied;Pavan rded Elsewher e: No Locat ion: [facility] S ource: EHR Lockstitch Binder jacobo: N Practi ce ID: [id number] Danis lable Time: 08:45:00 AM Myriam harris, [facility] 2 12:33:46 Antenata l screenin g Completed 201801/02/2022 Encounte r for antenata l screenin g for nuchal transluc ency;Rec orded Elsewher e: No [facility] Lockstitch Binder jacobo: N Zeenatti ce ID: 0001 Danis lable Time: 09:30:00 AM Myriam Quincy harris, [facility] 2 12:33:43 Antenata l screenin g for malforma tion Completed 201801/02/2022 Encounte r for antenata l screenin g for malforma tions;Re corded Elsewher e: No Locat ion: [facility] S ource: EHR Lockstitch Binder jacobo: N Zeenatti ce ID: 0001 Danis lable Time: 08:45:00 AM Myriam harris, [facility] 2 12:34:02 Normal pregnanc y in multigra zehra [id number] Completed 201801/02/2022 Encounte r for suprvsn of normal pregnanc y, third trimeste r;Record ed Elsewher e: No Locat ion: [facility] S ource: EHR Lockstitch Binder jacobo: N Zeenatti ce ID: 0001 Danis lable Time: 09:15:00 AM Myriam Quincy harris [facility] 2 12:33:59 Pregnanc y, childbir th and puerperi um finding Completed 201801/02/2022 Encntr for suprvsn of normal first preg, third trimeste r;Record ed Elsewher e: No Locat ion: [facility] S ource: EHR Lockstitch Binder jacobo: N Zeenatti ce ID: 0001 Danis lable Time: 01:15:00 PM Myriam harris [facility] 2 12:34:00 Failed trial of labor [id number] Completed 201801/02/2022 Failed trial of labor, unspecif ied;Prac sis ID: 0001 Myriam harris, [facility] 2 12:33:40 Single liveborn born in hospital by section [id number] Completed 201801/02/2022 Single liveborn infant, delivere d by ;Practic e ID: 0001 Myriam harris, [facility] 2 12:33:53 Gestatio n period, 39 weeks [id number] Completed 201801/02/2022 39 weeks gestatio n of pregnanc y;Practi ce ID: 0001 Myriam harris, [facility] 2 12:34:24 Procedur e on genitour inary system Completed 201901/02/2022 Encounte r for surgical aftercar e followin g surgery on the genitour inary system;R ecorded Elsewher e: No [facility] Lockstitch Binder jacobo: N Practi ce ID: 0001 Danis lable Time: 01:15:00 [facility] 12:33:35 Postoper ative care Completed 201901/02/2022 Encounte r for surgical aftercar e followin g surgery on the genitour inary system;R ecorded Elsewher e: No [facility] Lockstitch Binder jacobo: N Practi ce ID: 0001 Danis lable Time: 01:15:00 PM Myriam harris [facility] 2 12:33:37 Lochia finding Completed 201901/02/2022 Encounte r for routine postpart um follow-u p;Record ed Elsewher e: No Locat ion: [facility] S ource: EHR Lockstitch Binder jacobo: N Practi ce ID: 0001 Danis lable Time: 09:30:00 AM Myriam Mathew [facility] 2 12:33:56 Pregnanc y [id number] Completed 202103/06/2023 Catia Dietrich [facility] 3 11:10:31 Problem Notes None recorded. Procedures Surgical History Date Name Laterality Status Provider Name and Address Organization Details Recorded Time 3 SECTION (SURG) completed Cassia Driscoll [facility] 01/25/2023 10:26:20 2 Date of Last Pap Smear completed [facility] 11/20/2022 10:19:02 9 section completed [facility] 03/20/2020 15:41:27 1 operative procedure on foot completed [facility] 12/03/2022 11:07:06 Other completed Catia Dietrich [facility] 07/05/2023 13:53:53 Imaging Results None recorded. 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 BLEACHER-PNV-DH A 28 mg iron-1 mg-200 mg capsule take 1 capsule by oral route every day 01/02 completed Prescrib ed Elsewher e: No Locat ion: [facility] odify By: bnoma munguia DateTime : 05/29/20 08:39:06 AM Not Available Not Available Not Available 28 mg-800 mcg tablet 01/02 completed Prescrib ed Elsewher e: Yes Loca tion: [facility] odify By: [email or web address] munguia DateTime : 04/25/20 09:45:00 AM Not Available Not Available Not Available Vitals Date Recorded Body height Body mass index (BMI) Body weight Systolic And Diastolic Provider Name and Address Organization Details Last Updated DateTime 01/21/2023 148.59 cm 39.7 kg/m2 32039.327 41 g 136/80 mm[Hg] Latrice Torrez [facility] 01/21/2023 09:48:12 Date Recorded Body height Body mass index (BMI) Body weight Systolic And Diastolic Systolic And Diastolic Provider Name and Address Organization Details Last Updated DateTime 02/01/2023 148.59 cm 37.2 kg/m2 80848.22 g 149/93 mm[Hg] 142/87 mm[Hg] [facility] 12:47:46 Date Recorded Body height Body mass index (BMI) Body weight Systolic And Diastolic Provider Name and Address Organization Details Last Updated DateTime 03/06/2023 148.59 cm 34.3 kg/m2 61192.925 79 g 117/73 mm[Hg] [facility] 03/06/2023 11:10:11 Date Recorded Body height Body mass index (BMI) Body weight Systolic And Diastolic Provider Name and Address Organization Details Last Updated DateTime 07/05/2023 148.59 cm 37.2 kg/m2 72299.22 g 119/75 mm[Hg] Catia Dietrich [facility] 07/05/2023 14:04:58 Social History Question Answer Notes LastModified by Organizat ion Details LastModified Time Tobacco Smoking Status Never Smoker Catia Dietrich steven, [facility] 07/05/2023 14:05:14 Do You Have An Advance Directive? No [email or web address] Information n ot available 07/01/2022 If You Are , What Was Your Level Of Alcohol Consumption Prior To ? Occasional [email or web address] Information not available 07/05/2023 How Many Years Have You Consumed Alcohol? 9 [email or web address] Information not available 11/20/2022 Are You Blind Or Do You Have Difficulty Seeing? No [email or web address] Information n ot available 07/01/2022 What Is Your Level Of Caffeine Consumption? Moderate Information not available 07/01/2022 How Much Tobacco Do You Chew? None [email or web address] Information not available 07/01/2022 In The 14 Days Before Symptom Onset, Have You Had Close Contact With A Laboratory-confirm ed COVID-19 While That Case Was Ill? No Information n ot available 07/01/2022 In The 14 Days Before Symptom Onset, Have You Had Close Contact With A Person Who Is Under Investigation For COVID-19 While That Person Was Ill? No [email or web address] Information not available 07/01/2022 Have You Been To An Area Known To Be High Risk For COVID-19? No [email or web address] Information not available 07/01/2022 Are You Deaf Or Do You Have Serious Difficulty Hearing? No [email or web address] Information not available 07/01/2022 What Type Of Diet Are You Following? CARBOHYDRATE Information n ot available 11/20/2022 What Is The Highest Grade Or Level Of School You Have Completed Or The Highest Degree You Have Received? [id number] [email or web address] Information not available 07/01/2022 Are There Any Guns Present In Your Home? No Information not available 07/01/2022 What Was The Date Of Your Most Recent Tobacco Screening? 01/21/2023 Information not available 07/05/2023 Do You Use Protection During Sex? No [email or web address] Information not available 07/01/2022 Do You Use Your Seat Belt Or Car Seat Routinely? Yes Information not available 07/01/2022 Do You Have Smoke And Carbon Monoxide Detectors In Your Home? Yes Information not available 07/01/2022 How Much Tobacco Do You Smoke? No [email or web address] Information not available 07/01/2022 Smoking Pre- Yes [email or web address] Information not available 07/05/2023 Do You Use Sunscreen Routinely? No [email or web address] Information not available 07/01/2022 Have You Used IV Drugs? No [email or web address] Information not available 07/01/2022 Do You Have Difficulty Walking Or Climbing Stairs? No [email or web address] Information not available 07/05/2023 Sex: Unknown Functional Status Question Answer Note LastModified by Organizat ion Details LastModified Time Do you use any illicit or recreational drugs? No [email or web address] Information not available 07/01/2022 What is your level of alcohol consumption? Occasional [email or web address] Information not available 11/20/2022 Are you able to walk independently without assistance or assistive devices? YESWOREST Information not available 07/22/2022 Are you able to care for yourself independently? Yes Information not available 07/05/2023 Do you have difficulty dressing, bathing, grooming, or toileting? No [email or web address] Information not available 07/05/2023 What is your exercise level? Moderate [email or web address] Information not available 07/01/2022 Mental Status Question Answer Note LastModified by Organization D etails LastModified Time Do you feel stressed (tense, restless, nervous, or anxious, or unable to sleep at night)? [id number] [email or web address] Information not available 11/20/2022 Family History Relationship Description Onset Age of [...] Diagnosis SNOMED-CT Code Diagnosis ICD10 Code Diagnosis IMO Codes Diagnosis Note [id number] Samantha Flores CNM [facility] [address] [address] 03/20/2020 11:30:20 03/20/2020 13:17:10 Gynecologic examination 39717875 Z01.419 [id number] Ishan Bowers MD [facility] [address] [address] 06/11/2022 12:54:40 06/11/2022 14:33:29 screening 455582519 Z36.87 [id number] Ishan Bowers MD [facility] [address],[place] [address] 07/01/2022 12:03:23 07/01/2022 12:29:09 [id number] Samantha CallumCasi Flores [facility] [address],[place] [address] 07/01/2022 12:04:13 07/01/2022 13:58:50 test positive 736027273 Z32.01 Gynecologi c examination 34514690 Z01.419 [id number] Ishan Bowers MD [facility] [address],[place] [address] 07/22/2022 14:15:14 07/22/2022 14:41:42 screening 079747267 Z36.82 [id number] Ishan Bowers MD [facility] [address],[place] [address] 07/22/2022 14:15:34 07/22/2022 15:51:50 Routine care 250952086 Z34.91 [id number] Ishan Bowers MD [facility] [address],[place] [address] 08/18/2022 12:37:27 08/18/2022 13:45:58 Screening for drug of abuse in urine specimen positive 334223547 R82.5 Routine an tenatal care 998600768 Z34.91 [id number] MD Love Pemberton [address],[place] [address] 09/22/2022 14:01:19 09/22/2022 15:13:15 screening for malformation 095337780 Z36.3 [id number] MD Love Pemberton [address],[place] [address] 09/22/2022 14:02:28 09/22/2022 15:27:00 Routine care 820026694 Z34.82 [id number] MD Love Claudio [address],[place] [address] 10/21/2022 14:13:51 10/21/2022 14:56:14 screening 749223416 Z36.2 [id number] Ishan Bowers MD [facility] [address],[place] [address] 10/21/2022 14:14:22 10/21/2022 20:43:28 Routine care 863801001 Z34.91 [id number] [facility] [address],[place] [address] 11/20/2022 09:57:08 11/20/2022 13:43:54 Routine care 462694062 Z34.93 [id number] [facility] [address],[place] [address] 12/03/2022 10:52:07 12/03/2022 11:55:29 Routine care 828699830 Z34.93 [id number] [facility] [address],[place] [address] 12/17/2022 11:03:13 12/17/2022 12:02:18 Routine care 066994353 Z34.93 s ection following previous section 085482675 O34.219 [id number] [facility] [address],[place] [address] 01/01/2023 12:02:36 01/01/2023 12:41:25 Routine care 564810713 Z34.93 [id number] Nicolle Talley CNM [facility] [address],[place] [address] 01/07/2023 09:40:22 01/07/2023 15:38:17 Routine care 058029119 Z34.93 Elevated blood-pressure reading without diagnosis of hypertension 920343257 R03.0 - induced hypertension 63666101 O13.9 [id number] Nicolle Talley CNM [facility] [address],[place] [address] 01/14/2023 09:33:09 01/14/2023 14:28:46 Routine care 061823810 Z34.93 [id number] [facility] [address],[place] [address] 01/21/2023 09:32:19 01/21/2023 10:15:07 Routine care 897728550 Z34.93 [id number] Ishan Bowers MD [facility] [address],[place] [address] 01/25/2023 10:18:06 01/25/2023 10:19:20 [id number] Ishan Bowers MD [facility] [address],[place] [address] 02/01/2023 12:23:58 02/01/2023 13:00:04 Postoperative care 042154070 Z48.89 This patient is a 32-year-ol d multiparou s female presents for postoperat marsha care. She is 1 week post op from a delivery. She has no complaints . Her incision has some burning on the right side. We discussed that. Mood is good. Her baby is well. [id number] Ishan Bowers MD [facility] [address],[place] [address] 03/06/2023 10:57:49 03/08/2023 13:21:57 care 476605098 Z39.2 This patient is 32-year-ol d female presents for follow-up. She is 4 weeks post from a delivery. Her baby is doing well. She is doing well. She has stopped bleeding. She has had sex. She is breast-fee ding primarily. She had a tubal ligation her , she will follow up in 2 months for well woman. [id number] Ishan Bowers MD [facility] [address],[place] [address] 07/05/2023 13:47:15 07/05/2023 14:31:52 Mixed anxiety and depressive disorder 505925282 F41.8 Gynecologi c examination 43593260 Z01.419 Annual gynecologi francisco javier exam performed. [...] None Recorded Advance Directives Directive N: Payers Insurance Date Sequence Insurance Name Policy Number Policy Singletary Covered Member ID Singletary Member ID Guarantor Name 11/19/2023 1 [facility] (MEDICAID HMO) [id number] [facility] [id number] [facility] Notes Date Note Type Note Provider Name and Address Organization Details Recorded Time 01/22/20 23 text/htm l Generic HPI TemplateReported by Patient Nicolle harris [facility] 01/21/2023 17:24:07 02/02/20 23 text/htm l This patient is a 32-year-old multiparous female presents for postoperative care. She is 1 week post op from a delivery. She has no complaints. Her incision has some burning on the right side. We discussed that. Mood is good. Her baby is well. Incision is clean dry and intact. Ishan Bowers MD [address], [place], [address], [facility] 02/01/2023 12:47:00 03/06/20 23 text/htm l VisitReported by Patient This patient is 32-year-old female presents for follow-up. She is 4 weeks post from a delivery. Her baby is doing well. She is doing well. She has stopped bleeding. She has had sex. She is breast-feeding primarily. She had a tubal ligation her , she will follow up in 2 months for well woman. Ishan Bowers MD [address], [place], [address], [facility] 03/06/2023 12:18:49 07/05/20 23 text/htm l Annual GYNReported by PatientHistoryFor history, patient reportsno gynecologic complaints.Genitourinary symptomsFor menstrual cycle, patient reportsnormal menses. For urinary symptoms, patient reportsno hematuriaandno incontinence. For vulva, patient reportsno genital lesion. For vagina, patient reportsnormal vaginal discharge.Breast symptomsFor breast, patient reportsno breast painandno breast lump.ContraceptionFor current contraception, patient reportssatisfied with current contraceptionandtubal ligation.Endocrine symptomsFor sexual complaints, patient reportsno sexual complaintsandno pain during intercourse. For menopausal symptoms, patient reportsno menopausal symptoms.Psychological symptomsFor psychological symptoms, patient reportsdepressionandanxiety (not treated - to start today).Preventative measuresFor preventive measures, patient reportsencourage self breast examinationandencourage regular exercise. Ishan Bowers MD [address], [place], [address], [facility] 07/05/2023 14:30:46 OBGyn Episode Ob Episode Information Episode Created Date Number of Fetuses Patient Bloodtype Patient rh Status Prepregnancy Weight lbs Domestic Partner Domestic Partner Phone Father Name Assembler Piano Status 03/20/20 20 1 CLOSED Fetus Data [...] Domestic Partner Domestic Partner Phone Father Name Assembler Piano Status 03/20/20 20 1 CLOSED Fetus Data [...] Domestic Partner Domestic Partner Phone Father Name Assembler Piano Status 03/20/20 20 1 CLOSED Fetus Data [...] Domestic Partner Domestic Partner Phone Father Name Assembler Piano Status 07/22/20 22 1 A Negative 176 CLOSED Fetus Data First Name Last Name Admitted to NICU Weight (g) Sex Living Outcome Pediatric Complications Fetus ID Race Codes Race Delivery Type M true Full Term [id number] Repeat Problems Problem Notes 1hr gtt FAILED/ 1/3 hr gtt W NL Problem Name Start Date End Date Resolution Snomed Code Not e delivery - delivered [id number] to repeat Raphael Calculation Initial Raphael Date Initial Exam Date Initial Exam Provider Initial Ultrasound Date Last Menstrual Period Date Ultra Sound Weeks Gestation 02/03/2023 07/22/2022 06/11/2022 04/07/2022 6 Eighteen To Twenty Week Raphael Update [...] Weight in lbs Pre/Post Dialysis Refused Weight 173.748567587727 BP Diastolic BP Location Tested BP Systolic [...] Weight in lbs Pre/Post Dialysis Refused Weight 183.586516444269 BP Diastolic BP Location Tested BP Systolic [...] Weight in lbs Pre/Post Dialysis Refused Weight 185.952510038527 BP Diastolic BP Location Tested BP Systolic [...] Weight in lbs Pre/Post Dialysis Refused Weight 182.771599806734 BP Diastolic BP Location Tested BP Systolic [...] Weight in lbs Pre/Post Dialysis Refused Weight 184.921147212940 BP Diastolic BP Location Tested BP Systolic [...] Weight in lbs Pre/Post Dialysis Refused Weight 186.460164458595 BP Diastolic BP Location Tested BP Systolic [...] Weight in lbs Pre/Post Dialysis Refused Weight 186.931034776506 BP Diastolic BP Location Tested BP Systolic [...] Weight in lbs Pre/Post Dialysis Refused Weight 189.570055036392 BP Diastolic BP Location Tested BP Systolic [...] Weight in lbs Pre/Post Dialysis Refused Weight 189.299401739058 BP Diastolic BP Location Tested BP Systolic BP Type 89 146 88 130 Fetus Heart Rate Present A 141 Fetus Movement A Yes Comments Doing well. Did have a h/a y ester but resolved. BP increased. No v/d or e/p. Repeat improved at 130/88. Will check labs. PIH precautions given. C/S scheduled for the . Flowsheet Date 01/14/2023 Marshall Score Blood Edema Fundus Height Fundus Units Glucose Ketones Leukocytes Nitrite Labor Signs Protein Cervic Dilation Cervic Effacement Cervic Station neg none 38 none trace Type Weight in lbs Pre/Post Dialysis Refused Weight 190.133297173117 BP Diastolic BP Location Tested BP Systolic [...] was signed on 12-17-22. Flowsheet Date 01/21/2023 Mrashall Score Blood Edema Fundus Height Fundus Units Glucose Ketones Leukocytes Nitrite Labor Signs Protein Cervic Dilation Cervic Effacement Cervic Station neg trace 38 none trace Type Weight in lbs Pre/Post Dialysis Refused Weight 193.73758374288 BP Diastolic BP Location Tested BP Systolic [...] Weight in lbs Pre/Post Dialysis Refused Weight 181.877764296535 BP Diastolic BP Location Tested BP Systolic BP Type 93 R arm 149 sitting Fetus Heart Rate Present Fetus Movement Comments Flowsheet Date 03/06/2023 Marshall Score Blood Edema Fundus Height Fundus Units Glucose Ketones Leukocytes Nitrite Labor Signs Protein Cervic Dilation Cervic Effacement Cervic Station Type Weight in lbs Pre/Post Dialysis Refused Weight 167.971842615739 BP Diastolic BP Location Tested BP Systolic [...] Estim ated Date of Delivery false Thalassemia (Syrian, Japanese, Mediterranean, Or Background): MCV < 80 false Neural Tube Defect (Meningomyelocele, Spina Bifi da, Or Anencephaly) false Congenital Heart Defect false Down Syndrome false Ronald-Sachs (eg, Judaism, Cajun, Maltese-[place]) f alse Alyssa Disease false Sickle Cell Disease Or Trait () false Hemophilia Or Other Blood Disorders false Muscular Dystrophy false Cystic Fibrosis false Rossana's Chorea false Intellectual Disability/Autism false If Yes, [...] Domestic Partner Domestic Partner Phone Father Name Assembler Piano Status 01/02/20 22 1 DELETED Raphael Calculation [...]
--- OUTSIDE RECORDS SUMMARY | 2025-10-12 10:19 | XMS_ITS | Clinical Summary ---
Author Organization [facility] Address [address] [place] [address] Phone Care Team Providers Care Respiratory Coordinator Name Role Phone Provider, None Primary Care [...] Comments Blood Pressure 104/60 01/23/2019 8:39 AM APARTMENT COORDINATOR Pulse 77 01/23/2019 8:39 AM APARTMENT COORDINATOR Temperature 36.2 C (97.1 F) 01/23/2019 8:39 AM APARTMENT COORDINATOR Respiratory Rate 16 01/23/2019 8:39 AM APARTMENT COORDINATOR Oxygen Saturation 98% 01/23/2019 8:39 AM APARTMENT COORDINATOR Inhaled Oxygen Concentration - - Weight 79 kg (174 lb 1.6 oz) 01/23/2019 8:39 AM APARTMENT COORDINATOR Height 152.4 cm (5') 01/23/2019 8:39 AM APARTMENT COORDINATOR Body Mass Index 34 01/23/2019 8:39 AM APARTMENT COORDINATOR Plan of Treatment Health Maintenance Due Date Last Done Comments Hepatitis C Virus (HCV) Screening 1992 Varicella Immunization (1 of 2 - 13+ 2-dose series) 2005 DTaP/Tdap/Td Immunization (6 - Tdap) 07/08/2007 07/07/2007, 06/11/1998, 07/08/1994, Additional history exists Human Papillomavirus (HPV) Immunization (2 - 2-dose series) 01/07/2008 07/07/2007 Pap Smear 2013 Cervical Cancer Screening (CCS) 2022 HPV/Cotest 2022 Influenza Immunization (#1) 2025 08/26/2018 SARS-COV-2 Immunization ( season) 2025 07/22/2021, 06/26/2021 Respiratory Syncytial Virus (RSV) Immunization [...] Insurance MEDICAID [employer] Care Teams Respiratory Coordinator Relationship Specialty Start Date End Date Provider, None [place] PCP - General 05/08/21
--- NOTE | 2025-10-12 10:27 | ED_ITS ---
HPI - Abdominal Pain General Chief Complaint: Abdominal Pain Stated Complaint: nausea,vomiting Source: patient Mode of arrival: ambulatory Limitations: no limitations History of Present Illness HPI narrative: Patient is a 35-year-old female with abdominal pain for the past day. She has epigastric pain and right lower quadrant pain. Associated nausea and vomiting. MD elicited complaint: abdominal pain Pertinent past history: none Onset (ago): day(s) (One) Pain Consistency: constant Location: diffuse Severity: moderate Pain scale (0-10): 3 Quality: sharp and burning Radiation: none Migration to: no migration Exacerbating factors: nothing Relieving factors: nothing Context: confirms other (Patient having abdominal pain with nausea vomiting for the past day) Associated symptoms: nausea and vomiting Treatments prior to arrival: other (None) Related Data Allergies Allergy/AdvReac Type Severity Reaction Status Date / Time No Known Allergies Allergy Unknown Verified 08/30/25 16:07 Review of Systems 2 Review of Systems: All systems reviewed & are unremarkable except as noted in HPI and below Constitutional: Constitutional: Reports no additional constitutional complaints Eyes: Eyes: Reports no additional eye complaints ENT: Reports system reviewed and no additional complaints, except as documented Cardiovascular: Cardiovascular: Reports no additional cardiovascular complaints Respiratory: Respiratory: Reports no additional respiratory complaints Gastrointestinal: Gastrointestinal: Reports no additional gastrointestinal complaints Genitourinary: Genitourinary: Reports no additional female genitourinary complaints Musculoskeletal: Musculoskeletal: Reports no additional musculoskeletal complaints Integumentary/Breasts: Skin/Breast: Reports system reviewed and no additional complaints, except as docu Neurologic: Reports system reviewed and no additional complaints, except as documented Psychiatric: Psychiatric: Reports no additional psychiatric complaints Endocrine: Endocrine: Reports no additional endocrine complaints Hematologic/Lymphatic: Hematologic/Lymphatic: Reports no additional hematologic/lymphatic complaints Allergic/Immunologic: Allergic/Immunologic: Reports no additional allergic/immunologic complaints PMFSH Past Medical History Medical History Obesity Surgical History Surgical History History of 2022 & 2018 Family History Family History Mother Hypertension DVT (deep venous thrombosis) Father Hypertension Father Hypertension Mother Diabetes mellitus Social History Social History Smoking status: Never smoker Second hand tobacco smoke exposure: Yes Alcohol intake: current Drinks per week: 1 Substance use: current Substance use type: marijuana Other substance usage details: occasional Last use: 10/30/23 Do You Feel Safe in your Home?: Yes Lack of Transportation: No Lack of Food: Never True Current Housing: I Have Housing Concerned About Future Housing: No Difficulty Paying Gas/Electric Bills: YES Difficulty Paying for Meds: No Currently Unemployed: No Education: High School Diploma/GED Difficulty w/ Childcare or Family Care: No Gender identity (if verbalized by the patient): Female Spiritual care concerns: No Exam 2 Const: General: healthy appearing Nutritional Appearance: well nourished Orientation/consciousness: patient oriented x3 Limitations: no limitations HENMT: Head: normal to inspection Ears: external ears normal F rodney/Nose/Sinus: Normal external nose present Eyes: Conjunctivae: conjunctivae normal Pupils: Equal, round and reactive pupils present EOM: EOMs intact bilaterally Neck: Neck: normal visual inspection Chest: Chest palpation & inspection: normal inspection of the chest Resp: Effort & Inspection: normal respiratory effort and not labored A uscultation: clear to auscultation bilaterally and no crackles Cardio: Rate: regular rate Rhythm: regular rhythm Heart sounds: no murmurs GI: Inspection: non-distended GI Palp: Yes Soft to palpation, Yes Tenderness to palpation present (GI) (Epigastric and somewhat at the right lower quadrant), No Guarding due to palpation present (GI), No Rigid due to palpation, No Hernia present, No Palpable mass present and No Rebound tenderness present Auscultation: bowels sounds not normal and Hypoactive bowel sounds present : General: Yes bladder normal to palpation Back/Spine/Pelvis: Back: no CVA tenderness Skin: General skin exam: normal color Rashes: no rashes Wounds: no wounds Neuro: General: patient oriented x3, moves all extremities and no meningeal signs Extrem: General: normal to inspection Psych: Mental Status: mental status grossly normal Affect: normal affect Attitude: cooperative Course Vital Signs Vital signs: Vital Signs Temperature 36.6 C 10/12/25 10:17 Pulse Rate 88 10/12/25 10:17 Respiratory Rate 20 10/12/25 10:17 Blood Pressure 135/99 H 10/12/25 10:17 Pulse Oximetry 99 10/12/25 10:17 Oxygen Delivery Room Air 10/12/25 10:17 Temperature 36.9 C 10/12/25 12:59 Pulse Rate 73 10/12/25 12:59 Respiratory Rate 20 10/12/25 12:59 Blood Pressure 123/85 10/12/25 12:59 Pulse Oximetry 100 10/12/25 12:59 Oxygen Delivery Room Air 10/12/25 12:59 MDM - Abdominal Pain MDM Narrative Medical decision making narrative: Patient is a 35-year-old female with abdominal pain and nausea vomiting for the past day. Abdominal pain workup. Lab Data Attestation: I reviewed the patient's lab results. 10/12/25 11:39 10/12/25 11:39 Labs: Lab Results 10/12/25 10/12/25 Range/Units 11:03 11:39 WBC 8.6 (4.8-10.8) K/mm3 RBC 4.92 (4.20-5.40) M/mm3 Hgb 13.6 (12.0-15.0) g/dL Hct 42.5 (35.0-49.0) % MCV 86.4 (78.0-102.0) fL MCH 27.6 (27.0-31.0) pg MCHC 32.0 (32-36) g/dL RDW 12.0 (11.6-14.4) % Plt Count 347 (150-420) K/mm3 MPV 10.2 (9.2-11.8) fl Immature Gran % (Auto) 0.2 H (0.0-0.0) % Neut % (Auto) 61.0 (50.0-70.0) % Lymph % (Auto) 32.3 (18.0-42.0) % [place] % (Auto) 5.6 (2.0-11.0) % Eos % (Auto) 0.6 L (1.0-6.0) % Baso % (Auto) 0.3 (0.0-1.0) % Lymph # (Auto) 2.77 (1.10-4.50) K/mm3 [place] # (Auto) 0.48 (0.10-0.90) K/mm3 Eos # (Auto) 0.05 (0.02-0.50) K/mm3 Baso # (Auto) 0.03 (0.00-0.10) K/mm3 Abs Immat Gran (auto) 0.02 H (0.00-0.00) K/mm3 Absolute Neuts (auto) 5.23 (1.70-7.20) K/mm3 Absolute Nucleated RBC 0.00 (0.00-0.00) K/mm3 Nucleated RBC % 0.0 (0-0.0) % PT 11.2 (9.50-12.1) Seconds INR 1.0 APTT 27.9 (23.9-30.70) Sec Sodium 144 (137-145) mmol/L Potassium 4.1 (3.4-5.0) mmol/L Chloride 103 (98-107) mmol/L Carbon Dioxide 29 (22-30) mmol/L Anion Gap 12 (4-12) mmol/L BUN 20 H D (7-17) mg/dL Creatinine 0.84 (0.7-1.0) mg/dL Estim Creat Clear Calc Not Reportable Estimated GFR > 60 (59 - ) Glucose 91 (65-110) mg/dL Calculated Osmolality 300 H (285-295) mOsm/kg Calcium 9.5 (8.4-10.2) mg/dL Total Bilirubin 0.5 (0.2-1.3) mg/dL AST 30 (14-36) U/L ALT 18 (6-35) U/L Alkaline Phosphatase 94 (38-126) U/L Total Protein 8.3 H (6.3-8.2) g/dL Albumin 4.9 (3.5-5.1) g/dL Lipase 45 (23-300) U/L Urine Color Dark yellow (Yellow) Urine Appearance Clear (Clear) Urine pH 5.5 (5.0-8.0) Ur Specific [place] >= 1.030 H (1.010-1.020) Urine Protein 1+ H (Negative) Urine Glucose (UA) Negative (Negative) Urine Ketones Trace H (Negative) Ur Blood (Man) Negative (Negative) Urine Nitrate Negative (Negative) Urine Bilirubin 2+ H (Negative) Urine Urobilinogen 0.2 (0.2-1.0) mg/dL Leukocyte Esterase Rfl Negative (Negative) ORLY/UL Urine RBC 0-2 (0-2) /hpf Urine WBC 0-3 (0-3) /hpf Ur Squamous Epith Cells Few (Few) /hpf Amorphous Sediment Heavy H (None) Urine Bacteria 1+ H (None) /hpf Urine Test Negative Imaging Data Attestation: I personally reviewed and interpreted this imaging study as follows: Radiologist's impression: ITS Impressions Abdomen/Pelvis CT 10/12/25 12:26 IMPRESSION: No acute surgical abnormality identified. Fluid-filled loops of small bowel could be associated with inflammatory or infectious enteritis. Slightly thickened appearance of the gastric antral region could be associated with gastritis. Discharge Plan Discharge Clinical Impression: Gastritis Qualifiers: Gastritis type: unspecified gastritis Chronicity: acute Gastritis bleeding: w ithout bleeding Qualified Code(s): K29.00 - Acute gastritis without bleeding Patient Disposition: Home Condition: Stable Instructions: Gastritis (DC), Abdominal Pain (ED) Patient Language: Grenadian Prescriptions: New pantoprazole [Protonix] 40 mg tablet,delayed release (DR/EC) 40 mg PO DAILY Qty: 30 0RF No Action naproxen 500 mg tablet 500 mg PO BID Qty: 14 0RF diclofenac sodium 50 mg tablet,delayed release (DR/EC) 50 mg PO Q12H PRN (Reason: pain) Qty: 20 0RF (DME) crutches See Rx Instructions .Route .MEDSUPPLY Qty: 1 0RF Rx Instructions: As directed Follow-up/Referrals: Ricardo Dickey MD [Primary Care Provider, Internal Medicine] Stand Alone Forms: Work/School Release IP Time of Disposition: 12:48
--- OUTSIDE RECORDS SUMMARY | 2025-10-12 10:58 | XMS_ITS | Clinical Summary ---
Author Organization [facility] Address [address] [place] [address] Phone Care Team Providers Care Dredge Captain Name Role Phone Provider, None Primary Care [...] Comments Blood Pressure 104/60 01/23/2019 8:39 AM LASTING ROOM MACHINE OPERATOR Pulse 77 01/23/2019 8:39 AM LASTING ROOM MACHINE OPERATOR Temperature 36.2 C (97.1 F) 01/23/2019 8:39 AM LASTING ROOM MACHINE OPERATOR Respiratory Rate 16 01/23/2019 8:39 AM LASTING ROOM MACHINE OPERATOR Oxygen Saturation 98% 01/23/2019 8:39 AM LASTING ROOM MACHINE OPERATOR Inhaled Oxygen Concentration - - Weight 79 kg (174 lb 1.6 oz) 01/23/2019 8:39 AM LASTING ROOM MACHINE OPERATOR Height 152.4 cm (5') 01/23/2019 8:39 AM LASTING ROOM MACHINE OPERATOR Body Mass Index 34 01/23/2019 8:39 AM LASTING ROOM MACHINE OPERATOR Plan of Treatment Health Maintenance Due Date [...] Insurance MEDICAID [employer] Care Teams Dredge Captain Relationship Specialty Start Date End Date Provider, None [place] PCP - General 05/08/21
[2025-10-12 11:07] LABS: Add Urine Microscopic? YES; Appearance Urine Clear (Clear); Glucose Urine UA Negative (Negative); Leukocyte Esterase Ur Negative LEU/UL (Negative); Nitrate Urine Negative (Negative); Specific Grav Ur >= 1.030 (1.010-1.020)
[2025-10-12 11:13] LABS: Pregnancy On Board Control Positive
[2025-10-12 11:43] LABS: Hematocrit 42.5 % (35.0-49.0); Hemoglobin 13.6 g/dL (12.0-15.0); Immature Granulocyte Percent A 0.2 % (0.0-0.0); Lymphocytes Absolute Auto 2.77 K/mm3 (1.10-4.50); Mean Corpuscular HGB Conc 32.0 g/dL (32-36); Mean Corpuscular Hemoglobin 27.6 pg (27.0-31.0); Mean Corpuscular Volume 86.4 fL (78.0-102.0); Nucleated Red Blood Cells Absolute Auto 0.00 K/mm3 (0.00-0.00); Nucleated Red Blood Cells Perc 0.0 % (0-0.0); Platelet Count Result 347 K/mm3 (150-420); Red Blood Count 4.92 M/mm3 (4.20-5.40); White Blood Count 8.6 K/mm3 (4.8-10.8)
[2025-10-12] MEDS: MORPHINE SULFATE (*CRX) 4 MG/ML INJ IV PUSH (11:50)
[2025-10-12] MEDS: ONDANSETRON INJ 4 MG/2 ML VIAL IV PUSH (11:50)
[2025-10-12 11:58] LABS: INR 1.0; Partial Thromboplastin Time 27.9 Sec (23.9-30.70); Prothrombin Time 11.2 Seconds (9.50-12.1)
[2025-10-12 12:03] LABS: Alanine Aminotransferase 18 U/L (6-35); Albumin Level 4.9 g/dL (3.5-5.1); Alkaline Phosphatase 94 U/L (38-126); Anion Gap 12 mmol/L (4-12); Aspartate Amino Transferase 30 U/L (14-36); Bilirubin,Total 0.5 mg/dL (0.2-1.3); Blood Urea Nitrogen 20 mg/dL (7-17); Calcium 9.5 mg/dL (8.4-10.2); Carbon Dioxide 29 mmol/L (22-30); Chloride 103 mmol/L (98-107); Estimated Glomerular Filt Rate > 60; Glucose 91 mg/dL (65-110); Lipase 45 U/L (23-300); Osmolality Calculated 300 mOsm/kg (285-295); Potassium 4.1 mmol/L (3.4-5.0); Sodium 144 mmol/L (137-145); Total Protein 8.3 g/dL (6.3-8.2)
[2025-10-12 12:28] VITALS: BP 128/90; PULSE 100; RESP 20; O2SAT 98
[2025-10-12] MEDS: PANTOPRAZOLE SODIUM IV 40 MG VIAL IV PUSH (12:53)
[2025-10-12 12:59] VITALS: BP 123/85; PULSE 73; RESP 20; TEMP 36.9; O2SAT 100
== END 2025-10-12 12:59 | disposition home or self-care (01) ==
PROVIDERS: Emergency Provider Emergency Medicine; PCP Family Medicine
DX: K29.00 Acute gastritis without bleeding (principal)
CPT/HCPCS: 36415; 74177; 80053; 81001; 81025; 83690; 85025; 85610; 85730; 96374; 96375; 99284; J2270; J2405; J2470; Q9967

== ENCOUNTER 2025-11-17 08:04 | Emergency (ER) | payer OTHER, SELFPAY ==
--- OUTSIDE RECORDS SUMMARY | 2025-11-17 08:07 | XMS_ITS | Clinical Summary ---
Author Organization [facility] Address [address] [place] [address] Phone Care Team Providers Care Assembler Knife Name Role Phone Provider, None Primary Care [...] Comments Blood Pressure 104/60 01/23/2019 8:39 AM DEVELOPMENT COACH Pulse 77 01/23/2019 8:39 AM DEVELOPMENT COACH Temperature 36.2 C (97.1 F) 01/23/2019 8:39 AM DEVELOPMENT COACH Respiratory Rate 16 01/23/2019 8:39 AM DEVELOPMENT COACH Oxygen Saturation 98% 01/23/2019 8:39 AM DEVELOPMENT COACH Inhaled Oxygen Concentration - - Weight 79 kg (174 lb 1.6 oz) 01/23/2019 8:39 AM DEVELOPMENT COACH Height 152.4 cm (5') 01/23/2019 8:39 AM DEVELOPMENT COACH Body Mass Index 34 01/23/2019 8:39 AM DEVELOPMENT COACH Plan of Treatment Health Maintenance Due Date [...] Insurance [employer] Care Teams Assembler Knife Relationship Specialty Start Date End Date Provider, None [place] PCP - General 05/08/21
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
--- OUTSIDE RECORDS SUMMARY | 2025-11-17 08:07 | XMS_ITS | Data Portability ---
Author Organization [facility] Address [address] [facility] [address] Assessment Encounter Date Assessment Date Assessment LastModified by Organization Details LastModified Time 07/04/2018 07/04/2018 1. Counseled regarding prevention of STD's , condom use and prevention. 2. Counseled regarding contraceptive options, risk factors and side effects. 3. Advised avoidance of tobacco, alcohol, and drugs . 4. Counseled regarding folic acid supplementation, calcium needs and prevention of osteoporosis . 5. BSE reviewed and recommended. 6. Follow up in one year or sooner if needed. [email or web address] Not available 07/04/2018 10:27:30 Plan of Treatment Reminders Order Date Submit Date Provider Last Modified By Organization Details Last Modified Time Details Appointments None recorded. Lab cytology report, thin prep, smear or scraping, cervical or vaginal 2024 025 [facility], [address] [place] [address], [facility] [address], [place], [address], 5 15:21:13 chlamydia trachomat is + neisseria gonorrhoe ae + trichomon as vaginalis rRNA panel, CLEOPATRA+probe 2024 025 [facility], [address] [place] [address], [facility] [address], [place], [address], 5 06:17:32 HIV 1 + 2, meaningfu l use set 2024 025 [facility], [address] [place] [address], [facility] 2, [place], [address], 5 06:17:36 RPR (rapid plasma reagin), serum 2024 025 [facility], [address] [place] [address] 2, [place], [address], 5 06:17:34 HBsAg (hepatiti s B surface Ag), EIA, serum 2024 025 [facility], [address] [place] [address] 2, [place], [address], 5 06:17:33 Hepatitis C IgG Ab, qual, serum 2024 025 [facility], [address] [facility] [address], [place], [address], 5 06:17:31 SARS CoV 2 RNA (COVID-19 ), QL, 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, 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 - headaches , diarrhea, tested pos in past now need a neg test to return back to work, [email or web address] 130 2019 020 [facility] [address] [place], [address], 0 17:41:25 SARS CoV 2 RNA (COVID-19 ), QL, 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 Procedures None recorded. Surgeries None recorded. Imaging None recorded. Medication Orders Preparati on H Maximum Strength 0.25 %-1 % rectal cream 2024 025 [facility][id number], [address] [place], [address], 5 11:59:28 Sprintec (28) 0.25 mg-0.035 mg tablet 2017 018 [facility]/Pharmacy #[id number], [address] [place], [address], 5 11:25:19 Ortho-Cyc veronica (28) 0.25 mg-35 mcg tablet 2014 015 [id number] [address] [place], [address], 5 11:25:19 Patient TargetsNo targets recorded. Patient Instructions Encounter Date Encounter Id Patient Instructions Last Modified By Organization Details Last Modified Time 05/06/2015 [id number] learning about control: combination pills [email or web address] Not available 05/06/2015 16:58:47 test (HCG): about this test [email or web address] Not available 05/06/2015 17:42:47 06/19/2020 [id number] Reviewed the following recommendations: -Stay home and separate from others as much as possible. -Monitor your symptoms and seek medical attention for trouble breathing, persistent chest pain, confusion, or bluish lips or face. -Wear a mask if you must be around other people. -Wash your hands often for 20 seconds with soap and water and clean high-touch surfaces daily -You may discontinue home isolation if your symptoms are improving, it has been 10 days since symptoms started, and you have been fever free for at least 3 days. [email or web address] Not available 06/19/2020 14:47:21 07/19/2020 [id number] Reviewed the following recommendations: -Stay home and separate from others as much as possible. -Monitor your symptoms and seek medical attention for trouble breathing, persistent chest pain, confusion, or bluish lips or face. -Wear a mask if you must be around other people. -Wash your hands often for 20 seconds with soap and water and clean high-touch surfaces daily -You may discontinue home isolation if your symptoms are improving and it has been 10 days since symptoms started. [email or web address] Not available 07/19/2020 13:12:33 06/11/2025 [id number] A healthy lifestyle: care instructions [email or web address] Not available 06/11/2025 11:46:45 Your women's health annual exam today was unremarkable. Continue to practice breast self awareness like we discussed. Come back to the office with any breast changes, nipple discharge, change to your menstrual cycle, or with complaints of unusual odorous discharge. Otherwise, come back in 1 year for your next well woman annual exam. Do NOT douche as it disturbs the natural balance of bacteria in the vagina and can cause infection. Avoid scented soaps or lotions. Use a basic unscented soap for only the outer skin around your vagina. Wear cotton underwear, avoid thongs, avoid spandex, leggings and wear panty liners daily. You can try probiotics. Use a condom with EVERY sexual encounter to minimize your risk for sexually transmitted infection and unplanned . [email or web address] Not available 06/11/2025 11:46:00 Reason for Referral None Reported. 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 (Lab) [address] [place], [address], 06/27/2020 12:31:36 05/06/20 15 05/06/2015 pregn will test, urine HCG negati ve Not Available In-Office Order Internal Use Only DO Not Attach Compendium DO Not Attach Compendium, Do Not Delete/merge, [id number] 05/06/2015 16:03:09 05/06/20 15 05/08/2015 pap, IG + CT/NG + refle x HPV chlamydia, nuc. acid amp NEGATI VE negati ve Not Available [facility] [address] [place], [address], 05/10/2015 17:14:25 05/06/20 15 05/08/2015 pap, IG + CT/NG + refle x HPV gonococcus, nuc. acid amp NEGATI VE negati ve Not Available [facility] [address] [place], [address], 05/10/2015 17:14:25 05/06/20 15 05/10/2015 pap, IG + CT/NG + refle x HPV diagnosis: COMMEN T NIDA ARLEN FOR INTRA EPITH ELIAL MIKEY Cruz AND AMBER LEVY . THIS SPECI MEN WAS RESCR EENED PART OF OUR QUALI TY CONTR OL PROGR AM. Not Available [facility] [address] [place], [address], 05/10/2015 17:14:25 05/06/20 15 05/10/2015 pap, IG + CT/NG + refle x HPV specimen adequacy: COMMEN T SATIS FACTO RY FOR EVALU ATION . ENDOC ERVIC AL AND/O R SQUAM OUS METAP LASTI C CELLS (ENDO CERVI TIFF COMPO NENT) ARE PRESE NT. Not Available [facility] [address] [place], [address], 05/10/2015 17:14:25 05/06/20 15 05/10/2015 pap, IG + CT/NG + refle x HPV clinician provided ICD9: COMMEN T V72.4 0 ; PREGN WILL EXAMI NATIO N OR TEST, PREGN WILL UNCON FIRME D Not Available [facility] [address] [place], [address], 05/10/2015 17:14:25 05/06/20 15 05/10/2015 pap, IG + CT/NG + refle x HPV performed by: KAMILLE T SOURAV CRISSY HOLM, CYTOT ECHNO LOGIS T (ASCP ) Not Available [facility] [address] [place], [address], 05/10/2015 17:14:25 05/06/20 15 05/10/2015 pap, IG + CT/NG + refle x HPV QC reviewed by: KAMILLE POLLARD NS, CYTOT ECHNO LOGIS T (ASCP ) Not Available [facility] [address] [place], [address], 05/10/2015 17:14:25 05/06/20 15 05/10/2015 pap, IG + CT/NG + refle x HPV . . Not Available [facility] [address] [facility], [place], [address], 05/10/2015 17:14:25 05/06/20 15 05/10/2015 pap, IG + CT/NG + refle x HPV note: KAMILLE Hyman THE PAP SMEAR IS A SCREE JENNIE TEST DESIG CARYL TO AID IN THE DETEC TION OF TIANNA LIGNA NT AND MALIG NANT CONDI TIONS OF THE UTERI NE CERVI X. IT IS NOT A DIAGN OSTIC PROCE DURE AND SHOUL D NOT BE USED THE SOLE MEANS OF DETEC TING CERVI TIFF CANCE R. BOTH FALSE -POSI TIVE AND FALSE -NEGA TIVE REPOR TS DO OCCUR . Not Available [facility] [address] [facility], [place], [address], 05/10/2015 17:14:25 05/06/20 15 05/10/2015 pap, IG + CT/NG + refle x HPV test methodology: KAMILLE Hyman THIS LIQUI D BASED THINP REP(R ) PAP TEST WAS SCREE CARYL WITH THE USE OF AN IMAGE GUIDE Lani Fletcher. Not Available [facility] [address] [facility], [place], [address], 05/10/2015 17:14:25 05/06/20 15 05/10/2015 pap, IG + CT/NG + refle x HPV . COMMEN T THE HPV DNA REFLE X CRITE CHASE WERE NOT MET WITH THIS SPECI MEN RESUL T THERE FORE, NO HPV TESTI NG WAS PERFO RMED. 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 (Lab) [address] 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 A negat arlen resul t does not precl ude the possi bilit y of 2019- nCoV infec tion since the adequ acy of sampl e colle ction and/o r low viral burde n may resul t in the prese nce of viral nucle ic acids level s below the abhilash tical sensi tivit y of this test metho d. Not Available [facility] (Lab) [address] 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 Not Available [facility] (Lab) [address] [facility], [place], [address], 07/20/2020 17:41:25 07/19/20 20 07/19/2020 SARS CoV 2 RNA (COVI D-19) , QL, supervisor assembling-P CR, respi rator y speci men covidcom3 Test resul ts shoul d be used along with other clini tiff obser vatio ns, patie nt histo ry, epide miolo gical infor matio n and labor atory data in makin g the diagn osis. Not Available [facility] (Lab) [address] [place], [address], 07/20/2020 17:41:25 07/19/20 20 07/19/2020 SARS CoV 2 RNA (COVI D-19) , QL, supervisor assembling-P CR, respi rator y speci men covidcom4 This test has recei raul FDA Emerg ency Use Autho rizat ion and has been verif ied by [facility] . This test is only autho rized for the durat ion of the decla ratio n and the circu mstan marcello that exist to justi fy the autho rizat ion of the emerg ency use of in vitro diagn ostic tests for the detec tion of SARS- CoV-2 virus and/o r diagn osis of COVID -19 infec tion under secti on 564 (b) (1) of the Act. 11 U.S.C . 360bb b-3 (b) (1), unles s the autho rizat ion is termi nated or revok ed soone r. Not Available [facility] (Lab) [address] [place], [address], 07/20/2020 17:41:25 07/19/20 20 07/19/2020 SARS CoV 2 RNA (COVI D-19) , QL, supervisor assembling-P CR, respi rator y speci men covidcom5 [facility] is certi fied under CLIA- 88 as quali fied to perfo rm high compl exity testi ng. This testi ng was perfo rmed in the [facility] [place] [address] (CLIA Licen se #[id number], CAP #[id number], AU-ID #[id number]). Not Available 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 (Lab) [address] [place], [address], 07/20/2020 17:41:25 01/01/20 23 01/01/2023 Strep tococ cus agala ctiae [Pres ence] in Speci men by Organ ism speci fic cultu re result report SEE RESULT S BELOW Test: Cultu re: Group B Strep , Refle x Susce ptibi lity ([facility] ) Speci men Sourc e: Vagin a/Rec james Speci men Type: Vagin al/Re ctal Speci men Date: 2022 1:04 PM Resul t Date: 2022 7:24 PM Resul t Statu s: Final resul t Abnor mal: No Resul ting Lab: [facility] [address] [facility] [address] Tel: CULTU RE ----- ----- ----- --- No Group B strep isola rhiannon at 2 days (gautam ctive broth enhan cemen t) Not Available Not Available 06/11/2025 04:16:21 01/07/20 23 01/07/2023 Compr ehens arlen metab olic 2000 panel - Serum or Plasm a sodium text: 133-14 6 Not Available Not Available 06/11/2025 04:16:21 01/07/20 23 01/07/2023 Compr ehens arlen metab olic 2000 panel - Serum or Plasm a potassium text: 3.5-5. 1 Not Available Not Available 06/11/2025 04:16:21 01/07/20 23 01/07/2023 Compr ehens arlen metab olic 2000 panel - Serum or Plasm a chloride text: 98-107 Not Available Not Available 06/11/2025 04:16:21 01/07/20 23 01/07/2023 Compr ehens arlen metab olic 2000 panel - Serum or Plasm a carbon dioxide text: 21-31 Not Available Not Available 06/11/2025 04:16:01/07/20 23 01/07/2023 Compr ehens arlen metab olic 2000 panel - Serum or Plasm a anion gap text: 4-13 Not Available Not Available 06/11/2025 04:16:01/07/20 23 01/07/2023 Compr ehens arlen metab olic 2000 panel - Serum or Plasm a blood urea nitrogen text: 7-25 Not Available Not Available 06/11/2025 04:16:21 01/07/20 23 01/07/2023 Compr ehens arlen metab olic 2000 panel - Serum or Plasm a creatinine text: 0.60-1 .30 Not Available Not Available 06/11/2025 04:16:21 01/07/20 23 01/07/2023 Compr ehens arlen metab olic 2000 panel - Serum or Plasm a egfrcr (CKD-epi 2020) >90 text: >=60 Not Available Not Available 06/11/2025 04:16:21 01/07/20 23 01/07/2023 Compr ehens arlen metab olic 2000 panel - Serum or Plasm a calcium text: 8.3-10 .5 Not Available Not Available 06/11/2025 04:16:21 01/07/20 23 01/07/2023 Compr ehens arlen metab olic 2000 panel - Serum or Plasm a glucose text: 70-100 Not Available Not Available 06/11/2025 04:16:21 01/07/20 23 01/07/2023 Compr ehens arlen metab olic 2000 panel - Serum or Plasm a protein, total text: 6.4-8. 3 Not Available Not Available 06/11/2025 04:16:21 01/07/20 23 01/07/2023 Compr ehens arlen metab olic 2000 panel - Serum or Plasm a albumin text: 3.5-5. 0 low Not Available Not Available 06/11/2025 04:16:21 01/07/20 23 01/07/2023 Compr ehens arlen metab olic 2000 panel - Serum or Plasm a ALT text: 9-43 Not Available Not Available 06/11/2025 04:16:01/07/20 23 01/07/2023 Compr ehens arlen metab olic 2000 panel - Serum or Plasm a alkaline phosphatase text: 34-104 high Not Available Not Available 06/11/2025 04:16:01/07/20 23 01/07/2023 Compr ehens arlen metab olic 2000 panel - Serum or Plasm a AST text: 13-39 Not Available Not Available 06/11/2025 04:16:21 01/07/20 23 01/07/2023 Compr ehens arlen metab olic 2000 panel - Serum or Plasm a bilirubin, total text: 0.2-1. 2 Not Available Not Available 06/11/2025 04:16:21 01/07/20 23 01/07/2023 Urate [Mass /volu me] in Serum or Plasm a uric acid text: 2.3-6. 6 Not Available Not Available 06/11/2025 04:16:21 01/07/20 23 01/07/2023 CBC W Auto Diffe renti al panel - Blood WBC text: 3.6-10 .2 high Not Available Not Available 06/11/2025 04:16:21 01/07/20 23 01/07/2023 CBC W Auto Diffe renti al panel - Blood RBC text: (based on docume nted legal sex) 4.10-5 .30 Not Available Not Available 06/11/2025 04:16:21 01/07/20 23 01/07/2023 CBC W Auto Diffe renti al panel - Blood HGB text: (based on docume nted legal sex) 11.9-1 5.8 low Not Available Not Available 06/11/2025 04:16:21 01/07/2001/07/2023 CBC W Auto Diffe renti al panel - Blood HCT text: (based on docume nted legal sex) 37.4-4 8.3 low Not Available Not Available 06/11/2025 04:16:21 01/07/20 23 01/07/2023 CBC W Auto Diffe renti al panel - Blood MCV text: 82.0-9 9.0 Not Available Not Available 06/11/2025 04:16:21 01/07/20 23 01/07/2023 CBC W Auto Diffe renti al panel - Blood MCH text: 27.0-3 3.0 Not Available Not Available 06/11/2025 04:16:01/07/20 23 01/07/2023 CBC W Auto Diffe renti al panel - Blood MCHC text: 32.0-3 6.0 low Not Available Not Available 06/11/2025 04:16:21 01/07/20 23 01/07/2023 CBC W Auto Diffe renti al panel - Blood RDW text: 11.0-1 5.0 Not Available Not Available 06/11/2025 04:16:21 01/07/20 23 01/07/2023 CBC W Auto Diffe renti al panel - Blood plt text: 150-45 0 Not Available Not Available 06/11/2025 04:16:21 01/07/20 23 01/07/2023 CBC W Auto Diffe renti al panel - Blood MPV text: 9.8-12 .7 Not Available Not Available 06/11/2025 04:16:21 01/07/20 23 01/07/2023 CBC W Auto Diffe renti al panel - Blood NRBC's Not Available Not Availa ble 06/11/2025 04:16:21 01/07/20 23 01/07/2023 CBC W Auto Diffe renti al panel - Blood absolute NRBCs Not Available Not Available 05/23 04:16:21 01/07/20 23 01/07/2023 CBC W Auto Diffe renti al panel - Blood neutrophils text: 37.0-7 2.0 high Not Available Not Available 06/11/2025 04:16:21 01/07/20 23 01/07/2023 CBC W Auto Diffe renti al panel - Blood lymphocytes text: 16.0-4 8.0 low Not Available Not Available 06/11/2025 04:16:21 01/07/20 23 01/07/2023 CBC W Auto Diffe renti al panel - Blood monocytes text: 4.0-14 .0 Not Available Not Available 06/11/2025 04:16:21 01/07/20 23 01/07/2023 CBC W Auto Diffe renti al panel - Blood eosinophils text: 0.0-9. 0 Not Available Not Available 06/11/2025 04:16:01/07/20 23 01/07/2023 CBC W Auto Diffe renti al panel - Blood basophils text: 0.0-2. 0 Not Available Not Available 06/11/2025 04:16:01/07/20 23 01/07/2023 CBC W Auto Diffe renti al panel - Blood immature granulocytes text: no define d refere nce range Not Available Not Available 06/11/2025 04:16:21 01/07/20 23 01/07/2023 CBC W Auto Diffe renti al panel - Blood absolute neutrophils text: 1.1-6. 0 high Not Available Not Available 06/11/2025 04:16:01/07/20 23 01/07/2023 CBC W Auto Diffe renti al panel - Blood absolute lymphocytes text: 0.7-3. 4 Not Available Not Available 06/11/2025 04:16:21 01/07/20 23 01/07/2023 CBC W Auto Diffe renti al panel - Blood absolute monocytes text: 0.3-1. 0 Not Available Not Available 06/11/2025 04:16:01/07/20 23 01/07/2023 CBC W Auto Diffe renti al panel - Blood absolute eosinophils text: 0.0-0. 6 Not Available Not Available 06/11/2025 04:16:01/07/20 23 01/07/2023 CBC W Auto Diffe renti al panel - Blood absolute basophils text: 0.0-0. 1 Not Available Not Available 06/11/2025 04:16:21 01/07/20 23 01/07/2023 CBC W Auto Diffe renti al panel - Blood absolute immature granulocytes text: 0.00-0 .10 2022 3:27 AM: P indic ates parti al resul ts on a panel have been relea sed. Addit ional resul ts will follo w. 2022 3:27 AM: This resul t has been final verif ied. No addit ional or dooley ed resul ts are expec rhiannon. Not Available Not Available 06/11/2025 04:16:21 07/05/2007/05/2023 25-Hy droxy vitam in D3+25 -Hydr oxyvi tamin D2 [Mass /volu me] in Serum or Plasm a vitamin D, 25-hydroxy, total text: 30.0-1 00.0 low Sugge stive of Defic iency : <20 ng/mL Sugge stive of Insuf ficie ncy: 20-29 ng/mL Sugge stive of Suffi cienc y: 30-10 0 ng/mL Sugge stive of Toxic ity: >150 ng/mL Not Available Not Available 06/11/2025 04:16:21 07/05/20 23 07/05/2023 Thyro tropi n [Unit s/vol ume] in Serum or Plasm a TSH text: 0.30-5 .33 Not Available Not Available 06/11/2025 04:16:21 07/05/20 23 07/05/2023 Compr ehens arlen metab olic 2000 panel - Serum or Plasm a sodium text: 133-14 6 Not Available Not Available 06/11/2025 04:16:21 07/05/2007/05/2023 Compr ehens arlen metab olic 2000 panel - Serum or Plasm a potassium text: 3.5-5. 1 Not Available Not Available 06/11/2025 04:16:21 07/05/20 23 07/05/2023 Compr ehens arlen metab olic 2000 panel - Serum or Plasm a chloride text: 98-107 Not Available Not Available 06/11/2025 04:16:21 07/05/20 23 07/05/2023 Compr ehens arlen metab olic 2000 panel - Serum or Plasm a carbon dioxide text: 21-31 Not Available Not Available 06/11/2025 04:16:21 07/05/2007/05/2023 Compr ehens arlen metab olic 2000 panel - Serum or Plasm a anion gap text: 4-13 Not Available Not Available 06/11/2025 04:16:07/05/20 23 07/05/2023 Compr ehens arlen metab olic 2000 panel - Serum or Plasm a blood urea nitrogen text: 7-25 Not Available Not Available 06/11/2025 04:16:07/05/20 23 07/05/2023 Compr ehens arlen metab olic 2000 panel - Serum or Plasm a creatinine text: 0.60-1 .30 Not Available Not Available 06/11/2025 04:16:21 07/05/20 23 07/05/2023 Compr ehens arlen metab olic 2000 panel - Serum or Plasm a egfrcr (CKD-epi 2020) >90 text: >=60 Not Available Not Available 06/11/2025 04:16:21 07/05/20 23 07/05/2023 Compr ehens arlen metab olic 2000 panel - Serum or Plasm a calcium text: 8.3-10 .5 Not Available Not Available 06/11/2025 04:16:21 07/05/20 23 07/05/2023 Compr ehens arlen metab olic 2000 panel - Serum or Plasm a glucose text: 70-100 low Not Available Not Available 06/11/2025 04:16:21 07/05/20 23 07/05/2023 Compr ehens arlen metab olic 2000 panel - Serum or Plasm a protein, total text: 6.4-8. 3 low Not Available Not Available 06/11/2025 04:16:21 07/05/20 23 07/05/2023 Compr ehens arlen metab olic 2000 panel - Serum or Plasm a albumin text: 3.5-5. 0 Not Available Not Available 06/11/2025 04:16:21 07/05/20 23 07/05/2023 Compr ehens arlen metab olic 2000 panel - Serum or Plasm a ALT text: 9-43 Not Available Not Available 06/11/2025 04:16:21 07/05/20 23 07/05/2023 Compr ehens arlen metab olic 2000 panel - Serum or Plasm a alkaline phosphatase text: 34-104 Not Available Not Available 06/11/2025 04:16:07/05/2007/05/2023 Compr ehens arlen metab olic 2000 panel - Serum or Plasm a AST text: 13-39 Not Available Not Available 06/11/2025 04:16:07/05/2007/05/2023 Compr ehens arlen metab olic 2000 panel - Serum or Plasm a bilirubin, total text: 0.2-1. 2 Not Available Not Available 06/11/2025 04:16:07/05/2007/05/2023 CBC W Auto Diffe renti al panel - Blood WBC text: 3.6-10 .2 Not Available Not Available 06/11/2025 04:16:07/05/2007/05/2023 CBC W Auto Diffe renti al panel - Blood RBC text: (based on docume nted legal sex) 4.10-5 .30 Not Available Not Available 06/11/2025 04:16:07/05/2007/05/2023 CBC W Auto Diffe renti al panel - Blood HGB text: (based on docume nted legal sex) 11.9-1 5.8 Not Available Not Available 06/11/2025 04:16:07/05/2007/05/2023 CBC W Auto Diffe renti al panel - Blood HCT text: (based on docume nted legal sex) 37.4-4 8.3 Not Available Not Available 06/11/2025 04:16:07/05/2007/05/2023 CBC W Auto Diffe renti al panel - Blood MCV text: 82.0-9 9.0 Not Available Not Available 06/11/2025 04:16:07/05/2007/05/2023 CBC W Auto Diffe renti al panel - Blood MCH text: 27.0-3 3.0 Not Available Not Available 06/11/2025 04:16:07/05/2007/05/2023 CBC W Auto Diffe renti al panel - Blood MCHC text: 32.0-3 6.0 low Not Available Not Available 06/11/2025 04:16:07/05/2007/05/2023 CBC W Auto Diffe renti al panel - Blood RDW text: 11.0-1 5.0 Not Available Not Available 06/11/2025 04:16:21 07/05/20 23 07/05/2023 CBC W Auto Diffe renti al panel - Blood plt text: 150-45 0 Not Available Not Available 06/11/2025 04:16:21 07/05/20 23 07/05/2023 CBC W Auto Diffe renti al panel - Blood MPV text: 9.8-12 .7 Not Available Not Available 06/11/2025 04:16:21 07/05/20 23 07/05/2023 CBC W Auto Diffe renti al panel - Blood NRBC's Not Available Not Availa ble 06/11/2025 04:16:07/05/20 23 07/05/2023 CBC W Auto Diffe renti al panel - Blood absolute NRBCs Not Available Not Available 05/23 04:16:21 07/05/20 23 07/05/2023 CBC W Auto Diffe renti al panel - Blood neutrophils text: 37.0-7 2.0 Not Available Not Available 06/11/2025 04:16:21 07/05/20 23 07/05/2023 CBC W Auto Diffe renti al panel - Blood lymphocytes text: 16.0-4 8.0 Not Available Not Available 06/11/2025 04:16:21 07/05/20 23 07/05/2023 CBC W Auto Diffe renti al panel - Blood monocytes text: 4.0-14 .0 Not Available Not Available 06/11/2025 04:16:21 07/05/20 23 07/05/2023 CBC W Auto Diffe renti al panel - Blood eosinophils text: 0.0-9. 0 Not Available Not Available 06/11/2025 04:16:21 07/05/20 23 07/05/2023 CBC W Auto Diffe renti al panel - Blood basophils text: 0.0-2. 0 Not Available Not Available 06/11/2025 04:16:21 07/05/20 23 07/05/2023 CBC W Auto Diffe renti al panel - Blood immature granulocytes text: no define d refere nce range Not Available Not Available 06/11/2025 04:16:21 07/05/2007/05/2023 CBC W Auto Diffe renti al panel - Blood absolute neutrophils text: 1.1-6. 0 Not Available Not Available 06/11/2025 04:16:21 07/05/20 23 07/05/2023 CBC W Auto Diffe renti al panel - Blood absolute lymphocytes text: 0.7-3. 4 high Not Available Not Available 06/11/2025 04:16:21 07/05/2007/05/2023 CBC W Auto Diffe renti al panel - Blood absolute monocytes text: 0.3-1. 0 Not Available Not Available 06/11/2025 04:16:21 07/05/2007/05/2023 CBC W Auto Diffe renti al panel - Blood absolute eosinophils text: 0.0-0. 6 Not Available Not Available 06/11/2025 04:16:21 07/05/2007/05/2023 CBC W Auto Diffe renti al panel - Blood absolute basophils text: 0.0-0. 1 Not Available Not Available 06/11/2025 04:16:21 07/05/2007/05/2023 CBC W Auto Diffe renti al panel - Blood absolute immature granulocytes text: 0.00-0 .10 2022 3:47 AM: P indic ates parti al resul ts on a panel have been relea sed. Addit ional resul ts will follo w. 2022 3:47 AM: This resul t has been final verif ied. No addit ional or dooley ed resul ts are expec rhiannon. Not Available Not Available 06/11/2025 04:16:21 06/11/2006/12/2025 INTER PRETA TION: interpretati on: Commen t Not infec rhiannon with HCV unles s early or acute infec tion is suspe cted (whic h may be delay ed in an immun ocomp romis ed indiv idual ), or other evide nce exist s to indic ate HCV infec tion. Not Available [facility] [address], [place], [address], 06/13/2025 06:17:30 06/11/20 25 06/12/2025 HCV ANTIB LYUDMILA RFX TO QUANT PCR HCV Ab NON REACTI VE nonrea ctive Not Available [facility] [address] [place], [address], 06/13/2025 06:17:31 06/11/20 25 06/13/2025 CT, NG, TRICH VAG BY CLEOPATRA chlamydia by CLEOPATRA NEGATI VE negati ve Not Available [facility] [address] [place], [address], 06/13/2025 06:17:32 06/11/20 25 06/13/2025 CT, NG, TRICH VAG BY CLEOPATRA gonococcus by CLEOPATRA NEGATI VE negati ve Not Available [facility] [address] [place], [address], 06/13/2025 06:17:32 06/11/20 25 06/13/2025 CT, NG, TRICH VAG BY CLEOPATRA trich vag by CLEOPATRA NEGATI VE negati ve Not Available [facility] [address] [place], [address], 06/13/2025 06:17:32 06/11/20 25 06/12/2025 HBSAG SCREE N HBsAg screen NEGATI VE negati ve Not Available [facility] [address] [place], [address], 06/13/2025 06:17:33 06/11/20 25 06/12/2025 RPR, RFX QN RPR/C ONFIR M TP RPR NON REACTI VE nonrea ctive Not Available [facility] [address] [place], [address], 06/13/2025 06:17:34 06/11/20 25 06/12/2025 HIV AB/P2 4 AG WITH REFLE X HIV Ab/P24 Ag screen NON REACTI VE nonrea ctive HIV-1 /HIV- 2 antib odies and HIV-1 p24 antig en were NOT detec rhiannon. There is no labor atory evide nce of HIV infec tion. HIV Negat arlen Not Available [facility] [address] [place], [address], 06/13/2025 06:17:36 06/11/2006/12/2025 IGP, APTIM A HPV, RFX 16/18 ,45 HPV aptima NEGATI VE negati ve This nucle ic acid ampli ficat ion test detec ts fourt een high- risk HPV types (16,1 8,31, 33,35 ,39,4 5,51, 52,56 ,58,5 9,66, 68) witho ut diffe renti ation . Not Available [facility] [address] [facility], [place], [address], 06/13/2025 15:21:12 06/11/20 25 06/13/2025 IGP, APTIM A HPV, RFX 16/18 ,45 diagnosis: COMMEN T NEGAT ARLEN FOR INTRA EPITH ELIAL MIKEY Cruz OR AMBER LEVY . Not Available [facility] [address] [facility], [place], [address], 06/13/2025 15:21:12 06/11/2006/13/2025 IGP, APTIM A HPV, RFX 16/18 ,45 specimen adequacy: COMMEN T Satis facto ry for evalu ation . Endoc ervic al and/o r squam ous metap lasti c cells (endo cervi tiff compo nent) are prese nt. Not Available [facility] [address] [facility], [place], [address], 06/13/2025 15:21:12 06/11/20 25 06/13/2025 IGP, APTIM A HPV, RFX 16/18 ,45 clinician provided ICD10: COMMEN T Z01.4 19 Z11.3 Not Available [facility] [address] [place], [address], 06/13/2025 15:21:12 06/11/20 25 06/13/2025 IGP, APTIM A HPV, RFX 16/18 ,45 performed by: KAMILLE cruz, Super visor y Cytol ogist (ASCP ) Not Available [facility] [address] [place], [address], 06/13/2025 15:21:12 06/11/20 25 06/13/2025 IGP, APTIM A HPV, RFX 16/18 ,45 . . Not Available [facility] [address] [facility], [place], [address], 06/13/2025 15:21:12 06/11/20 25 06/13/2025 IGP, APTIM A HPV, RFX 16/18 ,45 note: KAMILLE Hyman The Pap smear is a scree jennie test desig caryl to aid in the detec tion of tianna ligna nt and malig nant condi tions of the uteri ne cervi x. It is not a diagn ostic proce dure and shoul d not be used as the sole means of detec ting cervi tiff cance r. Both false -posi tive and false -nega tive repor ts do occur . Not Available [facility] [address] [facility], [place], [address], 06/13/2025 15:21:12 06/11/20 25 06/13/2025 IGP, APTIM A HPV, RFX 16/18 ,45 test methodology: KAMILLE Hyman This liqui d based ThinP rep(R ) pap test was scree caryl with the use of an image guide lani fletcher. Not Available [facility] [address] [place], [address], 06/13/2025 15:21:12 06/11/20 25 06/13/2025 IGP, APTIM A HPV, RFX 16/18 ,45 HPV genotype reflex COMMEN T Crite chase not met, HPV Genot ype not perfo rmed. Not Available [facility] [address] [facility], [place], [address], 06/13/2025 15:21:12 Result Notes None recorded. Problems No Known Problems Procedures Surgical History Date Name Laterality Status Provider Name and Address Organization Details Recorded Time 5 Date of Last Pap Smear completed JOHAN ARMENTA NP Attn: Accounting,[address], [place], [address], [facility] 06/11/2025 11:35:37 3 section completed Dali Luz MA [facility] 06/11/2025 11:27:41 3 ligation of fallopian tube completed JOHAN ARMENTA NP Attn: Accounting,[address], [place], [address], [facility] 06/11/2025 11:47:07 9 section completed Dali Luz MA [facility] 06/11/2025 11:27:49 Imaging Results None recorded. Procedure Notes None recorded. Medical Equipment None Reported. Allergies No known drug allergies Medications Name Sig Start Date Stop Date Status Note LastModified by Organization Details LastModified Time amoxicillin 500 mg capsule active Not Available Not Available Not Available silver sulfadiazin e 1 % topical cream APPLY TOPICALLY TWICE A DAY FOR 7 DAYS APPLY A 1.5 MM THICKNESS 06/11 completed Not Available Not Available Not Available prednisone 10 mg tablet TAKE 1 TABLET BY MOUTH TWICE DAILY FOR 10 DAYS 06/11 completed Not Available Not Available Not Available Lidocaine Viscous 2 % mucosal solution 06/11 completed Not Available Not Available Not Available hydrocodone 5 mg-acetamin ophen 325 mg tablet active Not Available Not Available No t Available sulfamethox azole 800 mg-trimetho prim 160 mg tablet TAKE 1 TABLET BY MOUTH EVERY 12 HOURS 06/11 completed Not Available Not Available Not Available tramadol 50 mg tablet TAKE 1 TABLET EVERY 6 HOURS NEEDED FOR PAIN 06/11 completed Not Available Not Available Not Available ciprofloxac in 0.3 % eye drops INSTILL 2 DROPS INTO BOTH EYES BY OPHTHALMI C ROUTE EVERY 4 HOURS WHILE AWAKE FOR 7 DAYS 06/08 completed Not Available Not Available Not Available tobramycin 0.3 % eye drops active Not Available Not Available Not Available naproxen 500 mg tablet,tika yed release 06/11 completed Not Available Not Available Not Available cephalexin 500 mg tablet TAKE 1 TABLET BY MOUTH EVERY 6 HOURS 06/11 completed Not Available Not Available Not Available diclofenac sodium 50 mg tablet,tkia yed release 50 MG ORALLY EVERY 12 HOURS NEEDED FOR PAIN 06/11 completed Not Available Not Available Not Available Kariva (28) 0.15 mg-0.02 mg (21)/0.01 mg (5) tablet 06/11 completed Not Available Not Available Not Available Sprintec (28) 0.25 mg-0.035 mg tablet TAKE 1 TABLET BY MOUTH EVERY DAY 06/11 completed Not Available Not Available Not Available Lydia 0.35 mg tablet 06/11 completed Not Available Not Available Not Available 1.5/30 (28) 1.5 mg-30 mcg (21)/75 mg (7) tablet 06/11 completed Not Available Not Available Not Available Preparation H Maximum Strength 0.25 %-1 % rectal cream Insert 1 applicati on as needed by rectal route as needed for 10 days, for hemorrhoi ds. 2024 active Not Available Not Available Not Avai lable Vitals Date Recorded Body height Body mass index (BMI) Body weight Systolic And Diastolic Provider Name and Address Organization Details Last Updated DateTime 05/06/2015 162.56 cm 29.7 kg/m2 81585.480 01 g 124/78 mm[Hg] Keesha Baez [place] - [facility] 05/06/2015 16:01:41 Date Recorded Body height Body mass index (BMI) Body weight Respiratory rate Heart rate Systolic And Diastolic Provider Name and Address Organization Details Last Updated DateTime 162.56 cm 33.8 kg/m2 44349.7 g 16 /min 72 /min 118/78 mm[Hg] Dail Luz MA [facility] 11:29:42 Date Recorded Body height Body mass index (BMI) Body weight Systolic And Diastolic Provider Name and Address Organization Details Last Updated DateTime 07/04/2018 162.56 cm 31.3 kg/m2 93112.21 g 122/70 mm[Hg] Mechelle Meek MA [facility] 07/04/2018 09:37:34 Social History Question Answer Notes LastModified by [employer] Details LastModified Time Tobacco Smoking Status Never Smoker Keesha harris, [facility] 05/06/2015 16:01:41 What Is Your Level Of Caffeine Consumption? Occasional Information not available 06/11/2025 What Was The Date Of Your Most Recent Tobacco Screening? 06/11/2025 Information not available 06/11/2025 Sex: Unknown Functional Status Question Answer Note LastModified by [employer] Details LastModified Time Do you use any illicit or recreational drugs? No Information not available 06/11/2025 Do you or have you ever used any other forms of tobacco or nicotine? Yes Information not available 06/11/2025 What is your level of alcohol consumption? Occasional Information not available 06/11/2025 Do you or have you ever used smokeless tobacco? Never used smokeless tobacco Information not available 06/11/2025 Do you or have you ever used e-cigarettes or vape? Current user of electronic cigarettes Information not available 06/11/2025 Mental Status None recorded. Family History Relationship Description Onset Age of this Age Resolved Age Notes LastModified by Organization Details LastModified Time Mother Diabetes mellitus [email or web address] Not available 2014 16:01:41 Sister Hypoglycemia [email or web address] Not avail able 05/06/2015 16:01:41 Medical History Condition Response Heart Problems N Other N Breast Cancer N Thyroid Problems N Kidney or Bladder Problems N GI Problems N Lung Disease N Depression N Acne N Breast Problem N Eating Disorder N Anemia N Anesthesia Complications N Headaches/Migraines Y Anxiety Disorder N Diabetes N Ovarian Cancer N Blood Transfusions N Arthritis N Polyps N Infertility N Acid Reflux (GERD) N Cancer N Stroke N Abuse/Domestic Violence N Asthma N Endometriosis N High Cholesterol N Hepatitis N Heart Disease N Fibromyalgia N Pre-Eclampsia N Hypertension N Osteoporosis N Kidney Disease N Gynecological History Statement/Question Response Abnormal Pap No Date of LMP 05/07/2025 Sexually Active? Y Menses Monthly N Date of Last Pap Smear 06/11/2025 Duration of Flow (days) 4 Age at Menarche 18 Most Recent Mammogram LMP Approximate Obstetrics History GPAL:G 4 P 2 0 2 2 Type Value Full Term 2 Induced 0 Spontaneous 2 Premature 0 Living 2 Total 4 Immunizations Vaccine Type Date Status Note Provider Nam e and Address Organization Details Recorded Time Hep B, adolescent or pediatric 2 completed Not Available [facility] 06/11/2025 11:19:59 Hep B, adolescent or pediatric 2 completed Not Available [facility] 06/11/2025 11:19:59 IPV 2 completed Not Available [facility] 06/11/2025 11:19:59 Hib, unspecified formulation 2 completed Not Available [facility] 06/11/2025 11:19:59 DTP 2 completed Not Available [facility] 06/11/2025 11:19:59 IPV 3 completed Not Available [facility] 06/11/2025 11:19:59 DTP 3 completed Not Available [facility] 06/11/2025 11:19:59 Hib, unspecified formulation 3 completed Not Available [facility] 06/11/2025 11:19:59 Hib, unspecified formulation 3 completed Not Available [facility] 06/11/2025 11:19:59 DTP 3 completed Not Available [facility] 06/11/2025 11:19:59 Hep B, adolescent or pediatric 3 completed Not Available [facility] 06/11/2025 11:19:59 MMR 4 completed Not Available [facility] 06/11/2025 11:19:59 Hib, unspecified formulation 4 completed Not Available [facility] 06/11/2025 11:19:59 IPV 4 completed Not Available [facility] 06/11/2025 11:19:59 DTP 4 completed Not Available [facility] 06/11/2025 11:19:59 IPV 8 completed Not Available [facility] 06/11/2025 11:19:59 MMR 8 completed Not Available [facility] 06/11/2025 11:19:59 DTP 8 completed Not Available [facility] 06/11/2025 11:19:59 Td (adult), 2 Lf tetanus toxoid, preservative free, adsorbed 7 completed Not Available [facility] 06/11/2025 11:19:59 HPV, quadrivalent 7 completed Not Available [facility] 06/11/2025 11:19:59 meningococcal C conjugate 7 completed Not Available [facility] 06/11/2025 11:19:59 Influenza, split virus, trivalent, PF 8 completed Not Available [facility] 06/11/2025 11:19:59 Tdap 0 completed Not Available [facility] 06/11/2025 11:19:59 COVID-19, mRNA, LNP-S, PF, 30 mcg/0.3 mL dose 1 completed Not Available [facility] 06/11/2025 11:19:59 COVID-19, mRNA, LNP-S, PF, 30 mcg/0.3 mL dose 1 completed Not Available [facility] 06/11/2025 11:19:59 Past Encounters Encounter ID Performer Location Encounter Start Date Encounter Closed Date Diagnosis/Indication Diagnosis SNOMED-CT Code Diagnosis ICD10 Code Diagnosis IMO Codes Diagnosis Note [id number] Rosie Barreto [facility] Vanessa Womens (ROMAN [address]) [address] [facility] [address] [place] [address] 05/06/2015 15:37:49 05/06/2015 17:23:28 detection examination 40483653 Gynecologi c examination 33013786 Uses oral contraception 7696645 [id number] Gracie Kelley [facility] Vanessa 14 OB [address] [facility] [address] [place] [address] 07/04/2018 09:26:08 07/04/2018 15:07:26 Gynecologic examination 82374445 Z01.419 Contracept ion care management 730376089 Z30.9 [id number] MD Pretty Addison [address] [place] [address] 06/19/2020 11:47:20 06/20/2020 08:02:16 Suspected COVID-19 634223246 Z03.231 [id number] NAWAF [facility] [place] [address] 07/19/2020 12:37:25 07/22/2020 11:33:05 Suspected COVID-19 598511926 Z03.818 D/w pt the current pandemic of COVID-19 and call for social isolation in order to blunt the curve and minimize risk and spread. Encouraged patient and family to take restrictio ns seriously. They have verbalized understand ing of such. 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 Pap+ HPV cotesting done; Last pap smear: 05/06/2015 NILM2. STI screening completed. Pt verbally consented to HIV3. Pt is using BTL for control.4. Discussed breast self awareness5 . Educated on STI reduction and prevention . Encouraged condom use.6. 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 Contracept arlen use education 71561786 Z30.09 [id number] Contracept arlen options were discussed. The patient has BTL Obese class I [id number] 86087 E66.811 E66.3 [id number] Venereal d isease screening 757083584 Z11.3 [id number] STI screening per patient request. Patient verbally consented to HIV. External hemorrhoids 239 55068 K64.4 48059 external hemorrhoid notedRX sent for preparatio n H Health Concerns Section Related Observation LastModified by Organization Detai ls LastModified Time None Recorded Concern Status LastModified by Organization Details LastModified Time None Recorded Advance Directives Directive None Recorded Payers Insurance Date Sequence Insurance Name Policy Number Policy Singletary Covered Member ID Singletary Member ID Guarantor Name 06/11/2025 1 [facility] - DOS PRIOR TO 2021 (MEDICAID REPLACEMENT - HMO) Loraine Taylor [id number] Loraine Taylor 06/11/2025 1 [facility] (MEDICAID HMO) [id number] Loraine Taylor [id number] Loraine Taylor 06/11/2025 1 [facility] (MEDICAID HMO) [id number] Loraine Taylor [id number] Loraine Modilandbogdan 06/11/[address] [facility] [employer]ING [employer] TREATMENT [employer] Loraine Taylor [id number] Loraine Taylor Notes Date Note Type Note Provider Name and Address Organization Details Recorded Time 05/06/2015 text/html Annual GYNReport ed by PatientHistoryFor history, patient reportsno gynecologic complaints.Genitourina ry symptomsFor menstrual cycle, patient reportsnormal menses(on menses today). For urinary symptoms, patient reportsno hematuriaandno incontinence. For vulva, patient reportsno genital lesion. For vagina, patient reportsnormal vaginal discharge.Breast symptomsFor breast, patient reportsno breast pain,no breast lump, andno nipple discharge.Contraceptio nFor current contraception, patient reportsbirth control not practiced(wants to restart oc's).Endocrine symptomsFor sexual complaints, patient reportsno sexual complaints,no pain during intercourse, andnormal libido. For menopausal symptoms, patient reportsno menopausal symptomsandnormal vaginal lubrication.Psychologi tiff symptomsFor psychological symptoms, patient reportsno depression,no anxiety, andno pmdd.Preventative measuresFor preventive measures, patient reportsencourage self breast examination,encourage regular exercise,encourage no tobacco use,encourage regular mammograms starting age 40, andfollowed with yearly pap smears. ANDRESSA Melissa- Attn: Accounting,[address], [place], [address], [place] [facility] 05/06/2015 16:58:32 07/04/2018 text/html Annual GYNReport ed by PatientHistoryFor history, patient reportsno gynecologic complaints.Genitourina ry symptomsFor menstrual cycle, patient reportsirregular cycle intervals. For urinary symptoms, patient reportsno hematuriaandno incontinence. For vulva, patient reportsno genital lesion. For vagina, patient reportsnormal vaginal discharge.Breast symptomsFor breast, patient reportsno breast pain,no breast lump, andno nipple discharge.Contraceptio nFor current contraception, patient reportsbirth control not practiced(wants to restart oc's).Endocrine symptomsFor sexual complaints, patient reportsno sexual complaints,no pain during intercourse, andnormal libido. For menopausal symptoms, patient reportsno menopausal symptomsandnormal vaginal lubrication.Psychologi tiff symptomsFor psychological symptoms, patient reportsno depression,no anxiety, andno pmdd.Preventative measuresFor preventive measures, patient reportsencourage self breast examination,encourage regular exercise,encourage no tobacco use,encourage regular mammograms starting age 40, andfollowed with yearly pap smears.ROS as noted in the HPI States she only has cycles 2-3 times per year. Gracie Kelley, POLE TESTER- Attn: Accounting,[address] [place], [address], [facility] 07/04/2018 10:28:27 06/19/2020 text/html COVID ScreeningReported by PatientHPIFor associated symptoms, patient reportscoughbut reportsno coughandno shortness of breath. For onset/duration of fever, patient reportsno fever. COVID-19 Symptoms March 2020Reported by PatientUpper Respiratory SymptomsFor covid-19 signs and symptoms, patient reportscough resolved,fever resolved,shortness of breath resolved,chills resolved,repeated shaking with chills resolved,muscle pain resolved,headache resolved,sore throat resolved,loss of taste or smell resolved,vomiting or diarrhea resolved,fatigue resolved,anorexia resolved,headache same, andsore throat same. For contacts and exposure, patient reportsclose contact with a confirmed or suspected case of covid-19 (on the ). For associated symptoms, patient reportsno sputum production,no wheezing,no runny nose,no vomiting,no diarrhea,no body aches,no nausea,no change in mental status,no hypotension, andno tachycardia.ROS as noted in the HPI pt complains of symptoms for a couple of days MICHAEL HAGEN NP Attn: Accounting,[address], [place], [address], [facility] 06/19/2020 14:47:50 07/19/2020 text/html COVID-19 Symptom s March 2020Reported by PatientUpper Respiratory SymptomsFor covid-19 signs and symptoms, patient reportscough resolved,fever resolved,shortness of breath resolved,chills resolved,repeated shaking with chills resolved,muscle pain resolved,headache resolved,sore throat resolved,loss of taste or smell resolved,vomiting or diarrhea resolved,fatigue resolved,anorexia resolved,headache same, andvomiting or diarrhea same. For contacts and exposure, patient reportsclose contact with a confirmed or suspected case of covid-19 (on the ). For associated symptoms, patient reportsno sputum production,no wheezing,no runny nose,no vomiting,no diarrhea,no body aches,no nausea,no change in mental status,no hypotension, andno tachycardia. COVID ScreeningReported by PatientHPIFor onset/duration of fever, patient reportsno fever. 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 Reports regular menstrual cycles with 4-5 days of moderate flow using 8-10 pads/tampon on their heaviest day. 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 Denies any breast changes/pain, fatigue/cold intolerance/hair loss/dry skin. Denies dyspareunia, pelvic pressure or bowel movement changes.Denies SOB/chest pain/dizziness. Denies any fever or chills. Denies any family history of breast, ovarian, endometrial or pancreatic cancer. LMP: 05/07/2025Last pap smear: 05/06/2015 NILMPap due: TodayPatient is currently sexually active with 1 male partner and has had 1 male partner in the past 7 years.Current contraception is BTLPatient is happy with methodDesires STI testing today. Verbal consent given for HIV testing. JOHAN ARMENTA NP Attn: Accounting,[address] [place], [id number], [place] - [facility] 06/11/2025 12:00:30 OBGyn Episode No OBEpisode recorded.
--- OUTSIDE RECORDS SUMMARY | 2025-11-17 08:07 | XMS_ITS | Data Portability ---
Author Organization [facility] Address [address] [place] [address] Care Team Providers Care Image Consultant Name Role Phone AILEEN GOODSON Primary Care [...] Lab CBC w/ auto diff 2022 023 [facility] (Lab), [address] [place], [address], 3 05:41:20 CMP, serum or plasma 2022 023 [facility] (Lab), [address] [place], [address], 3 05:41:21 lipid panel, blood 2022 023 [facility] (Lab), [address] [place], [address], 3 05:41:20 TSH, serum or plasma 2022 023 [facility] (Lab), [address] [place], [address], 3 05:41:21 vitamin D, 25-hydroxy, total, serum 2022 023 [facility] (Lab), [address], [place], [address], 3 05:41:22 Referral None recorded. Procedures None recorded. Surgeries None recorded. Imaging None recorded. Medication Orders sertraline 50 mg tablet 2022 023 [facility] #[id number], [address] [place], [address], 3 14:29:41 Patient TargetsNo targets recorded. Patient [...] Resul ting Lab: [facility] [address] [facility] [address] Tel: CULTU RE ----- ----- ----- --- No Group B strep isola rhiannon at 2 days (gautam ctive broth enhan cemen t) Not Available [facility] (Lab) [address], [place], [address], 01/04/2023 20:27:49 01/07/20 23 01/07/2023 CBC W/DIF F WBC 12.6 10'3/ uL 3.6-10 .2 high Not Available [facility] (Lab) [address], [place], [address], 01/08/2023 05:24:13 01/07/20 23 01/07/2023 CBC W/DIF F RBC 4.13 10'6/ uL (based on docume nted legal sex) 4.10-5 .30 Not Available [facility] (Lab) [address], [place], [address], 01/08/2023 05:24:13 01/07/20 23 01/07/2023 CBC W/DIF F HGB 11.3 g/dL (based on docume nted legal sex) 11.9-1 5.8 low Not Available [facility] (Lab) [address], [place], [address], 01/08/2023 05:24:13 01/07/20 23 01/07/2023 CBC W/DIF F HCT 36.0 % (based on docume nted legal sex) 37.4-4 8.3 low Not Available [facility] (Lab) [address], [place], [address], 01/08/2023 05:24:13 01/07/20 23 01/07/2023 CBC W/DIF F MCV 87.2 fL 82.0-9 9.0 Not Available [facility] (Lab) [address], [place], [address], 01/08/2023 05:24:13 01/07/20 23 01/07/2023 CBC W/DIF F MCH 27.4 pg 27.0-3 3.0 Not Available [facility] (Lab) [address], [place], [address], 01/08/2023 05:24:13 01/07/20 23 01/07/2023 CBC W/DIF F MCHC 31.4 g/dL 32.0-3 6.0 low Not Available [facility] (Lab) [address] [place], [address], 01/08/2023 05:24:13 01/07/20 23 01/07/2023 CBC W/DIF F RDW 13.6 % 11.0-1 5.0 Not Available [facility] (Lab) [address], [place], [address], 01/08/2023 05:24:13 01/07/20 23 01/07/2023 CBC W/DIF F plt 280 10'3/ uL 150-45 0 Not Available [facility] (Lab) [address], [place], [address], 01/08/2023 05:24:13 01/07/20 23 01/07/2023 CBC W/DIF F MPV 11.9 fL 9.8-12 .7 Not Available [facility] (Lab) [address], [place], [address], 01/08/2023 05:24:13 01/07/20 23 01/07/2023 CBC W/DIF F NRBC's 0.0 % 0 Not Available [facility] (Lab) [address], [place], [address], 01/08/2023 05:24:13 01/07/20 23 01/07/2023 CBC W/DIF F absolute NRBCs 0.0 10'3/ uL 0 Not Available [facility] (Lab) [address], [place], [address], 01/08/2023 05:24:13 01/07/20 23 01/07/2023 CBC W/DIF F neutrophils 80.7 % 37.0-7 2.0 high Not Available [facility] (Lab) [address], [place], [address], 01/08/2023 05:24:13 01/07/20 23 01/07/2023 CBC W/DIF F lymphocytes 13.0 % 16.0-4 8.0 low Not Available [facility] (Lab) [address] [place], [address], 01/08/2023 05:24:13 01/07/20 23 01/07/2023 CBC W/DIF F monocytes 5.2 % 4.0-14 .0 Not Available [facility] (Lab) [address] [facility], [place], [address], 01/08/2023 05:24:13 01/07/20 23 01/07/2023 CBC W/DIF F eosinophils 0.2 % 0.0-9. 0 Not Available [facility] (Lab) [address] [facility], [place], [address], 01/08/2023 05:24:13 01/07/20 23 01/07/2023 CBC W/DIF F basophils 0.3 % 0.0-2. 0 Not Available [facility] (Lab) [address] [facility], [place], [address], 01/08/2023 05:24:13 01/07/20 23 01/07/2023 CBC W/DIF F immature granulocytes 0.6 % no define d refere nce range Not Available [facility] (Lab) [address] [facility], [place], [address], 01/08/2023 05:24:13 01/07/20 23 01/07/2023 CBC W/DIF F absolute neutrophils 10.1 10'3/ uL 1.1-6. 0 high Not Available [facility] (Lab) [address] [facility], [place], [address], 01/08/2023 05:24:13 01/07/20 23 01/07/2023 CBC W/DIF F absolute lymphocytes 1.6 10'3/ uL 0.7-3. 4 Not Available [facility] (Lab) [address] [place], [address], 01/08/2023 05:24:13 01/07/20 23 01/07/2023 CBC W/DIF F absolute monocytes 0.7 10'3/ uL 0.3-1. 0 Not Available [facility] (Lab) [address] [facility], [place], [address], 01/08/2023 05:24:13 01/07/20 23 01/07/2023 CBC W/DIF F absolute eosinophils 0.0 10'3/ uL 0.0-0. 6 Not Available [facility] (Lab) [address] [facility], [place], [address], 01/08/2023 05:24:13 01/07/20 23 01/07/2023 CBC W/DIF F absolute basophils 0.0 10'3/ uL 0.0-0. 1 Not Available [facility] (Lab) [address] [facility], [place], [address], 01/08/2023 05:24:13 01/07/20 23 01/07/2023 CBC W/DIF [...] resul ts are expec rhiannon. Not Available [facility] (Lab) [address] [facility], [place], [address], 01/08/2023 05:24:13 01/07/2001/07/2023 URIC ACID uric acid 5.7 mg/dL 2.3-6. 6 Not Available [facility] (Lab) [address] [facility], [place], [address], 01/08/2023 05:24:13 01/07/20 23 01/07/2023 CMP(C OMPRE HENSI VE METAB OLIC PANEL ) sodium 136 mmol/ L 133-14 6 Not Available [facility] (Lab) [address] [facility], [place], [address], 01/08/2023 05:24:14 01/07/20 23 01/07/2023 CMP(C OMPRE HENSI VE METAB OLIC PANEL ) potassium 4.1 mmol/ L 3.5-5. 1 Not Available [facility] (Lab) [address] [facility], [place], [address], 01/08/2023 05:24:14 01/07/20 23 01/07/2023 CMP(C OMPRE HENSI VE METAB OLIC PANEL ) chloride 105 mmol/ L 98-107 Not Available [facility] (Lab) [address] [facility], [place], [address], 01/08/2023 05:24:14 01/07/20 23 01/07/2023 CMP(C OMPRE HENSI VE METAB OLIC PANEL ) carbon dioxide 23 mmol/ L 21-31 Not Available [facility] (Lab) [address] [facility], [place], [address], 01/08/2023 05:24:14 01/07/20 23 01/07/2023 CMP(C OMPRE HENSI VE METAB OLIC PANEL ) anion gap 8 mmol/ L 4-13 Not Available [facility] (Lab) [address] [facility], [place], [address], 01/08/2023 05:24:14 01/07/20 23 01/07/2023 CMP(C OMPRE HENSI VE METAB OLIC PANEL ) blood urea nitrogen 11 mg/dL 7-25 Not Available [facility] (Lab) [address] [facility], [place], [address], 01/08/2023 05:24:14 01/07/20 23 01/07/2023 CMP(C OMPRE HENSI VE METAB OLIC PANEL ) creatinine 0.62 mg/dL 0.60-1 .30 Not Available [facility] (Lab) [address] [place], [address], 01/08/2023 05:24:14 01/07/20 23 01/07/2023 CMP(C OMPRE HENSI VE METAB OLIC PANEL ) egfrcr (CKD-epi 2020) >90 mL/mi n/1.7 3_m2 >=60 Not Available [facility] (Lab) [address], [place], [address], 01/08/2023 05:24:14 01/07/20 23 01/07/2023 CMP(C OMPRE HENSI VE METAB OLIC PANEL ) calcium 8.9 mg/dL 8.3-10 .5 Not Available [facility] (Lab) [address], [place], [address], 01/08/2023 05:24:14 01/07/20 23 01/07/2023 CMP(C OMPRE HENSI VE METAB OLIC PANEL ) glucose 71 mg/dL 70-100 Not Available [facility] (Lab) [address], [place], [address], 01/08/2023 05:24:14 01/07/20 23 01/07/2023 CMP(C OMPRE HENSI VE METAB OLIC PANEL ) protein, total 6.4 g/dL 6.4-8. 3 Not Available [facility] (Lab) [address], [place], [address], 01/08/2023 05:24:14 01/07/20 23 01/07/2023 CMP(C OMPRE HENSI VE METAB OLIC PANEL ) albumin 3.3 g/dL 3.5-5. 0 low Not Available [facility] (Lab) [address], [place], [address], 01/08/2023 05:24:14 01/07/20 23 01/07/2023 CMP(C OMPRE HENSI VE METAB OLIC PANEL ) ALT 15 units /L 9-43 Not Available [facility] (Lab) [address], [place], [address], 01/08/2023 05:24:14 01/07/20 23 01/07/2023 CMP(C OMPRE HENSI VE METAB OLIC PANEL ) alkaline phosphatase 288 units /L 34-104 high Not Available [facility] (Lab) [address] [facility], [place], [address], 01/08/2023 05:24:14 01/07/20 23 01/07/2023 CMP(C OMPRE HENSI VE METAB OLIC PANEL ) AST 18 units /L 13-39 Not Available [facility] (Lab) [address] [facility], [place], [address], 01/08/2023 05:24:14 01/07/20 23 01/07/2023 CMP(C OMPRE HENSI VE METAB OLIC PANEL ) bilirubin, total 0.3 mg/dL 0.2-1. 2 Not Available [facility] (Lab) [address] [facility], [place], [address], 01/08/2023 05:24:14 07/05/20 23 07/05/2023 CBC W/DIF F WBC 10.2 10'3/ uL 3.6-10 .2 Not Available [facility] (Lab) [address] [facility], [place], [address], 07/06/2023 05:41:20 07/05/20 23 07/05/2023 CBC W/DIF F RBC 4.48 10'6/ uL (based on docume nted legal sex) 4.10-5 .30 Not Available [facility] (Lab) [address] [place], [address], 07/06/2023 05:41:20 07/05/20 23 07/05/2023 CBC W/DIF F HGB 12.1 g/dL (based on docume nted legal sex) 11.9-1 5.8 Not Available [facility] (Lab) [address] [facility], [place], [address], 07/06/2023 05:41:20 07/05/20 23 07/05/2023 CBC W/DIF F HCT 40.4 % (based on docume nted legal sex) 37.4-4 8.3 Not Available [facility] (Lab) [address] [facility], [place], [address], 07/06/2023 05:41:20 07/05/20 23 07/05/2023 CBC W/DIF F MCV 90.2 fL 82.0-9 9.0 Not Available [facility] (Lab) [address] [facility], [place], [address], 07/06/2023 05:41:20 07/05/20 23 07/05/2023 CBC W/DIF F MCH 27.0 pg 27.0-3 3.0 Not Available [facility] (Lab) [address] [facility], [place], [address], 07/06/2023 05:41:20 07/05/20 23 07/05/2023 CBC W/DIF F MCHC 30.0 g/dL 32.0-3 6.0 low Not Available [facility] (Lab) [address] [facility], [place], [address], 07/06/2023 05:41:20 07/05/20 23 07/05/2023 CBC W/DIF F RDW 13.3 % 11.0-1 5.0 Not Available [facility] (Lab) [address] [facility], [place], [address], 07/06/2023 05:41:20 07/05/20 23 07/05/2023 CBC W/DIF F plt 298 10'3/ uL 150-45 0 Not Available [facility] (Lab) [address] [facility], [place], [address], 07/06/2023 05:41:20 07/05/20 23 07/05/2023 CBC W/DIF F MPV 11.2 fL 9.8-12 .7 Not Available [facility] (Lab) [address] [facility], [place], [address], 07/06/2023 05:41:20 07/05/20 23 07/05/2023 CBC W/DIF F NRBC's 0.0 % 0 Not Available [facility] (Lab) [address] [facility], [place], [address], 07/06/2023 05:41:20 07/05/20 23 07/05/2023 CBC W/DIF F absolute NRBCs 0.0 10'3/ uL 0 Not Available [facility] (Lab) [address] [facility], [place], [address], 07/06/2023 05:41:20 07/05/20 23 07/05/2023 CBC W/DIF F neutrophils 54.3 % 37.0-7 2.0 Not Available [facility] (Lab) [address] [facility], [place], [address], 07/06/2023 05:41:20 07/05/20 23 07/05/2023 CBC W/DIF F lymphocytes 35.8 % 16.0-4 8.0 Not Available [facility] (Lab) [address] [facility], [place], [address], 07/06/2023 05:41:20 07/05/20 23 07/05/2023 CBC W/DIF F monocytes 7.0 % 4.0-14 .0 Not Available [facility] (Lab) [address] [facility], [place], [address], 07/06/2023 05:41:20 07/05/20 23 07/05/2023 CBC W/DIF F eosinophils 1.9 % 0.0-9. 0 Not Available [facility] (Lab) [address] [facility], [place], [address], 07/06/2023 05:41:20 07/05/20 23 07/05/2023 CBC W/DIF F basophils 0.5 % 0.0-2. 0 Not Available [facility] (Lab) [address] [place], [address], 07/06/2023 05:41:20 07/05/20 23 07/05/2023 CBC W/DIF F immature granulocytes 0.5 % no define d refere nce range Not Available [facility] (Lab) [address] [facility], [place], [address], 07/06/2023 05:41:20 07/05/20 23 07/05/2023 CBC W/DIF F absolute neutrophils 5.6 10'3/ uL 1.1-6. 0 Not Available [facility] (Lab) [address] [facility], [place], [address], 07/06/2023 05:41:20 07/05/20 23 07/05/2023 CBC W/DIF F absolute lymphocytes 3.7 10'3/ uL 0.7-3. 4 high Not Available [facility] (Lab) [address] [facility], [place], [address], 07/06/2023 05:41:20 07/05/20 23 07/05/2023 CBC W/DIF F absolute monocytes 0.7 10'3/ uL 0.3-1. 0 Not Available [facility] (Lab) [address] [facility], [place], [address], 07/06/2023 05:41:20 07/05/20 23 07/05/2023 CBC W/DIF F absolute eosinophils 0.2 10'3/ uL 0.0-0. 6 Not Available [facility] (Lab) [address] [facility], [place], [address], 07/06/2023 05:41:20 07/05/20 23 07/05/2023 CBC W/DIF F absolute basophils 0.1 10'3/ uL 0.0-0. 1 Not Available [facility] (Lab) [address] [facility], [place], [address], 07/06/2023 05:41:20 07/05/20 23 07/05/2023 CBC W/DIF [...] resul ts are expec rhiannon. Not Available [facility] (Lab) [address] [facility], [place], [address], 07/06/2023 05:41:20 07/05/20 23 07/05/2023 LIPID PANEL ,AMA (LDL- CALC) total cholesterol 214 mg/dL 0-199 high Not Available [facility] (Lab) [address] [facility], [place], [address], 07/06/2023 05:41:20 07/05/20 23 07/05/2023 LIPID PANEL ,AMA (LDL- CALC) triglyceride s 222 mg/dL 0.00-1 50.00 high NCEP Refer ence Value s for Trigl yceri akua: Milagro l: <150 mg/dL Borde rline High: 150 - 199 mg/dL High: 200 - 499 mg/dL Very High: >/= 500 mg/dL Not Available [facility] (Lab) [address] [facility], [place], [address], 07/06/2023 05:41:20 07/05/20 23 07/05/2023 LIPID PANEL ,AMA (LDL- CALC) HDL cholesterol 52 mg/dL >40 Not Available [facility] (Lab) [address] [place], [address], 07/06/2023 05:41:20 07/05/20 23 07/05/2023 LIPID PANEL [...] mg/dL , HDL <40 mg/dL Not Available [facility] (Lab) [address], [place], [address], 07/06/2023 05:41:20 07/05/2007/05/2023 LIPID PANEL ,AMA (LDL- CALC) non-HDL cholesterol 162 mg/dL no refere nce range A reaso nable goal for non-H DL trudy stero l is one that is 30 mg/dL highe r than the LDL trudy stero l goal. Not Available [facility] (Lab) [address], [place], [address], 07/06/2023 05:41:20 07/05/2007/05/2023 LIPID PANEL ,AMA (LDL- CALC) chol/HDL ratio 4.1 . 0.0-5. 0 On March 16, 2023, [facility] labor atori areli dooley ed the [...] Jeannie cruz, Kristian Julian, Anthony Bae , [facility], Jareth Rm, Jareth trimble, Andrey oseguera [...] n. 2017Nov 23;137 (1):1 0-19. Not Available [facility] (Lab) [address] [facility], [place], [address], 07/06/2023 05:41:20 07/05/20 23 07/05/2023 CMP(C OMPRE HENSI VE METAB OLIC PANEL ) sodium 140 mmol/ L 133-14 6 Not Available [facility] (Lab) [address] [facility], [place], [address], 07/06/2023 05:41:21 07/05/20 23 07/05/2023 CMP(C OMPRE HENSI VE METAB OLIC PANEL ) potassium 4.0 mmol/ L 3.5-5. 1 Not Available [facility] (Lab) [address] [facility], [place], [address], 07/06/2023 05:41:21 07/05/20 23 07/05/2023 CMP(C OMPRE HENSI VE METAB OLIC PANEL ) chloride 105 mmol/ L 98-107 Not Available [facility] (Lab) [address] [place], [address], 07/06/2023 05:41:21 07/05/20 23 07/05/2023 CMP(C OMPRE HENSI VE METAB OLIC PANEL ) carbon dioxide 29 mmol/ L 21-31 Not Available [facility] (Lab) [address] [place], [address], 07/06/2023 05:41:21 07/05/20 23 07/05/2023 CMP(C OMPRE HENSI VE METAB OLIC PANEL ) anion gap 6 mmol/ L 4-13 Not Available [facility] (Lab) [address] [facility], [place], [address], 07/06/2023 05:41:21 07/05/20 23 07/05/2023 CMP(C OMPRE HENSI VE METAB OLIC PANEL ) blood urea nitrogen 19 mg/dL 7-25 Not Available [facility] (Lab) [address] [facility], [place], [address], 07/06/2023 05:41:21 07/05/20 23 07/05/2023 CMP(C OMPRE HENSI VE METAB OLIC PANEL ) creatinine 0.75 mg/dL 0.60-1 .30 Not Available [facility] (Lab) [address] [facility], [place], [address], 07/06/2023 05:41:21 07/05/20 23 07/05/2023 CMP(C OMPRE HENSI VE METAB OLIC PANEL ) egfrcr (CKD-epi 2020) >90 mL/mi n/1.7 3_m2 >=60 Not Available [facility] (Lab) [address] [facility], [place], [address], 07/06/2023 05:41:21 07/05/20 23 07/05/2023 CMP(C OMPRE HENSI VE METAB OLIC PANEL ) calcium 8.9 mg/dL 8.3-10 .5 Not Available [facility] (Lab) [address] [facility], [place], [address], 07/06/2023 05:41:21 07/05/20 23 07/05/2023 CMP(C OMPRE HENSI VE METAB OLIC PANEL ) glucose 62 mg/dL 70-100 low Not Available [facility] (Lab) [address] [facility], [place], [address], 07/06/2023 05:41:21 07/05/20 23 07/05/2023 CMP(C OMPRE HENSI VE METAB OLIC PANEL ) protein, total 6.0 g/dL 6.4-8. 3 low Not Available [facility] (Lab) [address] [facility], [place], [address], 07/06/2023 05:41:21 07/05/20 23 07/05/2023 CMP(C OMPRE HENSI VE METAB OLIC PANEL ) albumin 3.9 g/dL 3.5-5. 0 Not Available [facility] (Lab) [address] [facility], [place], [address], 07/06/2023 05:41:21 07/05/20 23 07/05/2023 CMP(C OMPRE HENSI VE METAB OLIC PANEL ) ALT 12 units /L 9-43 Not Available [facility] (Lab) [address] [facility], [place], [address], 07/06/2023 05:41:21 07/05/20 23 07/05/2023 CMP(C OMPRE HENSI VE METAB OLIC PANEL ) alkaline phosphatase 69 units /L 34-104 Not Available [facility] (Lab) [address] [facility], [place], [address], 07/06/2023 05:41:21 07/05/20 23 07/05/2023 CMP(C OMPRE HENSI VE METAB OLIC PANEL ) AST 13 units /L 13-39 Not Available [facility] (Lab) [address] [facility], [place], [address], 07/06/2023 05:41:21 07/05/20 23 07/05/2023 CMP(C OMPRE HENSI VE METAB OLIC PANEL ) bilirubin, total 0.2 mg/dL 0.2-1. 2 Not Available [facility] (Lab) [address] [place], [address], 07/06/2023 05:41:21 07/05/20 23 07/05/2023 TSH, REFLE X FREE T4 TSH 3.26 uIU/m L 0.30-5 .33 Not Available [facility] (Lab) [address] [place], [address], 07/06/2023 05:41:21 07/05/20 23 07/05/2023 VITAM IN D, 25-OH (TOTA L D2/D3 ) vitamin D, 25-hydroxy, total 12.6 NG/mL 30.0-1 00.[address] [address] of Defic iency : <20 ng/mL [place]ge stive of Insuf ficie ncy: 20-29 ng/mL Sugge stive of Suffi cienc y: 30-10 0 ng/mL Sugge stive of Toxic ity: >150 ng/mL Not Available [facility] (Lab) [address] [facility], [place], [address], 07/06/2023 05:41:22 07/05/20 23 07/05/2023 IMAGE GUIDE [...] as clini iggy payne nted. Not Available [facility] (Lab) [address], [place], [address], 07/06/2023 21:50:12 Result Notes None recorded. Problems Name Problem SNOMED Code Status Onset Date Resolution Date Notes Provider Name and Address Organization Details Recorded Time delivery - delivere d [id number] Completed to repeat Catia Dietrich [facility] 3 11:10:29 Pregnanc y detectio n examinat ion Completed 201801/02/2022 Encounte r for pregnanc y test, result positive ;Recorde d Elsewher e: No Locat ion: [facility] S ource: EHR Admissions Dean jacobo: N Zeenatti ce ID: [id number] Danis lable Time: 09:45:00 AM Myriam harris, [facility] 2 12:34:03 Hemorrha gic complica tion of pregnanc y [id number] Completed 201801/02/2022 Other hemorrha ge in early pregnanc y;Record ed Elsewher e: No Locat ion: [facility] S ource: EHR Admissions Dean jacobo: N Zeenatti ce ID: [id number] Danis lable Time: 10:30:00 AM Myriam harris, [facility] 2 12:33:34 Secondar y amenorrh ea [id number] Completed 201801/02/2022 Secondar y amenorrh ea;Recor ded Elsewher e: No Locat ion: [facility] S ource: EHR Admissions Dean jacobo: N Zeenatti ce ID: [id number] Danis lable Time: 09:45:00 AM Myriam harris, [facility] 2 12:33:39 Uterine size for dates discrepa ncy Completed 201801/02/2022 Uterine size-derick e discrepa ncy, first trimeste r;Record ed Elsewher e: No Locat ion: [facility] S ource: EHR Admissions Dean jacobo: N Zeenatti ce ID: [id number] Danis lable Time: 10:30:00 AM Myriam harris, [facility] 2 12:33:[address] Concept Completed 201801/02/2022 Encntr for marketing lead exam (general ) (routine ) w/o abn findings ;Recorde d Elsewher e: No Locat ion: [facility] S ource: EHR Admissions Dean jacobo: N Practi ce ID: [id number] Danis lable Time: 09:45:00 AM Myriam harris, [facility] 2 12:33:48 Infectio n screenin g Completed 201801/02/2022 Encounte r for screenin g for oth infec/pa rastc diseases ;Recorde d Elsewher e: No Locat ion: [facility] S ource: EHR Admissions Dean jacobo: N Practi ce ID: [id number] Danis lable Time: 09:45:00 AM Myriam harris, [facility] 2 12:33:44 Syphilis test finding [id number] Completed 201801/02/2022 Encntr screen for infectio ns w sexl mode of transmis s;Record ed Elsewher e: No Locat ion: [facility] S ource: EHR Admissions Dean jacobo: N Practi ce ID: [id number] Danis lable Time: 09:45:00 AM Myriam harris, [facility] 2 12:33:52 Gestatio n period, 9 weeks [id number] Completed 201801/02/2022 9 weeks gestatio n of pregnanc y;Record ed Elsewher e: No Locat ion: [facility] S ource: EHR Admissions Dean jacobo: N Practi ce ID: [id number] Danis lable Time: 10:30:00 AM Myriam harris, [facility] 2 12:34:26 Rubella screenin g status [id number] Completed 201801/02/2022 Encounte r for antenata l screenin g, unspecif ied;Pavan rded Elsewher e: No Locat ion: [facility] S ource: EHR Admissions Dean jacobo: N Practi ce ID: [id number] Danis lable Time: 08:45:00 AM Myriam harris, [facility] 2 12:33:46 Antenata l screenin g Completed 201801/02/2022 Encounte r for antenata l screenin g for nuchal transluc ency;Rec orded Elsewher e: No [facility]at [facility] S ource: EHR Admissions Dean jacobo: N Zeenatti ce ID: [id number] Danis lable Time: 09:30:00 AM Myriam Quincy harris, [facility] 2 12:33:43 Antenata l screenin g for malforma tion Completed 201801/02/2022 Encounte r for antenata l screenin g for malforma tions;Re corded Elsewher e: No Locat ion: [facility] S ource: EHR Admissions Dean jacobo: N Zeenatti ce ID: [id number] Danis lable Time: 08:45:00 AM Myriam harris, [facility] 2 12:34:02 Normal pregnanc y in multigra zehra [id number] Completed 201801/02/2022 Encounte r for suprvsn of normal pregnanc y, third trimeste r;Record ed Elsewher e: No Locat ion: [facility] S ource: EHR Admissions Dean jacobo: N Zeenatti ce ID: [id number] Danis lable Time: 09:15:00 AM Myriam Quincy harris [facility] 2 12:33:59 Pregnanc y, childbir th and puerperi um finding Completed 201801/02/2022 Encntr for suprvsn of normal first preg, third trimeste r;Record ed Elsewher e: No Locat ion: [facility] S ource: EHR Admissions Dean jacobo: N Zeenatti ce ID: [id number] Danis lable Time: 01:15:00 PM Myriam harris [facility] 2 12:34:00 Failed trial of labor [id number] Completed 201801/02/2022 Failed trial of labor, unspecif ied;Prac sis ID: 0001 Myriam harris, [facility] 2 12:33:40 Single liveborn born in hospital by section [id number] Completed 201801/02/2022 Single liveborn infant, delivere d by ;Practic e ID: 0001 Myriam harris, [facility] 2 12:33:53 Gestatio n period, 39 weeks [id number] Completed 201801/02/2022 39 weeks gestatio n of pregnanc y;Practi ce ID: 0001 Myriam harris, [facility] 2 12:34:24 Procedur e on genitour inary system Completed 201901/02/2022 Encounte r for surgical aftercar e followin g surgery on the genitour inary system;R ecorded Elsewher e: No [facility] our[facility]: EHR Admissions Dean jacobo: N Practi ce ID: 0001 Danis lable Time: 01:15:00 [facility] 12[facility]33:35 Postoper ative care Completed 201901/02/2022 Encounte r for surgical aftercar e followin g surgery on the genitour inary system;R ecorded Elsewher e: No [facility]at [facility] S ource: EHR Admissions Dean jacobo: N Practi ce ID: 0001 Danis lable Time: 01:15:00 PM Myriam harris [facility] 2 12:33:37 Lochia finding Completed 201901/02/2022 Encounte r for routine postpart um follow-u p;Record ed Elsewher e: No Locat ion: [facility] S ource: EHR Admissions Dean jacobo: N Practi ce ID: 0001 Danis lable Time: 09:30:00 AM Myriam Mathew [facility] 2 12:33:56 Pregnanc y [id number] Completed 202103/06/2023 Catia Dietrich [facility] 3 11:10:31 Problem Notes None recorded. Procedures Surgical History Date Name Laterality Status Provider Name and Address Organization Details Recorded Time 3 SECTION (SURG) completed Cassia Driscoll [facility] 01/25/2023 10:26:20 2 Date of Last Pap Smear completed [facility] 11/20/2022 10:19:02 9 section completed [facility] 03/20/2020 15:41:27 1 operative procedure on foot completed [facility] 12/03/2022 11:07:06 Other completed Catia Dietrich [facility] 07/05/2023 13:53:53 Imaging Results None recorded. 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 28 mg iron-1 mg-200 mg capsule take 1 capsule by oral route every day 01/02 completed Prescrib ed Elsewher e: No Locat ion: [facility] odify By: bnoma munguia DateTime : 05/29/20 08:39:06 AM Not Available Not Available Not Available 28 mg-800 mcg tablet 01/02 completed Prescrib ed Elsewher e: Yes Loca tion: [facility] odify By: cmsgenet munguia DateTime : 04/25/20 09:45:00 AM Not Available Not Available Not Available Vitals Date Recorded Body height Body mass index (BMI) Body weight Systolic And Diastolic Provider Name and Address Organization Details Last Updated DateTime 01/21/2023 148.59 cm 39.7 kg/m2 84120.327 41 g 136/80 mm[Hg] Latrice Torrez [facility] 01/21/2023 09:48:12 Date Recorded Body height Body mass index (BMI) Body weight Systolic And Diastolic Systolic And Diastolic Provider Name and Address Organization Details Last Updated DateTime 02/01/2023 148.59 cm 37.2 kg/m2 89131.22 g 149/93 mm[Hg] 142/87 mm[Hg] [facility] 12:47:46 Date Recorded Body height Body mass index (BMI) Body weight Systolic And Diastolic Provider Name and Address Organization Details Last Updated DateTime 03/06/2023 148.59 cm 34.3 kg/m2 00931.925 79 g 117/73 mm[Hg] [facility] 03/06/2023 11:10:11 Date Recorded Body height Body mass index (BMI) Body weight Systolic And Diastolic Provider Name and Address Organization Details Last Updated DateTime 07/05/2023 148.59 cm 37.2 kg/m2 19778.22 g 119/75 mm[Hg] Catia Dietrich [facility] 07/05/2023 14:04:58 Social History Question Answer Notes LastModified by Organizat ion Details LastModified Time Tobacco Smoking Status Never Smoker Catia Dietrich steven, [facility] 07/05/2023 14:05:14 Do You Have An Advance Directive? No [email or web address] Information n ot available 07/01/2022 If You Are , What Was Your Level Of Alcohol Consumption Prior To ? Occasional [email or web address] Information not available 07/05/2023 How Many Years Have You Consumed Alcohol? 9 [email or web address] Information not available 11/20/2022 Are You Blind Or Do You Have Difficulty Seeing? No [email or web address] Information n ot available 07/01/2022 What Is Your Level Of Caffeine Consumption? Moderate [email or web address] Information not available 07/01/2022 How Much Tobacco Do You Chew? None [email or web address] Information not available 07/01/2022 In The 14 Days Before Symptom Onset, Have You Had Close Contact With A Laboratory-confirm ed COVID-19 While That Case Was Ill? No [email or web address] Information n ot available 07/01/2022 In The 14 Days Before Symptom Onset, Have You Had Close Contact With A Person Who Is Under Investigation For COVID-19 While That Person Was Ill? No [email or web address] Information not available 07/01/2022 Have You Been To An Area Known To Be High Risk For COVID-19? No [email or web address] Information not available 07/01/2022 Are You Deaf Or Do You Have Serious Difficulty Hearing? No [email or web address] Information not available 07/01/2022 What Type Of Diet Are You Following? CARBOHYDRATE [email or web address] Information n ot available 11/20/2022 What Is The Highest Grade Or Level Of School You Have Completed Or The Highest Degree You Have Received? [id number] Information not available 07/01/2022 Are There Any Guns Present In Your Home? No [email or web address] Information not available 07/01/2022 What Was The Date Of Your Most Recent Tobacco Screening? 01/21/2023 [email or web address] Information not available 07/05/2023 Do You Use Protection During Sex? No [email or web address] Information not available 07/01/2022 Do You Use Your Seat Belt Or Car Seat Routinely? Yes [email or web address] Information not available 07/01/2022 Do You Have Smoke And Carbon Monoxide Detectors In Your Home? Yes [email or web address] Information not available 07/01/2022 How Much Tobacco Do You Smoke? No Information not available 07/01/2022 Smoking Pre- Yes [email or web address] Information not available 07/05/2023 Do You Use Sunscreen Routinely? No [email or web address] Information not available 07/01/2022 Have You Used IV Drugs? No [email or web address] Information not available 07/01/2022 Do You Have Difficulty Walking Or Climbing Stairs? No [email or web address] Information not available 07/05/2023 Sex: Unknown Functional Status Question Answer Note LastModified by Organizat ion Details LastModified Time Do you use any illicit or recreational drugs? No [email or web address] Information not available 07/01/2022 What is your level of alcohol consumption? Occasional [email or web address] Information not available 11/20/2022 Are you able to walk independently without assistance or assistive devices? YESWOREST Information not available 07/22/2022 Are you able to care for yourself independently? Yes [email or web address] Information not available 07/05/2023 Do you have difficulty dressing, bathing, grooming, or toileting? No [email or web address] Information not available 07/05/2023 What is your exercise level? Moderate [email or web address] Information not available 07/01/2022 Mental Status Question Answer Note LastModified by Organization D etails LastModified Time Do you feel stressed (tense, restless, nervous, or anxious, or unable to sleep at night)? [id number] [email or web address] Information not available 11/20/2022 Family History Relationship Description Onset Age of this Age Resolved Age Notes LastModified by Organization Details LastModified Time Mother Diabetes mellitus [email or web address] Not available 2019 15:53:45 Father Hypertensive disorder jgumber Not available 2019 15:53:56 Medical History Condition Response Allergies (Food, seasonal, environmental ) N Other N Drug/Latex Allergies/Reactions N Breast Cancer N Blood Transfusion N Lung Disease N [...] N Kidney Disease N Heart Problems N Thyroid Problems N Kidney or Bladder Problems N GI Problems N Eating Disorder [...] Diagnosis IMO Codes Diagnosis Note [id number] Samantha Folres CNM [place] [address] [address] 03/20/2020 11:30:20 03/20/2020 13:17:10 Gynecologic examination 73037025 Z01.419 [id number] Ishan Bowers MD [place] [address] [address] 06/11/2022 12:54:40 06/11/2022 14:33:29 screening 664843376 Z36.87 [id number] Ishan Bowers MD [place] [address],[place] [address] 07/01/2022 12:03:23 07/01/2022 12:29:09 [id number] [facility] [address],[place] [address] 07/01/2022 12:04:13 07/01/2022 13:58:50 test positive 814178501 Z32.01 Gynecologi c examination 59308354 Z01.419 [id number] Ishan Bowers MD [place] [address],[place] [address] 07/22/2022 14:15:14 07/22/2022 14:41:42 screening 523367921 Z36.82 [id number] Ishan Bowers MD [place] [address],[place] [address] 07/22/2022 14:15:34 07/22/2022 15:51:50 Routine care 302992486 Z34.91 [id number] Ishan Bowers MD [place] [address],[place] [address] 08/18/2022 12:37:27 08/18/2022 13:45:58 Screening for drug of abuse in urine specimen positive 434590559 R82.5 Routine an tenatal care 410358855 Z34.91 [id number] MD Love Pemberton [address],[place] [address] 09/22/2022 14:01:19 09/22/2022 15:13:15 screening for malformation 244338516 Z36.3 [id number] MD Love Pemberton [address],[place] [address] 09/22/2022 14:02:28 09/22/2022 15:27:00 Routine care 083338941 Z34.82 [id number] MD Love Claudio [address],[place] [address] 10/21/2022 14:13:51 10/21/2022 14:56:14 screening 914407671 Z36.2 [id number] Ishan Bowers MD [place] [address],[place] [address] 10/21/2022 14:14:22 10/21/2022 20:43:28 Routine care 228269511 Z34.91 [id number] [facility] [address],[place] [address] 11/20/2022 09:57:08 11/20/2022 13:43:54 Routine care 159408011 Z34.93 [id number] [facility] [address],[place] [address] 12/03/2022 10:52:07 12/03/2022 11:55:29 Routine care 238870722 Z34.93 [id number] [facility] [address],[place] [address] 12/17/2022 11:03:13 12/17/2022 12:02:18 Routine care 039274443 Z34.93 s ection following previous section 810293587 O34.219 [id number] [facility] [address],[place] [address] 01/01/2023 12:02:36 01/01/2023 12:41:25 Routine care 615998749 Z34.93 [id number] Nicolle Talley CNM [place] [address],[place] [address] 01/07/2023 09:40:22 01/07/2023 15:38:17 Routine care 692644097 Z34.93 Elevated blood-pressure reading without diagnosis of hypertension 032352253 R03.0 - induced hypertension 81476881 O13.9 [id number] Nicolle Talley CNM [place] [address],[place] [address] 01/14/2023 09:33:09 01/14/2023 14:28:46 Routine care 779708409 Z34.93 [id number] [facility] [address],[place] [address] 01/21/2023 09:32:19 01/21/2023 10:15:07 Routine care 441411131 Z34.93 [id number] Ishan Bowers MD [place] [address],[place] [address] 01/25/2023 10:18:06 01/25/2023 10:19:20 [id number] Ishan Bowers MD [place] [address],[place] [address] 02/01/2023 12:23:58 02/01/2023 13:00:04 Postoperative care 107955970 Z48.89 This patient is a 32-year-ol d multiparou s female presents for postoperat marsha care. She is 1 week post op from a delivery. She has no complaints . Her incision has some burning on the right side. We discussed that. Mood is good. Her baby is well. [id number] Ishan Bowers MD [place] [address],[place] [address] 03/06/2023 10:57:49 03/08/2023 13:21:57 care 221916820 Z39.2 This patient is 32-year-ol d female presents for follow-up. She is 4 weeks post from a delivery. Her baby is doing well. She is doing well. She has stopped bleeding. She has had sex. She is breast-fee ding primarily. She had a tubal ligation her , she will follow up in 2 months for well woman. [id number] Ishan Bowers MD [place] [address],[place] [address] 07/05/2023 13:47:15 07/05/2023 14:31:52 Mixed anxiety and depressive disorder 299006047 F41.8 Gynecologi c examination 41054983 Z01.419 Annual gynecologi francisco javier exam performed. [...] Singletary Member ID Guarantor Name 11/19/2023 1 [facility] (MEDICAID HMO) [id number] 0003 [facility] [id number] [facility] Notes Date Note Type Note Provider Name and Address Organization Details Recorded Time 01/22/20 23 text/htm l Generic HPI TemplateReported by Patient Nicolle harris [facility] 01/21/2023 17:24:07 02/02/20 23 text/htm l This patient is a 32-year-old multiparous female presents for postoperative care. She is 1 week post op from a delivery. She has no complaints. Her incision has some burning on the right side. We discussed that. Mood is good. Her baby is well. Incision is clean dry and intact. Ishan Bowers MD [address], [place], [address], [facility] 02/01/2023 12:47:00 03/06/20 23 text/htm l [...] woman. Ishan Bowers MD [address], [place], [address], [facility] 03/06/2023 12:18:49 07/05/20 23 text/htm l [...] exercise. Ishan Bowers MD [address], [place], [address], [facility] 07/05/2023 14:30:46 OBGyn Episode Ob Episode Information Episode Created Date Number of Fetuses Patient Bloodtype Patient rh Status Prepregnancy Weight lbs Domestic Partner Domestic Partner Phone Father Name Pharmacy Order Entry Technician Status 03/20/20 20 1 CLOSED Fetus Data [...] Domestic Partner Domestic Partner Phone Father Name Pharmacy Order Entry Technician Status 03/20/20 20 1 CLOSED Fetus Data [...] Domestic Partner Domestic Partner Phone Father Name Pharmacy Order Entry Technician Status 03/20/20 20 1 CLOSED Fetus Data [...] Domestic Partner Domestic Partner Phone Father Name Pharmacy Order Entry Technician Status 07/22/20 22 1 A Negative 176 CLOSED Fetus Data First Name Last Name Admitted to NICU Weight (g) Sex Living Outcome Pediatric Complications Fetus ID Race Codes Race Delivery Type M true Full Term [id number] Repeat Problems Problem Notes 1hr gtt FAILED/ 1/3 hr gtt W NL Problem Name Start Date End Date Resolution Snomed Code Not e delivery - delivered [id number] to repeat Raphael Calculation Initial Raphael Date [...] Weight in lbs Pre/Post Dialysis Refused Weight 173.276669611599 BP Diastolic BP Location Tested BP Systolic [...] Weight in lbs Pre/Post Dialysis Refused Weight 183.095963542207 BP Diastolic BP Location Tested BP Systolic [...] Weight in lbs Pre/Post Dialysis Refused Weight 185.081391431364 BP Diastolic BP Location Tested BP Systolic [...] Weight in lbs Pre/Post Dialysis Refused Weight 182.129837306794 BP Diastolic BP Location Tested BP Systolic [...] Weight in lbs Pre/Post Dialysis Refused Weight 184.448122922848 BP Diastolic BP Location Tested BP Systolic [...] Weight in lbs Pre/Post Dialysis Refused Weight 186.716830746429 BP Diastolic BP Location Tested BP Systolic [...] Weight in lbs Pre/Post Dialysis Refused Weight 186.819203556550 BP Diastolic BP Location Tested BP Systolic [...] Weight in lbs Pre/Post Dialysis Refused Weight 189.414787992645 BP Diastolic BP Location Tested BP Systolic [...] Weight in lbs Pre/Post Dialysis Refused Weight 189.386014943695 BP Diastolic BP Location Tested BP Systolic [...] Weight in lbs Pre/Post Dialysis Refused Weight 190.171769284225 BP Diastolic BP Location Tested BP Systolic [...] Weight in lbs Pre/Post Dialysis Refused Weight 193.93584960630 BP Diastolic BP Location Tested BP Systolic [...] Weight in lbs Pre/Post Dialysis Refused Weight 181.912353784522 BP Diastolic BP Location Tested BP Systolic BP Type 93 R arm 149 sitting Fetus Heart Rate Present Fetus Movement Comments Flowsheet Date 03/06/2023 Marshall Score Blood Edema Fundus Height Fundus Units Glucose Ketones Leukocytes Nitrite Labor Signs Protein Cervic Dilation Cervic Effacement Cervic Station Type Weight in lbs Pre/Post Dialysis Refused Weight 167.866588336292 BP Diastolic BP Location Tested BP Systolic [...] Estim ated Date of Delivery false Thalassemia (Indonesian, Romansh, Mediterranean, Or Background): MCV < 80 false Neural Tube Defect (Meningomyelocele, Spina Bifi da, Or Anencephaly) false Congenital Heart Defect false Down Syndrome false Ronald-Sachs (eg, Congregational, Cajun, Kazakh-[place]) f alse Alyssa Disease false Sickle Cell [...] Domestic Partner Domestic Partner Phone Father Name Pharmacy Order Entry Technician Status 01/02/20 22 1 DELETED Raphael Calculation [...]
[2025-11-17 08:08] VITALS: BP 134/87; PULSE 75; RESP 20; TEMP 36.2; O2SAT 100
[2025-11-17] MEDS: dexAMETHasone SOD PHOS INJ 10 MG/ML 1 ML VIAL 6 MG IM (08:30)
[2025-11-17] MEDS: KETOROLAC (*BKC) 60 MG/2 ML VIAL IM (08:31)
--- NOTE | 2025-11-17 08:32 | ED.HA ---
HPI - Headache General Chief Complaint: Nausea/Vomiting/Diarrhea Stated Complaint: headache/nausea Time Seen by Provider: 11/17/25 08:15 Source: patient and RN notes reviewed Mode of arrival: ambulatory Limitations: no limitations History of Present Illness HPI Narrative: 35-year-old female presents to [facility] complaining of a headache that started yesterday. Patient said they normally go away on their own. However this headache has been persisting. Patient says she has vomited 3 times because of it. Patient reports the headache 05/01 describes as a pressure in the front of her forehead. Patient denies any history of migraines. Patient denies any vision changes, slurred speech, weakness, one-sided weakness, facial droop, fevers, body aches, chills, upper respiratory symptoms, cough, diarrhea, or any other symptoms. Related Data Allergies Allergy/AdvReac Type Severity Reaction Status Date / Time No Known Allergies Allergy Unknown Verified 11/17/25 08:12 Review of Systems Review of Systems: CONSTITUTIONAL: Denies fever, chills, body aches, or sweats. EYES: Denies visual changes, redness, or discharge. ENT: Denies rhinorrhea, congestion, sore throat, or otalgia. CARDIOVASCULAR: Denies chest pain, palpitations, or edema. RESPIRATORY: Denies cough or dyspnea. GASTROINTESTINAL: Denies abdominal pain, or diarrhea. Positive for nausea and vomiting GENITOURINARY: Denies dysuria or hematuria. SKIN: Denies rash or itching. MUSCULOSKELETAL: Denies back pain, joint pain, or myalgia. NEUROLOGIC: Positive for headaches. Negative for numbness, or weakness. PSYCHIATRIC: Denies anxiety or depression. All other systems reviewed are negative, except as documented in HPI. [facility] Past Medical History Medical History Obesity Surgical History Surgical History History of 2022 & 2018 Family History Family History Mother Hypertension DVT (deep venous thrombosis) Father Hypertension Father Hypertension Mother Diabetes mellitus Social History Social History Smoking status: Never smoker Second hand tobacco smoke exposure: Yes Alcohol intake: current Drinks per week: 1 Substance use: current Substance use type: marijuana Other substance usage details: occasional Last use: 10/30/23 Lack of Transportation: No Lack of Food: Never True Current Housing: I Have Housing Concerned About Future Housing: No Difficulty Paying Gas/Electric Bills: YES Difficulty Paying for Meds: No Currently Unemployed: No Education: High School Diploma/GED Difficulty w/ Childcare or Family Care: No Gender identity (if verbalized by the patient): Female Spiritual care concerns: No Comments At the time of my signature, I reviewed and agree with the nursing past medical, surgical, social, and family history. There is no relevant family history pertinent to the patient complaint. Exam Narrative: GENERAL: This is a well-nourished, well-developed adult, in no apparent distress. They are non ill-appearing, nontoxic appearing. HEAD: normocephalic, atraumatic. EYES: Sclera clear/white. Conjunctiva normal. Vision is grossly intact. Extraocular movements intact. Pupils PERRLA EARS: External ears normal, auditory canals clear and without drainage, TMs normal without perforation. Hearing grossly intact. NOSE: External nose normal with no obvious nasal discharge, nasal turbinates without redness, no rhinorrhea. THROAT: Mucous membranes moist, posterior pharynx clear, without erythema or swelling. Uvula midline. NECK: Neck supple, non-tender without lymphadenopathy, masses or thyromegaly. CARDIOVASCULAR: Regular rate and rhythm without murmurs, gallops, or rubs. RESPIRATORY: Clear to auscultation. Breath sounds equal bilaterally. No wheezes, rales, or rhonchi. SKIN: warm, Dry, intact with no suspicious lesions or rash, good texture and turgor. NEURO: awake, alert, and oriented to person, place and time. There were no obvious focal neurologic abnormalities. Cranial nerve 2-12 grossly intact. EXTREMITIES: No joint tenderness, effusion, or edema noted. BACK: Nontender without deformity. Course Course Level of Care: Express Care Visit Vital Signs Vital signs: Vital Signs Temperature 97.2 F L 11/17/25 08:08 Pulse Rate 75 11/17/25 08:08 Respiratory Rate 20 11/17/25 08:08 Blood Pressure 134/87 11/17/25 08:08 Pulse Oximetry 100 11/17/25 08:08 Oxygen Delivery Room Air 11/17/25 08:08 Temperature 97.2 F L 11/17/25 08:08 Pulse Rate 75 11/17/25 08:08 Respiratory Rate 20 11/17/25 08:08 Blood Pressure 134/87 11/17/25 08:08 Pulse Oximetry 100 11/17/25 08:08 Oxygen Delivery Room Air 11/17/25 08:08 MDM MDM Narrative Medical decision making narrative: Patient has only taking Tylenol for the pain, will give patient a shot of Toradol and dexamethasone. Patient's symptoms are consistent with migraine headache. Will avoid Benadryl because patient drove herself. Patient reports improvement symptoms. Will send patient home with Zofran as needed for nausea vomiting. Discussed physical exam findings. Advised supportive measures and signs/symptoms to go to the ER. Pt is appropriate for outpt treatment and f/u. Differential Diagnosis Differential Diagnosis: Headaches, migraine headache, cluster headaches, tension headaches Critical Care Time Critical Care Time Critical Care Time: No Discharge Plan Discharge Clinical Impression: Headache Qualifiers: Headache type: unspecified Headache chronicity pattern: acute headache Intractability: not intractable Qualified Code(s): R51.9 - Headache, unspecified Patient Disposition: Home Condition: Stable Instructions: Antibiotic Form, Migraine Headache (ED) Additional Instructions: Your given a shot of Toradol and dexamethasone today. Do not not take any NSAIDs today sent you were given the Toradol shot. You may resume NSAIDs tomorrow this includes but not limited to ibuprofen, Naprosyn, naproxen, meloxicam, etc. do not mix NSAIDs together. You may alternate with Tylenol as needed for pain. Follow instructions on the bottle. Take Zofran as needed for nausea and vomiting. Rest, drink plenty of fluids. relax in a dark quiet room may also help with headache. Follow-up with your PCP in 3-5 days. Go to the ER if your headache gets worse, uncontrollable nausea vomiting, fevers, vision changes, slurred speech, one-sided weakness, or any serious concerns. Patient Language: Korean Prescriptions: New ondansetron 4 mg tablet,disintegrating 4 mg PO Q8H PRN (Reason: nausea and vomiting) Qty: 12 0RF Follow-up/Referrals: Ricardo Dickey MD [Primary Care Provider, Internal Medicine] Stand Alone Forms: Work/School Release IP Time of Disposition: 08:30
== END 2025-11-17 08:58 | disposition home or self-care (01) ==
PROVIDERS: PCP Family Medicine
DX: R11.2 Nausea with vomiting, unspecified (principal); R19.7 Diarrhea, unspecified; R51.9 Headache, unspecified
CPT/HCPCS: 96372; 99214; G0463; J1100; J1885